=== PATIENT | female | born 1940 | race Caucasian/White ===

== ENCOUNTER 2020-06-16 14:21 | Outpatient (REF) | payer MEDICARE, OTHER, SELFPAY ==
--- NOTE | 2020-06-16 14:37 | XR_ITS ---
EXAMINATION: RIGHT HAND AND WRIST X-RAY CLINICAL INFORMATION: Pain COMPARISON: None TECHNIQUE: 3 views of the right hand and wrist. FINDINGS: The bones are osteopenic. No fracture or dislocation is seen. There is severe arthritis at the IP joints with joint space narrowing and osteophyte formation and periarticular soft tissue swelling. There are periarticular soft tissue calcifications adjacent to the DIP joint of the third finger. There is severe arthritis at the first LONG TERM trapezoid trapezium scaphoid joints with joint space narrowing and osteophyte formation. There is degenerative soft tissue calcification in the triangular fibrocartilage complex region. There is soft tissue swelling over the dorsal wrist. There is slight dorsal angulation of the distal ulnar and distal radial shaft. IMPRESSION: Severe arthritis. Osteopenia.
== END 2020-06-16 14:22 | disposition home or self-care (01) ==
LOC: HO.XRAY 14:21
PROVIDERS: PCP Internal Medicine; Visit Provider Internal Medicine
DX: M25.539 Pain in unspecified wrist (principal)
CPT/HCPCS: 73110; 73130

== ENCOUNTER → 2020-06-27 13:37 | Outpatient (BNVA) | payer MEDICARE, SELFPAY | PROVIDERS: PCP Internal Medicine; Referring Provider Internal Medicine; Visit Provider Internal Medicine | DX: I48.20 Chronic atrial fibrillation, unspecified (principal); Z51.81 Encounter for therapeutic drug level monitoring; Z79.01 Long term (current) use of anticoagulants | CPT/HCPCS: 85610 ==

== ENCOUNTER 2020-07-15 14:24 | Outpatient (REF) | payer MEDICARE, OTHER, SELFPAY ==
[2020-07-15 15:13] LABS: MANUAL DIFF FLAG NO
[2020-07-15 15:19] LABS: Basophils Percent Auto 0.5 % (0-2); Eosinophils Absolute Auto 0.2 X10*3/uL (0.0-0.4); Eosinophils Percent Auto 2.2 % (0-4); Hematocrit 41.7 % (37-47); Hemoglobin 13.1 g/dl (12.0-16.0); Imm Gran Abs Auto 0.03 X10*3/uL (0.00-0.03); Imm Gran Pct Auto 0.4 % (0.0-0.4); Lymphocytes Absolute Auto 1.7 X10*3/uL (1.2-4.9); Lymphocytes Percent Auto 22.4 % (20-40); Mean Corpuscular HGB Conc 31.4 g/dl (31.0-35.0); Mean Corpuscular Hemoglobin 28.1 pg (27.0-33.0); Mean Corpuscular Volume 89.5 fL (80-98); Mean Platelet Volume 9.6 fL (9.4-12.3); Monocytes Absolute Auto 0.8 X10*3/uL (0.1-1.2); Monocytes Percent Auto 11.1 % (2-11); Neutrophils Absolute Auto 4.8 X10*3/uL (2.0-8.3); Neutrophils Percent Auto 63.4 % (45-73); Platelet Count 289 X10*3/uL (160-400); Red Blood Count 4.66 X10*6/uL (4.20-5.50); White Blood Count 7.6 X10*3/uL (4.8-10.8)
[2020-07-15 15:47] LABS: B Type Natriuretic Peptide 295 pg/mL (<100)
[2020-07-15 15:50] LABS: Alanine Aminotransferase 24 U/L (0-31); Albumin Level 4.1 g/dL (3.5-5.0); Alkaline Phosphatase 132 U/L (39-117); Anion Gap 14 (12-20); Aspartate Amino Transferase 21 U/L (5-31); Bilirubin Total 0.4 mg/dL (0.0-1.0); Blood Urea Nitrogen 11 mg/dL (9-16); Calcium 8.8 mg/dL (8.4-10.2); Carbon Dioxide 26 mmol/L (22-29); Chloride 104 mmol/L (96-108); Estimated Glomerular Filt Rate > 60; Glucose Random 80 mg/dL (60-115); Potassium 4.4 mmol/l (3.3-5.1); Sodium 140 mmol/L (135-145); Total Protein 6.5 g/dL (6.5-8.0)
== END 2020-07-15 14:25 | disposition home or self-care (01) ==
LOC: HO.LAB 14:24
PROVIDERS: PCP Internal Medicine; Visit Provider Internal Medicine
DX: E66.9 Obesity, unspecified (principal); I11.0 Hypertensive heart disease with heart failure; I50.9 Heart failure, unspecified; G47.33 Obstructive sleep apnea (adult) (pediatric); K21.9 Gastro-esophageal reflux disease without esophagitis; E11.649 Type 2 diabetes mellitus with hypoglycemia without coma; I48.91 Unspecified atrial fibrillation; E78.00 Pure hypercholesterolemia, unspecified; J44.9 Chronic obstructive pulmonary disease, unspecified
CPT/HCPCS: 36415; 80053; 83880; 85025

== ENCOUNTER 2020-07-26 13:04 | Outpatient (REF) | payer MEDICARE, OTHER, SELFPAY ==
[2020-07-26 13:55] LABS: Prothrombin Time 64.4 SEC (10.8-13.0)
[2020-07-26 14:00] LABS: INTERNATIONAL NORM RATIO 5.3 (0.9-1.1)
== END 2020-07-26 13:05 | disposition home or self-care (01) ==
LOC: HO.LAB 13:04
PROVIDERS: PCP Internal Medicine; Referring Provider Internal Medicine; Visit Provider Internal Medicine
DX: Z79.01 Long term (current) use of anticoagulants (principal)
CPT/HCPCS: 36415; 85610; 99212

== ENCOUNTER → 2020-07-29 14:22 | Outpatient (BNVA) | payer MEDICARE, OTHER, SELFPAY | PROVIDERS: PCP Internal Medicine; Visit Provider Internal Medicine | DX: I48.20 Chronic atrial fibrillation, unspecified (principal); Z51.81 Encounter for therapeutic drug level monitoring; Z79.01 Long term (current) use of anticoagulants | CPT/HCPCS: 85610; 99211 ==

== ENCOUNTER 2020-08-09 13:18 | Outpatient (REF) | payer MEDICARE, OTHER, SELFPAY ==
[2020-08-09 14:27] LABS: Prothrombin Time 65.2 SEC (10.8-13.0)
[2020-08-09 14:29] LABS: INTERNATIONAL NORM RATIO 5.4 (0.9-1.1)
== END 2020-08-09 13:19 | disposition home or self-care (01) ==
LOC: HO.LAB 13:18
PROVIDERS: PCP Internal Medicine; Visit Provider Internal Medicine
DX: Z79.01 Long term (current) use of anticoagulants (principal)
CPT/HCPCS: 36415; 85610

== ENCOUNTER 2020-08-11 09:38 | Outpatient (REF) | payer MEDICARE, OTHER, SELFPAY ==
--- NOTE | 2020-08-11 09:41 | EMG_ITS ---
Bilateral median and ulnar motor and sensory studies were performed. Bilateral radial sensory studies were performed and paraspinal muscles were tested with a needle. IMPRESSION: 1. Severe right and [id number] left median neuropathy across carpal tunnel. 2. Underlying chronic axonal sensory motor peripheral neuropathy. MD MAGGI Sotomayor/NAVEEN / [id number]
== END 2020-08-11 09:39 | disposition home or self-care (01) ==
LOC: HO.NEURO 09:38
PROVIDERS: PCP Internal Medicine; Visit Provider Internal Medicine
DX: R20.0 Anesthesia of skin (principal)
CPT/HCPCS: 95860; 95886; 95911

== ENCOUNTER → 2020-08-16 13:27 | Outpatient (BNVA) | payer MEDICARE, OTHER, SELFPAY | PROVIDERS: PCP Internal Medicine; Visit Provider Internal Medicine | DX: I48.20 Chronic atrial fibrillation, unspecified (principal); Z51.81 Encounter for therapeutic drug level monitoring; Z79.01 Long term (current) use of anticoagulants | CPT/HCPCS: 85610; 99211 ==

== ENCOUNTER → 2020-08-24 13:31 | Outpatient (BNVA) | payer MEDICARE, OTHER, SELFPAY | PROVIDERS: PCP Internal Medicine; Visit Provider Internal Medicine | DX: I48.20 Chronic atrial fibrillation, unspecified (principal); Z51.81 Encounter for therapeutic drug level monitoring; Z79.01 Long term (current) use of anticoagulants | CPT/HCPCS: 85610; 99211 ==

== ENCOUNTER → 2020-09-05 14:05 | Outpatient (BNVA) | payer MEDICARE, OTHER, SELFPAY | PROVIDERS: PCP Internal Medicine; Visit Provider Internal Medicine | DX: I48.20 Chronic atrial fibrillation, unspecified (principal); Z51.81 Encounter for therapeutic drug level monitoring; Z79.01 Long term (current) use of anticoagulants | CPT/HCPCS: 85610; 99211 ==

== ENCOUNTER → 2020-09-12 13:12 | Outpatient (BNVA) | payer MEDICARE, OTHER, SELFPAY | PROVIDERS: PCP Internal Medicine; Visit Provider Internal Medicine | DX: I48.20 Chronic atrial fibrillation, unspecified (principal); Z51.81 Encounter for therapeutic drug level monitoring; Z79.01 Long term (current) use of anticoagulants | CPT/HCPCS: 85610; 99211 ==

== ENCOUNTER → 2020-09-23 13:06 | Outpatient (BNVA) | payer MEDICARE, OTHER, SELFPAY | PROVIDERS: PCP Internal Medicine; Visit Provider Internal Medicine | DX: I48.20 Chronic atrial fibrillation, unspecified (principal); Z51.81 Encounter for therapeutic drug level monitoring; Z79.01 Long term (current) use of anticoagulants | CPT/HCPCS: 85610; 99211 ==

== ENCOUNTER → 2020-09-29 13:33 | Outpatient (BNVA) | payer MEDICARE, OTHER, SELFPAY | PROVIDERS: PCP Internal Medicine; Visit Provider Internal Medicine Cardiovascular Disease | DX: I48.0 Paroxysmal atrial fibrillation (principal); I50.22 Chronic systolic (congestive) heart failure; I10 Essential (primary) hypertension | CPT/HCPCS: 93005; 99212 ==

== ENCOUNTER → 2020-10-04 13:42 | Outpatient (BNVA) | payer MEDICARE, OTHER, SELFPAY | PROVIDERS: Visit Provider Orthopaedic Surgery | DX: G56.02 Carpal tunnel syndrome, left upper limb (principal); G56.01 Carpal tunnel syndrome, right upper limb | CPT/HCPCS: 85610; 99202; 99211 ==

== ENCOUNTER → 2020-10-13 13:27 | Outpatient (BNVA) | payer MEDICARE, OTHER, SELFPAY | PROVIDERS: Visit Provider Internal Medicine | DX: I48.20 Chronic atrial fibrillation, unspecified (principal); Z51.81 Encounter for therapeutic drug level monitoring; Z79.01 Long term (current) use of anticoagulants | CPT/HCPCS: 85610; 99211 ==

== ENCOUNTER → 2020-10-27 13:28 | Outpatient (BNVA) | payer MEDICARE, OTHER, SELFPAY | PROVIDERS: PCP Internal Medicine; Visit Provider Internal Medicine | DX: I48.20 Chronic atrial fibrillation, unspecified (principal); Z51.81 Encounter for therapeutic drug level monitoring; Z79.01 Long term (current) use of anticoagulants | CPT/HCPCS: 85610; 99211 ==

== ENCOUNTER → 2020-11-10 13:15 | Outpatient (BNVA) | payer MEDICARE, OTHER, SELFPAY | PROVIDERS: PCP Internal Medicine; Visit Provider Internal Medicine | DX: I48.20 Chronic atrial fibrillation, unspecified (principal); Z51.81 Encounter for therapeutic drug level monitoring; Z79.01 Long term (current) use of anticoagulants | CPT/HCPCS: 85610; 99211 ==

== ENCOUNTER → 2020-11-24 13:29 | Outpatient (BNVA) | payer MEDICARE, OTHER, SELFPAY | PROVIDERS: PCP Internal Medicine; Visit Provider Internal Medicine | DX: I48.20 Chronic atrial fibrillation, unspecified (principal); Z51.81 Encounter for therapeutic drug level monitoring; Z79.01 Long term (current) use of anticoagulants | CPT/HCPCS: 85610; 99211 ==

== ENCOUNTER → 2020-12-08 13:34 | Outpatient (BNVA) | payer MEDICARE, OTHER, SELFPAY | PROVIDERS: PCP Internal Medicine; Visit Provider Internal Medicine | DX: I48.20 Chronic atrial fibrillation, unspecified (principal); Z79.01 Long term (current) use of anticoagulants; Z51.81 Encounter for therapeutic drug level monitoring | CPT/HCPCS: 85610; 99211 ==

== ENCOUNTER → 2020-12-16 13:35 | Outpatient (BNVA) | payer MEDICARE, OTHER, SELFPAY | PROVIDERS: PCP Internal Medicine; Visit Provider Internal Medicine | DX: I48.20 Chronic atrial fibrillation, unspecified (principal); Z79.01 Long term (current) use of anticoagulants; Z51.81 Encounter for therapeutic drug level monitoring | CPT/HCPCS: 85610; 99211 ==

== ENCOUNTER → 2020-12-30 13:07 | Outpatient (BNVA) | payer MEDICARE, OTHER, SELFPAY | PROVIDERS: PCP Internal Medicine; Visit Provider Internal Medicine | DX: I48.20 Chronic atrial fibrillation, unspecified (principal); Z79.01 Long term (current) use of anticoagulants; Z51.81 Encounter for therapeutic drug level monitoring | CPT/HCPCS: 85610; 99211 ==

== ENCOUNTER → 2021-01-13 13:23 | Outpatient (BNVA) | payer MEDICARE, OTHER, SELFPAY | PROVIDERS: PCP Internal Medicine; Visit Provider Internal Medicine | DX: I48.20 Chronic atrial fibrillation, unspecified (principal); Z79.01 Long term (current) use of anticoagulants; Z51.81 Encounter for therapeutic drug level monitoring | CPT/HCPCS: 85610; 99211 ==

== ENCOUNTER 2021-01-23 11:51 | Outpatient (REF) | payer MEDICARE, OTHER, SELFPAY ==
--- NOTE | ~2021-01-23 | MM_ITS ---
EXAMINATION: MM SCREENING DIGITAL BREAST TOMOSYNTHESIS, BILATERAL CLINICAL INFORMATION: Screening. Asymptomatic. Right lumpectomy for breast cancer, 2011. Due for yearly exam. COMPARISON: Mammography: 05/12/2019, 05/08/2018, 11/04/2017, 05/01/2017 TECHNIQUE: Digital breast tomosynthesis is performed in both the craniocaudal and mediolateral oblique views along with computer-aided detection (CAD). Synthesized 2D images are generated from the tomosynthesis. FINDINGS: There are scattered areas of fibroglandular density (ACR BI-RADS breast composition Category b). Right breast has stable post therapy changes with mild reduced breast size and scarring and surgical clips. Neither breast shows significant mass or architectural abnormality or developing density. There are bilateral vascular calcifications. Lobulated dermal lesion again noted lower left breast. No significant changes from prior studies. MM/MM tomosynthesis screening BI IMPRESSION: No mammographic evidence of malignancy. ASSESSMENT: BI-RADS 2: Benign RECOMMENDATION: Routine annual mammography screening. This patient's information was entered into a reminder system with a target due date for their next mammogram.
== END 2021-01-23 11:52 | disposition home or self-care (01) ==
LOC: HO.MAMMO 11:51
PROVIDERS: PCP Internal Medicine; Visit Provider Internal Medicine
DX: Z12.31 Encounter for screening mammogram for malignant neoplasm of breast (principal)
CPT/HCPCS: 77063; 77067

== ENCOUNTER → 2021-01-27 13:08 | Outpatient (BNVA) | payer MEDICARE, OTHER, SELFPAY | PROVIDERS: PCP Internal Medicine; Visit Provider Internal Medicine | DX: I48.20 Chronic atrial fibrillation, unspecified (principal); Z51.81 Encounter for therapeutic drug level monitoring; Z79.01 Long term (current) use of anticoagulants | CPT/HCPCS: 85610; 99211 ==

== ENCOUNTER 2021-02-01 13:31 | Outpatient (REF) | payer MEDICARE, OTHER, SELFPAY ==
--- NOTE | ~2021-02-01 | MM_ITS ---
EXAMINATION: BONE DENSITOMETRY CLINICAL INDICATION: Other specified disorders of bone density and structure. COMPARISON: Previous BD dated 07/16/2017 and baseline BD dated 07/23/2008. TECHNIQUE: Using a [employer] DXA System (software version: 13.1) manufactured by [employer], dual-energy x-ray absorptiometry was performed of the lumbar spine and left hip. The images are of good technical quality. Summary results are attached. FINDINGS: AP SPINE L2-L3 (excluding L1 and L4): The data of L1-L4 has been changed to exclude the L1 and L4 vertebral bodies, because degenerative changes at these levels may cause overestimation of lumbar spine density. There is also levocurvature lumbar spine which may cause overestimation of the lumbar bone mineral density. Current: BMD 0.828 g/cm2, Z-score -2.4, T-score -3.1, osteoporosis, 15.3% decrease from previous, 25.1% decrease from baseline (<5% change is not significant). Prior: BMD 0.977 g/cm2. Baseline: BMD 1.105 g/cm2. LEFT FEMUR, NECK: Current: BMD 0.905 g/cm2, Z-score 0.4, T-score -1.0, normal. Prior: BMD 0.913 g/cm2. Baseline: BMD 1.052 g/cm2. LEFT FEMUR, TOTAL: Current: BMD 0.734 g/cm2, Z-score -1.1, T-score -2.2, osteopenia, 9.5% decrease from previous, 23.6% decrease from baseline (<5% change is not significant). Prior: BMD 0.811 g/cm2. Baseline: BMD 0.961 g/cm2. IDENTIFIED RISK FACTORS: Recurrent falls, height loss, history of fracture (adult). Early menopause, secondary osteoporosis, anticonvulsants, hysterectomy. HISTORY OF FRACTURE: Femur/hip. MEDICATIONS: Multivitamin. MM/XR DEXA axial skeleton IMPRESSION: 1. DIAGNOSIS: Osteoporosis based on the lowest T-score value of -3.1 in the lumbar spine applying World Health Organization criteria. 2. 10-YEAR FRACTURE RISK PREDICTION, FRAX: Major osteoporotic fracture (clinical spine, forearm, hip or shoulder) 14.4%. Hip fracture 2.1%. 3. Treatment Recommendations: NOF guidelines recommend consideration for treatment in postmenopausal women and men age 50 and older presenting with the following: -A hip or vertebral (clinical or morphometric) fracture. -T-score less than or equal to -2.5 at the femoral neck or spine after appropriate evaluation to exclude secondary causes. -Low bone mass at the hip or spine and a 10-year fracture probability by FRAX of greater than or equal to 3% for hip fracture or greater than or equal to 20% for major osteoporotic fracture based on the [place] adapted WHO algorithm. 4. Other Recommendations: All treatment decisions require clinical judgment and consideration of individual patient factors, including patient preferences, comorbidities, previous drug use, risk factors not captured in the FRAX model (e.g. frailty, falls, vitamin D deficiency, increased bone turnover, interval significant decline in bone density) and possible under or overestimation of fracture risk by FRAX. Additional medical evaluation for secondary cause of low bone mineral density may be appropriate. FUTURE SCAN RECOMMENDATION: People with diagnosed cases of osteoporosis or at high risk for fracture should have regular bone mineral density tests. For patients eligible for Medicare, routine testing is allowed once every 2 years. The testing frequency can be increased to one year for patients who have rapidly progressing disease, those who are receiving or discontinuing medical therapy to restore bone mass, or have additional risk factors.
== END 2021-02-01 13:32 | disposition home or self-care (01) ==
LOC: HO.MAMMO 13:31
PROVIDERS: Visit Provider Internal Medicine
DX: Z13.820 Encounter for screening for osteoporosis (principal); M85.89 Other specified disorders of bone density and structure, multiple sites; M81.0 Age-related osteoporosis without current pathological fracture; Z79.899 Other long term (current) drug therapy; Z87.81 Personal history of (healed) traumatic fracture
CPT/HCPCS: 77080

== ENCOUNTER 2021-02-17 13:21 | Outpatient (REF) | payer MEDICARE, OTHER, SELFPAY ==
[2021-02-17 16:18] LABS: MANUAL DIFF FLAG NO
[2021-02-17 16:37] LABS: Basophils Percent Auto 0.6 % (0-2); Eosinophils Absolute Auto 0.2 X10*3/uL (0.0-0.4); Eosinophils Percent Auto 3.1 % (0-4); Hematocrit 41.3 % (37-47); Hemoglobin 12.6 g/dl (12.0-16.0); Imm Gran Abs Auto 0.01 X10*3/uL (0.00-0.03); Imm Gran Pct Auto 0.1 % (0.0-0.4); Lymphocytes Absolute Auto 1.3 X10*3/uL (1.2-4.9); Lymphocytes Percent Auto 17.5 % (20-40); Mean Corpuscular HGB Conc 30.5 g/dl (31.0-35.0); Mean Corpuscular Volume 88.4 fL (80-98); Mean Platelet Volume 9.6 fL (9.4-12.3); Monocytes Absolute Auto 0.8 X10*3/uL (0.1-1.2); Monocytes Percent Auto 11.7 % (2-11); Neutrophils Absolute Auto 4.8 X10*3/uL (2.0-8.3); Platelet Count 283 X10*3/uL (160-400); Red Blood Count 4.67 X10*6/uL (4.20-5.50); Red Cell Distribution Width 16.7 % (11.0-16.0); White Blood Count 7.2 X10*3/uL (4.8-10.8)
[2021-02-17 16:38] LABS: Estimated Average Glucose 134 mg/dL; Hemoglobin A1c % 6.3 %
[2021-02-17 17:06] LABS: Alanine Aminotransferase 12 U/L (0-31); Albumin Level 3.9 g/dL (3.5-5.0); Alkaline Phosphatase 139 U/L (39-117); Anion Gap 12 (12-20); Aspartate Amino Transferase 13 U/L (5-31); Bilirubin Total 0.5 mg/dL (0.0-1.0); Blood Urea Nitrogen 13 mg/dL (9-16); Carbon Dioxide 32 mmol/L (22-29); Chloride 102 mmol/L (96-108); Cholesterol 138 mg/dL; Estimated Glomerular Filt Rate > 60; Glucose Random 100 mg/dL (60-115); HDL Cholesterol 47 mg/dL; LDL Cholesterol Calculated 77 mg/dl; Potassium 4.7 mmol/L (3.3-5.1); Sodium 141 mmol/L (135-145); Total Protein 6.2 g/dL (6.5-8.0); Triglycerides 72 mg/dL
[2021-02-17 17:11] LABS: B Type Natriuretic Peptide 292 pg/mL (<100)
[2021-02-17 17:31] LABS: Thyroid Stimulating Hormone 0.94 uIU/mL (0.32-4.0); Vitamin D 25-OH Total 31.6 ng/mL (>30)
[2021-02-17 17:40] LABS: Vitamin B12 594 pg/mL (200-900)
[2021-02-17 18:19] LABS: Creatinine Urine 76.23 mg/dL; Microalbum/Creatinine Ratio Ur 22.3 ug/mg cr
== END 2021-02-17 13:22 | disposition home or self-care (01) ==
LOC: HO.LAB 13:21
PROVIDERS: Absent Provider Internal Medicine; PCP Internal Medicine; Visit Provider Internal Medicine
DX: I48.0 Paroxysmal atrial fibrillation (principal); I11.0 Hypertensive heart disease with heart failure; I50.22 Chronic systolic (congestive) heart failure; E78.00 Pure hypercholesterolemia, unspecified; E11.65 Type 2 diabetes mellitus with hyperglycemia; Z51.81 Encounter for therapeutic drug level monitoring; Z79.01 Long term (current) use of anticoagulants
CPT/HCPCS: 36415; 80053; 80061; 82043; 82306; 82607; 82746; 83036; 83880; 84439; 84443; 85025; 85610; 99211

== ENCOUNTER → 2021-02-20 14:29 | Outpatient (BNVA) | payer MEDICARE, OTHER, SELFPAY | PROVIDERS: PCP Internal Medicine; Referring Provider Internal Medicine; Visit Provider Internal Medicine Cardiovascular Disease | DX: Z01.810 Encounter for preprocedural cardiovascular examination (principal); I50.22 Chronic systolic (congestive) heart failure; I48.0 Paroxysmal atrial fibrillation | CPT/HCPCS: 93005; 99212 ==

== ENCOUNTER → 2021-03-03 13:01 | Outpatient (BNVA) | payer MEDICARE, OTHER, SELFPAY | PROVIDERS: PCP Internal Medicine; Visit Provider Internal Medicine | DX: I48.20 Chronic atrial fibrillation, unspecified (principal); Z51.81 Encounter for therapeutic drug level monitoring; Z79.01 Long term (current) use of anticoagulants | CPT/HCPCS: 85610; 99211 ==

== ENCOUNTER → 2021-03-06 08:48 | Outpatient (BNVA) | payer MEDICARE, OTHER, SELFPAY | PROVIDERS: PCP Internal Medicine; Visit Provider Internal Medicine ==

== ENCOUNTER → 2021-03-14 11:50 | Outpatient (BNVA) | payer MEDICARE, OTHER, SELFPAY | PROVIDERS: PCP Internal Medicine; Visit Provider Internal Medicine | DX: I48.20 Chronic atrial fibrillation, unspecified (principal); Z51.81 Encounter for therapeutic drug level monitoring; Z79.01 Long term (current) use of anticoagulants | CPT/HCPCS: Q3014 ==

== ENCOUNTER → 2021-03-20 09:19 | Outpatient (BNVA) | payer MEDICARE, OTHER, SELFPAY | PROVIDERS: PCP Internal Medicine; Visit Provider Internal Medicine ==

== ENCOUNTER → 2021-03-27 11:26 | Outpatient (BNVA) | payer MEDICARE, OTHER, SELFPAY | PROVIDERS: PCP Internal Medicine; Visit Provider Internal Medicine | DX: I48.20 Chronic atrial fibrillation, unspecified (principal); Z51.81 Encounter for therapeutic drug level monitoring; Z79.01 Long term (current) use of anticoagulants | CPT/HCPCS: 99211 ==

== ENCOUNTER → 2021-04-10 13:27 | Outpatient (BNVA) | payer MEDICARE, OTHER, SELFPAY | PROVIDERS: PCP Internal Medicine; Visit Provider Internal Medicine | DX: I48.20 Chronic atrial fibrillation, unspecified (principal); Z51.81 Encounter for therapeutic drug level monitoring; Z79.01 Long term (current) use of anticoagulants | CPT/HCPCS: 85610; 99211 ==

== ENCOUNTER → 2021-05-26 14:53 | Outpatient (BNVA) | payer MEDICARE, OTHER, SELFPAY | PROVIDERS: PCP Internal Medicine; Visit Provider Internal Medicine | DX: I48.20 Chronic atrial fibrillation, unspecified (principal) | CPT/HCPCS: Q3014 ==

== ENCOUNTER → 2021-06-02 16:33 | Outpatient (BNVA) | payer MEDICARE, OTHER, SELFPAY | PROVIDERS: PCP Internal Medicine; Visit Provider Internal Medicine ==

== ENCOUNTER → 2021-06-09 15:14 | Outpatient (BNVA) | payer MEDICARE, OTHER, SELFPAY | PROVIDERS: PCP Internal Medicine; Visit Provider Internal Medicine ==

== ENCOUNTER → 2021-06-16 11:54 | Outpatient (BNVA) | payer MEDICARE, OTHER, SELFPAY | PROVIDERS: PCP Internal Medicine; Visit Provider Internal Medicine | DX: I48.20 Chronic atrial fibrillation, unspecified (principal) | CPT/HCPCS: Q3014 ==

== ENCOUNTER → 2021-06-23 16:02 | Outpatient (BNVA) | payer MEDICARE, OTHER, SELFPAY | PROVIDERS: PCP Internal Medicine; Visit Provider Internal Medicine ==

== ENCOUNTER → 2021-06-28 13:31 | Outpatient (BNVA) | payer MEDICARE, OTHER, SELFPAY | PROVIDERS: PCP Internal Medicine; Visit Provider Internal Medicine | DX: I48.20 Chronic atrial fibrillation, unspecified (principal); Z51.81 Encounter for therapeutic drug level monitoring; Z79.01 Long term (current) use of anticoagulants | CPT/HCPCS: 85610; 99211 ==

== ENCOUNTER → 2021-07-05 13:59 | Outpatient (BNVA) | payer MEDICARE, OTHER, SELFPAY | PROVIDERS: PCP Internal Medicine; Visit Provider Internal Medicine | DX: I48.20 Chronic atrial fibrillation, unspecified (principal); Z51.81 Encounter for therapeutic drug level monitoring; Z79.01 Long term (current) use of anticoagulants | CPT/HCPCS: 85610; 99211 ==

== ENCOUNTER → 2021-07-13 11:44 | Outpatient (BNVA) | payer MEDICARE, OTHER, SELFPAY | PROVIDERS: PCP Internal Medicine; Visit Provider Internal Medicine | DX: I48.20 Chronic atrial fibrillation, unspecified (principal); Z51.81 Encounter for therapeutic drug level monitoring; Z79.01 Long term (current) use of anticoagulants | CPT/HCPCS: 85610; 99211 ==

== ENCOUNTER → 2021-07-20 11:02 | Outpatient (BNVA) | payer MEDICARE, OTHER, SELFPAY | PROVIDERS: PCP Internal Medicine; Visit Provider Internal Medicine | DX: I48.20 Chronic atrial fibrillation, unspecified (principal); Z79.01 Long term (current) use of anticoagulants; Z51.81 Encounter for therapeutic drug level monitoring | CPT/HCPCS: 85610; 99211 ==

== ENCOUNTER 2021-08-31 16:49 | Outpatient (REF) | payer MEDICARE, OTHER, SELFPAY ==
[2021-08-31 17:48] LABS: INTERNATIONAL NORM RATIO 4.7 (0.9-1.1)
== END 2021-08-31 16:50 | disposition home or self-care (01) ==
LOC: HO.LAB 16:49
PROVIDERS: PCP Internal Medicine; Visit Provider Nurse Practitioner Family
DX: I48.91 Unspecified atrial fibrillation (principal)
CPT/HCPCS: 36415; 85610

== ENCOUNTER → 2021-09-04 11:13 | Outpatient (BNVA) | payer MEDICARE, OTHER, SELFPAY | PROVIDERS: PCP Internal Medicine; Visit Provider Internal Medicine | DX: I48.20 Chronic atrial fibrillation, unspecified (principal); Z51.81 Encounter for therapeutic drug level monitoring; Z79.01 Long term (current) use of anticoagulants | CPT/HCPCS: 85610; 99211 ==

== ENCOUNTER 2021-09-14 11:05 | Outpatient (REF) | payer MEDICARE, OTHER, SELFPAY ==
[2021-09-14 15:15] LABS: Anion Gap 12 (12-20); Blood Urea Nitrogen 17 mg/dL (9-16); Calcium 9.7 mg/dL (8.4-10.2); Carbon Dioxide 31 mmol/L (22-29); Chloride 102 mmol/L (96-108); Estimated Glomerular Filt Rate > 60; Glucose Random 79 mg/dL (60-115); Potassium 4.4 mmol/L (3.3-5.1); Sodium 141 mmol/L (135-145)
[2021-09-14 15:51] LABS: Digoxin 0.3 ng/mL (0.8-2.0)
== END 2021-09-14 11:06 | disposition home or self-care (01) ==
LOC: HO.LAB 11:05
PROVIDERS: Absent Provider Internal Medicine Cardiovascular Disease; PCP Internal Medicine; Visit Provider Internal Medicine
DX: I48.20 Chronic atrial fibrillation, unspecified (principal); Z51.81 Encounter for therapeutic drug level monitoring; Z79.01 Long term (current) use of anticoagulants; I50.22 Chronic systolic (congestive) heart failure; Z95.0 Presence of cardiac pacemaker; Z79.899 Other long term (current) drug therapy
CPT/HCPCS: 36415; 80048; 80162; 85610; 99211; 99212

== ENCOUNTER → 2021-10-05 11:42 | Outpatient (BNVA) | payer MEDICARE, OTHER, SELFPAY | PROVIDERS: PCP Internal Medicine; Visit Provider Internal Medicine | DX: I48.20 Chronic atrial fibrillation, unspecified (principal); Z51.81 Encounter for therapeutic drug level monitoring; Z79.01 Long term (current) use of anticoagulants | CPT/HCPCS: 85610 ==

== ENCOUNTER → 2021-10-26 13:08 | Outpatient (BNVA) | payer MEDICARE, OTHER, SELFPAY | PROVIDERS: PCP Internal Medicine; Visit Provider Internal Medicine | DX: I48.20 Chronic atrial fibrillation, unspecified (principal); Z51.81 Encounter for therapeutic drug level monitoring; Z79.01 Long term (current) use of anticoagulants | CPT/HCPCS: 85610; 99211 ==

== ENCOUNTER → 2021-11-28 13:41 | Outpatient (BNVA) | payer MEDICARE, OTHER, SELFPAY | PROVIDERS: PCP Internal Medicine; Visit Provider Internal Medicine | DX: I48.20 Chronic atrial fibrillation, unspecified (principal); Z51.81 Encounter for therapeutic drug level monitoring; Z79.01 Long term (current) use of anticoagulants | CPT/HCPCS: 85610; 99211 ==

== ENCOUNTER 2021-12-26 13:00 | Outpatient (REF) | payer MEDICARE, OTHER, SELFPAY ==
[2021-12-26 13:40] LABS: MANUAL DIFF FLAG NO
[2021-12-26 14:00] LABS: Basophils Percent Auto 0.6 % (0-2); Eosinophils Absolute Auto 0.1 X10*3/uL (0.0-0.4); Eosinophils Percent Auto 2.2 % (0-4); Hematocrit 37.2 % (37.0-47.0); Hemoglobin 10.3 g/dl (12.0-16.0); Imm Gran Abs Auto 0.03 X10*3/uL (0.00-0.03); Imm Gran Pct Auto 0.5 % (0.0-0.4); Lymphocytes Absolute Auto 0.8 X10*3/uL (1.2-4.9); Lymphocytes Percent Auto 12.7 % (20-40); Mean Corpuscular HGB Conc 27.7 g/dl (31.0-35.0); Mean Corpuscular Hemoglobin 21.9 pg (27.0-33.0); Mean Platelet Volume 8.8 fL (9.4-12.3); Monocytes Absolute Auto 0.8 X10*3/uL (0.1-1.2); Monocytes Percent Auto 12.5 % (2-11); Neutrophils Absolute Auto 4.6 x10*3/uL (2.0-8.3); Neutrophils Percent Auto 71.5 % (45-73); Platelet Count 303 X10*3/uL (160-400); Red Blood Count 4.71 X10*6/uL (4.20-5.50); Red Cell Distribution Width 20.8 % (11.0-16.0); White Blood Count 6.5 X10*3/uL (4.8-10.8)
[2021-12-26 14:22] LABS: B Type Natriuretic Peptide 622 pg/mL (<100)
[2021-12-26 14:32] LABS: Alanine Aminotransferase 13 U/L (0-31); Albumin Level 3.6 g/dL (3.5-5.0); Alkaline Phosphatase 97 U/L (39-117); Anion Gap 10 (12-20); Aspartate Amino Transferase 16 U/L (5-31); Bilirubin Total 0.5 mg/dL (0.0-1.0); Blood Urea Nitrogen 14 mg/dL (9-16); Calcium 9.2 mg/dL (8.4-10.2); Carbon Dioxide 33 mmol/L (22-29); Chloride 101 mmol/L (96-108); Cholesterol 114 mg/dL; Estimated Glomerular Filt Rate > 60; Glucose Random 110 mg/dL (60-115); HDL Cholesterol 42 mg/dL; LDL Cholesterol Calculated 65 mg/dl; Potassium 4.9 mmol/L (3.3-5.1); Sodium 139 mmol/L (135-145); Triglycerides 39 mg/dL
[2021-12-26 14:37] LABS: Free T4 (Free Thyroxine) 0.81 ng/dL (0.71-1.85); Thyroid Stimulating Hormone 0.96 uIU/mL (0.32-4.0); Vitamin D 25-OH Total 34.3 ng/mL (>30)
[2021-12-26 14:46] LABS: Creatinine Urine 80.29 mg/dL
[2021-12-26 14:49] LABS: Creatinine Urine 81.33 mg/dL; Microalbum/Creatinine Ratio Ur 119.2 ug/mg cr
[2021-12-26 14:52] LABS: Folate 18.6 ng/mL (> or = 4.0); Vitamin B12 527 pg/mL (200-900)
== END 2021-12-26 13:01 | disposition home or self-care (01) ==
LOC: HO.LAB 13:00
PROVIDERS: PCP Internal Medicine; Visit Provider Internal Medicine
DX: I48.20 Chronic atrial fibrillation, unspecified (principal); E11.65 Type 2 diabetes mellitus with hyperglycemia; E78.00 Pure hypercholesterolemia, unspecified; Z51.81 Encounter for therapeutic drug level monitoring; Z79.01 Long term (current) use of anticoagulants
CPT/HCPCS: 36415; 80053; 80061; 82043; 82306; 82607; 82746; 83880; 84439; 84443; 85025; 85610; 99211

== ENCOUNTER → 2022-01-23 13:06 | Outpatient (BNVA) | payer MEDICARE, OTHER, SELFPAY | PROVIDERS: PCP Internal Medicine; Visit Provider Internal Medicine | DX: I48.20 Chronic atrial fibrillation, unspecified (principal); Z79.01 Long term (current) use of anticoagulants; Z51.81 Encounter for therapeutic drug level monitoring | CPT/HCPCS: 85610; 99211 ==

== ENCOUNTER 2022-02-01 14:24 | Outpatient (REF) | payer MEDICARE, OTHER, SELFPAY ==
--- NOTE | ~2022-02-01 | MM_ITS ---
EXAMINATION: MM SCREENING DIGITAL BREAST TOMOSYNTHESIS, BILATERAL CLINICAL INFORMATION: Screening. Asymptomatic. Status post right breast lumpectomy. COMPARISON: Mammography: January 23, 2021 and studies dating back to April 20, 2013 TECHNIQUE: Digital breast tomosynthesis is performed in both the craniocaudal and mediolateral oblique views along with computer-aided detection (CAD). Synthesized 2D images are generated from the tomosynthesis. FINDINGS: There are scattered areas of fibroglandular density (ACR BI-RADS breast composition Category b). There is a stable parenchymal pattern to both breasts. Postsurgical change is noted within the right breast from previous lumpectomy. No new abnormal dominant mass or suspicious grouping of microcalcifications identified. MM/MM tomosynthesis screening BI IMPRESSION: There are no significant changes from prior study. ASSESSMENT: BI-RADS 2: Benign RECOMMENDATION: Routine annual mammography screening. This patient's information was entered into a reminder system with a target due date for their next mammogram.
== END 2022-02-01 14:25 | disposition home or self-care (01) ==
LOC: HO.MAMMO 14:24
PROVIDERS: PCP Internal Medicine; Visit Provider Internal Medicine
DX: Z12.31 Encounter for screening mammogram for malignant neoplasm of breast (principal)
CPT/HCPCS: 77063; 77067

== ENCOUNTER → 2022-02-26 15:58 | Outpatient (BNVA) | payer MEDICARE, OTHER, SELFPAY | PROVIDERS: PCP Internal Medicine; Visit Provider Internal Medicine | DX: I48.20 Chronic atrial fibrillation, unspecified (principal); Z79.01 Long term (current) use of anticoagulants; Z51.81 Encounter for therapeutic drug level monitoring | CPT/HCPCS: Q3014 ==

== ENCOUNTER → 2022-03-06 14:44 | Outpatient (BNVA) | payer MEDICARE, OTHER, SELFPAY | PROVIDERS: PCP Internal Medicine; Visit Provider Internal Medicine | DX: I48.20 Chronic atrial fibrillation, unspecified (principal); Z79.01 Long term (current) use of anticoagulants; Z51.81 Encounter for therapeutic drug level monitoring | CPT/HCPCS: Q3014 ==

== ENCOUNTER → 2022-03-13 13:41 | Outpatient (BNVA) | payer MEDICARE, OTHER, SELFPAY | PROVIDERS: PCP Internal Medicine; Visit Provider Internal Medicine | DX: I48.0 Paroxysmal atrial fibrillation (principal); I48.20 Chronic atrial fibrillation, unspecified; I50.22 Chronic systolic (congestive) heart failure; Z51.81 Encounter for therapeutic drug level monitoring; Z79.01 Long term (current) use of anticoagulants; Z79.899 Other long term (current) drug therapy; Z99.81 Dependence on supplemental oxygen; Z45.018 Encounter for adjustment and management of other part of cardiac pacemaker | CPT/HCPCS: 85610; 93005; 99211; 99212 ==

== ENCOUNTER → 2022-03-20 13:14 | Outpatient (BNVA) | payer MEDICARE, OTHER, SELFPAY | PROVIDERS: PCP Internal Medicine; Visit Provider Internal Medicine | DX: I48.20 Chronic atrial fibrillation, unspecified (principal); Z51.81 Encounter for therapeutic drug level monitoring; Z79.01 Long term (current) use of anticoagulants | CPT/HCPCS: 85610; 99211 ==

== ENCOUNTER 2022-03-22 15:58 | Outpatient (REF) | payer MEDICARE, OTHER, SELFPAY ==
[2022-03-22 16:33] LABS: INTERNATIONAL NORM RATIO 2.2 (0.9-1.1); Prothrombin Time 25.9 SEC (10.0-13.1)
== END 2022-03-22 15:59 | disposition home or self-care (01) ==
LOC: HO.LAB 15:58
PROVIDERS: PCP Internal Medicine; Visit Provider Internal Medicine
DX: I48.0 Paroxysmal atrial fibrillation (principal); I50.22 Chronic systolic (congestive) heart failure; D64.9 Anemia, unspecified
CPT/HCPCS: 36415; 85610

== ENCOUNTER → 2022-04-03 13:07 | Outpatient (BNVA) | payer MEDICARE, OTHER, SELFPAY | PROVIDERS: PCP Internal Medicine; Visit Provider Internal Medicine | DX: I48.20 Chronic atrial fibrillation, unspecified (principal); Z79.01 Long term (current) use of anticoagulants; Z51.81 Encounter for therapeutic drug level monitoring | CPT/HCPCS: 85610; 99211 ==

== ENCOUNTER → 2022-04-20 13:32 | Outpatient (BNVA) | payer MEDICARE, OTHER, SELFPAY | PROVIDERS: PCP Internal Medicine; Visit Provider Internal Medicine | DX: I48.20 Chronic atrial fibrillation, unspecified (principal); Z79.01 Long term (current) use of anticoagulants; Z51.81 Encounter for therapeutic drug level monitoring | CPT/HCPCS: 85610; 99211 ==

== ENCOUNTER → 2022-05-04 13:34 | Outpatient (BNVA) | payer MEDICARE, OTHER, SELFPAY | PROVIDERS: PCP Internal Medicine; Visit Provider Internal Medicine | DX: I48.20 Chronic atrial fibrillation, unspecified (principal); Z79.01 Long term (current) use of anticoagulants; Z51.81 Encounter for therapeutic drug level monitoring | CPT/HCPCS: 85610; 99211 ==

== ENCOUNTER → 2022-05-18 13:18 | Outpatient (BNVA) | payer MEDICARE, OTHER, SELFPAY | PROVIDERS: PCP Internal Medicine; Visit Provider Internal Medicine | DX: I48.20 Chronic atrial fibrillation, unspecified (principal); Z79.01 Long term (current) use of anticoagulants; Z51.81 Encounter for therapeutic drug level monitoring | CPT/HCPCS: 85610; 99211 ==

== ENCOUNTER → 2022-06-01 13:25 | Outpatient (BNVA) | payer MEDICARE, OTHER, SELFPAY | PROVIDERS: PCP Internal Medicine; Visit Provider Internal Medicine | DX: I48.20 Chronic atrial fibrillation, unspecified (principal); Z79.01 Long term (current) use of anticoagulants; Z51.81 Encounter for therapeutic drug level monitoring | CPT/HCPCS: 85610; 99211 ==

== ENCOUNTER → 2022-06-15 14:11 | Outpatient (BNVA) | payer MEDICARE, OTHER, SELFPAY | PROVIDERS: PCP Internal Medicine; Visit Provider Internal Medicine | DX: I48.20 Chronic atrial fibrillation, unspecified (principal); Z79.01 Long term (current) use of anticoagulants; Z51.81 Encounter for therapeutic drug level monitoring | CPT/HCPCS: 85610; 99211 ==

== ENCOUNTER → 2022-06-29 13:39 | Outpatient (BNVA) | payer MEDICARE, OTHER, SELFPAY | PROVIDERS: PCP Internal Medicine; Visit Provider Internal Medicine | DX: I48.20 Chronic atrial fibrillation, unspecified (principal); Z79.01 Long term (current) use of anticoagulants; Z51.81 Encounter for therapeutic drug level monitoring | CPT/HCPCS: 85610; 99211 ==

== ENCOUNTER → 2022-07-12 14:23 | Outpatient (BNVA) | payer MEDICARE, OTHER, SELFPAY | PROVIDERS: PCP Internal Medicine; Visit Provider Internal Medicine | DX: I48.20 Chronic atrial fibrillation, unspecified (principal); Z79.01 Long term (current) use of anticoagulants; Z51.81 Encounter for therapeutic drug level monitoring | CPT/HCPCS: 85610; 99211 ==

== ENCOUNTER → 2022-07-31 13:13 | Outpatient (BNVA) | payer MEDICARE, OTHER, SELFPAY | PROVIDERS: PCP Internal Medicine; Visit Provider Internal Medicine | DX: I48.20 Chronic atrial fibrillation, unspecified (principal); Z79.01 Long term (current) use of anticoagulants; Z51.81 Encounter for therapeutic drug level monitoring | CPT/HCPCS: 85610; 99211 ==

== ENCOUNTER → 2022-08-22 13:27 | Outpatient (BNVA) | payer MEDICARE, OTHER, SELFPAY | PROVIDERS: PCP Internal Medicine; Visit Provider Internal Medicine | DX: I48.20 Chronic atrial fibrillation, unspecified (principal); Z79.01 Long term (current) use of anticoagulants; Z51.81 Encounter for therapeutic drug level monitoring | CPT/HCPCS: 85610; 99211 ==

== ENCOUNTER → 2022-08-27 14:13 | Outpatient (BNVA) | payer MEDICARE, OTHER, SELFPAY | PROVIDERS: PCP Internal Medicine; Visit Provider Internal Medicine | DX: I48.20 Chronic atrial fibrillation, unspecified (principal); Z79.01 Long term (current) use of anticoagulants; Z51.81 Encounter for therapeutic drug level monitoring | CPT/HCPCS: 85610; 99211 ==

== ENCOUNTER → 2022-08-31 11:13 | Outpatient (BNVA) | payer MEDICARE, OTHER, SELFPAY | PROVIDERS: PCP Internal Medicine; Visit Provider Internal Medicine | DX: I48.20 Chronic atrial fibrillation, unspecified (principal); Z79.01 Long term (current) use of anticoagulants; Z51.81 Encounter for therapeutic drug level monitoring | CPT/HCPCS: 85610; 99211 ==

== ENCOUNTER → 2022-09-04 13:09 | Outpatient (BNVA) | payer MEDICARE, OTHER, SELFPAY | PROVIDERS: PCP Internal Medicine; Visit Provider Internal Medicine | DX: I48.20 Chronic atrial fibrillation, unspecified (principal); Z51.81 Encounter for therapeutic drug level monitoring; Z79.01 Long term (current) use of anticoagulants | CPT/HCPCS: 85610; 99211 ==

== ENCOUNTER → 2022-09-11 14:31 | Outpatient (BNVA) | payer MEDICARE, OTHER, SELFPAY | PROVIDERS: PCP Internal Medicine; Visit Provider Internal Medicine | DX: I48.20 Chronic atrial fibrillation, unspecified (principal); Z79.01 Long term (current) use of anticoagulants; Z51.81 Encounter for therapeutic drug level monitoring | CPT/HCPCS: 85610; 99211 ==

== ENCOUNTER 2022-09-18 13:07 | Outpatient (REF) | payer MEDICARE, OTHER, SELFPAY ==
[2022-09-18 14:13] LABS: MANUAL DIFF FLAG NO
[2022-09-18 15:13] LABS: Basophils Absolute Auto 0.1 X10*3/uL (0.0-0.2); Basophils Percent Auto 0.7 % (0-2); Eosinophils Absolute Auto 0.2 X10*3/uL (0.0-0.4); Eosinophils Percent Auto 2.8 % (0-4); Hematocrit 43.9 % (37.0-47.0); Hemoglobin 13.9 g/dl (12.0-16.0); Imm Gran Abs Auto 0.04 X10*3/uL (0.00-0.03); Imm Gran Pct Auto 0.5 % (0.0-0.4); Lymphocytes Absolute Auto 1.5 X10*3/uL (1.2-4.9); Lymphocytes Percent Auto 20.4 % (20-40); Mean Corpuscular HGB Conc 31.7 g/dl (31.0-35.0); Mean Corpuscular Hemoglobin 29.4 pg (27.0-33.0); Mean Corpuscular Volume 92.8 fL (80.0-98.0); Mean Platelet Volume 10.1 fL (9.4-12.3); Monocytes Absolute Auto 0.7 X10*3/uL (0.1-1.2); Monocytes Percent Auto 9.1 % (2-11); Neutrophils Percent Auto 66.5 % (45-73); Platelet Count 298 X10*3/uL (160-400); Red Blood Count 4.73 X10*6/uL (4.20-5.50); Red Cell Distribution Width 15.9 % (11.0-16.0); Retic HGB Equivalent 32.8 pg (30.0-35.0); Reticulocyte Percent 1.3 % (0.5-1.8); Reticulocytes Absolute 0.063 X10*6/uL (0.026-0.095); White Blood Count 7.5 X10*3/uL (4.8-10.8)
[2022-09-18 15:44] LABS: B Type Natriuretic Peptide 169 pg/mL (<100)
[2022-09-18 16:07] LABS: B Type Natriuretic Peptide 174 pg/mL (<100)
[2022-09-18 16:20] LABS: Digoxin 0.6 ng/mL (0.8-2.0)
[2022-09-18 16:29] LABS: Alanine Aminotransferase 18 U/L (0-31); Alkaline Phosphatase 119 U/L (39-117); Anion Gap 12 (12-20); Aspartate Amino Transferase 19 U/L (5-31); Bilirubin Total 0.6 mg/dL (0.0-1.0); Blood Urea Nitrogen 18 mg/dL (9-16); Calcium 9.7 mg/dL (8.4-10.2); Carbon Dioxide 33 mmol/L (22-29); Chloride 100 mmol/L (96-108); Estimated Glomerular Filt Rate 60; Glucose Random 96 mg/dL (60-115); Iron 75 mcg/dL (30-160); Magnesium 2.1 mg/dL (1.6-2.6); Percent Iron Saturation 23 % (15-50); Phosphorus 4.4 mg/dL (2.7-4.5); Potassium 4.9 mmol/L (3.3-5.1); Sodium 140 mmol/L (135-145); Total Iron Binding Capacity 324 mcg/dL (228-428); Total Protein 6.6 g/dL (6.5-8.0); Unsaturated Iron Binding 249 ug/dL
[2022-09-18 16:46] LABS: Ferritin 56 ng/mL (10-250); Free T4 (Free Thyroxine) 0.97 ng/dL (0.71-1.85); Thyroid Stimulating Hormone 2.21 uIU/mL (0.32-4.0)
[2022-09-18 17:01] LABS: Folate 15.7 ng/mL (> or = 4.0); Vitamin B12 754 pg/mL (200-900)
== END 2022-09-18 13:08 | disposition home or self-care (01) ==
LOC: HO.LAB 13:07
PROVIDERS: PCP Internal Medicine; Referring Provider Internal Medicine; Visit Provider Internal Medicine Cardiovascular Disease
DX: I48.20 Chronic atrial fibrillation, unspecified (principal); I50.22 Chronic systolic (congestive) heart failure; D64.9 Anemia, unspecified; Z95.0 Presence of cardiac pacemaker; Z79.899 Other long term (current) drug therapy
CPT/HCPCS: 36415; 80053; 80162; 82607; 82728; 82746; 83540; 83735; 83880; 84100; 84439; 84443; 85025; 85045; 99212

== ENCOUNTER → 2022-09-27 11:26 | Outpatient (BNVA) | payer MEDICARE, OTHER, SELFPAY | PROVIDERS: PCP Internal Medicine; Visit Provider Internal Medicine | DX: I48.20 Chronic atrial fibrillation, unspecified (principal); Z79.01 Long term (current) use of anticoagulants; Z51.81 Encounter for therapeutic drug level monitoring | CPT/HCPCS: 85610; 99211 ==

== ENCOUNTER → 2022-10-24 13:01 | Outpatient (BNVA) | payer MEDICARE, OTHER, SELFPAY | PROVIDERS: PCP Internal Medicine; Visit Provider Internal Medicine | DX: I48.20 Chronic atrial fibrillation, unspecified (principal); Z51.81 Encounter for therapeutic drug level monitoring; Z79.01 Long term (current) use of anticoagulants | CPT/HCPCS: 85610; 99211 ==

== ENCOUNTER → 2022-11-21 13:03 | Outpatient (BNVA) | payer MEDICARE, OTHER, SELFPAY | PROVIDERS: PCP Internal Medicine; Visit Provider Internal Medicine | DX: I48.20 Chronic atrial fibrillation, unspecified (principal); Z79.01 Long term (current) use of anticoagulants; Z51.81 Encounter for therapeutic drug level monitoring | CPT/HCPCS: 85610; 99211 ==

== ENCOUNTER → 2022-12-19 12:55 | Outpatient (BNVA) | payer MEDICARE, OTHER, SELFPAY | PROVIDERS: PCP Internal Medicine; Visit Provider Internal Medicine | DX: I48.20 Chronic atrial fibrillation, unspecified (principal); Z51.81 Encounter for therapeutic drug level monitoring; Z79.01 Long term (current) use of anticoagulants | CPT/HCPCS: 85610; 99211 ==

== ENCOUNTER 2023-01-02 13:02 | Outpatient (REF) | payer MEDICARE, OTHER, SELFPAY ==
--- NOTE | ~2023-01-02 | XR_ITS ---
EXAMINATION: XR SHOULDER, LEFT CLINICAL INFORMATION: Effusion COMPARISON: None available. TECHNIQUE: AP external rotation, Grashey, scapular Y, and axillary views of the left shoulder. FINDINGS: There is loss of glenohumeral joint space with mild cephalic subluxation of humeral head in relation to glenoid. The AC joint is normal. There is moderate hypertrophic changes of the left AC joint. No acute fracture, dislocation, lytic or sclerotic process seen. There is moderate lateral humeral soft tissue thickening. XR/XR shoulder LT min 2V IMPRESSION: 1. Advanced degenerative changes of the glenohumeral joint with cephalic migration of humeral head likely chronic rotator cuff tear. 2. Moderate lateral humeral soft tissue swelling. RECOMMENDATION: Recommend MRI left shoulder for correlation if clinically indicated.
[2023-01-02 13:57] LABS: MANUAL DIFF FLAG NO
[2023-01-02 14:27] LABS: Basophils Absolute Auto 0.1 X10*3/uL (0.0-0.2); Basophils Percent Auto 0.7 % (0-2); Eosinophils Absolute Auto 0.2 X10*3/uL (0.0-0.4); Eosinophils Percent Auto 3.1 % (0-4); Hematocrit 44.2 % (37.0-47.0); Imm Gran Abs Auto 0.02 X10*3/uL (0.00-0.03); Imm Gran Pct Auto 0.3 % (0.0-0.4); Lymphocytes Absolute Auto 1.5 X10*3/uL (1.2-4.9); Lymphocytes Percent Auto 22.4 % (20-40); Mean Corpuscular HGB Conc 31.7 g/dl (31.0-35.0); Mean Corpuscular Hemoglobin 28.9 pg (27.0-33.0); Mean Corpuscular Volume 91.1 fL (80.0-98.0); Mean Platelet Volume 9.6 fL (9.4-12.3); Monocytes Absolute Auto 0.7 X10*3/uL (0.1-1.2); Monocytes Percent Auto 10.1 % (2-11); Neutrophils Absolute Auto 4.3 x10*3/uL (2.0-8.3); Neutrophils Percent Auto 63.4 % (45-73); Platelet Count 256 X10*3/uL (160-400); Red Blood Count 4.85 X10*6/uL (4.20-5.50); Red Cell Distribution Width 15.4 % (11.0-16.0); White Blood Count 6.8 X10*3/uL (4.8-10.8)
[2023-01-02 14:48] LABS: Creatinine Urine 152.17 mg/dL; Microalbum/Creatinine Ratio Ur 37.4 ug/mg cr
[2023-01-02 14:54] LABS: B Type Natriuretic Peptide 145 pg/mL (<100)
[2023-01-02 14:58] LABS: Alanine Aminotransferase 15 U/L (0-31); Albumin Level 4.2 g/dL (3.5-5.0); Alkaline Phosphatase 112 U/L (39-117); Anion Gap 14 (12-20); Aspartate Amino Transferase 17 U/L (5-31); Blood Urea Nitrogen 12 mg/dL (9-16); Calcium 9.7 mg/dL (8.4-10.2); Carbon Dioxide 30 mmol/L (22-29); Chloride 103 mmol/L (96-108); Cholesterol 158 mg/dL; Estimated Glomerular Filt Rate > 60; Glucose Random 94 mg/dL (60-115); HDL Cholesterol 48 mg/dL; LDL Cholesterol Calculated 98 mg/dl; Potassium 4.7 mmol/L (3.3-5.1); Sodium 142 mmol/L (135-145); Total Protein 6.6 g/dL (6.5-8.0); Triglycerides 61 mg/dL
[2023-01-02 15:27] LABS: Thyroid Stimulating Hormone 1.83 uIU/mL (0.32-4.0); Vitamin B12 851 pg/mL (200-900)
== END 2023-01-02 13:03 | disposition home or self-care (01) ==
LOC: HO.LAB 13:02
PROVIDERS: PCP Internal Medicine; Visit Provider Internal Medicine
DX: E11.65 Type 2 diabetes mellitus with hyperglycemia (principal); E78.00 Pure hypercholesterolemia, unspecified; M25.412 Effusion, left shoulder; I50.22 Chronic systolic (congestive) heart failure; M81.0 Age-related osteoporosis without current pathological fracture; S22.009A Unspecified fracture of unspecified thoracic vertebra, initial encounter for closed fracture; S92.919A Unspecified fracture of unspecified toe(s), initial encounter for closed fracture; X58.XXXA Exposure to other specified factors, initial encounter; Y93.9 Activity, unspecified; Y92.9 Unspecified place or not applicable; Y99.9 Unspecified external cause status
CPT/HCPCS: 36415; 73030; 80053; 80061; 82043; 82306; 82607; 82746; 83880; 84439; 84443; 85025; 85610; 99211

== ENCOUNTER → 2023-01-02 13:05 | Outpatient (BNVA) | payer MEDICARE, OTHER, SELFPAY | PROVIDERS: PCP Internal Medicine; Visit Provider Internal Medicine ==

== ENCOUNTER → 2023-01-16 13:41 | Outpatient (BNVA) | payer MEDICARE, OTHER, SELFPAY | PROVIDERS: PCP Internal Medicine; Visit Provider Internal Medicine | DX: I48.20 Chronic atrial fibrillation, unspecified (principal); Z79.01 Long term (current) use of anticoagulants; Z51.81 Encounter for therapeutic drug level monitoring | CPT/HCPCS: 85610; 99211 ==

== ENCOUNTER → 2023-01-30 13:04 | Outpatient (BNVA) | payer MEDICARE, OTHER, SELFPAY | PROVIDERS: PCP Internal Medicine; Visit Provider Internal Medicine | DX: I48.20 Chronic atrial fibrillation, unspecified (principal); Z79.01 Long term (current) use of anticoagulants; Z51.81 Encounter for therapeutic drug level monitoring | CPT/HCPCS: 85610; 99211 ==

== ENCOUNTER 2023-02-13 13:15 | Outpatient (REF) | payer MEDICARE, OTHER, SELFPAY ==
--- NOTE | ~2023-02-13 | MM_ITS ---
EXAMINATION: MM SCREENING DIGITAL BREAST TOMOSYNTHESIS, BILATERAL CLINICAL INFORMATION: Screening. Asymptomatic. Right DCIS status post lumpectomy 2011. COMPARISON: Mammography: 02/01/2022, 01/23/2021, 05/12/2019 TECHNIQUE: Digital breast tomosynthesis is performed in both the craniocaudal and mediolateral oblique views along with computer-aided detection (CAD). Synthesized 2D images are generated from the tomosynthesis. FINDINGS: There are scattered areas of fibroglandular density (ACR BI-RADS breast composition Category b). There are post therapy changes on the right with mild reduced breast size, minor scarring, and surgical clips in biopsy clip marker. Neither breast shows interval mass or architectural abnormality or developing density. There are dermal lesions overlying mid 6:30 left breast. Scattered bilateral vascular and some round and ductal secretory calcifications are present. There are no significant masses, abnormal calcifications, or other abnormalities. The axilla are unremarkable. MM/MM tomosynthesis screening BI IMPRESSION: No mammographic evidence of malignancy. ASSESSMENT: BI-RADS 2: Benign RECOMMENDATION: -Routine annual mammography screening. -Post therapy changes right breast. This patient's information was entered into a reminder system with a target due date for their next mammogram.
== END 2023-02-13 13:16 | disposition home or self-care (01) ==
LOC: HO.MAMMO 13:15
PROVIDERS: PCP Internal Medicine; Visit Provider Internal Medicine
DX: Z12.31 Encounter for screening mammogram for malignant neoplasm of breast (principal); I48.20 Chronic atrial fibrillation, unspecified; Z51.81 Encounter for therapeutic drug level monitoring; Z79.01 Long term (current) use of anticoagulants
CPT/HCPCS: 77063; 77067; 85610; 99211

== ENCOUNTER → 2023-03-19 14:00 | Outpatient (BNVA) | payer MEDICARE, OTHER, SELFPAY | PROVIDERS: PCP Internal Medicine; Visit Provider Internal Medicine ==

== ENCOUNTER → 2023-03-22 12:24 | Outpatient (BNVA) | payer MEDICARE, OTHER, SELFPAY | PROVIDERS: PCP Internal Medicine; Visit Provider Internal Medicine ==

== ENCOUNTER → 2023-03-25 09:52 | Outpatient (BNVA) | payer MEDICARE, OTHER, SELFPAY | PROVIDERS: PCP Internal Medicine; Visit Provider Internal Medicine ==

== ENCOUNTER → 2023-03-29 14:04 | Outpatient (BNVA) | payer MEDICARE, OTHER, SELFPAY | PROVIDERS: PCP Internal Medicine; Visit Provider Internal Medicine ==

== ENCOUNTER 2023-04-03 14:29 | Outpatient (AMB) | payer MEDICARE, OTHER, SELFPAY ==
--- NOTE | 2023-04-03 14:36 | A.OFFPC_ITS ---
Vital Signs 04/03/23 14:43 Height 5 ft 4 in Weight 96.162 kg BMI 36.4 BP 130/78 Blood Pressure Location Rt brachial Position Sitting Pulse 85 Pulse Source Pulse Oximeter Pulse Oximetry (%) 93 Intake Visit Reasons: s/p [facility] discharge Intake Note: [facility] [employer] Supervisor Required: No Accompanied by: Self / Same As Patient Allergies aspirin [Aspirin] Allergy (Severe, Verified 04/03/23 14:42) BLEED acetaminophen [From Vicodin] Allergy (Intermediate, Verified 04/03/23 14:42) Agitated hydrocodone [From Vicodin] Allergy (Intermediate, Verified 04/03/23 14:42) Agitated lisinopril [Lisinopril] Allergy (Mild, Verified 04/03/23 14:42) COUGH adhesive [ADHESIVE] Allergy (Unknown, Verified 04/03/23 14:42) RED,ITCHY fluticasone [Advair Diskus] Allergy (Unknown, Verified 04/03/23 14:42) UNKNOWN NSAIDS (Non-Steroidal Anti-Inflamma [NSAIDS (NON-STEROIDAL ANTI-INFLAMMA] Allergy (Unknown, Verified 04/03/23 14:42) HX BLEED , GI salmeterol [Advair Diskus] Allergy (Unknown, Verified 04/03/23 14:42) Unknown diphenhydramine [From Benadryl] Adverse Reaction (Mild, Verified 04/03/23 14:42) AGITATION ibuprofen [From Motrin] Adverse Reaction (Mild, Verified 04/03/23 14:42) RINGINGIN EAR zolpidem [From Ambien] Adverse Reaction (Mild, Verified 04/03/23 14:42) AGITATION Tobacco use date assessed: 10/04/22 Fall risk assessment: No Falls in past year Last assessed Fall Risk: 04/03/23 Dental Screening Dental Screen Date: 04/03/23 Did you have a dental visit in the last 12 months?: No Did you have a dental problem in the last 6 months where you did not have access to dental care?: No Was dental information given to patient?: Yes HPI HPI Comments History of Present Illness Details Female with history of COPD, GERD, type 2 diabetes, hypertension, paroxysmal atrial fibrillation anticoagulated with Coumadin presents to the office for hospital discharge follow-up. She was admitted to [facility] from 03/11-03/16 for management of UTI with sepsis and pansensitive E coli bacteremia. Patient had presented to the ED with tachycardia, leukocytosis, fever are with positive urinalysis. She was empirically treated with IV ceftriaxone and transition to oral Keflex upon urine culture final report showing E coli which was pansensitive. On arrival, she was found to be in AFib with RVR with supratherapeutic INR at 9.6 given oral vitamin K for reversal. She was continued on home doses of digoxin, diltiazem, metoprolol. Blood cultures did grow pansensitive E coli, urinary source. She was discharged home on oral Keflex for an additional 10 days of treatment to complete total of 14 days. Today she is reporting she is feeling much better. She reports her appetite is improved. She denies any fevers, chills, dysuria, hematuria, increased urinary frequency, urgency, nausea, vomiting, abdominal pain, or flank pain. 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 She is also reporting an intentional tremor of the right hand. She is right- hand dominant and is unsure if this also happens with the left hand. She states she notices this when holding a pen or when eating with utensil. She denies any abnormal gait, pill rolling, resting tremor, speech impairment. No known history of Parkinson's disease. [facility] Medical History Atrial fibrillation Bilateral carpal tunnel syndrome Congestive heart failure COPD (chronic obstructive pulmonary disease) Foramen ovale Fracture of lateral epicondyle of left humerus GERD (gastroesophageal reflux disease) History of breast cancer Hypercholesterolemia Hypertension Obesity (BMI 30-39.9) Obstructive sleep apnea Osteoarthritis Pacemaker Tubular adenoma of colon Type 2 diabetes mellitus with hyperglycemia Surgical History History of abdominal hysterectomy History of bilateral knee replacement History of cardiac cath History of tonsillectomy S/P repair of paraesophageal hernia Status post lumbar spine surgery for decompression of spinal cord Family History Father CVD (cardiovascular disease) CAD (coronary artery disease) Hypertension Mother CVD (cardiovascular disease) Hypertension CAD (coronary artery disease) Spinal stenosis Sister CAD (coronary artery disease) Afib Social History Household Members: Family Housing: Apartment Alcohol intake: never Patient Tobacco Use Status: Never used Tobacco e-Cigarette/Vaping Use: Never Used Second Hand Smoke Exposure: Yes service: No Current occupational status: retired Current occupation: right handed Cognitive needs: No Hearing needs: No Vision needs: Yes Questionnaire Thrive Questionnaire Date Thrive assessed: 02/01/22 YVON-7 AMB Questionnaire YVON-7 Date YVON - 7 assessed: 10/04/22 Source: Developed by Drs. Jorje Correia, Jeana Gaxiola, Pawel High and colleagues, with an educational katie from [employer]. Review of Systems Const All systems reviewed & are unremarkable except as noted in HPI and below Physical exam (Primary Care) Vital Signs: Last Vital Signs Pulse 85 04/03/23 14:43 BP 130/78 04/03/23 14:43 Pulse Ox 93 04/03/23 14:43 BMI result Body Mass Index 36.4 Tobacco/Smoking Status: Tobacco use Status Tobacco use date assessed 10/04/22 04/03/23 14:37 Patient Tobacco Use Status Never used Tobacco 04/03/23 14:37 e-Cigarette/Vaping Use Never Used 04/03/23 14:37 Thrive Assessment: Date of Thrive Assessment Date Thrive assessed 02/01/22 04/03/23 14:37 Const Other: Constitutional - Awake and Alert, No apparent distress Eyes - PERRLA, EOMI Cardiovascular - S1S2, RRR, No edema Respiratory - Normal lung expansion, Normal respiratory effort, No respiratory distress, CTA bilaterally Extremities - no calf tenderness bilaterally, no swelling Skin - Warm/Dry Neurological - Alert & oriented x3, no resting or intentional tremor observed, no pill rolling, speech normal, no shuffling gait Psychological - Appropriate affect Results Reviewed Results Reviewed: CBC, BMP, UA/UC, blood cultures, EKG Assessment and Plan Assessment & Plan (1) UTI (urinary tract infection): Code(s): N39.0 - Urinary tract infection, site not specified Plan: UTI with sepsis with urine culture positive for pansensitive ecoli. Treated effectively with cefriaxone and transitioned to keflex to complete 14 day course of antibiotic. Symptoms resolved. Sepsis and leukocytosis resolved. (2) E coli bacteremia: Code(s): R78.81 - Bacteremia; B96.20 - Unspecified Escherichia coli [E. coli] as the cause of diseases classified elsewhere Plan: Resolved. Completed 14 day course IV ceftriaxone/p.o. Keflex to treat pansensitive E coli bacteremia with urinary source. (3) Sepsis: Code(s): A41.9 - Sepsis, unspecified organism Plan: as above (4) Intention tremor: Code(s): G25.2 - Other specified forms of tremor Plan: Pt reported intentional tremor. 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 No other parkinsonian features. Will refer to neurology for further evaluation and management. Orders: Referrals Neurology Referral G25.2 - Other specified forms of tremor Coding Level of Care Code Est Pt Level 5 (49320) Diagnoses UTI (urinary tract infection) N39.0 E coli bacteremia R78.81; B96.20 Sepsis A41.9 Intention tremor G25.2 Time Spent (min) 45 Comment reviewed results, H&P, DS. Time also spent interviewing pt and documenting
[2023-04-03 14:43] VITALS: BP 130/78; PULSE 85; O2SAT 93; BMI 36.4
== END 2023-04-03 15:22 | disposition home or self-care (01) ==
PROVIDERS: PCP Internal Medicine; Visit Provider Physician Assistant
DX: N39.0 Urinary tract infection, site not specified (principal); B96.20 Unspecified Escherichia coli [E. coli] as the cause of diseases classified elsewhere; A41.9 Sepsis, unspecified organism; G25.2 Other specified forms of tremor
CPT/HCPCS: 99215

== ENCOUNTER → 2023-04-05 13:57 | Outpatient (BNVA) | payer MEDICARE, OTHER, SELFPAY | PROVIDERS: PCP Internal Medicine; Visit Provider Internal Medicine ==

== ENCOUNTER 2023-04-09 14:09 | Outpatient (AMB) | payer MEDICARE, OTHER, SELFPAY ==
[2023-04-09 14:12] VITALS: BP 136/70; PULSE 82; O2SAT 91; BMI 35.9
--- NOTE | 2023-04-09 14:12 | A.OFFPC_ITS ---
Vital Signs 04/09/23 14:12 Height 5 ft 4 in Weight 209 lb BMI 35.9 BP 136/70 Blood Pressure Location Lt brachial Position Sitting Pulse 82 Pulse Source Pulse Oximeter Pulse Oximetry (%) 91 L Oxygen Delivery Method Room Air Intake Visit Reasons: DM Allergies aspirin [Aspirin] Allergy (Severe, Verified 04/09/23 14:13) BLEED acetaminophen [From Vicodin] Allergy (Intermediate, Verified 04/09/23 14:13) Agitated hydrocodone [From Vicodin] Allergy (Intermediate, Verified 04/09/23 14:13) Agitated lisinopril [Lisinopril] Allergy (Mild, Verified 04/09/23 14:13) COUGH adhesive [ADHESIVE] Allergy (Unknown, Verified 04/09/23 14:13) RED,ITCHY fluticasone [Advair Diskus] Allergy (Unknown, Verified 04/09/23 14:13) UNKNOWN NSAIDS (Non-Steroidal Anti-Inflamma [NSAIDS (NON-STEROIDAL ANTI-INFLAMMA] Allergy (Unknown, Verified 04/09/23 14:13) HX BLEED , GI salmeterol [Advair Diskus] Allergy (Unknown, Verified 04/09/23 14:13) Unknown diphenhydramine [From Benadryl] Adverse Reaction (Mild, Verified 04/09/23 14:13) AGITATION ibuprofen [From Motrin] Adverse Reaction (Mild, Verified 04/09/23 14:13) RINGINGIN EAR zolpidem [From Ambien] Adverse Reaction (Mild, Verified 04/09/23 14:13) AGITATION Tobacco use date assessed: 10/04/22 Fall risk assessment: No Falls in past year Last assessed Fall Risk: 04/09/23 Dental Screening Dental Screen Date: 04/09/23 Did you have a dental visit in the last 12 months?: No Did you have a dental problem in the last 6 months where you did not have access to dental care?: No Was dental information given to patient?: No HPI DM HPI Details 82-year-old obese female with controlled diabetes mellitus hypertension hypercholesterolemia COPD congestive heart failure GERD atrial fibrillation depression history of T12 compression fracture coming in for follow-up last seen in December 2022 blood work was requested patient is up-to-date with mammogram and colonoscopy admitted 03/11/2023 for UTI with sepsis. She was admitted found to be in atrial fibrillation with rapid ventricular rate with supratherapeutic INR at 9.6 [facility] Medical History Atrial fibrillation Bilateral carpal tunnel syndrome Congestive heart failure COPD (chronic obstructive pulmonary disease) Foramen ovale Fracture of lateral epicondyle of left humerus GERD (gastroesophageal reflux disease) History of breast cancer Hypercholesterolemia Hypertension Obesity (BMI 30-39.9) Obstructive sleep apnea Osteoarthritis Pacemaker Tubular adenoma of colon Type 2 diabetes mellitus with hyperglycemia Surgical History History of abdominal hysterectomy History of bilateral knee replacement History of cardiac cath History of tonsillectomy S/P repair of paraesophageal hernia Status post lumbar spine surgery for decompression of spinal cord Family History (Updated 04/09/23 @ 14:13 by Yulissa Rosa [employer]) Father CVD (cardiovascular disease) CAD (coronary artery disease) Hypertension Mother CVD (cardiovascular disease) Hypertension CAD (coronary artery disease) Spinal stenosis Sister CAD (coronary artery disease) Afib Social History Household Members: Family Housing: Apartment Alcohol intake: never Patient Tobacco Use Status: Never used Tobacco e-Cigarette/Vaping Use: Never Used Second Hand Smoke Exposure: Yes service: No Current occupational status: retired Current occupation: right handed Cognitive needs: No Hearing needs: No Vision needs: Yes Questionnaire PHQ-9 Over the last 2 weeks, how often have you been bothered by any of the following problems? 1. Little interest or pleasure in doing things: more than half the days 2. Feeling down, depressed, or hopeless: more than half the days 3. Trouble falling or staying asleep, or sleeping too much: more than half the days 4. Feeling tired or having little energy: more than half the days 5. Poor appetite or overeating: nearly every day 6. Feeling bad about yourself - or that you are a failure or have let yourself or your family down: not at all 7. Trouble concentrating on things, such as reading the newspaper or watching television: several days 8. Moving or speaking so slowly that other people could have noticed. Or the opposite - being so fidgety or restless that you have been moving around a lot more than usual: several days 9. Thoughts that you would be better off or of hurting yourself in some way: not at all Total score: 13 Depression Screening Interpretation: Positive Source: Developed by Drs. Jorje Correia, Jeana Gaxiola, Pawel High and colleagues, with an educational katie from [employer]. Thrive Questionnaire Date Thrive assessed: 04/09/23 I am a: Patient What is your living situation today?: I have a steady place to live Within the past 12 months, did the food you bought not last and you didn't have the money to get more?: Never true Within the past 12 months, did you worry whether your food would run out before you got money to buy more?: Never true Do you have trouble paying for medicines?: No Do you have trouble getting transportation to medical appointments?: No Do you have trouble paying your heating and electricity bill?: No Do you have trouble taking care of your child, family member or friend?: No Do you have trouble with day-to-day activities such as bathing, preparing meals, shopping, managing finances, etc.?: No Are you currently unemployed and looking for a job?: No Are you interested in more education?: No Currently or been in a relationship where the following occur: no concerns reported AUDIT C Alcohol Use Questionnaire (AUDIT-C) 1. How often do you have a drink containing alcohol?: Never 2. How many drinks containing alcohol do you have on a typical day when you are drinking?: 1 or 2 3. How often do you have six or more drinks on one occasion?: Never Total Score: 0 YVON-7 AMB Questionnaire YVON-7 Date YVON - 7 assessed: 10/04/22 Source: Developed by Drs. Jorje Correia, Jeana Gaxiola, Pawel High and colleagues, with an educational katie from [employer]. Physical exam (Primary Care) Vital Signs: Last Vital Signs Pulse 82 04/09/23 14:12 BP 136/70 04/09/23 14:12 Pulse Ox 91 L 04/09/23 14:12 Oxygen Delivery Method Room Air 04/09/23 14:12 BMI result Body Mass Index 35.9 Tobacco/Smoking Status: Tobacco use Status Tobacco use date assessed 10/04/22 04/09/23 14:14 Patient Tobacco Use Status Never used Tobacco 04/09/23 14:14 e-Cigarette/Vaping Use Never Used 04/09/23 14:14 PHQ-9: PHQ-9 Score PHQ-9: Total score 13 04/09/23 14:30 Depression Screening Interpretation: Positive Thrive Assessment: Date of Thrive Assessment Date Thrive assessed 04/09/23 04/09/23 14:14 Currently or been in a relationship where the following occur: no concerns reported Const General: alert; No acute distress Eyes Conjunctivae: conjunctivae normal Resp Auscultation: clear to auscultation bilaterally Cardio Rate: regular rate Rhythm: regular rhythm GI Inspection: Yes normal to inspection Results AMB Hemoglobin A1c AMB Hemoglobin A1c 5.7 % Last Edit by Yulissa Rosa CMA on 04/09/23 14 :30 Results Reviewed Results Reviewed: Laboratory Last Values Hgb A1c (Clinic) 5.7 % (4.0-6.0) 04/09/23 14:14 Assessment and Plan Assessment & Plan (1) Type 2 diabetes mellitus with hyperglycemia: Comment: Chelle Code(s): E11.65 - Type 2 diabetes mellitus with hyperglycemia Qualifiers: Diabetes mellitus retail wireless sales representative insulin use: without retail wireless sales representative use Qualified Code(s): E11.65 - Type 2 diabetes mellitus with hyperglycemia Plan: Decrease the amount of carbohydrate intake, pasta, bread, rice and potatoes are all sugar and that is aside from all the sweet stuff, remember that fruits are good but they are Sweet also. Hemoglobin A1c goal of less than 7.0 patient is taking metformin 500 mg once a day (2) Atrial fibrillation: Comment: March 2019 echo normal LV, biatrial enlargement, mild MR severe TR, nuclear stress distal lateral and inferolateral ischemia 74% 04/2018, EF 60-65% dilatation ascending aorta to 4.4 cm with biatrial enlargement, moderate pulmonary hypertension April 2020 Code(s): I48.91 - Unspecified atrial fibrillation Qualifiers: Atrial fibrillation type: paroxysmal Qualified Code(s): I48.0 - Paroxysmal atrial fibrillation Plan: Continue with anticoagulation with Coumadin (3) Hypertension: Code(s): I10 - Essential (primary) hypertension Qualifiers: Hypertension type: essential hypertension Qualified Code(s): I10 - Essential (primary) hypertension Plan: Continue with blood pressure medication. Decrease salt intake and exercise cont inue with metoprolol 100 mg once a day (4) Hypercholesterolemia: Comment: blood work done 10/2019 Code(s): E78.00 - Pure hypercholesterolemia, unspecified Plan: Avoid fried foods, chicken skin, eggs, butter margarine, pastries and meat. Be it pork or beef they have a lot of cholesterol patient is on atorvastatin 20 mg once a day LDL goal of less than 100 (5) COPD (chronic obstructive pulmonary disease): Comment: Dr. Garber [facility] pulmonary [phone] Code(s): J44.9 - Chronic obstructive pulmonary disease, unspecified Qualifiers: COPD type: emphysema Emphysema type: unspecified Qualified Code(s): J43.9 - Emphysema, unspecified Plan: Continue with inhalers and controller (6) Obesity (BMI 30-39.9): Code(s): E66.9 - Obesity, unspecified Plan: Diet and exercise (7) Congestive heart failure: Code(s): I50.9 - Heart failure, unspecified Qualifiers: Heart failure type: systolic Heart failure chronicity: chronic Qualified Code(s): I50.22 - Chronic systolic (congestive) heart failure Plan: Weigh daily continue with diuretics (8) Ascending aorta dilatation: Comment: 04/2020, April 2021 4.4 cm Code(s): I77.810 - Thoracic aortic ectasia Plan: Reminded about workup for the ascending aorta (9) T12 compression fracture: Comment: April 2021 Code(s): S22.080A - Wedge compression fracture of T11-T12 vertebra, initial encounter for closed fracture Plan: Narcotic pain meds: Is being prescribed with the understanding that these medications are potentially addictive and should be used only when absolutely necessary and must always be secured. Any remaining pills should be safely disposed off appropriately. Patient is advised that narcotics can impaired judgment and one should not drive or operate heavy machinery while taking these medications. Never share these medications with anybody and do not leave them unattended. They will not be replaced under any circumstances. Orders: Orders AMB Hemoglobin A1c Today Z13.9 - Encounter for screening, unspecified Medications: Refilled oxycodone-acetaminophen 5-325 mg 1 tab PO Q8H PRN 84 tabs 0RF pain M19.90 - Unspecified osteoarthritis, unspecified site Coding Level of Care Code Est Pt Level 4 (37795) Diagnoses Type 2 diabetes mellitus with hyperglycemia E11.65 Diabetes mellitus long-term insulin use: without retail wireless sales representative use Atrial fibrillation I48.0 Atrial fibrillation type: paroxysmal Hypertension I10 Hypertension type: essential hypertension Hypercholesterolemia E78.00 COPD (chronic obstructive pulmonary disease) J43.9 COPD type: emphysema Emphysema type: unspecified Obesity (BMI 30-39.9) E66.9 Congestive heart failure I50.22 Heart failure type: systolic Heart failure chronicity: chronic Ascending aorta dilatation I77.810 T12 compression fracture S22.080A
== END 2023-04-09 15:07 | disposition home or self-care (01) ==
PROVIDERS: PCP Internal Medicine; Visit Provider Internal Medicine
DX: E11.65 Type 2 diabetes mellitus with hyperglycemia (principal); I48.0 Paroxysmal atrial fibrillation; I10 Essential (primary) hypertension; E78.00 Pure hypercholesterolemia, unspecified; J43.9 Emphysema, unspecified; E66.9 Obesity, unspecified; I50.22 Chronic systolic (congestive) heart failure; I77.810 Thoracic aortic ectasia; S22.080A Wedge compression fracture of T11-T12 vertebra, initial encounter for closed fracture; Z13.9 Encounter for screening, unspecified
CPT/HCPCS: 83036; 99214

== ENCOUNTER → 2023-04-12 13:55 | Outpatient (BNVA) | payer MEDICARE, OTHER, SELFPAY | PROVIDERS: PCP Internal Medicine; Visit Provider Internal Medicine ==

== ENCOUNTER → 2023-04-19 12:03 | Outpatient (BNVA) | payer MEDICARE, OTHER, SELFPAY | PROVIDERS: PCP Internal Medicine; Visit Provider Internal Medicine ==

== ENCOUNTER → 2023-04-26 14:22 | Outpatient (BNVA) | payer MEDICARE, OTHER, SELFPAY | PROVIDERS: PCP Internal Medicine; Visit Provider Internal Medicine ==

== ENCOUNTER → 2023-05-10 11:08 | Outpatient (BNVA) | payer MEDICARE, OTHER, SELFPAY | PROVIDERS: PCP Internal Medicine; Visit Provider Internal Medicine ==

== ENCOUNTER 2023-05-24 13:02 | Outpatient (AMB) | payer MEDICARE, OTHER, SELFPAY ==
[2023-05-24 13:15] LABS: Prothrombin Time Whole Bld POC 39.3 sec (11.1-13.5); ~PT, ~INR - Anti Coag Clinic 3.3 (0.9-1.1)
--- NOTE | 2023-05-24 13:18 | MHC.OFFVISCO ---
Intake Intake Visit Reasons: Anticoagulation Allergies aspirin [Aspirin] Allergy (Severe, Verified 05/24/23 13:09) BLEED acetaminophen [From Vicodin] Allergy (Intermediate, Verified 05/24/23 13:09) Agitated hydrocodone [From Vicodin] Allergy (Intermediate, Verified 05/24/23 13:09) Agitated lisinopril [Lisinopril] Allergy (Mild, Verified 05/24/23 13:09) COUGH adhesive [ADHESIVE] Allergy (Unknown, Verified 05/24/23 13:09) RED,ITCHY fluticasone [Advair Diskus] Allergy (Unknown, Verified 05/24/23 13:09) UNKNOWN NSAIDS (Non-Steroidal Anti-Inflamma [NSAIDS (NON-STEROIDAL ANTI-INFLAMMA] Allergy (Unknown, Verified 05/24/23 13:09) HX BLEED , GI salmeterol [Advair Diskus] Allergy (Unknown, Verified 05/24/23 13:09) Unknown diphenhydramine [From Benadryl] Adverse Reaction (Mild, Verified 05/24/23 13:09) AGITATION ibuprofen [From Motrin] Adverse Reaction (Mild, Verified 05/24/23 13:09) RINGINGIN EAR zolpidem [From Ambien] Adverse Reaction (Mild, Verified 05/24/23 13:09) AGITATION Medication List - Last Reconciled 05/24/23 by Claudine Echavarria RN albuterol sulfate 90 mcg/actuation (Ventolin HFA) 2 puffs inhalation Q6H PRN ascorbate calcium (vitamin C) 500 mg PO DAILY atorvastatin 20 mg PO BEDTIME 90 days blood sugar diagnostic (FreeStyle Lite Strips) Check blood sugars once a day daily; 90 days digoxin 125 mcg PO DAILY 90 days diltiazem HCl ER 240 mg PO DAILY ferrous sulfate 325 mg PO DAILY fluticasone propion-salmeterol 250-50 mcg/dose (Wixela Inhub) 1 inh inhalation BID furosemide (Lasix) increase to 60 mg in am and 40 mg in afternoon orally 2 times a day; gabapentin 400 mg PO BID 90 days lancets As directed lidocaine 5% 1 patch topical DAILY metformin 500 mg PO DAILY metoprolol succinate ER 100 mg (2 x 50 mg) PO DAILY 90 days multivitamin 1 tab PO DAILY omeprazole 20 mg PO DAILY 90 days oxycodone-acetaminophen 5-325 mg 1 tab PO Q8H PRN potassium chloride ER 20 mEq PO DAILY 30 days ropinirole 0.25 mg PO BID 90 days ropinirole 2 mg PO BEDTIME 90 days umeclidinium 62.5 mcg/actuation (Incruse Ellipta) 1 inh inhalation BEDTIME warfarin (Jantoven) 4 mg See Protocol PO DAILY 90 days Nursing Note INR 3.3??out of therapeutic range Medications and supplements reviewed Patient status: WALKING BETTER WITH WALKER AND SINCE HAVING VNA AND PT Medications or supplements: NO CHANGES Diet: GOOD , MAY HAVE LESS GREENS, MORE TOMATOES Denies any signs and symptoms of bleeding or clotting or unusual bruising Bleeding, bruising, clotting discussed Nutritional guidance given: EAT GREENS TODAY AND WEEKLY GREENS, COOKED GREENS LOWER MORE Dose: KEEP SAME DOSE 6MG X 1 DAY/ 4MG X 6 DAYS F/U INR Date : 2 WEEKS?? Patient verbalizing understanding of instructions given. Anti-Coag Initial Assessment Social Hx Patient Tobacco Use Status: Never used Tobacco alcohol intake: never Coding Level of Care Code Est Patient Level 1 Diagnoses Current use of anticoagulant therapy Z79.01 Assessment & Plan Assessment & Plan (1) Current use of anticoagulant therapy: Code(s): Z79.01 - [facility]FP (current) use of anticoagulants Category: Medical
== END 2023-05-24 13:23 | disposition home or self-care (01) ==
LOC: HO.ACS 13:02
PROVIDERS: PCP Internal Medicine; Visit Provider Internal Medicine
DX: Z79.01 Long term (current) use of anticoagulants (principal)

== ENCOUNTER → 2023-05-24 13:02 | Outpatient (BNVA) | payer MEDICARE, OTHER, SELFPAY | PROVIDERS: PCP Internal Medicine; Visit Provider Internal Medicine | DX: I48.20 Chronic atrial fibrillation, unspecified (principal); Z79.01 Long term (current) use of anticoagulants; Z51.81 Encounter for therapeutic drug level monitoring | CPT/HCPCS: 85610; 99211 ==

== ENCOUNTER 2023-06-07 13:07 | Outpatient (AMB) | payer MEDICARE, OTHER, SELFPAY ==
[2023-06-07 13:17] LABS: Prothrombin Time Whole Bld POC 26.9 sec (11.1-13.5); ~PT, ~INR - Anti Coag Clinic 2.2 (0.9-1.1)
--- NOTE | 2023-06-07 13:20 | MHC.OFFVISCO ---
Intake Intake Visit Reasons: Anticoagulation Allergies aspirin [Aspirin] Allergy (Severe, Verified 06/07/23 13:11) BLEED acetaminophen [From Vicodin] Allergy (Intermediate, Verified 06/07/23 13:11) Agitated hydrocodone [From Vicodin] Allergy (Intermediate, Verified 06/07/23 13:11) Agitated lisinopril [Lisinopril] Allergy (Mild, Verified 06/07/23 13:11) COUGH adhesive [ADHESIVE] Allergy (Unknown, Verified 06/07/23 13:11) RED,ITCHY fluticasone [Advair Diskus] Allergy (Unknown, Verified 06/07/23 13:11) UNKNOWN NSAIDS (Non-Steroidal Anti-Inflamma [NSAIDS (NON-STEROIDAL ANTI-INFLAMMA] Allergy (Unknown, Verified 06/07/23 13:11) HX BLEED , GI salmeterol [Advair Diskus] Allergy (Unknown, Verified 06/07/23 13:11) Unknown diphenhydramine [From Benadryl] Adverse Reaction (Mild, Verified 06/07/23 13:11) AGITATION ibuprofen [From Motrin] Adverse Reaction (Mild, Verified 06/07/23 13:11) RINGINGIN EAR zolpidem [From Ambien] Adverse Reaction (Mild, Verified 06/07/23 13:11) AGITATION Medication List - Last Reconciled 06/07/23 by Jessica Rollins RN albuterol sulfate 90 mcg/actuation (Ventolin HFA) 2 puffs inhalation Q6H PRN ascorbate calcium (vitamin C) 500 mg PO DAILY atorvastatin 20 mg PO BEDTIME 90 days blood sugar diagnostic (FreeStyle Lite Strips) Check blood sugars once a day daily; 90 days digoxin 125 mcg PO DAILY 90 days diltiazem HCl ER 240 mg PO DAILY ferrous sulfate 325 mg PO DAILY fluticasone propion-salmeterol 250-50 mcg/dose (Wixela Inhub) 1 inh inhalation BID furosemide (Lasix) increase to 60 mg in am and 40 mg in afternoon orally 2 times a day; gabapentin 400 mg PO BID 90 days lancets As directed lidocaine 5% 1 patch topical DAILY metformin 500 mg PO DAILY metoprolol succinate ER 100 mg (2 x 50 mg) PO DAILY 90 days multivitamin 1 tab PO DAILY omeprazole 20 mg PO DAILY 90 days oxycodone-acetaminophen 5-325 mg 1 tab PO Q8H PRN potassium chloride ER 20 mEq PO DAILY 30 days ropinirole 0.25 mg PO BID 90 days ropinirole 2 mg PO BEDTIME 90 days umeclidinium 62.5 mcg/actuation (Incruse Ellipta) 1 inh inhalation BEDTIME warfarin (Jantoven) 4 mg See Protocol PO DAILY 90 days Nursing Note Amb to ACS using walker, feeling well Medications and supplements reviewed No changes in health, diet, medications, or supplements Denies any unusual signs and symptoms of bruising, bleeding Denies any new Chest pain, SOB, or clotting INR: 2.2 in therapeutic range Nutritional guidance given: balance greens and reds in diet, be consistent Dose: continue usual dosing; 6mg x 1 day and 4mg x 6 days F/U INR: 3 weeks Patient verbalizes understanding of instructions given with accurate read back/ teach back of dosing Anti-Coag Initial Assessment Social Hx Patient Tobacco Use Status: Never used Tobacco alcohol intake: never Coding Level of Care Code Est Patient Level 1 Diagnoses Current use of anticoagulant therapy Z79.01 Time Spent (min) 15 Assessment & Plan Assessment & Plan (1) Current use of anticoagulant therapy: Code(s): Z79.01 - intermediate card tender (current) use of anticoagulants Category: Medical
== END 2023-06-07 13:24 | disposition home or self-care (01) ==
LOC: HO.ACS 13:07
PROVIDERS: PCP Internal Medicine; Visit Provider Internal Medicine
DX: Z79.01 Long term (current) use of anticoagulants (principal)

== ENCOUNTER → 2023-06-07 13:07 | Outpatient (BNVA) | payer MEDICARE, OTHER, SELFPAY | PROVIDERS: PCP Internal Medicine; Visit Provider Internal Medicine | DX: I48.20 Chronic atrial fibrillation, unspecified (principal); Z79.01 Long term (current) use of anticoagulants; Z51.81 Encounter for therapeutic drug level monitoring | CPT/HCPCS: 85610; 99211 ==

== ENCOUNTER → 2023-07-10 11:58 | Outpatient (BNVA) | payer MEDICARE, OTHER, SELFPAY | PROVIDERS: PCP Internal Medicine; Visit Provider Internal Medicine | DX: Z79.01 Long term (current) use of anticoagulants (principal) ==

== ENCOUNTER → 2023-07-15 12:16 | Outpatient (BNVA) | payer MEDICARE, OTHER, SELFPAY | PROVIDERS: PCP Internal Medicine; Visit Provider Internal Medicine ==

== ENCOUNTER → 2023-07-17 14:19 | Outpatient (BNVA) | payer MEDICARE, OTHER, SELFPAY | PROVIDERS: PCP Internal Medicine; Visit Provider Internal Medicine ==

== ENCOUNTER → 2023-07-19 15:22 | Outpatient (BNVA) | payer MEDICARE, OTHER, SELFPAY | PROVIDERS: PCP Internal Medicine; Visit Provider Internal Medicine ==

== ENCOUNTER → 2023-07-22 11:49 | Outpatient (BNVA) | payer MEDICARE, OTHER, SELFPAY | PROVIDERS: PCP Internal Medicine; Visit Provider Internal Medicine ==

== ENCOUNTER 2023-07-26 14:36 | Outpatient (AMB) | payer MEDICARE, OTHER, SELFPAY ==
[2023-07-26 14:38] VITALS: BP 108/66; PULSE 76; O2SAT 96; BMI 33.4
--- NOTE | 2023-07-26 14:38 | A.OFFPC_ITS ---
Vital Signs 07/26/23 14:38 Height 5 ft 4 in Weight 194 lb 14.218 oz BMI 33.4 BP 108/66 Blood Pressure Location Lt brachial Position Sitting Pulse 76 Pulse Source Pulse Oximeter Pulse Oximetry (%) 96 Oxygen Delivery Method Room Air Intake Visit Reasons: discharge follow up [facility] 06/23-07/09 [employer] Required: No Allergies aspirin [Aspirin] Allergy (Severe, Verified 07/26/23 14:53) BLEED acetaminophen [From Vicodin] Allergy (Intermediate, Verified 07/26/23 14:53) Agitated hydrocodone [From Vicodin] Allergy (Intermediate, Verified 07/26/23 14:53) Agitated lisinopril [Lisinopril] Allergy (Mild, Verified 07/26/23 14:53) COUGH adhesive [ADHESIVE] Allergy (Unknown, Verified 07/26/23 14:53) RED,ITCHY fluticasone [Advair Diskus] Allergy (Unknown, Verified 07/26/23 14:53) UNKNOWN NSAIDS (Non-Steroidal Anti-Inflamma [NSAIDS (NON-STEROIDAL ANTI-INFLAMMA] Allergy (Unknown, Verified 07/26/23 14:53) HX BLEED , GI salmeterol [Advair Diskus] Allergy (Unknown, Verified 07/26/23 14:53) Unknown diphenhydramine [From Benadryl] Adverse Reaction (Mild, Verified 07/26/23 14:53) AGITATION ibuprofen [From Motrin] Adverse Reaction (Mild, Verified 07/26/23 14:53) RINGINGIN EAR zolpidem [From Ambien] Adverse Reaction (Mild, Verified 07/26/23 14:53) AGITATION Medication List - Last Reconciled 07/26/23 by DAJA Herrmann albuterol sulfate 90 mcg/actuation (Ventolin HFA) 2 puffs inhalation Q6H PRN ascorbate calcium (vitamin C) 500 mg PO DAILY atorvastatin 20 mg PO BEDTIME 90 days blood sugar diagnostic (FreeStyle Lite Strips) Check blood sugars once a day daily; 90 days digoxin 125 mcg PO DAILY 90 days diltiazem HCl ER 240 mg PO DAILY ferrous sulfate 325 mg PO DAILY fluticasone propion-salmeterol 250-50 mcg/dose (Wixela Inhub) 1 inh inhalation BID gabapentin 400 mg PO BID 90 days lancets As directed lidocaine 5% 1 patch topical DAILY loperamide (Imodium A-D) 2 mg PO Q6H PRN metformin 500 mg PO DAILY metoprolol succinate ER 100 mg (2 x 50 mg) PO DAILY 90 days multivitamin 1 tab PO DAILY omeprazole 20 mg PO DAILY 90 days oxycodone-acetaminophen 5-325 mg 1 tab PO Q8H PRN ropinirole 2 mg PO BEDTIME 90 days ropinirole 0.25 mg PO BID 90 days umeclidinium 62.5 mcg/actuation (Incruse Ellipta) 1 inh inhalation BEDTIME warfarin (Jantoven) 4 mg See Protocol PO DAILY 90 days Tobacco use date assessed: 07/26/23 Fall risk assessment: No Falls in past year Last assessed Fall Risk: 07/26/23 Dental Screening Dental Screen Date: 07/26/23 Did you have a dental visit in the last 12 months?: Yes Did you have a dental problem in the last 6 months where you did not have access to dental care?: No Was dental information given to patient?: Patient has dentist HPI discharge follow up [facility] 06/23-07/09 HPI Details Patient is an 82-year-old female who presents today to follow-up after [facility] stay 06/23/2023 - 07/09/2023. Patient of Dr. Amaya. No discharge summary from rehab available, this was requested prior to visit, patient was able to bring her medication list from a rehab. Prior to this patient was at [facility] due to supratherapeutic INR and rectal bleed and she was transferred to [facility] in [place], no discharge summary. Patient reports that last time she took Coumadin 4 mg 07/09/2023. Patient denies any rectal bleeding or abdominal pain since being discharged from the hospital. She reports intermittent nausea sensation. Reports last bowel movement yesterday which was small, afterwards with very mild diarrhea, no blood in stool. No bowel movement today. No fever or chills. According to chart and patient reports that she went to [place] [facility] 07/22/2023 due to diarrhea, abdominal pain, nausea, vomiting. According to ED notes this has been going on since discharge on 06/26. 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 EKG was with AFib frequent ventricular paced complexes and PVCs or aberrantly conducted complexes rate in the 80s, right bundle-branch block, no STEMI. CT scan was without acute findings. Blood work fairly unremarkable. Patient felt improvement after fluid bolus and PPI. Could be that her diarrhea is from lack of any solid p.o. intake she states she has only had a few bites of solid foot a few times a day. Patient was encouraged to increase this as well as fiber intake follow-up with PCP and GI provider. Patient is here for a GI referral. Her INR was 2.1 07/22/2023-reports INRs are checked by visiting nurse and she is followed by Coumadin clinic here in [place]. Patient reports last time she took Coumadin 4 mg 07/09/2023. Denies any blood in stool or any other bleeding. Next INR will be checked on Saturday07/29/2023 by [facility]. [facility] Medical History Pacemaker Bilateral carpal tunnel syndrome Osteoarthritis Fracture of lateral epicondyle of left humerus Foramen ovale Tubular adenoma of colon History of breast cancer GERD (gastroesophageal reflux disease) Obstructive sleep apnea Congestive heart failure Obesity (BMI 30-39.9) COPD (chronic obstructive pulmonary disease) Hypercholesterolemia Hypertension Atrial fibrillation Type 2 diabetes mellitus with hyperglycemia Surgical History Status post lumbar spine surgery for decompression of spinal cord S/P repair of paraesophageal hernia History of tonsillectomy History of abdominal hysterectomy History of cardiac cath History of bilateral knee replacement Family History Father CVD (cardiovascular disease) CAD (coronary artery disease) Hypertension Mother CVD (cardiovascular disease) Hypertension CAD (coronary artery disease) Spinal stenosis Sister CAD (coronary artery disease) Afib Social History Household Members: Family Housing: Apartment Alcohol intake: never Patient Tobacco Use Status: Never used Tobacco e-Cigarette/Vaping Use: Never Used Second Hand Smoke Exposure: Yes service: No Current occupational status: retired Current occupation: right handed Cognitive needs: No Hearing needs: No Vision needs: Yes Questionnaire Thrive Questionnaire Date Thrive assessed: 08/01/23 AUDIT C Alcohol Use Questionnaire (AUDIT-C) 1. How often do you have a drink containing alcohol?: Never 2. How many drinks containing alcohol do you have on a typical day when you are drinking?: 1 or 2 3. How often do you have six or more drinks on one occasion?: Never Total Score: 0 Score Reviewed/Action Taken: No YVON-7 AMB Questionnaire YVON-7 Date YVON - 7 assessed: 10/04/22 Source: Developed by Drs. Jorje Correia, Jeana Gaxiola, Pawel High and colleagues, with an educational katie from [employer]. Review of Systems Const Denies body aches, Denies chills, Denies fever(s) and Denies headache(s) ENT Denies dizziness, Denies otalgia, Denies headache(s), Denies nasal discharge, Denies sinus pain and Denies sore throat Card Denies chest pain, Denies edema, Denies lightheadedness and Denies dyspnea Resp Denies cough, Denies dyspnea and Denies wheezing GI Denies abdominal pain, Denies hematochezia, Denies constipation, Denies diarrhea, Reports nausea (Intermittent mild) and Denies vomiting Denies dysuria Musc Denies myalgias Skin/Breast Denies rash Neuro Denies dizziness and Denies headache(s) Aller/Immun Denies wheezing Physical exam (Primary Care) Vital Signs: Last Vital Signs Pulse 76 07/26/23 14:38 BP 108/66 07/26/23 14:38 Pulse Ox 96 07/26/23 14:38 Oxygen Delivery Method Room Air 07/26/23 14:38 BMI result Body Mass Index 33.4 Tobacco/Smoking Status: Tobacco use Status Tobacco use date assessed 07/26/23 07/26/23 14:48 Patient Tobacco Use Status Never used Tobacco 07/26/23 14:48 e-Cigarette/Vaping Use Never Used 07/26/23 14:48 Thrive Assessment: Date of Thrive Assessment Date Thrive assessed 04/09/23 07/26/23 14:48 Const General: cooperative and no acute distress Orientation/consciousness: patient oriented x3 HENMT Head: Yes normocephalic and Yes atraumatic Throat: Yes posterior oropharynx normal Eyes General: appearance normal, both eyes and all related structures Neck Neck: Yes normal visual inspection and Yes full ROM Resp Effort & Inspection: normal respiratory effort and able to speak in complete sentences Auscultation: clear to auscultation bilaterally, no crackles, no rales, no rhonchi and no wheezes Cardio Rate: regular rate Rhythm: abnormal rhythm irregularly irregular Heart sounds: S1 normal heart sound present and S2 normal heart sound present GI Palpation (GI): Soft to palpation and no hepatosplenomegaly Auscultation: normal bowel sounds Skin General skin exam: no rashes or lesions noted Neuro General: patient oriented x3 Gait exam (Neuro): Normal gait present Extrem Other: Trace edema to bilateral lower extremity General: Yes full ROM Assessment and Plan Assessment & Plan (1) Nausea: Code(s): R11.0 - Nausea Plan: Patient reports this is improving GI referral for an evaluation and treatment per hospital recommendation See HPI for details (2) Diarrhea: Code(s): R19.7 - Diarrhea, unspecified Plan: Same as above Denies bowel movement today (3) Atrial fibrillation: Comment: March 2019 echo normal LV, biatrial enlargement, mild MR severe TR, nuclear stress distal lateral and inferolateral ischemia 74% 04/2018, EF 60-65% 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 Gale Goal INR between 2 and 3 Signs and symptoms reviewed when to notify provider or go to the emergency department (4) Hospital discharge follow-up: Code(s): Z09 - Encounter for follow-up examination after completed treatment for co nditions other than malignant neoplasm Plan Follow-up with PCP in 2 months or sooner as needed Patient agreed with the plan Orders: Orders Prothrombin Time INR Today I48.91 - Unspecified atrial fibrillation Basic Metabolic Panel Today I48.91 - Unspecified atrial fibrillation Complete Blood Count no Diff Today I48.91 - Unspecified atrial fibrillation Referrals Gastroenterology Referral R11.0 - Nausea Coding Level of Care Code Est Pt Level 3 (67020) Diagnoses Nausea R11.0 Diarrhea R19.7 Paroxysmal atrial fibrillation I48.0 Atrial fibrillation type: paroxysmal Hospital discharge follow-up Z09
== END 2023-07-26 15:42 | disposition home or self-care (01) ==
PROVIDERS: PCP Internal Medicine; Visit Provider Nurse Practitioner Family
DX: R11.0 Nausea (principal); R19.7 Diarrhea, unspecified; I48.0 Paroxysmal atrial fibrillation; Z09 Encounter for follow-up examination after completed treatment for conditions other than malignant neoplasm
CPT/HCPCS: 99213

== ENCOUNTER 2023-07-26 16:01 | Outpatient (REF) | payer MEDICARE, OTHER, SELFPAY ==
[2023-07-26 16:34] LABS: Hematocrit 41.3 % (37.0-47.0); Hemoglobin 12.9 g/dl (12.0-16.0); Mean Corpuscular HGB Conc 31.2 g/dl (31.0-35.0); Mean Corpuscular Hemoglobin 28.5 pg (27.0-33.0); Mean Corpuscular Volume 91.4 fL (80.0-98.0); Mean Platelet Volume 9.2 fL (9.4-12.3); Platelet Count 272 X10*3/uL (160-400); Red Blood Count 4.52 X10*6/uL (4.20-5.50); Red Cell Distribution Width 15.4 % (11.0-16.0); White Blood Count 8.6 X10*3/uL (4.8-10.8)
[2023-07-26 16:45] LABS: INTERNATIONAL NORM RATIO 2.7 (0.9-1.1); Prothrombin Time 33.4 SEC (11.1-13.3)
[2023-07-26 16:53] LABS: Anion Gap 13 (12-20); Blood Urea Nitrogen 20 mg/dL (9-16); Calcium 9.1 mg/dL (8.4-10.2); Carbon Dioxide 26 mmol/L (22-29); Chloride 103 mmol/L (96-108); Estimated Glomerular Filt Rate 59; Glucose Random 87 mg/dL (60-115); Potassium 4.2 mmol/L (3.3-5.1); Sodium 138 mmol/L (135-145)
== END 2023-07-26 16:02 | disposition home or self-care (01) ==
LOC: HO.LAB 16:01
PROVIDERS: PCP Internal Medicine; Visit Provider Nurse Practitioner Family
DX: I48.91 Unspecified atrial fibrillation (principal)
CPT/HCPCS: 36415; 80048; 85027; 85610

== ENCOUNTER → 2023-07-29 16:49 | Outpatient (BNVA) | payer MEDICARE, OTHER, SELFPAY | PROVIDERS: PCP Internal Medicine; Visit Provider Internal Medicine ==

== ENCOUNTER → 2023-07-31 13:04 | Outpatient (BNVA) | payer MEDICARE, OTHER, SELFPAY | PROVIDERS: PCP Internal Medicine; Visit Provider Internal Medicine ==

== ENCOUNTER → 2023-08-05 15:35 | Outpatient (BNVA) | payer MEDICARE, OTHER, SELFPAY | PROVIDERS: PCP Internal Medicine; Visit Provider Internal Medicine ==

== ENCOUNTER 2023-08-09 13:35 | Outpatient (AMB) | payer MEDICARE, OTHER, SELFPAY ==
--- NOTE | 2023-08-09 14:48 | MHC.OFFVISCO ---
Intake Intake Visit Reasons: Anticoagulation Allergies aspirin [Aspirin] Allergy (Severe, Verified 08/09/23 14:42) BLEED acetaminophen [From Vicodin] Allergy (Intermediate, Verified 08/09/23 14:42) Agitated hydrocodone [From Vicodin] Allergy (Intermediate, Verified 08/09/23 14:42) Agitated lisinopril [Lisinopril] Allergy (Mild, Verified 08/09/23 14:42) COUGH adhesive [ADHESIVE] Allergy (Unknown, Verified 08/09/23 14:42) RED,ITCHY fluticasone [Advair Diskus] Allergy (Unknown, Verified 08/09/23 14:42) UNKNOWN NSAIDS (Non-Steroidal Anti-Inflamma [NSAIDS (NON-STEROIDAL ANTI-INFLAMMA] Allergy (Unknown, Verified 08/09/23 14:42) HX BLEED , GI salmeterol [Advair Diskus] Allergy (Unknown, Verified 08/09/23 14:42) Unknown diphenhydramine [From Benadryl] Adverse Reaction (Mild, Verified 08/09/23 14:42) AGITATION ibuprofen [From Motrin] Adverse Reaction (Mild, Verified 08/09/23 14:42) RINGINGIN EAR zolpidem [From Ambien] Adverse Reaction (Mild, Verified 08/09/23 14:42) AGITATION Medication List - Last Reconciled 08/09/23 by Amelia Garcia RN albuterol sulfate 90 mcg/actuation (Ventolin HFA) 2 puffs inhalation Q6H PRN ascorbate calcium (vitamin C) 500 mg PO DAILY atorvastatin 20 mg PO BEDTIME 90 days blood sugar diagnostic (FreeStyle Lite Strips) Check blood sugars once a day daily; 90 days digoxin 125 mcg PO DAILY 90 days diltiazem HCl ER 240 mg PO DAILY famotidine 20 mg PO DAILY ferrous sulfate 325 mg PO DAILY fluticasone propion-salmeterol 250-50 mcg/dose (Wixela Inhub) 1 inh inhalation BID [id number] 100-62.5-25 mcg (Trelegy Ellipta) 1 ea inhalation DAILY furosemide (Lasix) 20 mg PO DAILY gabapentin 400 mg PO BID 90 days lancets As directed lidocaine 5% 1 patch topical DAILY loperamide (Imodium A-D) 2 mg PO Q6H PRN metformin 500 mg PO DAILY metoprolol succinate ER 100 mg (2 x 50 mg) PO DAILY 90 days multivitamin 1 tab PO DAILY oxycodone-acetaminophen 5-325 mg 1 tab PO Q8H PRN pantoprazole 40 mg PO DAILY potassium chloride ER 20 mEq PO DAILY ropinirole 2 mg PO BEDTIME 90 days ropinirole 0.25 mg PO BID 90 days warfarin (Jantoven) 4 mg See Protocol PO DAILY 90 days Nursing Note PER NAYA([facility]) INR TODAY IS 1.7 LAST DOSE TODAY ( 2MG) THEN HOLD WARFARIN FOR WATCHMAN PROCEDURE ON 08/14/23. TO REFER TO BRAKE LINING CURER POST PROCEDURE FOR FURTHER DIRECTION GOING FORWARD. Anti-Coag Initial Assessment Social Hx Patient Tobacco Use Status: Never used Tobacco alcohol intake: never Coding Level of Care Code Est Patient Level 1 Diagnoses Current use of anticoagulant therapy Z79.01 Results AMB INR Fingerstick AMB INR Fingerstick 1.7 Last Edit by Amelia Garcia RN on 08/09/23 14:44 Assessment & Plan Assessment & Plan (1) Current use of anticoagulant therapy: Code(s): Z79.01 - corporate ethics officer (current) use of anticoagulants Category: Medical
== END 2023-08-09 14:51 | disposition home or self-care (01) ==
LOC: HO.ACS 13:35
PROVIDERS: PCP Internal Medicine; Visit Provider Internal Medicine
DX: Z79.01 Long term (current) use of anticoagulants (principal)

== ENCOUNTER → 2023-08-09 13:35 | Outpatient (BNVA) | payer MEDICARE, OTHER, SELFPAY | PROVIDERS: PCP Internal Medicine; Visit Provider Internal Medicine | DX: I48.20 Chronic atrial fibrillation, unspecified (principal); Z79.01 Long term (current) use of anticoagulants; Z51.81 Encounter for therapeutic drug level monitoring | CPT/HCPCS: 99211 ==

== ENCOUNTER → 2023-10-21 09:05 | Outpatient (BNV) | payer MEDICARE, OTHER, SELFPAY | PROVIDERS: PCP Internal Medicine; Visit Provider Internal Medicine | DX: E11.65 Type 2 diabetes mellitus with hyperglycemia (principal) | CPT/HCPCS: 83036 ==

== ENCOUNTER 2023-12-16 11:45 | Outpatient (AMB) | payer MEDICARE, OTHER, SELFPAY ==
--- NOTE | 2023-12-16 11:51 | MHC.PC.OV ---
Vital Signs 12/16/23 11:53 Height 5 ft 4 in Weight 208 lb BMI 35.7 BP 130/82 Blood Pressure Location Lt brachial Position Sitting Pulse 79 Pulse Source Pulse Oximeter Pulse Oximetry (%) 89 L Oxygen Delivery Method Room Air Intake Visit Reasons: 3M Follow Up Allergies aspirin [Aspirin] Allergy (Severe, Verified 12/16/23 11:54) BLEED acetaminophen [From Vicodin] Allergy (Intermediate, Verified 12/16/23 11:54) Agitated hydrocodone [From Vicodin] Allergy (Intermediate, Verified 12/16/23 11:54) Agitated lisinopril [Lisinopril] Allergy (Mild, Verified 12/16/23 11:54) COUGH adhesive [ADHESIVE] Allergy (Unknown, Verified 12/16/23 11:54) RED,ITCHY fluticasone [Advair Diskus] Allergy (Unknown, Verified 12/16/23 11:54) UNKNOWN NSAIDS (Non-Steroidal Anti-Inflamma [NSAIDS (NON-STEROIDAL ANTI-INFLAMMA] Allergy (Unknown, Verified 12/16/23 11:54) HX BLEED , GI salmeterol [Advair Diskus] Allergy (Unknown, Verified 12/16/23 11:54) Unknown diphenhydramine [From Benadryl] Adverse Reaction (Mild, Verified 12/16/23 11:54) AGITATION ibuprofen [From Motrin] Adverse Reaction (Mild, Verified 12/16/23 11:54) RINGINGIN EAR zolpidem [From Ambien] Adverse Reaction (Mild, Verified 12/16/23 11:54) AGITATION Tobacco use date assessed: 12/16/23 Fall risk assessment: No Falls in past year Last assessed Fall Risk: 12/16/23 Dental Screening Dental Screen Date: 12/16/23 Did you have a dental visit in the last 12 months?: No Did you have a dental problem in the last 6 months where you did not have access to dental care?: No Was dental information given to patient?: No HPI 3M Follow Up HPI Details 83-year-old obese female with diabetes mellitus atrial fibrillation hypertension hypercholesterolemia COPD history of T12 compression fracture on narcotic pain medication coming in for follow-up. Last seen in April 2023. 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 question of pancreatic mass but no evidence of cancer biopsy done EKG AFib [facility] Medical History Pacemaker Bilateral carpal tunnel syndrome Osteoarthritis Fracture of lateral epicondyle of left humerus Foramen ovale Tubular adenoma of colon History of breast cancer GERD (gastroesophageal reflux disease) Obstructive sleep apnea Congestive heart failure Obesity (BMI 30-39.9) COPD (chronic obstructive pulmonary disease) Hypercholesterolemia Hypertension Atrial fibrillation Type 2 diabetes mellitus with hyperglycemia Surgical History Status post lumbar spine surgery for decompression of spinal cord S/P repair of paraesophageal hernia History of tonsillectomy History of abdominal hysterectomy History of cardiac cath History of bilateral knee replacement Family History Father CVD (cardiovascular disease) CAD (coronary artery disease) Hypertension Mother CVD (cardiovascular disease) Hypertension CAD (coronary artery disease) Spinal stenosis Sister CAD (coronary artery disease) Afib Social History Household Members: Family Housing: Apartment Alcohol intake: never Patient Tobacco Use Status: Never used Tobacco e-Cigarette/Vaping Use: Never Used Second Hand Smoke Exposure: Yes service: No Current occupational status: retired Current occupation: right handed Cognitive needs: No Hearing needs: No Vision needs: Yes Questionnaire PHQ-9 Over the last 2 weeks, how often have you been bothered by any of the following problems? 1. Little interest or pleasure in doing things: more than half the days 2. Feeling down, depressed, or hopeless: more than half the days 3. Trouble falling or staying asleep, or sleeping too much: more than half the days 4. Feeling tired or having little energy: more than half the days 5. Poor appetite or overeating: nearly every day 6. Feeling bad about yourself - or that you are a failure or have let yourself or your family down: not at all 7. Trouble concentrating on things, such as reading the newspaper or watching television: several days 8. Moving or speaking so slowly that other people could have noticed. Or the opposite - being so fidgety or restless that you have been moving around a lot more than usual: several days 9. Thoughts that you would be better off or of hurting yourself in some way: not at all Total score: 13 Depression Screening Interpretation: Positive Depression Screening Done: Yes Source: Developed by Drs. Jorje Correia, Jeana Gaxiola, Pawel High and colleagues, with an educational katie from [employer]. Thrive Questionnaire Date Thrive assessed: 12/16/23 I am a: Patient What is your living situation today?: I have a steady place to live Within the past 12 months, did the food you bought not last and you didn't have the money to get more?: Never true Within the past 12 months, did you worry whether your food would run out before you got money to buy more?: Never true Do you have trouble paying for medicines?: No Do you have trouble getting transportation to medical appointments?: No Do you have trouble paying your heating and electricity bill?: No Do you have trouble taking care of your child, family member or friend?: No Do you have trouble with day-to-day activities such as bathing, preparing meals, shopping, managing finances, etc.?: No Are you currently unemployed and looking for a job?: No Are you interested in more education?: No Currently or been in a relationship where the following occur: no concerns reported THRIVE Score: 0 AUDIT C Alcohol Use Questionnaire (AUDIT-C) 1. How often do you have a drink containing alcohol?: Never 2. How many drinks containing alcohol do you have on a typical day when you are drinking?: 1 or 2 3. How often do you have six or more drinks on one occasion?: Never Total Score: 0 Score Reviewed/Action Taken: No YVON-7 AMB Questionnaire YVON-7 Date YVON - 7 assessed: 12/16/23 Feeling nervous, anxious, or on edge: 0 = Not at all Not being able to stop or control worryin = Not at all Worrying too much about different things: 0 = Not at all Trouble relaxin = Not at all Being so restless that it is hard to sit still: 0 = Not at all Becoming easily annoyed or irritable: 0 = Not at all Feeling afraid as if something awful might happen: 0 = Not at all Total YVON-7 score (0-4 normal; 5-9 mild; 10-14 moderate; 15-21 severe): 0 Source: Developed by Drs. Jorje Correia, Jeana Gaxiola, Pawel High and colleagues, with an educational katie from [employer]. Physical exam (Primary Care) Vital Signs: Last Vital Signs Pulse 79 12/16/23 11:53 BP 130/82 12/16/23 11:53 Pulse Ox 89 L 12/16/23 11:53 Oxygen Delivery Method Room Air 12/16/23 11:53 BMI result Body Mass Index 35.7 Tobacco/Smoking Status: Tobacco use Status Tobacco use date assessed 12/16/23 12/16/23 12:04 Patient Tobacco Use Status Never used Tobacco 12/16/23 12:04 e-Cigarette/Vaping Use Never Used 12/16/23 12:04 PHQ-9: PHQ-9 Score PHQ-9: Total score 13 12/16/23 12:15 Depression Screening Interpretation: Positive Thrive Assessment: Date of Thrive Assessment Date Thrive assessed 12/16/23 12/16/23 12:04 Currently or been in a relationship where the following occur: no concerns reported Const General: alert; No acute distress Eyes Conjunctivae: conjunctivae normal Resp Auscultation: clear to auscultation bilaterally Cardio Rate: regular rate Rhythm: regular rhythm GI Inspection: Yes normal to inspection Extrem Other: +2 swelling bilateral lower extremity with eversion of the foot on walking General: Yes edema Assessment and Plan Assessment & Plan (1) Type 2 diabetes mellitus with hyperglycemia: Comment: Chelle Code(s): E11.65 - Type 2 diabetes mellitus with hyperglycemia Qualifiers: Diabetes mellitus snf insulin use: without termite control representative use Qualified Code(s): E11.65 - Type 2 diabetes mellitus with hyperglycemia Plan: Decrease the amount of carbohydrate intake, pasta, bread, rice and potatoes are all sugar and that is aside from all the sweet stuff, remember that fruits are good but they are Sweet also. Hemoglobin A1c goal is less than 7.0 presently on metformin 500 mg once a day (2) Atrial fibrillation: Comment: March 2019 echo normal LV, biatrial enlargement, mild MR severe TR, nuclear stress distal lateral and inferolateral ischemia 74% 04/2018, EF 60-65% dilatation ascending aorta to 4.4 cm with biatrial enlargement, moderate pulmonary hypertension April 2020 Watchmans device 08/2023 Code(s): I48.91 - Unspecified atrial fibrillation Qualifiers: Atrial fibrillation type: paroxysmal Qualified Code(s): I48.0 - Paroxysmal atrial fibrillation Plan: watchmans device placed 08/2023 on diltiazem 240 mg once a day (3) Hypertension: Code(s): I10 - Essential (primary) hypertension Qualifiers: Hypertension type: essential hypertension Qualified Code(s): I10 - Essential (primary) hypertension Plan: Continue with blood pressure medication. Decrease salt intake and exercise on diltiazem metoprolol is 100 mg once a day (4) Hypercholesterolemia: Comment: blood work done 10/2019 Code(s): E78.00 - Pure hypercholesterolemia, unspecified Plan: Avoid fried foods, chicken skin, eggs, butter margarine, pastries and meat. Be it pork or beef they have a lot of cholesterol LDL goal of less than 100 and triglyceride of less than 150 on atorvastatin 20 mg once a day patient will need blood work (5) COPD (chronic obstructive pulmonary disease): Comment: Dr. Garber [facility] pulmonary [phone] Code(s): J44.9 - Chronic obstructive pulmonary disease, unspecified Qualifiers: COPD type: emphysema Emphysema type: unspecified Qualified Code(s): J43.9 - Emphysema, unspecified Plan: Continue with inhaler has the (6) Obesity (BMI 30-39.9): Code(s): E66.9 - Obesity, unspecified Plan: Patient needs to lose the weight (7) Ascending aorta dilatation: Comment: April 2021 4.4 cm Code(s): I77.810 - Thoracic aortic ectasia Plan: Advised patient to follow this up. (8) T12 compression fracture: Comment: April 2021 Code(s): S22.080A - Wedge compression fracture of T11-T12 vertebra, initial encounter for closed fracture Plan: Narcotic pain meds: Is being prescribed with the understanding that these medications are potentially addictive and should be used only when absolutely necessary and must always be secured. Any remaining pills should be safely disposed off appropriately. Patient is advised that narcotics can impaired judgment and one should not drive or operate heavy machinery while taking these medications. Never share these medications with anybody and do not leave them unattended. They will not be replaced under any circumstances. Asking about help at home (9) Presence of Watchman left atrial appendage closure device: Comment: 08/2023 Code(s): Z95.818 - Presence of other cardiac implants and grafts (10) Foot deformity, acquired: Code(s): M21.969 - Unspecified acquired deformity of unspecified lower leg Orders: Orders Comprehensive Met. Panel Today E11.65 - Type 2 diabetes mellitus with hyperglycemia Free T4 (Free Thyroxine) Today E11.65 - Type 2 diabetes mellitus with hyperglycemia Thyroid Stimulating Hormone Today E11.65 - Type 2 diabetes mellitus with hyperglycemia Lipid Panel Today E11.65 - Type 2 diabetes mellitus with hyperglycemia, E78.00 - Pure hypercholesterolemia, unspecified Hemoglobin A1c Today E11.65 - Type 2 diabetes mellitus with hyperglycemia Microalbumin, Random (w Creat) Today E11.65 - Type 2 diabetes mellitus with hyperglycemia Magnesium Today Z95.818 - Presence of other cardiac implants and grafts XR foot LT 2V Today M21.969 - Unspecified acquired deformity of unspecified lower leg XR ankle LT 2V Today M21.969 - Unspecified acquired deformity of unspecified lower leg XR ankle LT min 3V Today M21.969 - Unspecified acquired deformity of unspecified lower leg Complete Blood Count Auto Diff Today E11.65 - Type 2 diabetes mellitus with hyperglycemia Vitamin B12 and Folate Today E11.65 - Type 2 diabetes mellitus with hyperglycemia Vitamin D 25-OH Total Today E11.65 - Type 2 diabetes mellitus with hyperglycemia Creatinine Urine Today E11.65 - Type 2 diabetes mellitus with hyperglycemia Digoxin Today Z95.818 - Presence of other cardiac implants and grafts XR foot RT 2V Today M21.969 - Unspecified acquired deformity of unspecified lower leg Medications: New metformin 500 mg PO DAILY 90 tabs 1RF E11.65 - Type 2 diabetes mellitus with hyperglycemia Refilled oxycodone-acetaminophen 5-325 mg 1 tab PO Q8H PRN 84 tabs 0RF pain M19.90 - Unspecified osteoarthritis, unspecified site pantoprazole 40 mg PO DAILY 90 tabs 0RF Z95.818 - Presence of other cardiac implants and grafts atorvastatin 20 mg PO BEDTIME 90 days 90 tabs 3RF Z95.818 - Presence of other cardiac implants and grafts Discontinued warfarin (Septoven) Discontinued Reason: Doctor's Order 4 mg See Protocol PO DAILY 90 days 180 tabs 3RF Coding Level of Care Code Est Pt Level 4 (20744) Diagnoses Type 2 diabetes mellitus with hyperglycemia, without long-term current use of insulin E11.65 Diabetes mellitus snf insulin use: without termite control representative use Paroxysmal atrial fibrillation I48.0 Atrial fibrillation type: paroxysmal Essential hypertension I10 Hypertension type: essential hypertension Hypercholesterolemia E78.00 Pulmonary emphysema, unspecified emphysema type J43.9 COPD type: emphysema Emphysema type: unspecified Obesity (BMI 30-39.9) E66.9 Ascending aorta dilatation I77.810 T12 compression fracture S22.080A Presence of Watchman left atrial appendage closure device Z95.818 Foot deformity, acquired M21.969
[2023-12-16 11:53] VITALS: BP 130/82; PULSE 79; O2SAT 89; BMI 35.7
== END 2023-12-16 12:45 | disposition home or self-care (01) ==
LOC: HO.HMGH 11:45
PROVIDERS: PCP Internal Medicine; Visit Provider Internal Medicine
DX: E11.65 Type 2 diabetes mellitus with hyperglycemia (principal); I48.0 Paroxysmal atrial fibrillation; J43.9 Emphysema, unspecified; I77.810 Thoracic aortic ectasia; S22.080A Wedge compression fracture of T11-T12 vertebra, initial encounter for closed fracture; I10 Essential (primary) hypertension; E78.00 Pure hypercholesterolemia, unspecified; E66.9 Obesity, unspecified; Z95.818 Presence of other cardiac implants and grafts; M21.961 Unspecified acquired deformity of right lower leg
CPT/HCPCS: 83036; 99214

== ENCOUNTER 2024-01-21 15:41 | Outpatient (AMB) | payer MEDICARE, OTHER, SELFPAY ==
[2024-01-21 15:43] VITALS: BP 130/72; PULSE 85; O2SAT 91; BMI 34.7
--- NOTE | 2024-01-21 15:43 | MHC.PC.OV ---
Vital Signs 01/21/24 15:43 Height 5 ft 4 in Weight 202 lb 6.15 oz BMI 34.7 BP 130/72 Blood Pressure Location Lt brachial Position Sitting Pulse 85 Pulse Source Pulse Oximeter Pulse Oximetry (%) 91 L Oxygen Delivery Method Room Air Intake Visit Reasons: afib Molder Required: No Allergies aspirin [Aspirin] Allergy (Severe, Verified 01/21/24 15:44) BLEED acetaminophen [From Vicodin] Allergy (Intermediate, Verified 01/21/24 15:44) Agitated hydrocodone [From Vicodin] Allergy (Intermediate, Verified 01/21/24 15:44) Agitated lisinopril [Lisinopril] Allergy (Mild, Verified 01/21/24 15:44) COUGH adhesive [ADHESIVE] Allergy (Unknown, Verified 01/21/24 15:44) RED,ITCHY fluticasone [Advair Diskus] Allergy (Unknown, Verified 01/21/24 15:44) UNKNOWN NSAIDS (Non-Steroidal Anti-Inflamma [NSAIDS (NON-STEROIDAL ANTI-INFLAMMA] Allergy (Unknown, Verified 01/21/24 15:44) HX BLEED , GI salmeterol [Advair Diskus] Allergy (Unknown, Verified 01/21/24 15:44) Unknown diphenhydramine [From Benadryl] Adverse Reaction (Mild, Verified 01/21/24 15:44) AGITATION ibuprofen [From Motrin] Adverse Reaction (Mild, Verified 01/21/24 15:44) RINGINGIN EAR zolpidem [From Ambien] Adverse Reaction (Mild, Verified 01/21/24 15:44) AGITATION Tobacco use date assessed: 01/21/24 Fall risk assessment: No Falls in past year Last assessed Fall Risk: 01/21/24 Dental Screening Dental Screen Date: 12/16/23 HPI afib HPI Details 83-year-old obese female with controlled diabetes mellitus atrial fibrillation hypertension hypercholesterolemia COPD and history of T12 compression fracture on narcotic pain medication. Patient does have a watchman's device. Blood work was requested. Wing visit yesterday-, [facility] checking yesterday have [facility] ER visit was given diltiazem eventually getting better. also for barium swallow- will ff up with results [facility] Medical History Pacemaker Bilateral carpal tunnel syndrome Osteoarthritis Fracture of lateral epicondyle of left humerus Foramen ovale Tubular adenoma of colon History of breast cancer GERD (gastroesophageal reflux disease) Obstructive sleep apnea Congestive heart failure Obesity (BMI 30-39.9) COPD (chronic obstructive pulmonary disease) Hypercholesterolemia Hypertension Atrial fibrillation Type 2 diabetes mellitus with hyperglycemia Surgical History Status post lumbar spine surgery for decompression of spinal cord S/P repair of paraesophageal hernia History of tonsillectomy History of abdominal hysterectomy History of cardiac cath History of bilateral knee replacement Family History Father CVD (cardiovascular disease) CAD (coronary artery disease) Hypertension Mother CVD (cardiovascular disease) Hypertension CAD (coronary artery disease) Spinal stenosis Sister CAD (coronary artery disease) Afib Social History Household Members: Family Housing: Apartment Alcohol intake: never Patient Tobacco Use Status: Never used Tobacco e-Cigarette/Vaping Use: Never Used Second Hand Smoke Exposure: Yes service: No Current occupational status: retired Current occupation: right handed Cognitive needs: No Hearing needs: No Vision needs: Yes Questionnaire Thrive Questionnaire Date Thrive assessed: 12/16/23 I am a: Patient What is your living situation today?: I have a steady place to live Within the past 12 months, did the food you bought not last and you didn't have the money to get more?: Never true Within the past 12 months, did you worry whether your food would run out before you got money to buy more?: Never true Do you have trouble paying for medicines?: No Do you have trouble getting transportation to medical appointments?: No Do you have trouble paying your heating and electricity bill?: No Do you have trouble taking care of your child, family member or friend?: No Do you have trouble with day-to-day activities such as bathing, preparing meals, shopping, managing finances, etc.?: No Are you currently unemployed and looking for a job?: No Are you interested in more education?: No Currently or been in a relationship where the following occur: no concerns reported THRIVE Score: 0 AUDIT C Alcohol Use Questionnaire (AUDIT-C) 1. How often do you have a drink containing alcohol?: Never 2. How many drinks containing alcohol do you have on a typical day when you are drinking?: 1 or 2 3. How often do you have six or more drinks on one occasion?: Never Total Score: 0 Score Reviewed/Action Taken: No YVON-7 AMB Questionnaire YVON-7 Date YVON - 7 assessed: 12/16/23 Source: Developed by Drs. Jorje Correia, Jeana Gaxiola, Pawel High and colleagues, with an educational katie from [employer]. Physical exam (Primary Care) Vital Signs: Last Vital Signs Pulse 85 01/21/24 15:43 BP 130/72 01/21/24 15:43 Pulse Ox 91 L 01/21/24 15:43 Oxygen Delivery Method Room Air 01/21/24 15:43 BMI result Body Mass Index 34.7 Tobacco/Smoking Status: Tobacco use Status Tobacco use date assessed 01/21/24 01/21/24 15:45 Patient Tobacco Use Status Never used Tobacco 01/21/24 15:45 e-Cigarette/Vaping Use Never Used 01/21/24 15:45 Thrive Assessment: Date of Thrive Assessment Date Thrive assessed 12/16/23 01/21/24 15:45 Currently or been in a relationship where the following occur: no concerns reported Const General: alert; No acute distress Eyes Conjunctivae: conjunctivae normal Resp Auscultation: clear to auscultation bilaterally Cardio Rate: regular rate Rhythm: regular rhythm GI Inspection: Yes normal to inspection Extrem General: Yes normal to inspection and No edema Results AMB Hemoglobin A1c AMB Hemoglobin A1c 6.2 % Last Edit by CORY Frankel on 01/21/24 15:56 Results Reviewed Results Reviewed: Laboratory Last Values Hgb A1c (Clinic) 6.2 % (4.0-6.0) H 01/21/24 15:43 Assessment and Plan Assessment & Plan (1) Type 2 diabetes mellitus with hyperglycemia: Comment: Chelle Code(s): E11.65 - Type 2 diabetes mellitus with hyperglycemia Qualifiers: Diabetes mellitus group home insulin use: without group home use Qualified Code(s): E11.65 - Type 2 diabetes mellitus with hyperglycemia Plan: Decrease the amount of carbohydrate intake, pasta, bread, rice and potatoes are all sugar and that is aside from all the sweet stuff, remember that fruits are good but they are Sweet also. Hemoglobin A1c goal of less than 7.0 patient on metformin 500 mg once a day (2) Atrial fibrillation: Comment: March 2019 echo normal LV, biatrial enlargement, mild MR severe TR, nuclear stress distal lateral and inferolateral ischemia 74% 04/2018, EF 60-65% dilatation ascending aorta to 4.4 cm with biatrial enlargement, moderate pulmonary hypertension April 2020 Watchmans device 08/2023 Code(s): I48.91 - Unspecified atrial fibrillation Qualifiers: Atrial fibrillation type: paroxysmal Qualified Code(s): I48.0 - Paroxysmal atrial fibrillation Plan: Patient has the watchman's device now.ER visit with [facility]. was given diltiazem IV discharge (3) Presence of Watchman left atrial appendage closure device: Comment: 08/2023 Code(s): Z95.818 - Presence of other cardiac implants and grafts Plan: Continue to follow up with Cardiology (4) T12 compression fracture: Comment: April 2021 Code(s): S22.080A - Wedge compression fracture of T11-T12 vertebra, initial encounter for closed fracture Plan: Narcotic pain meds: Is being prescribed with the understanding that these medications are potentially addictive and should be used only when absolutely necessary and must always be secured. Any remaining pills should be safely disposed off appropriately. Patient is advised that narcotics can impaired judgment and one should not drive or operate heavy machinery while taking these medications. Never share these medications with anybody and do not leave them unattended. They will not be replaced under any circumstances. Patient is reminded about blood work (5) Foot deformity, acquired: Code(s): M21.969 - Unspecified acquired deformity of unspecified lower leg Plan: podiatry referral Orders: Orders AMB Hemoglobin A1c Today E11.65 - Type 2 diabetes mellitus with hyperglycemia Referrals Cardiology Referral I48.0 - Paroxysmal atrial fibrillation Podiatry Referral E11.65 - Type 2 diabetes mellitus with hyperglycemia Medications: Changed From diltiazem HCl ER 240 mg PO DAILY 90 caps 3RF To diltiazem HCl ER 300 mg PO DAILY 30 caps 2RF Coding Level of Care Code Est Pt Level 4 (16611) Diagnoses Type 2 diabetes mellitus with hyperglycemia, without long-term current use of insulin E11.65 Diabetes mellitus dedicated intermodal truck driver insulin use: without dedicated intermodal truck driver use Paroxysmal atrial fibrillation I48.0 Atrial fibrillation type: paroxysmal Presence of Watchman left atrial appendage closure device Z95.818 T12 compression fracture S22.080A Foot deformity, acquired M21.969
== END 2024-01-21 16:27 | disposition home or self-care (01) ==
PROVIDERS: PCP Internal Medicine; Visit Provider Internal Medicine
DX: E11.65 Type 2 diabetes mellitus with hyperglycemia (principal); I48.0 Paroxysmal atrial fibrillation; S22.080A Wedge compression fracture of T11-T12 vertebra, initial encounter for closed fracture; Z95.818 Presence of other cardiac implants and grafts; M21.969 Unspecified acquired deformity of unspecified lower leg
CPT/HCPCS: 83036; 99214

== ENCOUNTER 2024-03-10 16:49 | Outpatient (AMB) | payer MEDICARE, OTHER, SELFPAY ==
--- NOTE | 2024-03-10 16:49 | A.OFFPC_ITS ---
Intake Visit Reasons: Positive Covid Test Allergies aspirin [Aspirin] Allergy (Severe, Verified 03/10/24 16:50) BLEED acetaminophen [From Vicodin] Allergy (Intermediate, Verified 03/10/24 16:50) Agitated hydrocodone [From Vicodin] Allergy (Intermediate, Verified 03/10/24 16:50) Agitated lisinopril [Lisinopril] Allergy (Mild, Verified 03/10/24 16:50) COUGH adhesive [ADHESIVE] Allergy (Unknown, Verified 03/10/24 16:50) RED,ITCHY fluticasone [Advair Diskus] Allergy (Unknown, Verified 03/10/24 16:50) UNKNOWN NSAIDS (Non-Steroidal Anti-Inflamma [NSAIDS (NON-STEROIDAL ANTI-INFLAMMA] Allergy (Unknown, Verified 03/10/24 16:50) HX BLEED , GI salmeterol [Advair Diskus] Allergy (Unknown, Verified 03/10/24 16:50) Unknown diphenhydramine [From Benadryl] Adverse Reaction (Mild, Verified 03/10/24 16:50) AGITATION ibuprofen [From Motrin] Adverse Reaction (Mild, Verified 03/10/24 16:50) RINGINGIN EAR zolpidem [From Ambien] Adverse Reaction (Mild, Verified 03/10/24 16:50) AGITATION Tobacco use date assessed: 01/21/24 Fall risk assessment: No Falls in past year Last assessed Fall Risk: 03/10/24 Dental Screening Dental Screen Date: 12/16/23 HPI Positive Covid Test HPI Details 83-year-old obese female with multiple m edical problems of diabetes mellitus atrial fibrillation hypertension hypercholesterolemia COPD congestive heart failure obstructive sleep apnea GERD calling in for an acute problem. Patient tested positive for COVID-19. fell back watt 3 days ago, EMT came and checked. deny bruises. deny passing out. [facility] Medical History Pacemaker Bilateral carpal tunnel syndrome Osteoarthritis Fracture of lateral epicondyle of left humerus Foramen ovale Tubular adenoma of colon History of breast cancer GERD (gastroesophageal reflux disease) Obstructive sleep apnea Congestive heart failure Obesity (BMI 30-39.9) COPD (chronic obstructive pulmonary disease) Hypercholesterolemia Hypertension Atrial fibrillation Type 2 diabetes mellitus with hyperglycemia Surgical History Status post lumbar spine surgery for decompression of spinal cord S/P repair of paraesophageal hernia History of tonsillectomy History of abdominal hysterectomy History of cardiac cath History of bilateral knee replacement Family History Father CVD (cardiovascular disease) CAD (coronary artery disease) Hypertension Mother CVD (cardiovascular disease) Hypertension CAD (coronary artery disease) Spinal stenosis Sister CAD (coronary artery disease) Afib Social History Household Members: Family Housing: Apartment Alcohol intake: never Patient Tobacco Use Status: Never used Tobacco e-Cigarette/Vaping Use: Never Used Second Hand Smoke Exposure: Yes service: No Current occupational status: retired Current occupation: right handed Cognitive needs: No Hearing needs: No Vision needs: Yes Questionnaire PHQ-9 Over the last 2 weeks, how often have you been bothered by any of the following problems? 1. Little interest or pleasure in doing things: more than half the days 2. Feeling down, depressed, or hopeless: more than half the days 3. Trouble falling or staying asleep, or sleeping too much: more than half the days 4. Feeling tired or having little energy: more than half the days 5. Poor appetite or overeating: nearly every day 6. Feeling bad about yourself - or that you are a failure or have let yourself or your family down: not at all 7. Trouble concentrating on things, such as reading the newspaper or watching television: several days 8. Moving or speaking so slowly that other people could have noticed. Or the opposite - being so fidgety or restless that you have been moving around a lot more than usual: several days 9. Thoughts that you would be better off or of hurting yourself in some way: not at all Total score: 13 Depression Screening Interpretation: Positive Depression Screening Done: Yes Source: Developed by Drs. Jorje Correia, Jeana Gaxiola, Pawel High and colleagues, with an educational katie from [employer] Thrive Questionnaire Date Thrive assessed: 12/16/23 AUDIT C Alcohol Use Questionnaire (AUDIT-C) 1. How often do you have a drink containing alcohol?: Never 2. How many drinks containing alcohol do you have on a typical day when you are drinking?: 1 or 2 3. How often do you have six or more drinks on one occasion?: Never Total Score: 0 Score Reviewed/Action Taken: No YVON-7 AMB Questionnaire YVON-7 Date YVON - 7 assessed: 12/16/23 Source: Developed by Drs. Jorje Correia, Jeana Gaxiola, Pawel High and colleagues, with an educational katie from [employer] Physical exam (Primary Care) Tobacco/Smoking Status: Tobacco use Status Tobacco use date assessed 01/21/24 03/10/24 16:50 Patient Tobacco Use Status Never used Tobacco 03/10/24 16:50 e-Cigarette/Vaping Use Never Used 03/10/24 16:50 PHQ-9: PHQ-9 Score PHQ-9: Total score 13 03/10/24 16:50 Depression Screening Interpretation: Positive Thrive Assessment: Date of Thrive Assessment Date Thrive assessed 12/16/23 03/10/24 16:50 Telehealth Telehealth Location of provider rendering services: practice address Location of patient: address on file Patient Identification confirmed using: Name, : Yes Telehealth method: voice only Patient verbally consented to treatment: Yes Patient verbally consented to billing insurance company: Yes Minutes spent on Phone/Video with Pt.: 15 Assessment and Plan Assessment & Plan (1) COVID-19 virus infection: Comment: 03/09/2024 Code(s): U07.1 - COVID-19 Plan: Antiviral prescription sent in. Hold the atorvastatin, oxycodone and Wixela. For the sore throat can take Cepacol lozenges, discussed about Delsym to help with dry cough so she can rest and advised to increase oral fluids. Patient also can take Tylenol for chills and fever. (2) Fall: Code(s): W19.XXXA - Unspecified fall, initial encounter Plan: deny any injury and just calling to inform Medications: New nirmatrelvir-ritonavir 150-100 mg (Paxlovid) PO PER PKG DIR nirmatrelvit 150 mg with Ritonavir 100 mg BID 5 days 20 tabs 0RF U07.1 - COVID-19 Coding Level of Care Code Tele Est Pt Level 3 (71570) Diagnoses COVID-19 virus infection U07.1 Fall W19.XXXA
== END 2024-03-10 18:01 | disposition home or self-care (01) ==
LOC: HO.HMGH 16:49
PROVIDERS: PCP Internal Medicine; Visit Provider Internal Medicine
DX: U07.1 COVID-19 (principal); W19.XXXA Unspecified fall, initial encounter
CPT/HCPCS: 99442

== ENCOUNTER 2024-06-25 13:06 | Outpatient (AMB) | payer MEDICARE, OTHER, SELFPAY ==
--- NOTE | 2024-06-25 13:10 | A.OFFPC_ITS ---
Vital Signs 06/25/24 13:11 Height 5 ft 4 in Weight 186 lb 1.122 oz BMI 31.9 BP 102/70 Blood Pressure Location Rt brachial Position Sitting Pulse 100 Pulse Source Pulse Oximeter Pulse Oximetry (%) 96 Oxygen Delivery Method Nasal Cannula Oxygen Flow Rate 2 Intake Visit Reasons: [facility] 06/22 Blood clot lung, L Ankle injury Intake Note: Patient is here for hospital discharge follow up. Patient was discharged from [facility] on 06/22/24 Allergies aspirin [Aspirin] Allergy (Severe, Verified 06/25/24 13:14) BLEED acetaminophen [From Vicodin] Allergy (Intermediate, Verified 06/25/24 13:14) Agitated hydrocodone [From Vicodin] Allergy (Intermediate, Verified 06/25/24 13:14) Agitated lisinopril [Lisinopril] Allergy (Mild, Verified 06/25/24 13:14) COUGH adhesive [ADHESIVE] Allergy (Unknown, Verified 06/25/24 13:14) RED,ITCHY fluticasone [Advair Diskus] Allergy (Unknown, Verified 06/25/24 13:14) UNKNOWN NSAIDS (Non-Steroidal Anti-Inflamma [NSAIDS (NON-STEROIDAL ANTI-INFLAMMA] Allergy (Unknown, Verified 06/25/24 13:14) HX BLEED , GI salmeterol [Advair Diskus] Allergy (Unknown, Verified 06/25/24 13:14) Unknown diphenhydramine [From Benadryl] Adverse Reaction (Mild, Verified 06/25/24 13:14) AGITATION ibuprofen [From Motrin] Adverse Reaction (Mild, Verified 06/25/24 13:14) RINGINGIN EAR zolpidem [From Ambien] Adverse Reaction (Mild, Verified 06/25/24 13:14) AGITATION Medication List - Last Reconciled 06/25/24 by Alanis Juarez PA-C albuterol sulfate 90 mcg/actuation (Ventolin HFA) 2 puffs inhalation Q6H PRN ammonium lactate 5% (Lac-Hydrin Five) 1 appl topical BID ascorbate calcium (vitamin C) 500 mg PO DAILY atorvastatin 20 mg PO BEDTIME 90 days blood sugar diagnostic (FreeStyle Lite Strips) Check blood sugars once a day daily; 90 days digoxin 125 mcg PO DAILY 90 days diltiazem HCl ER 300 mg PO DAILY famotidine 20 mg PO DAILY ferrous sulfate 325 mg PO DAILY fluticasone propion-salmeterol 250-50 mcg/dose (Wixela Inhub) 1 inh inhalation BID chsuvraabxf-xfixucign-ynhbnvsc 100-62.5-25 mcg (Trelegy Ellipta) 1 ea inhalation DAILY furosemide (Lasix) 20 mg PO DAILY gabapentin 400 mg PO BID 90 days lancets As directed lidocaine 5% 1 patch topical DAILY loperamide (Imodium A-D) 2 mg PO Q6H PRN metformin 500 mg PO DAILY metoprolol succinate ER 100 mg (2 x 50 mg) PO DAILY 90 days multivitamin 1 tab PO DAILY nirmatrelvir-ritonavir 150-100 mg (Paxlovid) PO PER PKG DIR nirmatrelvit 150 mg with Ritonavir 100 mg BID 5 days oxycodone-acetaminophen 5-325 mg 1 tab PO Q8H PRN pantoprazole 40 mg PO DAILY potassium chloride ER 20 mEq PO DAILY ropinirole 0.25 mg PO BID 90 days ropinirole 2 mg PO BEDTIME 90 days Tobacco use date assessed: 01/21/24 Dental Screening Dental Screen Date: 12/16/23 HPI HDF [facility] 06/22 Blood clot lung, L Ankle injury HPI Details 83-year-old female with past medical his tory of diabetes mellitus, atrial fibrillation, hypertension, hypercholesterolemia, COPD, congestive heart failure, obstructive sleep apnea, GERD pulmonary embolism on anticoagulation coming in for hospital discharge follow up. In review of the notes, patient presented to [facility] 06/06/2024 from [facility] long term facility for altered mental status found to have acute respiratory acidosis. Patient was given 1 time dose of Lasix and continued on supplemental oxygen weaning her down to her usual dose. Advised to use CPAP therapy nightly and discharged back to long term facility 06/07/2024. Patient returned back to [facility] June 2024 for for possible seizures and altered mental status and treated for urinary tract infection. Prior to the above admissions patient was found to have pulmonary embolism and restarted on apixaban 5 mg b.i.d.. Patient states she had a cast on her foot at [facility] and was sent to [facility] for rehab. She was seen in the hospital at that time by [facility] but has not been back to them. She has not been using her CPAP machine because technical errors and has reached out to the reliable respiratory team to have the machine fixed. She continues to have pain on the lateral aspect of the heel however pain has greatly improved. She has an appointment next week with Podiatry. She denies any urinary symptoms at this time and has no other acute concerns. [facility] Medical History Pacemaker Bilateral carpal tunnel syndrome Osteoarthritis Fracture of lateral epicondyle of left humerus Foramen ovale Tubular adenoma of colon History of breast cancer GERD (gastroesophageal reflux disease) Obstructive sleep apnea Congestive heart failure Obesity (BMI 30-39.9) COPD (chronic obstructive pulmonary disease) Hypercholesterolemia Hypertension Atrial fibrillation Type 2 diabetes mellitus with hyperglycemia Surgical History Status post lumbar spine surgery for decompression of spinal cord S/P repair of paraesophageal hernia History of tonsillectomy History of abdominal hysterectomy History of cardiac cath History of bilateral knee replacement Family History Father CVD (cardiovascular disease) CAD (coronary artery disease) Hypertension Mother CVD (cardiovascular disease) Hypertension CAD (coronary artery disease) Spinal stenosis Sister CAD (coronary artery disease) Afib Social History Household Members: Family Housing: Apartment Alcohol intake: never Patient Tobacco Use Status: Never used Tobacco e-Cigarette/Vaping Use: Never Used Second Hand Smoke Exposure: Yes service: No Current occupational status: retired Current occupation: right handed Cognitive needs: No Hearing needs: No Vision needs: Yes Questionnaire Thrive Questionnaire Date Thrive assessed: 12/16/23 YVON-7 AMB Questionnaire YVON-7 Date YVON - 7 assessed: 12/16/23 Source: Developed by Drs. Jorje Correia, Jeana Gaxiola, Pawel High and colleagues, with an educational katie from [employer]. Review of Systems Const Denies body aches and Denies fever(s) Eyes Reports no additional complaints ENT Reports no additional complaints Card Denies chest pain, Denies edema, Reports leg edema, Denies lightheadedness and Reports dyspnea (chronic on supplemental 02) Resp Denies cough, Reports dyspnea (chronic on supplemental 02) and Denies wheezing GI Denies abdominal pain, Denies constipation, Denies diarrhea, Denies nausea and Denies vomiting Reports no additional complaints Musc Details: Left foot pain Reports abnormal gait Neuro Reports abnormal gait Aller/Immun Denies wheezing Physical exam (Primary Care) Vital Signs: Last Vital Signs Pulse 100 06/25/24 13:11 BP 102/70 06/25/24 13:11 Pulse Ox 96 06/25/24 13:11 Oxygen Delivery Method Nasal Cannula 06/25/24 13:11 Oxygen Flow Rate 2 06/25/24 13:11 BMI result Body Mass Index 31.9 Tobacco/Smoking Status: Tobacco use Status Tobacco use date assessed 01/21/24 06/25/24 13:11 Patient Tobacco Use Status Never used Tobacco 06/25/24 13:11 e-Cigarette/Vaping Use Never Used 06/25/24 13:11 Thrive Assessment: Date of Thrive Assessment Date Thrive assessed 12/16/23 06/25/24 13:11 Const General: cooperative, healthy appearing, comfortable and no acute distress Orientation/consciousness: patient oriented x3 HENMT Head: Yes normocephalic Ears: hearing grossly normal bilaterally General nose exam: Normal external nose present Eyes General: appearance normal, both eyes and all related structures Conjunctivae: conjunctivae normal Neck Neck: Yes full ROM and Yes no lymphadenopathy Resp Effort & Inspection: normal respiratory effort Auscultation: clear to auscultation bilaterally, no crackles, no rales, no rhonchi and no wheezes Cardio Rate: regular rate Rhythm: regular rhythm Skin General skin exam: no rashes or lesions noted Neuro General: patient oriented x3 Gait exam (Neuro): Normal gait present Extrem General: Yes normal to inspection, Yes full ROM and No edema Psych Affect: normal affect Attitude: cooperative Insight: Good insight present (Psych) Judgement: Good judgement present (Psych) Results AMB Hemoglobin A1c AMB Hemoglobin A1c 6.1 % Last Edit by CORY Frankel on 06/25/24 13:32 Results Reviewed Results Reviewed: Laboratory Last Values Hgb A1c (Clinic) 6.1 % (4.0-6.0) H 06/25/24 12:56 Coding Level of Care Code Est Pt Level 4 (96254) Diagnoses Calcaneal fracture S92.009A Current use of anticoagulant therapy Z79.01 Gastroesophageal reflux disease without esophagitis K21.9 Esophagitis presence: without esophagitis Obstructive sleep apnea G47.33 Chronic systolic congestive heart failure I50.22 Heart failure chronicity: chronic Heart failure type: systolic Obesity (BMI 30-39.9) E66.9 Pulmonary emphysema, unspecified emphysema type J43.9 COPD type: emphysema Emphysema type: unspecified Hypercholesterolemia E78.00 Essential hypertension I10 Hypertension type: essential hypertension Paroxysmal atrial fibrillation I48.0 Atrial fibrillation type: paroxysmal Type 2 diabetes mellitus with hyperglycemia, without long-term current use of insulin E11.65 Diabetes mellitus alf insulin use: without alf use Assessment & Plan Assessment & Plan (1) Calcaneal fracture: Code(s): S92.009A - Unspecified fracture of unspecified calcaneus, initial encounter for closed fracture Category: Medical Plan: Advised patient to follow up with [facility] where she is established with. She is also scheduled to see Podiatry tomorrow. (2) Current use of anticoagulant therapy: Code(s): Z79.01 - longterm (current) use of anticoagulants Category: Medical Plan: Patient was recently started on anticoagulation after pulmonary embolism advised to follow up with Cardiology. (3) GERD (gastroesophageal reflux disease): Code(s): K21.9 - Gastro-esophageal reflux disease without esophagitis Category: Medical Qualifiers: Esophagitis presence: without esophagitis Qualified Code(s): K21.9 - Gastro-esophageal reflux disease without esophagitis Plan: Avoid trigger foods such as citrus, tomato products, soda, caffeine, spicy foods and other foods that may be irritating to your stomach. Avoid laying flat 3-4 hours after eating and elevate the head of the bed 30 degrees to prevent acid from moving into the esophagus. Continue on present medication. (4) Obstructive sleep apnea: Comment: cannot tolerate CPAP 12/2020 Code(s): G47.33 - Obstructive sleep apnea (adult) (pediatric) Category: Medical Plan: Recommend positional therapy and use of CPAP at night. Pre hospital recommendation she should be using CPAP nightly due to chronic hypercapnia. Patient's CPAP machine was not working and she has a assistance representative from [facility] coming out this week to adjust the settings. Discussed the importance of using this therapy at night. (5) Congestive heart failure: Code(s): I50.9 - Heart failure, unspecified Category: Medical Qualifiers: Heart failure chronicity: chronic Heart failure type: systolic Qualified Code(s): I50.22 - Chronic systolic (congestive) heart failure Plan: Recommend good control of high blood pressure, diabetes, cholesterol advised to use CPAP at night. Advised taking daily weights and limiting fluid intake. (6) Obesity (BMI 30-39.9): Code(s): E66.9 - Obesity, unspecified Category: Medical Plan: Healthy diet and regular exercise is encouraged. (7) COPD (chronic obstructive pulmonary disease): Comment: Dr. Garber [facility] pulmonary [phone] Code(s): J44.9 - Chronic obstructive pulmonary disease, unspecified Category: Medical Qualifiers: COPD type: emphysema Emphysema type: unspecified Qualified Code(s): J43.9 - Emphysema, unspecified Plan: Continue on present medication regimen and continue with supplemental oxygen. Follow up with pulmonology. (8) Hypercholesterolemia: Comment: blood work done 10/2019 Code(s): E78.00 - Pure hypercholesterolemia, unspecified Category: Medical Plan: Avoid foods that are high in cholesterol such as red meat, fried foods, eggs and baked goods. Triglyceride goal of less than 150 and LDL goal of less than 70. (9) Hypertension: Code(s): I10 - Essential (primary) hypertension Category: Medical Qualifiers: Hypertension type: essential hypertension Qualified Code(s): I10 - Essential (primary) hypertension Plan: Continue on current blood pressure medication. Avoid salt intake and encourage healthy diet and regular exercise. 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 (11) Type 2 diabetes mellitus with hyperglycemia: Comment: [place] Code(s): E11.65 - Type 2 diabetes mellitus with hyperglycemia Category: Medical Qualifiers: Diabetes mellitus terminal operations manager insulin use: without terminal operations manager use Qualified Code(s): E11.65 - Type 2 diabetes mellitus with hyperglycemia Plan: Decrease the amount of carbohydrates such as pasta, bread, rice, and potatoes and limit the amount of sweets. Although fruits are generally healthy they should be eaten in moderation as they are still high in sugar. Hemoglobin A1c goal of less than 7%. Plan This note was constructed using voice recognition software. While every effort has been made to ensure accuracy and purchasing associate, still areas may have been included sometimes these areas may affect the content or meeting of the given symptoms. Total time spent caring for the patient today was 30 minutes. This includes time spent before the visit reviewing the chart, time spent during the visit, and time spent after the visit and documentation. Orders: Orders AMB Hemoglobin A1c 06/25/24 E11.65 - Type 2 diabetes mellitus with hyperglycemia Medications: New apixaban 5 mg PO BID 60 tabs 3RF
[2024-06-25 13:11] VITALS: BP 102/70; PULSE 100; O2SAT 96; BMI 31.9
== END 2024-06-25 13:58 | disposition home or self-care (01) ==
PROVIDERS: PCP Internal Medicine
DX: I50.22 Chronic systolic (congestive) heart failure (principal); J43.9 Emphysema, unspecified; I48.0 Paroxysmal atrial fibrillation; E11.65 Type 2 diabetes mellitus with hyperglycemia; S92.009A Unspecified fracture of unspecified calcaneus, initial encounter for closed fracture; Z79.01 Long term (current) use of anticoagulants; K21.9 Gastro-esophageal reflux disease without esophagitis; G47.33 Obstructive sleep apnea (adult) (pediatric); E66.9 Obesity, unspecified; E78.00 Pure hypercholesterolemia, unspecified; I10 Essential (primary) hypertension

== ENCOUNTER → 2024-06-25 13:06 | Outpatient (BNVA) | payer MEDICARE, OTHER, SELFPAY | PROVIDERS: PCP Internal Medicine | DX: E11.65 Type 2 diabetes mellitus with hyperglycemia (principal); I26.99 Other pulmonary embolism without acute cor pulmonale; S92.009D Unspecified fracture of unspecified calcaneus, subsequent encounter for fracture with routine healing; X58.XXXD Exposure to other specified factors, subsequent encounter; K21.9 Gastro-esophageal reflux disease without esophagitis; G47.33 Obstructive sleep apnea (adult) (pediatric); I11.0 Hypertensive heart disease with heart failure; I50.22 Chronic systolic (congestive) heart failure; E66.9 Obesity, unspecified; J43.9 Emphysema, unspecified; E78.00 Pure hypercholesterolemia, unspecified; I48.0 Paroxysmal atrial fibrillation; Z79.01 Long term (current) use of anticoagulants | CPT/HCPCS: 83036; 99212 ==

== ENCOUNTER 2024-07-13 09:49 | Outpatient (AMB) | payer MEDICARE, OTHER, SELFPAY ==
--- NOTE | 2024-07-13 09:49 | A.OFFPC_ITS ---
Intake Visit Reasons: f/u Allergies aspirin [Aspirin] Allergy (Severe, Verified 06/25/24 13:14) BLEED acetaminophen [From Vicodin] Allergy (Intermediate, Verified 06/25/24 13:14) Agitated hydrocodone [From Vicodin] Allergy (Intermediate, Verified 06/25/24 13:14) Agitated lisinopril [Lisinopril] Allergy (Mild, Verified 06/25/24 13:14) COUGH adhesive [ADHESIVE] Allergy (Unknown, Verified 06/25/24 13:14) RED,ITCHY fluticasone [Advair Diskus] Allergy (Unknown, Verified 06/25/24 13:14) UNKNOWN NSAIDS (Non-Steroidal Anti-Inflamma [NSAIDS (NON-STEROIDAL ANTI-INFLAMMA] Allergy (Unknown, Verified 06/25/24 13:14) HX BLEED , GI salmeterol [Advair Diskus] Allergy (Unknown, Verified 06/25/24 13:14) Unknown diphenhydramine [From Benadryl] Adverse Reaction (Mild, Verified 06/25/24 13:14) AGITATION ibuprofen [From Motrin] Adverse Reaction (Mild, Verified 06/25/24 13:14) RINGINGIN EAR zolpidem [From Ambien] Adverse Reaction (Mild, Verified 06/25/24 13:14) AGITATION Medication List - Last Reconciled 07/13/24 by Alanis Juarez PA-C albuterol sulfate 90 mcg/actuation (Ventolin HFA) 2 puffs inhalation Q6H PRN ammonium lactate 5% (Lac-Hydrin Five) 1 appl topical BID apixaban 5 mg PO BID ascorbate calcium (vitamin C) 500 mg PO DAILY atorvastatin 20 mg PO BEDTIME 90 days blood sugar diagnostic (FreeStyle Lite Strips) Check blood sugars once a day daily; 90 days digoxin 125 mcg PO DAILY 90 days diltiazem HCl ER 300 mg PO DAILY famotidine 20 mg PO DAILY ferrous sulfate 325 mg PO DAILY fluticasone propion-salmeterol 250-50 mcg/dose (Wixela Inhub) 1 inh inhalation BID mpcjfkqdcfy-nybjpurmc-rqazgaip 100-62.5-25 mcg (Trelegy Ellipta) 1 ea inhalation DAILY furosemide (Lasix) 20 mg PO DAILY gabapentin 400 mg PO BID 90 days lancets As directed lidocaine 5% 1 patch topical DAILY loperamide (Imodium A-D) 2 mg PO Q6H PRN metformin 500 mg PO DAILY metoprolol succinate ER 100 mg (2 x 50 mg) PO DAILY 90 days multivitamin 1 tab PO DAILY nirmatrelvir-ritonavir 150-100 mg (Paxlovid) PO PER PKG DIR nirmatrelvit 150 mg with Ritonavir 100 mg BID 5 days oxycodone-acetaminophen 5-325 mg 1 tab PO Q8H PRN pantoprazole 40 mg PO DAILY potassium chloride ER 20 mEq PO DAILY ropinirole 0.25 mg PO BID 90 days ropinirole 2 mg PO BEDTIME 90 days Tobacco use date assessed: 01/21/24 Fall risk assessment: No Falls in past year Last assessed Fall Risk: 07/13/24 Dental Screening Dental Screen Date: 12/16/23 HPI f/u HPI Details 83-year-old female with past medical his tory of diabetes mellitus, atrial fibrillation, hypertension, hypercholesterolemia, COPD, congestive heart failure, obstructive sleep apnea, GERD pulmonary embolism on anticoagulation last seen 06/2024 presenting via telehealth for follow up. Patient has left calcaneal fracture and advised at last visit to follow up with [facility]. Patient states she has not yet seen orthopedics or reached out to the office for follow up. She has been full weight bearing on the left foot without pain. She does have a history of foot deformity and requesting new custom insoles. She has not been using her CPAP nightly due to feeling lazy and has had the settings updated by [facility]. She continues to use supplemental oxygen and has limited movement due to foot deformity, dyspnea with exertion and obesity. [facility] Medical History Pacemaker Bilateral carpal tunnel syndrome Osteoarthritis Fracture of lateral epicondyle of left humerus Foramen ovale Tubular adenoma of colon History of breast cancer GERD (gastroesophageal reflux disease) Obstructive sleep apnea Congestive heart failure Obesity (BMI 30-39.9) COPD (chronic obstructive pulmonary disease) Hypercholesterolemia Hypertension Atrial fibrillation Type 2 diabetes mellitus with hyperglycemia Surgical History Status post lumbar spine surgery for decompression of spinal cord S/P repair of paraesophageal hernia History of tonsillectomy History of abdominal hysterectomy History of cardiac cath History of bilateral knee replacement Family History Father CVD (cardiovascular disease) CAD (coronary artery disease) Hypertension Mother CVD (cardiovascular disease) Hypertension CAD (coronary artery disease) Spinal stenosis Sister CAD (coronary artery disease) Afib Social History Household Members: Family Housing: Apartment Alcohol intake: never Patient Tobacco Use Status: Never used Tobacco e-Cigarette/Vaping Use: Never Used Second Hand Smoke Exposure: Yes service: No Current occupational status: retired Current occupation: right handed Cognitive needs: No Hearing needs: No Vision needs: Yes Questionnaire Thrive Questionnaire Date Thrive assessed: 12/16/23 AUDIT C Alcohol Use Questionnaire (AUDIT-C) 1. How often do you have a drink containing alcohol?: Never 2. How many drinks containing alcohol do you have on a typical day when you are drinking?: 1 or 2 3. How often do you have six or more drinks on one occasion?: Never Total Score: 0 Score Reviewed/Action Taken: No YVON-7 AMB Questionnaire YVON-7 Date YVON - 7 assessed: 12/16/23 Source: Developed by Drs. Jorje Correia, Jeana Gaxiola, Pawel High and colleagues, with an educational katie from [employer]. Review of Systems Const Denies body aches, Denies chills and Denies fever(s) Eyes Reports no additional complaints ENT Reports no additional complaints Card Denies chest pain, Denies syncope, Denies lightheadedness, Denies dyspnea and Reports dyspnea on exertion Resp Details: Still requiring supplemental oxygen Denies dyspnea and Reports dyspnea on exertion GI Reports no additional complaints Reports no additional complaints Musc Details: Has been weight-bearing on left heel Skin/Breast Reports system reviewed and no additional complaints, except as documented Neuro Denies syncope Physical exam (Primary Care) Tobacco/Smoking Status: Tobacco use Status Tobacco use date assessed 01/21/24 07/13/24 09:51 Patient Tobacco Use Status Never used Tobacco 07/13/24 09:51 e-Cigarette/Vaping Use Never Used 07/13/24 09:51 Thrive Assessment: Date of Thrive Assessment Date Thrive assessed 12/16/23 07/13/24 09:51 Const Other: Unable to perform physical exam due to telehealth visit Telehealth Telehealth Telehealth Platform: Telephone Location of provider rendering services: practice address Location of patient: address on file Patient Identification confirmed using: Name, : Yes Telehealth method: voice only Patient verbally consented to treatment: Yes Patient verbally consented to billing insurance company: Yes Patient informed of any privacy concerns related to visit: Yes Coding Level of Care Code Tele Est Pt Level 3 (28129) Diagnoses Calcaneal fracture S92.009A Foot deformity, acquired M21.969 Presence of Watchman left atrial appendage closure device Z95.818 Gastroesophageal reflux disease without esophagitis K21.9 Esophagitis presence: without esophagitis Obstructive sleep apnea G47.33 Hypercholesterolemia E78.00 Essential hypertension I10 Hypertension type: essential hypertension Paroxysmal atrial fibrillation I48.0 Atrial fibrillation type: paroxysmal Type 2 diabetes mellitus with hyperglycemia, without long-term current use of insulin E11.65 Diabetes mellitus chcf insulin use: without chcf use Assessment & Plan Assessment & Plan (1) Calcaneal fracture: Code(s): S92.009A - Unspecified fracture of unspecified calcaneus, initial encounter for closed fracture Category: Medical Plan: Patient has not yet seen orthopedics. On discharge paperwork advised to follow up with [facility] preferring a [facility] provider. Referral placed for [facility]. Patient states she was advised not to drive due to calcaneal fracture. Advised if patient is weight-bearing and denies any pain and is able to safely step on the gas and the break she can resume driving. However did advise she should undergo formal orthopedics evaluation prior to driving. (2) Foot deformity, acquired: Code(s): M21.969 - Unspecified acquired deformity of unspecified lower leg Category: Medical Plan: Advised to follow up with Podiatry. Requesting custom insoles and advised patient to reach out to the office with where she would like the prescription sent. (3) Presence of Watchman left atrial appendage closure device: Comment: 08/2023 Code(s): Z95.818 - Presence of other cardiac implants and grafts Category: Medical Plan: Advised to follow up with Cardiology at earliest appointment. (4) GERD (gastroesophageal reflux disease): Code(s): K21.9 - Gastro-esophageal reflux disease without esophagitis Category: Medical Qualifiers: Esophagitis presence: without esophagitis Qualified Code(s): K21.9 - Gastro-esophageal reflux disease without esophagitis Plan: Avoid trigger foods such as citrus, tomato products, soda, caffeine, spicy foods and other foods that may be irritating to your stomach. Avoid laying flat 3-4 hours after eating and elevate the head of the bed 30 degrees to prevent acid from moving into the esophagus. (5) Obstructive sleep apnea: Comment: cannot tolerate CPAP 12/2020 Code(s): G47.33 - Obstructive sleep apnea (adult) (pediatric) Category: Medical Plan: Patient was advised strongly by Cardiology upon discharge to use CPAP nightly due to presence of acid-base disorder requiring hospitalization which was thought to be exacerbated by overnight hypercapnia. Patient had [facility] got to the house to adjust her CPAP settings. She denies using the CPAP nightly due to laziness and strongly advised to begin using CPAP nightly. (6) Hypercholesterolemia: Comment: blood work done 10/2019 Code(s): E78.00 - Pure hypercholesterolemia, unspecified Category: Medical Plan: Avoid foods that are high in cholesterol such as red meat, fried foods, eggs and baked goods. Triglyceride goal of less than 150 and LDL goal of less than 100. Reminded about blood work (7) Hypertension: Code(s): I10 - Essential (primary) hypertension Category: Medical Qualifiers: Hypertension type: essential hypertension Qualified Code(s): I10 - Essential (primary) hypertension Plan: Continue on current blood pressure medication. Avoid salt intake and encourage healthy diet and regular exercise. 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 (9) Type 2 diabetes mellitus with hyperglycemia: Comment: [place] Code(s): E11.65 - Type 2 diabetes mellitus with hyperglycemia Category: Medical Qualifiers: Diabetes mellitus ocean transportation intermediary insulin use: without ocean transportation intermediary use Qualified Code(s): E11.65 - Type 2 diabetes mellitus with hyperglycemia Plan: Decrease the amount of carbohydrates such as pasta, bread, rice, and potatoes and limit the amount of sweets. Although fruits are generally healthy they should be eaten in moderation as they are still high in sugar. Hemoglobin A1c goal of less than 7%. A1c 6.1% at last exam discussed dietary and lifestyle changes Plan This note was constructed using voice recognition software. While every effort has been made to ensure accuracy and revenue collector, still areas may have been included sometimes these areas may affect the content or meeting of the given symptoms. Total time spent caring for the patient today was 20 minutes. This includes time spent before the visit reviewing the chart, time spent during the visit, and time spent after the visit and documentation. Orders: Orders 2 Comprehensive Met. Panel Today E11.65 - Type 2 diabetes mellitus with hyperglycemia Creatinine Urine Today E11.65 - Type 2 diabetes mellitus with hyperglycemia Complete Blood Count Auto Diff Today E11.65 - Type 2 diabetes mellitus with hyperglycemia Vitamin B12 and Folate Today E11.65 - Type 2 diabetes mellitus with hyperglycemia Vitamin D 25-OH Total Today E11.65 - Type 2 diabetes mellitus with hyperglycemia Lipid Panel Today E11.65 - Type 2 diabetes mellitus with hyperglycemia, E78.00 - Pure hypercholesterolemia, unspecified Free T4 (Free Thyroxine) Today E11.65 - Type 2 diabetes mellitus with hypergl ycemia Magnesium Today Z95.818 - Presence of other cardiac implants and grafts Thyroid Stimulating Hormone Today E11.65 - Type 2 diabetes mellitus with hyperglycemia Referrals Orthopedics Referral S92.009A - Unspecified fracture of unspecified calcaneus, initial encounter for closed fracture Medications: Refilled ropinirole administer 1-3 hours before bedtime 0.25 mg PO BID 90 days 180 tabs 1RF ropinirole 2 mg PO BEDTIME 90 days 90 tabs 2RF
== END 2024-07-13 10:21 | disposition home or self-care (01) ==
LOC: HO.HMCH 09:49
PROVIDERS: PCP Internal Medicine
DX: S92.009A Unspecified fracture of unspecified calcaneus, initial encounter for closed fracture (principal); I48.0 Paroxysmal atrial fibrillation; E11.65 Type 2 diabetes mellitus with hyperglycemia; M21.969 Unspecified acquired deformity of unspecified lower leg; Z95.818 Presence of other cardiac implants and grafts; K21.9 Gastro-esophageal reflux disease without esophagitis; G47.33 Obstructive sleep apnea (adult) (pediatric); E78.00 Pure hypercholesterolemia, unspecified; I10 Essential (primary) hypertension

== ENCOUNTER → 2024-07-13 09:49 | Outpatient (BNVA) | payer MEDICARE, OTHER, SELFPAY | PROVIDERS: PCP Internal Medicine ==

== ENCOUNTER 2024-07-20 08:23 | Outpatient (REF) | payer MEDICARE, OTHER, SELFPAY | END 2024-07-20 08:24 | disposition home or self-care (01) | LOC: HO.HOSX 08:23 | PROVIDERS: Visit Provider Physician Assistant | DX: M19.072 Primary osteoarthritis, left ankle and foot (principal) | CPT/HCPCS: 73650; 99202 ==

== ENCOUNTER 2024-07-20 14:23 | Outpatient (AMB) | payer MEDICARE, OTHER, SELFPAY ==
--- NOTE | 2024-07-20 14:43 | MHC.OFFVIS ---
Vital Signs 07/20/24 15:42 Height 5 ft 4 in Weight 186 lb BMI 31.9 Intake Visit Reasons: FC- closed, left heel FC-one week follow up Intake Note: Natalie is a 83 year old female who presents to the office today with her son for an evaluation of left calcaneus fx, DOI 04/26/2024. Patient reports that she twisted her ankle and was seen [facility] and was transferred to [place]. Currently she denies any foot or ankle pain. She uses compression socks. Hx of RLS. Allergies aspirin [Aspirin] Allergy (Severe, Verified 07/20/24 15:42) BLEED acetaminophen [From Vicodin] Allergy (Intermediate, Verified 07/20/24 15:42) Agitated hydrocodone [From Vicodin] Allergy (Intermediate, Verified 07/20/24 15:42) Agitated lisinopril [Lisinopril] Allergy (Mild, Verified 07/20/24 15:42) COUGH adhesive [ADHESIVE] Allergy (Unknown, Verified 07/20/24 15:42) RED,ITCHY fluticasone [Advair Diskus] Allergy (Unknown, Verified 07/20/24 15:42) UNKNOWN NSAIDS (Non-Steroidal Anti-Inflamma [NSAIDS (NON-STEROIDAL ANTI-INFLAMMA] Allergy (Unknown, Verified 07/20/24 15:42) HX BLEED , GI salmeterol [Advair Diskus] Allergy (Unknown, Verified 07/20/24 15:42) Unknown diphenhydramine [From Benadryl] Adverse Reaction (Mild, Verified 07/20/24 15:42) AGITATION ibuprofen [From Motrin] Adverse Reaction (Mild, Verified 07/20/24 15:42) RINGINGIN EAR zolpidem [From Ambien] Adverse Reaction (Mild, Verified 07/20/24 15:42) AGITATION Medication List - Last Reconciled 07/23/24 by Sidney Hawley PA-C albuterol sulfate 90 mcg/actuation (Ventolin HFA) 2 puffs inhalation Q6H PRN ammonium lactate 5% (Lac-Hydrin Five) 1 appl topical BID apixaban 5 mg PO BID ascorbate calcium (vitamin C) 500 mg PO DAILY atorvastatin 20 mg PO BEDTIME 90 days blood sugar diagnostic (FreeStyle Lite Strips) Check blood sugars once a day daily; 90 days digoxin 125 mcg PO DAILY 90 days diltiazem HCl ER 300 mg PO DAILY famotidine 20 mg PO DAILY ferrous sulfate 325 mg PO DAILY fdkmqrcdtgh-rhtolnebm-mpohjxou 100-62.5-25 mcg (Trelegy Ellipta) 1 ea inhalation DAILY furosemide (Lasix) 20 mg PO DAILY gabapentin 400 mg PO BID 90 days lancets As directed lidocaine 5% 1 patch topical DAILY loperamide (Imodium A-D) 2 mg PO Q6H PRN metformin 500 mg PO DAILY metoprolol succinate ER 100 mg (2 x 50 mg) PO DAILY 90 days multivitamin 1 tab PO DAILY [orthotics orthotic bilat feet ] pantoprazole 40 mg PO DAILY potassium chloride ER 20 mEq PO DAILY ropinirole 0.25 mg PO BID 90 days ropinirole 2 mg PO BEDTIME 90 days HPI HPI FC- closed, left heel FC-one week follow up: Details: 83-year-old female who presents to the office today for an evaluation of left heel injury after twisting her ankle during breakfast, 04/26/24. She currently states she has no pain in her heel. She uses compression socks for her foot. She has a history of RLS. [facility] Medical History Pacemaker Bilateral carpal tunnel syndrome Osteoarthritis Fracture of lateral epicondyle of left humerus Foramen ovale Tubular adenoma of colon History of breast cancer GERD (gastroesophageal reflux disease) Obstructive sleep apnea Congestive heart failure Obesity (BMI 30-39.9) COPD (chronic obstructive pulmonary disease) Hypercholesterolemia Hypertension Atrial fibrillation Type 2 diabetes mellitus with hyperglycemia Surgical History Status post lumbar spine surgery for decompression of spinal cord S/P repair of paraesophageal hernia History of tonsillectomy History of abdominal hysterectomy History of cardiac cath History of bilateral knee replacement Family History Father CVD (cardiovascular disease) CAD (coronary artery disease) Hypertension Mother CVD (cardiovascular disease) Hypertension CAD (coronary artery disease) Spinal stenosis Sister CAD (coronary artery disease) Afib Social History Household Members: Family Housing: Apartment Alcohol intake: never Patient Tobacco Use Status: Never used Tobacco e-Cigarette/Vaping Use: Never Used Second Hand Smoke Exposure: Yes service: No Current occupational status: retired Current occupation: right handed Cognitive needs: No Hearing needs: No Vision needs: Yes Review of Systems Const All systems reviewed & are unremarkable except as noted in HPI and below Physical Exam Vital Signs: BMI result Body Mass Index 31.9 Const General: cooperative, healthy appearing, comfortable, no acute distress, well developed and alert Orientation/consciousness: patient oriented x3 HEENT Head: Yes normal to inspection, Yes normocephalic and Yes atraumatic Eyes General: appearance normal, both eyes and all related structures Resp Effort & Inspection: normal respiratory effort and able to speak in complete sentences Cardio Rate: regular rate Peripheral pulses: Peripheral pulses 2+ throughout GI Palpation (GI): Soft to palpation Skin Lesions: no lesions Rashes: no rashes Neuro General: patient oriented x3 Extrem Other: Bilateral feet: Show evidence of collapse with pes planus. No tenderness along the calcaneus Results Reviewed Results Reviewed: Xrays were obtained in the office today and personally reviewed by me of the left ankle show severe oa with collape, no obvious fracture through the calcaneus Assessment & Plan Assessment & Plan (1) Osteoarthritis of left ankle: Code(s): M19.072 - Primary osteoarthritis, left ankle and foot Category: Medical Plan Patient presented today for an order for new orthotics. She was given this today and will obtain an orthotic for pes planus. If symptoms persist or worsens, patient will contact the office, otherwise follow-up as needed. Orders: Orders XR calcaneus LT min 2V 07/20/24 S92.002A - Unspecified fracture of left calcaneus, initial encounter for closed fracture Medications: New [orthotics] orthotic bilat feet 1 ea 0RF pes planus M21.41 - Flat foot [pes planus] (acquired), right foot, M21.42 - Flat foot [pes planus] (acquired), left foot Patient Instructions: Scribed for Sidney Hawley PA-C, by Derek Obrien medical records secretary, on 07/20/2024 at 2:15 PM EST.? I, Sidney Hawley PA-C, have personally reviewed and agree with the information entered by the scribe. Coding Level of Care Code New Pt Level 3 (31567) Complex EM visit Add On G2211 Diagnoses Osteoarthritis of left ankle M19.072
[2024-07-20 15:42] VITALS: BMI 31.9
== END 2024-07-20 15:17 | disposition home or self-care (01) ==
PROVIDERS: PCP Internal Medicine; Visit Provider Physician Assistant
DX: M19.072 Primary osteoarthritis, left ankle and foot (principal)
CPT/HCPCS: 99203; G2211

== ENCOUNTER 2024-07-21 10:08 | Outpatient (AMB) | payer MEDICARE, OTHER, SELFPAY ==
[2024-07-21 10:11] VITALS: BP 120/70; PULSE 76; BMI 33.4
--- NOTE | 2024-07-21 10:11 | A.OFFVIS_ITS ---
Vital Signs 07/21/24 10:11 Height 5 ft 4 in Weight 194 lb 14.218 oz BMI 33.4 BP 120/70 Blood Pressure Location Lt brachial Position Sitting Pulse 76 Pulse Source Monitor Intake Visit Reasons: overdue follow-[place] [facility] [place] 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 Accompanied by: Son Allergies aspirin [Aspirin] Allergy (Severe, Verified 07/20/24 15:42) BLEED acetaminophen [From Vicodin] Allergy (Intermediate, Verified 07/20/24 15:42) Agitated hydrocodone [From Vicodin] Allergy (Intermediate, Verified 07/20/24 15:42) Agitated lisinopril [Lisinopril] Allergy (Mild, Verified 07/20/24 15:42) COUGH adhesive [ADHESIVE] Allergy (Unknown, Verified 07/20/24 15:42) RED,ITCHY fluticasone [Advair Diskus] Allergy (Unknown, Verified 07/20/24 15:42) UNKNOWN NSAIDS (Non-Steroidal Anti-Inflamma [NSAIDS (NON-STEROIDAL ANTI-INFLAMMA] Allergy (Unknown, Verified 07/20/24 15:42) HX BLEED , GI salmeterol [Advair Diskus] Allergy (Unknown, Verified 07/20/24 15:42) Unknown diphenhydramine [From Benadryl] Adverse Reaction (Mild, Verified 07/20/24 15:42) AGITATION ibuprofen [From Motrin] Adverse Reaction (Mild, Verified 07/20/24 15:42) RINGINGIN EAR zolpidem [From Ambien] Adverse Reaction (Mild, Verified 07/20/24 15:42) AGITATION Medication List - Last Reconciled 07/21/24 by Rajan Gale MD albuterol sulfate 90 mcg/actuation (Ventolin HFA) 2 puffs inhalation Q6H PRN ammonium lactate 5% (Lac-Hydrin Five) 1 appl topical BID apixaban 5 mg PO BID ascorbate calcium (vitamin C) 500 mg PO DAILY atorvastatin 20 mg PO BEDTIME 90 days blood sugar diagnostic (FreeStyle Lite Strips) Check blood sugars once a day daily; 90 days digoxin 125 mcg PO DAILY 90 days diltiazem HCl ER 300 mg PO DAILY famotidine 20 mg PO DAILY ferrous sulfate 325 mg PO DAILY pbijrqoexqb-twmtxlzmd-ieahsyxn 100-62.5-25 mcg (Trelegy Ellipta) 1 ea inhalation DAILY furosemide (Lasix) 20 mg PO DAILY gabapentin 400 mg PO BID 90 days lancets As directed lidocaine 5% 1 patch topical DAILY loperamide (Imodium A-D) 2 mg PO Q6H PRN metformin 500 mg PO DAILY metoprolol succinate ER 100 mg (2 x 50 mg) PO DAILY 90 days multivitamin 1 tab PO DAILY [orthotics orthotic bilat feet ] pantoprazole 40 mg PO DAILY potassium chloride ER 20 mEq PO DAILY ropinirole 0.25 mg PO BID 90 days ropinirole 2 mg PO BEDTIME 90 days HPI Comments Details: Natalie comes for follow-up after a very long time. She has had multiple hospitalizations, last hospitalization in [facility]. She was admitted with hypercarbic respiratory failure, related to not using her CPAP therapy. She continues not to be able to use CPAP therapy. She now uses oxygen regularly. Has limitations to activity level. She also was diagnose with pulmonary embolism and was started on Eliquis therapy. She uses all her medications. Denies any palpitations. No clear orthopnea, PND, leg edema. Taking all her medications regularly. Currently on low-dose Lasix therapy. Denies any worsening leg edema. No lightheadedness, syncope. No chest pain. Comes for pacemaker evaluation. [facility]LY [facility] Medical History Pacemaker Bilateral carpal tunnel syndrome Osteoarthritis Fracture of lateral epicondyle of left humerus Foramen ovale Tubular adenoma of colon History of breast cancer GERD (gastroesophageal reflux disease) Obstructive sleep apnea Congestive heart failure Obesity (BMI 30-39.9) COPD (chronic obstructive pulmonary disease) Hypercholesterolemia Hypertension Atrial fibrillation Type 2 diabetes mellitus with hyperglycemia Surgical History Status post lumbar spine surgery for decompression of spinal cord S/P repair of paraesophageal hernia History of tonsillectomy History of abdominal hysterectomy History of cardiac cath History of bilateral knee replacement Family History Father CVD (cardiovascular disease) CAD (coronary artery disease) Hypertension Mother CVD (cardiovascular disease) Hypertension CAD (coronary artery disease) Spinal stenosis Sister CAD (coronary artery disease) Afib Social History Household Members: Family Housing: Apartment Alcohol intake: never Patient Tobacco Use Status: Never used Tobacco e-Cigarette/Vaping Use: Never Used Second Hand Smoke Exposure: Yes service: No Current occupational status: retired Current occupation: right handed Cognitive needs: No Hearing needs: No Vision needs: Yes Review of Systems Const Denies chills, Denies fatigue, Denies fever(s), Denies frequent falls, Denies weakness, Denies weight gain and Denies weight loss ENT Denies dizziness Card Denies chest pain, Denies leg edema, Denies lightheadedness, Denies pa lpitations, Denies dyspnea and Denies dyspnea on exertion Resp Denies cough, Denies dyspnea and Denies dyspnea on exertion GI Denies hematochezia Musc Denies abnormal gait, Denies muscle weakness, Denies numbness, Denies radiating pain into limb and Denies tingling Neuro Denies abnormal gait, Denies dizziness, Denies frequent falls, Denies numbness, Denies tingling and Denies weakness Endo Denies fatigue and Denies palpitations Physical Exam Vital Signs: Last Vital Signs Pulse 76 07/21/24 10:11 BP 120/70 07/21/24 10:11 BMI result Body Mass Index 33.4 Const General: cooperative, comfortable, no acute distress, alert, awake and tired appearing Nutritional Appearance: obese Orientation/consciousness: patient oriented x3 Limitations: ambulation with walker Neck Neck: Yes trachea midline, Yes supple and Yes no JVD Resp Auscultation: crackles (coarse) on the right at the base and diminished lung sounds Cardio Jugular venous distension: no JVD Rhythm: abnormal rhythm irregularly irregular Heart sounds: S1 normal heart sound present, S2 normal heart sound present, no click, no gallops, no murmurs and no rubs GI Auscultation: normal bowel sounds Skin General skin exam: no rashes or lesions noted and ecchymosis Neuro General: patient oriented x3 and no focal motor deficits Extrem General: Yes no clubbing, cyanosis or edema Office Procedures Cardiac Device Check Cardiac Device Check Details: Leadless Medtronic pacemaker in place with excellent battery life. Ventricular sensing is excellent. Lead impedances excellent. Pacing thresholds excellent. Ventricular pacing about 50% of the time 48439-LH Cardiac Device Check, leadless/single lead pacemaker Procedure code (CPT) selection complete EKG Details: EKG shows atrial fibrillation intermittent ventricular pacing with incomplete right bundle-branch block 95228-[id number], Complete Assessment & Plan Assessment & Plan (1) Congestive heart failure: Code(s): I50.9 - Heart failure, unspecified Category: Medical Qualifiers: Heart failure type: systolic Heart failure chronicity: chronic Qualified Code(s): I50.22 - Chronic systolic (congestive) heart failure Plan: Heart failure with preserved ejection fraction clinically euvolemic and well compensated. However her biggest risk currently said her to lifestyle and chronic respiratory failure that will probably increase her risk for reho spitalization which could cause then cardiac decompensation. Continue daily weight monitoring and avoidance of salt loading. Advised to continue CPAP therapy although she is not tolerating well. Also importance of oxygen therapy was discussed. Overall prognosis remains limited. 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 Continue current rate control approach with metoprolol therapy, digoxin and diltiazem.. Currently on full oral anticoagulation Eliquis. Quarterly renal function test in digoxin assay should be performed. Continue supportive care. Will follow up in the clinic in 1 year's time, sooner p.r.n.. Thank you for allowing me to partake in his care Coding Level of Care Code Est Pt Level 4 (24930) Complex EM visit Add On G2211 Diagnoses Chronic systolic congestive heart failure I50.22 Heart failure type: systolic Heart failure chronicity: chronic Paroxysmal atrial fibrillation I48.0 Atrial fibrillation type: paroxysmal CPT Codes Cardiac Device Check - Cardiac Device 1: [id number] Cardiac Device Check, leadless/single lead pacemaker ([id number]) EKG - CPT: 10015-Oozsyxwfjzbnhnssy, Complete ([id number])
== END 2024-07-21 10:47 | disposition home or self-care (01) ==
PROVIDERS: PCP Internal Medicine; Visit Provider Internal Medicine Cardiovascular Disease
DX: I50.22 Chronic systolic (congestive) heart failure (principal); I48.0 Paroxysmal atrial fibrillation
CPT/HCPCS: 93010; 93279; 99214; G2211

== ENCOUNTER 2024-07-21 10:08 | Outpatient (REF) | payer MEDICARE, OTHER, SELFPAY ==
[2024-07-21 11:33] LABS: MANUAL DIFF FLAG NO
[2024-07-21 11:53] LABS: Basophils Absolute Auto 0.1 X10*3/uL (0.0-0.2); Basophils Percent Auto 0.6 % (0-2); Eosinophils Absolute Auto 0.2 X10*3/uL (0.0-0.4); Eosinophils Percent Auto 2.5 % (0-4); Hematocrit 37.2 % (37.0-47.0); Hemoglobin 11.5 g/dl (12.0-16.0); Imm Gran Abs Auto 0.03 X10*3/uL (0.00-0.03); Imm Gran Pct Auto 0.4 % (0.0-0.4); Lymphocytes Absolute Auto 0.9 X10*3/uL (1.2-4.9); Lymphocytes Percent Auto 11.8 % (20-40); Mean Corpuscular HGB Conc 30.9 g/dl (31.0-35.0); Mean Corpuscular Hemoglobin 28.5 pg (27.0-33.0); Mean Corpuscular Volume 92.3 fL (80.0-98.0); Mean Platelet Volume 9.2 fL (9.4-12.3); Monocytes Absolute Auto 0.8 X10*3/uL (0.1-1.2); Monocytes Percent Auto 9.5 % (2-11); Neutrophils Percent Auto 75.2 % (45-73); Platelet Count 292 X10*3/uL (160-400); Red Blood Count 4.03 X10*6/uL (4.20-5.50); Red Cell Distribution Width 15.1 % (11.0-16.0)
[2024-07-21 12:35] LABS: Alanine Aminotransferase 9 U/L (0-31); Albumin Level 3.9 g/dL (3.5-5.0); Alkaline Phosphatase 117 U/L (39-117); Anion Gap 12 (12-20); Aspartate Amino Transferase 16 U/L (5-31); Bilirubin Total 0.5 mg/dL (0.0-1.0); Blood Urea Nitrogen 14 mg/dL (9-16); Carbon Dioxide 32 mmol/L (22-29); Chloride 101 mmol/L (96-108); Cholesterol 142 mg/dL (<200); Estimated Glomerular Filt Rate > 60; Glucose Random 95 mg/dL (60-115); HDL Cholesterol 44 mg/dL (>40); LDL Cholesterol Calculated 85 mg/dL (<100); Magnesium 2.1 mg/dL (1.6-2.6); Potassium 4.2 mmol/L (3.3-5.1); Sodium 141 mmol/L (135-145); Total Protein 6.8 g/dL (6.5-8.0); Triglycerides 66 mg/dL (<150)
[2024-07-21 12:45] LABS: Free T4 (Free Thyroxine) 0.95 ng/dL (0.71-1.85); Thyroid Stimulating Hormone 1.41 uIU/mL (0.32-4.0); Vitamin D 25-OH Total 25.7 ng/mL (>30)
[2024-07-21 12:56] LABS: Folate 8.9 ng/mL (> or = 4.0); Vitamin B12 403 pg/mL (200-900)
== END 2024-07-21 10:09 | disposition home or self-care (01) ==
LOC: HO.LAB 10:08
PROVIDERS: PCP Internal Medicine; Visit Provider Internal Medicine Cardiovascular Disease
DX: I50.22 Chronic systolic (congestive) heart failure (principal); Z95.818 Presence of other cardiac implants and grafts; E78.00 Pure hypercholesterolemia, unspecified; E11.65 Type 2 diabetes mellitus with hyperglycemia; I48.0 Paroxysmal atrial fibrillation
CPT/HCPCS: 36415; 80053; 80061; 82306; 82607; 82746; 83735; 84439; 84443; 85025; 93005; 99212

== ENCOUNTER 2024-07-27 11:25 | Outpatient (AMB) | payer MEDICARE, OTHER, SELFPAY ==
[2024-07-27 11:30] VITALS: BP 130/74; PULSE 87; O2SAT 90; BMI 34.2
--- NOTE | 2024-07-27 11:30 | MHC.PC.OV ---
Vital Signs 07/27/24 11:30 Height 5 ft 4 in Weight 199 lb 1.239 oz BMI 34.2 BP 130/74 Blood Pressure Location Lt brachial Position Sitting Pulse 87 Pulse Source Pulse Oximeter Pulse Oximetry (%) 90 L Oxygen Delivery Method Nasal Cannula Oxygen Flow Rate 2 Intake Visit Reasons: f/u HDF Allergies aspirin [Aspirin] Allergy (Severe, Verified 07/27/24 11:30) BLEED acetaminophen [From Vicodin] Allergy (Intermediate, Verified 07/27/24 11:30) Agitated hydrocodone [From Vicodin] Allergy (Intermediate, Verified 07/27/24 11:30) Agitated lisinopril [Lisinopril] Allergy (Mild, Verified 07/27/24 11:30) COUGH adhesive [ADHESIVE] Allergy (Unknown, Verified 07/27/24 11:30) RED,ITCHY fluticasone [Advair Diskus] Allergy (Unknown, Verified 07/27/24 11:30) UNKNOWN NSAIDS (Non-Steroidal Anti-Inflamma [NSAIDS (NON-STEROIDAL ANTI-INFLAMMA] Allergy (Unknown, Verified 07/27/24 11:30) HX BLEED , GI salmeterol [Advair Diskus] Allergy (Unknown, Verified 07/27/24 11:30) Unknown diphenhydramine [From Benadryl] Adverse Reaction (Mild, Verified 07/27/24 11:30) AGITATION ibuprofen [From Motrin] Adverse Reaction (Mild, Verified 07/27/24 11:30) RINGINGIN EAR zolpidem [From Ambien] Adverse Reaction (Mild, Verified 07/27/24 11:30) AGITATION Medication List - Last Reconciled 07/27/24 by Alanis Juarez PA-C albuterol sulfate 90 mcg/actuation (Ventolin HFA) 2 puffs inhalation Q6H PRN ammonium lactate 5% (Lac-Hydrin Five) 1 appl topical BID apixaban 5 mg PO BID ascorbate calcium (vitamin C) 500 mg PO DAILY atorvastatin 20 mg PO BEDTIME 90 days blood sugar diagnostic (FreeStyle Lite Strips) Check blood sugars once a day daily; 90 days digoxin 125 mcg PO DAILY 90 days diltiazem HCl ER 300 mg PO DAILY famotidine 20 mg PO DAILY ferrous sulfate 325 mg PO DAILY fcwkjfuqlgu-cpgugfqel-igmojbos 100-62.5-25 mcg (Trelegy Ellipta) 1 ea inhalation DAILY furosemide (Lasix) 20 mg PO DAILY gabapentin 400 mg PO BID 90 days lancets As directed lidocaine 5% 1 patch topical DAILY loperamide (Imodium A-D) 2 mg PO Q6H PRN metformin 500 mg PO DAILY metoprolol succinate ER 100 mg (2 x 50 mg) PO DAILY 90 days multivitamin 1 tab PO DAILY [orthotics orthotic bilat feet ] pantoprazole 40 mg PO DAILY potassium chloride ER 20 mEq PO DAILY ropinirole 0.25 mg PO BID 90 days ropinirole 2 mg PO BEDTIME 90 days Tobacco use date assessed: 01/21/24 Fall risk assessment: No Falls in past year Last assessed Fall Risk: 07/27/24 Dental Screening Dental Screen Date: 12/16/23 HPI f/u HDF HPI Details 83-year-old female with past medical history of diabetes mellitus, atrial fibrillation, hypertension, hypercholesterolemia, COPD, congestive heart failure, obstructive sleep apnea, GERD, pulmonary embolism on anticoagulation last seen 07/13/2024 coming in for hospital discharge follow up. In review of the notes, patient was [place] [facility] [place] 07/21/2024 advised daily weight monitoring and oxygen therapy and follow up in 1 year. Seen by orthopedic surgeons 07/23/2024 and given prescription for new orthotics and follow up as needed. Patient states she has been having loose stools for about a week. The stools have been softer than usual but not completely liquid, accompanied by mucus and occasional gas. The patient has attempted to manage symptoms with Imodium, taken twice, with minimal effect. There is no blood present in the stools or associated abdominal pain. She is concerned about possible UTI. Additionally, the patient manages sleep apnea with a CPAP machine but reports difficulties in using it consistently due to issues with mask fit and physical discomfort. The patient also experiences foot discomfort and misalignment, currently using a slipper for relief until new orthotic insoles are prescribed. She also mentioned she has not taken her Lasix today and tends to skip it on days when she knows she will be out of the house. [facility] Medical History Pacemaker Bilateral carpal tunnel syndrome Osteoarthritis Fracture of lateral epicondyle of left humerus Foramen ovale Tubular adenoma of colon History of breast cancer GERD (gastroesophageal reflux disease) Obstructive sleep apnea Congestive heart failure Obesity (BMI 30-39.9) COPD (chronic obstructive pulmonary disease) Hypercholesterolemia Hypertension Atrial fibrillation Type 2 diabetes mellitus with hyperglycemia Surgical History Status post lumbar spine surgery for decompression of spinal cord S/P repair of paraesophageal hernia History of tonsillectomy History of abdominal hysterectomy History of cardiac cath History of bilateral knee replacement Family History Father CVD (cardiovascular disease) CAD (coronary artery disease) Hypertension Mother CVD (cardiovascular disease) Hypertension CAD (coronary artery disease) Spinal stenosis Sister CAD (coronary artery disease) Afib Social History Household Members: Family Housing: Apartment Alcohol intake: never Patient Tobacco Use Status: Never used Tobacco e-Cigarette/Vaping Use: Never Used Second Hand Smoke Exposure: Yes service: No Current occupational status: retired Current occupation: right handed Cognitive needs: No Hearing needs: No Vision needs: Yes Questionnaire Thrive Questionnaire Date Thrive assessed: 12/16/23 AUDIT C Alcohol Use Questionnaire (AUDIT-C) 1. How often do you have a drink containing alcohol?: Never 2. How many drinks containing alcohol do you have on a typical day when you are drinking?: 1 or 2 3. How often do you have six or more drinks on one occasion?: Never Total Score: 0 Score Reviewed/Action Taken: No YVON-7 AMB Questionnaire YVON-7 Date YVON - 7 assessed: 12/16/23 Source: Developed by Drs. Jorje Correia, Jeana Gaxiola, Pawel High and colleagues, with an educational katie from [employer] how to [place]. Review of Systems Const Denies body aches, Denies chills, Denies fever(s) and Denies poor appetite Eyes Reports no additional complaints Card Denies chest pain, Denies syncope, Denies edema, Denies irregular heart rhythm, Denies lightheadedness, Reports dyspnea and Reports dyspnea on exertion Resp Denies cough, Reports dyspnea and Reports dyspnea on exertion GI Details: Loose stool Denies abdominal pain, Denies constipation, Denies diarrhea, Denies nausea and Denies vomiting Reports no additional complaints Musc Reports no additional complaints and Denies abnormal gait Skin/Breast Reports system reviewed and no additional complaints, except as documented Neuro Denies abnormal gait and Denies syncope Psych Reports no additional complaints Physical exam (Primary Care) Vital Signs: Last Vital Signs Pulse 87 07/27/24 11:30 BP 130/74 07/27/24 11:30 Pulse Ox 90 L 07/27/24 11:30 Oxygen Delivery Method Nasal Cannula 07/27/24 11:30 Oxygen Flow Rate 2 07/27/24 11:30 BMI result Body Mass Index 34.2 Tobacco/Smoking Status: Tobacco use Status Tobacco use date assessed 01/21/24 07/27/24 11:31 Patient Tobacco Use Status Never used Tobacco 07/27/24 11:31 e-Cigarette/Vaping Use Never Used 07/27/24 11:31 Thrive Assessment: Date of Thrive Assessment Date Thrive assessed 12/16/23 07/27/24 11:31 Const General: cooperative, healthy appearing, comfortable and no acute distress Orientation/consciousness: patient oriented x3 HENMT Head: Yes normocephalic Ears: hearing grossly normal bilaterally General nose exam: Normal external nose present Eyes General: appearance normal, both eyes and all related structures Conjunctivae: conjunctivae normal Neck Neck: Yes full ROM and Yes no lymphadenopathy Resp Effort & Inspection: normal respiratory effort Auscultation: clear to auscultation bilaterally, crackles bilateral throughout, no rales, no rhonchi and no wheezes Cardio Rate: regular rate Rhythm: regular rhythm Skin General skin exam: no rashes or lesions noted Neuro General: patient oriented x3 Gait exam (Neuro): Normal gait present Extrem General: Yes normal to inspection, Yes full ROM and No edema Psych Affect: normal affect Attitude: cooperative Insight: Good insight present (Psych) Judgement: Good judgement present (Psych) Results AMB Urinalysis, Automated UA Leukoctes 0 Artemio/uL Last Edit by CORY Frankel on 07/27/24 12:51 UA Nitrite Negative Last Edit by CORY Frankel on 07/27/24 12:51 UA Urobilinogen 0.2 mg/dL Last Edit by CORY Frankel on 07/27/24 12:51 UA Protein 15 mg/dL Last Edit by CORY Frankel on 07/27/24 12:51 UA pH 5.5 Last Edit by CORY Frankel on 07/27/24 12:51 UA Blood 0 Ulises/uL Last Edit by CORY Frankel on 07/27/24 12:51 UA Specific [place] 1.025 Last Edit by CORY Frankel on 07/27/24 12:51 UA Ketone Negative Last Edit by CORY Frankel on 07/27/24 12:51 UA Bilirubin 0 mg/dL Last Edit by Dorene Parnell CORY on 07/27/24 12:51 UA Glucose 0 mg/dL Last Edit by CORY Frankel on 07/27/24 12:51 Coding Level of Care Code Est Pt Level 3 (56475) Diagnoses Calcaneal fracture S92.009A Foot deformity, acquired M21.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 Gastroesophageal reflux disease without esophagitis K21.9 Esophagitis presence: without esophagitis Obstructive sleep apnea G47.33 Chronic systolic congestive heart failure I50.22 Heart failure type: systolic Heart failure chronicity: chronic Pulmonary emphysema, unspecified emphysema type J43.9 COPD type: emphysema Emphysema type: unspecified Hypercholesterolemia E78.00 Essential hypertension I10 Hypertension type: essential hypertension Paroxysmal atrial fibrillation I48.0 Atrial fibrillation type: paroxysmal Type 2 diabetes mellitus with hyperglycemia, without long-term current use of insulin E11.65 Diabetes mellitus microsoft net developer insulin use: without skilled nursing use Loose stools R19.5 Assessment & Plan Assessment & Plan (1) Calcaneal fracture: Code(s): S92.009A - Unspecified fracture of unspecified calcaneus, initial encounter for closed fracture Category: Medical Plan: Recently seen by Orthopedics and advised to follow up p.r.n.. (2) Foot deformity, acquired: Code(s): M21.969 - Unspecified acquired deformity of unspecified lower leg Category: Medical Plan: Plan to have custom orthotics completed by clinic in [place] (3) GERD (gastroesophageal reflux disease): Code(s): K21.9 - Gastro-esophageal reflux disease without esophagitis Category: Medical Qualifiers: Esophagitis presence: without esophagitis Qualified Code(s): K21.9 - Gastro-esophageal reflux disease without esophagitis Plan: Avoid trigger foods such as citrus, tomato products, soda, caffeine, spicy foods and other foods that may be irritating to your stomach. Avoid laying flat 3-4 hours after eating and elevate the head of the bed 30 degrees to prevent acid from moving into the esophagus. (4) Obstructive sleep apnea: Comment: cannot tolerate CPAP 12/2020 Code(s): G47.33 - Obstructive sleep apnea (adult) (pediatric) Category: Medical Plan: Patient states she does struggle using the CPAP at night however during her last hospitalization she was strongly encouraged to use his CPAP due to acid changes as a result of hypoxemia. Strongly advised to use CPAP at night. (5) Congestive heart failure: Code(s): I50.9 - Heart failure, unspecified Category: Medical Qualifiers: Heart failure type: systolic Heart failure chronicity: chronic Qualified Code(s): I50.22 - Chronic systolic (congestive) heart failure Plan: Recently seen by Cardiology stable on current medication regimen advised to continue with daily weights and follow up in a year. (6) COPD (chronic obstructive pulmonary disease): Comment: Dr. Garber [facility] pulmonary [phone] Code(s): J44.9 - Chronic obstructive pulmonary disease, unspecified Category: Medical Qualifiers: COPD type: emphysema Emphysema type: unspecified Qualified Code(s): J43.9 - Emphysema, unspecified Plan: Continues to be dependent on oxygen for daily use. Continue on current medication regimen. (7) Hypercholesterolemia: Comment: blood work done 10/2019 Code(s): E78.00 - Pure hypercholesterolemia, unspecified Category: Medical Plan: Avoid foods that are high in cholesterol such as red meat, fried foods, eggs and baked goods. Triglyceride goal of less than 150 and LDL goal of less than 100. (8) Hypertension: Code(s): I10 - Essential (primary) hypertension Category: Medical Qualifiers: Hypertension type: essential hypertension Qualified Code(s): I10 - Essential (primary) hypertension Plan: Continue on current blood pressure medication. Avoid salt intake and encourage healthy diet and regular exercise. (9) Atrial fibrillation: Comment: March 2019 echo normal LV, biatrial enlargement, mild MR severe TR, nuclear stress distal lateral and inferolateral ischemia 74% 04/2018, EF 60-65% dilatation ascending aorta to 4.4 cm with biatrial enlargement, moderate pulmonary hypertension April 2020 Watchmans device 08/2023 Code(s): I48.91 - Unspecified atrial fibrillation Category: Medical Qualifiers: Atrial fibrillation type: paroxysmal Qualified Code(s): I48.0 - Paroxysmal atrial fibrillation Plan: Recently seen by Cardiology stable on current medication regimen and anticoagulation. Continue to monitor symptoms and follow up with Cardiology in year. (10) Type 2 diabetes mellitus with hyperglycemia: Comment: [place] Code(s): E11.65 - Type 2 diabetes mellitus with hyperglycemia Category: Medical Qualifiers: Diabetes mellitus microsoft net developer insulin use: without skilled nursing use Qualified Code(s): E11.65 - Type 2 diabetes mellitus with hyperglycemia Plan: Decrease the amount of carbohydrates such as pasta, bread, rice, and potatoes and limit the amount of sweets. Although fruits are generally healthy they should be eaten in moderation as they are still high in sugar. Hemoglobin A1c goal of less than 7%. (11) Loose stools: Code(s): R19.5 - Other fecal abnormalities Category: Medical Plan: Advised to use fedf-lcs-flulchx fiber supplementation to bulk the stools. Reviewed red flag symptoms of loose stools/diarrhea and when to present for re-evaluation. PAtient understands and will follow up as needed. If loose stools do not improve will refer to GI. UA negative for infection Plan This note was constructed using voice recognition software. While every effort has been made to ensure accuracy and office machine repair shop supervisor, still areas may have been included sometimes these areas may affect the content or meeting of the given symptoms. Total time spent caring for the patient today was 30 minutes. This includes time spent before the visit reviewing the chart, time spent during the visit, and time spent after the visit and documentation. Patient was informed and verbally consented to the use of an ambient scribe for clinic note documentation during this visit. Orders: Orders AMB Urinalysis Automated Today Z13.9 - Encounter for screening, unspecified
== END 2024-07-27 12:39 | disposition home or self-care (01) ==
PROVIDERS: PCP Internal Medicine
DX: J43.9 Emphysema, unspecified (principal); I50.22 Chronic systolic (congestive) heart failure; I48.0 Paroxysmal atrial fibrillation; E11.65 Type 2 diabetes mellitus with hyperglycemia; R19.5 Other fecal abnormalities; S92.009A Unspecified fracture of unspecified calcaneus, initial encounter for closed fracture; M21.969 Unspecified acquired deformity of unspecified lower leg; K21.9 Gastro-esophageal reflux disease without esophagitis; G47.33 Obstructive sleep apnea (adult) (pediatric); E78.00 Pure hypercholesterolemia, unspecified; I10 Essential (primary) hypertension

== ENCOUNTER → 2024-07-27 11:25 | Outpatient (BNVA) | payer MEDICARE, OTHER, SELFPAY | PROVIDERS: PCP Internal Medicine | DX: E11.65 Type 2 diabetes mellitus with hyperglycemia (principal); R19.5 Other fecal abnormalities; I48.0 Paroxysmal atrial fibrillation; E78.00 Pure hypercholesterolemia, unspecified; J43.9 Emphysema, unspecified; I11.0 Hypertensive heart disease with heart failure; I50.22 Chronic systolic (congestive) heart failure; G47.33 Obstructive sleep apnea (adult) (pediatric); K21.9 Gastro-esophageal reflux disease without esophagitis; M21.969 Unspecified acquired deformity of unspecified lower leg; S92.009D Unspecified fracture of unspecified calcaneus, subsequent encounter for fracture with routine healing | CPT/HCPCS: 81003; 99212 ==

== ENCOUNTER 2024-08-18 13:28 | Outpatient (AMB) | payer MEDICARE, OTHER, SELFPAY ==
--- NOTE | 2024-08-18 13:29 | A.OFFPC_ITS ---
Intake Visit Reasons: [place] 07/31 Intake Note: Patient is here for hospital discharge follow up. Patient was discharged from [facility] on 07/31/24. Truck Hopper Required: No Emergency Department Coordinator: Not Required per policy Accompanied by: Self / Same As Patient Allergies aspirin [Aspirin] Allergy (Severe, Verified 08/18/24 13:30) BLEED acetaminophen [From Vicodin] Allergy (Intermediate, Verified 08/18/24 13:30) Agitated hydrocodone [From Vicodin] Allergy (Intermediate, Verified 08/18/24 13:30) Agitated lisinopril [Lisinopril] Allergy (Mild, Verified 08/18/24 13:30) COUGH adhesive [ADHESIVE] Allergy (Unknown, Verified 08/18/24 13:30) RED,ITCHY fluticasone [Advair Diskus] Allergy (Unknown, Verified 08/18/24 13:30) UNKNOWN NSAIDS (Non-Steroidal Anti-Inflamma [NSAIDS (NON-STEROIDAL ANTI-INFLAMMA] Allergy (Unknown, Verified 08/18/24 13:30) HX BLEED , GI salmeterol [Advair Diskus] Allergy (Unknown, Verified 08/18/24 13:30) Unknown diphenhydramine [From Benadryl] Adverse Reaction (Mild, Verified 08/18/24 13:30) AGITATION ibuprofen [From Motrin] Adverse Reaction (Mild, Verified 08/18/24 13:30) RINGINGIN EAR zolpidem [From Ambien] Adverse Reaction (Mild, Verified 08/18/24 13:30) AGITATION Medication List - Last Reconciled 08/18/24 by Alanis Juarez PA-C albuterol sulfate 90 mcg/actuation (Ventolin HFA) 2 puffs inhalation Q6H PRN ammonium lactate 5% (Lac-Hydrin Five) 1 appl topical BID apixaban 5 mg PO BID ascorbate calcium (vitamin C) 500 mg PO DAILY atorvastatin 20 mg PO BEDTIME 90 days blood sugar diagnostic (FreeStyle Lite Strips) Check blood sugars once a day daily; 90 days digoxin 125 mcg PO DAILY 90 days diltiazem HCl ER 300 mg PO DAILY famotidine 20 mg PO DAILY ferrous sulfate 325 mg PO DAILY rrxkugzvvyt-jmdkbnigx-oyqdjwux 100-62.5-25 mcg (Trelegy Ellipta) 1 ea inhalation DAILY furosemide (Lasix) 20 mg PO DAILY gabapentin 400 mg PO BID 90 days lancets As directed lidocaine 5% 1 patch topical DAILY loperamide (Imodium A-D) 2 mg PO Q6H PRN metformin 500 mg PO DAILY metoprolol succinate ER 100 mg (2 x 50 mg) PO DAILY 90 days multivitamin 1 tab PO DAILY [orthotics orthotic bilat feet ] pantoprazole 40 mg PO DAILY potassium chloride ER 20 mEq PO DAILY ropinirole 0.25 mg PO BID 90 days ropinirole 2 mg PO BEDTIME 90 days Tobacco use date assessed: 08/18/24 Fall risk assessment: No Falls in past year Last assessed Fall Risk: 08/18/24 Dental Screening Dental Screen Date: 12/16/23 [facility] 07/31 [facility] Details 83-year-old female with past medical his tory of diabetes mellitus, atrial fibrillation, hypertension, hypercholesterolemia, COPD, congestive heart failure, obstructive sleep apnea, GERD, pulmonary embolism on anticoagulation last seen 07/27/2024 coming in for hospital discharge follow up. Patient tells us today she was seen at [facility] after having copious amounts of watery diarrhea was found to have C diff diarrhea and began treatment while in the hospital and was discharged home on oral vancomycin. She has finished the vancomycin and denies any abdominal pain, diarrhea, fevers or any other symptoms. Her stools are mostly formed with occasional loose stools but denies any diarrhea or blood in the stool. She also mentions in the last several weeks she has begun having right knee pain and does have a history total knee replacement. She also mentions bilateral shoulder pain right greater than left that has been improving. Knee pain has also been improving. [facility] Medical History Pacemaker Bilateral carpal tunnel syndrome Osteoarthritis Fracture of lateral epicondyle of left humerus Foramen ovale Tubular adenoma of colon History of breast cancer GERD (gastroesophageal reflux disease) Obstructive sleep apnea Congestive heart failure Obesity (BMI 30-39.9) COPD (chronic obstructive pulmonary disease) Hypercholesterolemia Hypertension Atrial fibrillation Type 2 diabetes mellitus with hyperglycemia Surgical History Status post lumbar spine surgery for decompression of spinal cord S/P repair of paraesophageal hernia History of tonsillectomy History of abdominal hysterectomy History of cardiac cath History of bilateral knee replacement Family History Father CVD (cardiovascular disease) CAD (coronary artery disease) Hypertension Mother CVD (cardiovascular disease) Hypertension CAD (coronary artery disease) Spinal stenosis Sister CAD (coronary artery disease) Afib Social History Household Members: Family Housing: Apartment Alcohol intake: never Patient Tobacco Use Status: Never used Tobacco e-Cigarette/Vaping Use: Never Used Second Hand Smoke Exposure: Yes service: No Current occupational status: retired Current occupation: right handed Cognitive needs: No Hearing needs: No Vision needs: Yes Questionnaire Thrive Questionnaire Date Thrive assessed: 12/16/23 YVON-7 AMB Questionnaire YVON-7 Date YVON - 7 assessed: 12/16/23 Source: Developed by Drs. Jorje Correia, Jeana Gaxiola, Pawel High and colleagues, with an educational katie from [employer]. Review of Systems Const Denies body aches, Denies chills, Denies fever(s), Denies headache(s) and Denies poor appetite Eyes Reports no additional complaints ENT Denies dizziness and Denies headache(s) Card Denies chest pain, Denies syncope, Denies edema, Denies irregular heart rhythm, Denies lightheadedness, Reports dyspnea and Reports dyspnea on exertion Resp Denies cough, Reports dyspnea and Reports dyspnea on exertion GI Denies abdominal pain, Denies melena, Denies bloating, Denies hematochezia, Denies constipation, Denies diarrhea, Reports loose stools (Occasionally), Denies nausea and Denies vomiting Reports no additional complaints Musc Details: Bilateral shoulder pain, right knee pain Denies abnormal gait Skin/Breast Reports system reviewed and no additional complaints, except as documented Neuro Denies abnormal gait, Denies dizziness, Denies syncope and Denies headache(s) Psych Reports no additional complaints Physical exam (Primary Care) Vital Signs: Physical exam not performed today due to nature of telehealth visit Tobacco/Smoking Status: Tobacco use Status Tobacco use date assessed 01/21/24 07/27/24 11:31 Patient Tobacco Use Status Never used Tobacco 07/27/24 11:31 e-Cigarette/Vaping Use Never Used 07/27/24 11:31 Thrive Assessment: Date of Thrive Assessment Date Thrive assessed 12/16/23 07/27/24 11:31 Telehealth Telehealth Telehealth Platform: Telephone Location of provider rendering services: practice address Location of patient: address on file Patient Identification confirmed using: Name, : Yes Telehealth method: voice only Patient verbally consented to treatment: Yes Patient verbally consented to billing insurance company: Yes Patient informed of any privacy concerns related to visit: Yes Coding Level of Care Code Tele Est Pt Level 4 (31956) Diagnoses Loose stools R19.5 Essential hypertension I10 Hypertension type: essential hypertension Type 2 diabetes mellitus with hyperglycemia, without long-term current use of insulin E11.65 Diabetes mellitus adjunct faculty for medical terminology insulin use: without adjunct faculty for medical terminology use Obesity (BMI 30-39.9) E66.9 Obstructive sleep apnea G47.33 Bilateral shoulder pain M25.511; M25.512 Right knee pain M25.561 Osteoarthritis of left ankle M19.072 Assessment & Plan Assessment & Plan (1) Loose stools: Code(s): R19.5 - Other fecal abnormalities Category: Medical Plan: Patient was found to have C diff diarrhea which has resolved with oral vancomycin. She has had solid and loose stools without any blood in the stool and no watery diarrhea. Advised patient to continue to monitor her symptoms and if she becomes febrile or develops any of the symptoms above to reach out to the office or go to the ER for re-evaluation. (2) Hypertension: Code(s): I10 - Essential (primary) hypertension Category: Medical Qualifiers: Hypertension type: essential hypertension Qualified Code(s): I10 - Essential (primary) hypertension Plan: Continue on current blood pressure medication. Avoid salt intake and encourage healthy diet and regular exercise. (3) Type 2 diabetes mellitus with hyperglycemia: Comment: [place] Code(s): E11.65 - Type 2 diabetes mellitus with hyperglycemia Category: Medical Qualifiers: Diabetes mellitus adjunct faculty for medical terminology insulin use: without mcfp use Qualified Code(s): E11.65 - Type 2 diabetes mellitus with hyperglycemia Plan: Decrease the amount of carbohydrates such as pasta, bread, rice, and potatoes and limit the amount of sweets. Although fruits are generally healthy they should be eaten in moderation as they are still high in sugar. Hemoglobin A1c goal of less than 7%. Last A1c 6.1%. (4) Obesity (BMI 30-39.9): Code(s): E66.9 - Obesity, unspecified Category: Medical Plan: Healthy diet and regular exercise is encouraged. (5) Obstructive sleep apnea: Comment: cannot tolerate CPAP 12/2020 Code(s): G47.33 - Obstructive sleep apnea (adult) (pediatric) Category: Medical Plan: Discussed the importance of wearing a CPAP patient states she is still not wearing her CPAP due to discomfort with the mask. Discussed ways to adjust the mask for comfort and patient agrees to try using CPAP. (6) Bilateral shoulder pain: Code(s): M25.511 - Pain in right shoulder; M25.512 - Pain in left shoulder Category: Medical Plan: Patient complaining of bilateral shoulder pain right greater than left has been improving over the last several days with ice and Tylenol. Continue with conservative measures and please reach out to the office if pain worsens. (7) Right knee pain: Code(s): M25.561 - Pain in right knee Category: Medical Plan: Patient complaining of right knee pain over the last several weeks does have history of knee replacement. Reviewed red flag symptoms of knee pain including redness, warmth and swelling which patient does not report today. Discussed criteria for re-evaluation. Patient understands and agrees to go to the ER if she develops any of the symptoms. (8) Osteoarthritis of left ankle: Code(s): M19.072 - Primary osteoarthritis, left ankle and foot Category: Medical Plan: Patient being fit for custom orthotics at this time. Plan This note was constructed using voice recognition software. While every effort has been made to ensure accuracy and diesel powerplant supervisor, still areas may have been included sometimes these areas may affect the content or meeting of the given symptoms. Total time spent caring for the patient today was 30 minutes. This includes time spent before the visit reviewing the chart, time spent during the visit, and time spent after the visit and documentation.
--- OUTSIDE RECORDS SUMMARY | 2024-08-19 21:40 | XMS_ITS | Clinical Summary ---
Author Organization Unknown Care Team Providers Care Human Development Professor Name Role Phone KHOI PEREZ, PORTER Unavailable Unavailable PARDEEP PT, KERRI Unavailable Unavailable GUILHERME RN, MARTHA Unavailable Unavailable Payers Payer Name Policy Type Policy Number Effective Date Expira tion Date [place]ICARE - [place] - [facility] [id number] Problems Condition Name Condition Details Condition Category Status Onset Date Resolution Date Last Treatment Date Treating Clinician Comments ENTEROCOLITI S D/T CLOSTRIDIUM DIFFICILE, NOT SPCF RECUR Active 09-09 00:00: 00 CHRONIC ATRIAL FIBRILLATION , UNSPECIFIED Active 09-09 00:00: 00 HYPERTENSIVE HEART DISEASE WITH HEART FAILURE Active 09-09 00:00: 00 CHRONIC DIASTOLIC (CONGESTIVE) HEART FAILURE Active 09-09 00:00: 00 TYPE 2 DIABETES MELLITUS WITH HYPERGLYCEMI A Active 2023-09 00:00: 00 SEPSIS, UNSPECIFIED ORGANISM Active 2023-09 00:00: 00 TYPE 2 DIABETES MELLITUS WITH DIABETIC POLYNEUROPAT HY Active 09-09 00:00: 00 OTHER PULMONARY EMBOLISM WITHOUT ACUTE COR PULMONALE Active 09-09 00:00: 00 CHRONIC RESPIRATORY FAILURE WITH HYPERCAPNIA Active 09-09 00:00: 00 CHRONIC RESPIRATORY FAILURE WITH HYPOXIA Active 09-09 00:00: 00 OTHER SPECIFIED CHRONIC OBSTRUCTIVE PULMONARY DISEASE Active 09-09 00:00: 00 PURE HYPERCHOLEST EROLEMIA, UNSPECIFIED Active 09-09 00:00: 00 LYMPHEDEMA, NOT ELSEWHERE CLASSIFIED Active 09-09 00:00: 00 OBSTRUCTIVE SLEEP APNEA (ADULT) (PEDIATRIC) Active 09-09 00:00: 00 RESTLESS LEGS SYNDROME Active 09-09 00:00: 00 GASTRO-ESOPH AGEAL REFLUX DISEASE WITHOUT ESOPHAGITIS Active 2023-09 00:00: 00 UNSPECIFIED OSTEOARTHRIT IS, UNSPECIFIED SITE Active 2023-09 00:00: 00 UNSP FRACTURE OF UNSP CALCANEUS, SUBS FOR FX W ROUTN HEAL Active 2023-09 00:00: 00 UNSPECIFIED ACQUIRED DEFORMITY OF UNSPECIFIED LOWER LEG Active 2023-09 00:00: 00 MORBID (SEVERE) OBESITY DUE TO EXCESS CALORIES Active 09-09 00:00: 00 BODY MASS INDEX [BMI] 33.0-33.9, ADULT Active 09-09 00:00: 00 Problems related to health literacy Active 09-09 00:00: 00 PRESENCE OF ARTIFICIAL KNEE JOINT, BILATERAL Active 09-09 00:00: 00 PRESENCE OF CARDIAC PACEMAKER Active 09-09 00:00: 00 PERSONAL HISTORY OF MALIGNANT NEOPLASM OF BREAST Active 09-09 00:00: 00 PRESENCE OF OTHER CARDIAC IMPLANTS AND GRAFTS Active 2023-09 00:00: 00 ACQUIRED ABSENCE OF BOTH CERVIX AND UTERUS Active 09-09 00:00: 00 DEPENDENCE ON SUPPLEMENTAL OXYGEN Active 09-09 00:00: 00 LONG-TERM (CURRENT) USE OF ANTICOAGULAN TS Active 09-09 00:00: 00 LONG-TERM (CURRENT) USE OF ORAL HYPOGLYCEMIC DRUGS Active 09-09 00:00: 00 Allergies, Adverse Reactions, Alerts Allergy Name Allergy Type Status Severity Reaction(s) Onset Date Inactive Date Treating Clinician Comments IBUPROFEN Propensity to adverse reactions Active 2023-09 17:17: 25 LISINOPRIL Propensity to adverse reactions Active 2023-09 17:17: 31 ADHESIVE Propensity to adverse reactions Active 2023-09 17:17: 45 ZOLPIDEM Propensity to adverse reactions Active 2023-09 17:17: 51 Medications Ordered Medication Name Filled Medication Name Start Date Stop Date Current Medication? Ordering Clinician Indication Dosage Frequency Signature (SIG) Comments Components digoxin 125 mcg (0.125 mg) tablet 03-07 00:00: 00 04-09 23:59 :00 No [id number] 1 tablet DAILY 1 tablet DAILY (route: oral) Med Classific ation: Cardiovas cular Therapy Agents fluticasone 250 mcg-salmete rol 50 mcg/dose blistr powdr for inhalation 03-07 00:00: 00 07-10 23:59 :00 No [id number] 1 inhalat ion DAILY 1 inhalation DAILY (route: inhalation ) Med Classific ation: Respirato ry Therapy Agents Incruse Ellipta 62.5 mcg/actuati on powder for inhalation 03-07 00:00: 00 07-10 23:59 :00 No [id number] 1 inhalat ion DAILY 1 inhalation DAILY (route: inhalation ) Med Classific ation: Respirato ry Therapy Agents omeprazole 20 mg capsule,del ayed release 03-02 00:00: 00 07-10 23:59 :00 No [id number] Per instruc tions EVERY DAY FOR 90 DAYS Per instructio ns EVERY DAY FOR 90 DAYS (route: oral) Med Classific ation: Gastroint estinal Therapy Agents Tiadylt ER 240 mg capsule,ext ended release 03-02 00:00: 00 01-28 23:59 :00 No [id number] Per instruc tions EVERY DAY Per instructio ns EVERY DAY (route: oral) Med Classific ation: Cardiovas cular Therapy Agents atorvastati n 20 mg tablet 03-19 00:00: 00 04-09 23:59 :00 No [id number] 1 tablet BEDTIME 1 tablet BEDTIME (route: oral) Med Classific ation: Cardiovas cular Therapy Agents furosemide 40 mg tablet 03-19 00:00: 00 07-10 23:59 :00 No [id number] 1 tablet 2 TIMES DAILY 1 tablet 2 TIMES DAILY (route: oral) Med Classific ation: Cardiovas cular Therapy Agents gabapentin 300 mg capsule 03-19 00:00: 00 07-10 23:59 :00 No [id number] 1 capsule 2 TIMES DAILY 1 capsule 2 TIMES DAILY (route: oral) Med Classific ation: Central Nervous System Agents metformin 500 mg tablet 03-19 00:00: 00 04-09 23:59 :00 No [id number] 1 tablet DAILY 1 tablet DAILY (route: oral) Med Classific ation: Endocrine metoprolol succinate ER 100 mg tablet,exte nded release 24 hr 03-19 00:00: 00 04-09 23:59 :00 No [id number] 1 tablet DAILY 1 tablet DAILY (route: oral) Med Classific ation: Cardiovas cular Therapy Agents Percocet 5 mg-325 mg tablet 03-19 00:00: 00 04-09 23:59 :00 No [id number] 1 tablet NEEDED 1 tablet NEEDED (route: oral) Med Classific ation: Analgesic , Anti-infl ammatory or Antipyret ic ropinirole 0.25 mg tablet 03-19 00:00: 00 04-09 23:59 :00 No [id number] Per instruc tions DIRECTED Per instructio ns DIRECTED (route: oral) Med Classific ation: Central Nervous System Agents warfarin 2 mg tablet 03-19 00:00: 00 03-22 23:59 :00 No [id number] 4 mg DAILY 4 mg DAILY (route: oral) Med Classific ation: Hematolog ical Agents warfarin 4 mg tablet 03-25 00:00: 00 03-29 23:59 :00 No [id number] Per instruc tions DAILY Per instructio ns DAILY (route: oral) Med Classific ation: Hematolog ical Agents warfarin 4 mg tablet 03-22 00:00: 00 03-25 23:59 :00 No [id number] Per instruc tions DAILY Per instructio ns DAILY (route: oral) Med Classific ation: Hematolog ical Agents warfarin 4 mg tablet 03-29 00:00: 00 04-05 23:59 :00 No [id number] Per instruc tions DAILY Per instructio ns DAILY (route: oral) Med Classific ation: Hematolog ical Agents warfarin 2 mg tablet 04-05 00:00: 00 04-12 23:59 :00 No [id number] Per instruc tions DAILY Per instructio ns DAILY (route: oral) Med Classific ation: Hematolog ical Agents warfarin 4 mg tablet 04-12 00:00: 00 04-19 23:59 :00 No [id number] Per instruc tions DAILY Per instructio ns DAILY (route: oral) Med Classific ation: Hematolog ical Agents warfarin 4 mg tablet 04-19 00:00: 00 05-03 23:59 :00 No [id number] Per instruc tions EVERY PM Per instructio ns EVERY PM (route: oral) Med Classific ation: Hematolog ical Agents warfarin 4 mg tablet 04-26 00:00: 00 05-10 23:59 :00 No [id number] Per instruc tions DAILY Per instructio ns DAILY (route: oral) Med Classific ation: Hematolog ical Agents ferrous sulfate 325 mg (65 mg iron) tablet 2022-09 00:00: 00 04-09 23:59 :00 No [id number] 1 tablet DAILY 1 tablet DAILY (route: oral) Med Classific ation: Electroly te Balance-N utritiona l Products gabapentin 400 mg capsule 2022-09 00:00: 00 04-09 23:59 :00 No [id number] 1 capsule 2 TIMES DAILY 1 capsule 2 TIMES DAILY (route: oral) Med Classific ation: Central Nervous System Agents lidocaine 5 % topical patch 2022-09 00:00: 00 04-09 23:59 :00 No [id number] 1 adhesiv e patch, medicat ed DAILY 1 adhesive patch, medicated DAILY (route: topical) Med Classific ation: Dermatolo gical loperamide 2 mg tablet 2022-09 00:00: 00 04-09 23:59 :00 No [id number] 1 tablet EVERY 6 HOURS 1 tablet EVERY 6 HOURS (route: oral) Med Classific ation: Gastroint estinal Therapy Agents pantoprazol e 40 mg tablet,yang yed release 2022-09 00:00: 00 04-09 23:59 :00 No [id number] 1 tablet DAILY 1 tablet DAILY (route: oral) Med Classific ation: Gastroint estinal Therapy Agents ProAir RespiClick 90 mcg/actuati on breath activated 2022-09 00:00: 00 04-09 23:59 :00 No [id number] 2 puff EVERY 4 HOURS 2 puff EVERY 4 HOURS (route: inhalation ) Med Classific ation: Respirato ry Therapy Agents Trelegy Ellipta 100 mcg-62.5 mcg-25 mcg powder for inhalation 2022-09 00:00: 00 04-09 23:59 :00 No [id number] 1 inhalat ion DAILY 1 inhalation DAILY (route: inhalation ) Med Classific ation: Respirato ry Therapy Agents Vitamin C 500 mg tablet 2022-09 00:00: 00 04-09 23:59 :00 No [id number] 1 tablet DAILY 1 tablet DAILY (route: oral) Med Classific ation: Electroly te Balance-N utritiona l Products warfarin 2 mg tablet 2022-09 00:00: 00 07-15 23:59 :00 No [id number] Per instruc tions EVERY PM Per instructio ns EVERY PM (route: oral) Med Classific ation: Hematolog ical Agents O2 - OXYGEN 2022-09 00:00: 00 04-09 23:59 :00 No [id number] 2 Liter O2 - CONTINUOUS 2 Liter O2 - CONTINUOUS (route: Oxygen) Alternate Route: O2 - NASAL CANNULA. Med Classific ation: Medical Oxygen warfarin 2 mg tablet 2022-09 00:00: 00 07-31 23:59 :00 No [id number] Per instruc tions DAILY Per instructio ns DAILY (route: oral) Med Classific ation: Hematolog ical Agents warfarin 2 mg tablet 2022-09 00:00: 00 08-05 23:59 :00 No [id number] Per instruc tions DIRECTED Per instructio ns DIRECTED (route: oral) Med Classific ation: Hematolog ical Agents warfarin 2 mg tablet 2022-09 00:00: 00 08-08 23:59 :00 No [id number] Per instruc tions EVERY PM Per instructio ns EVERY PM (route: oral) Med Classific ation: Hematolog ical Agents Lasix 20 mg tablet 2022-09 00:00: 00 04-09 23:59 :00 No [id number] 1 tablet DAILY 1 tablet DAILY (route: oral) Med Classific ation: Cardiovas cular Therapy Agents potassium chloride ER 20 mEq tablet,exte nded release 2022-09 00:00: 00 04-09 23:59 :00 No [id number] 1 tablet DAILY 1 tablet DAILY (route: oral) Med Classific ation: Electroly te Balance-N utritiona l Products warfarin 2 mg tablet 2022-09 00:00: 00 08-09 23:59 :00 No [id number] 2 mg EVERY PM 2 mg EVERY PM (route: oral) Med Classific ation: Hematolog ical Agents aspirin 81 mg tablet,yang yed release 2022-09 00:00: 00 04-09 23:59 :00 No [id number] 1 tablet DAILY 1 tablet DAILY (route: oral) Med Classific ation: Hematolog ical Agents clopidogrel 75 mg tablet 2022-09 00:00: 00 12-24 23:59 :00 No [id number] 1 tablet DAILY 1 tablet DAILY (route: oral) Med Classific ation: Hematolog ical Agents famotidine 20 mg tablet 2022-09 00:00: 00 04-09 23:59 :00 No [id number] 1 tablet BEDTIME 1 tablet BEDTIME (route: oral) Med Classific ation: Gastroint estinal Therapy Agents omeprazole 20 mg capsule,del ayed release 2022-09 00:00: 00 08-23 23:59 :00 No [id number] 1 capsule DAILY 1 capsule DAILY (route: oral) Med Classific ation: Gastroint estinal Therapy Agents Lac-Hydrin Five 5 % lotion 12-24 00:00: 00 04-09 23:59 :00 No [id number] Per instruc tions 2 TIMES DAILY Per instructio ns 2 TIMES DAILY (route: topical) Med Classific ation: Dermatolo gical Tiadylt ER 300 mg capsule,ext ended release 01-28 00:00: 00 04-09 23:59 :00 No [id number] 1 capsule DAILY 1 capsule DAILY (route: oral) Med Classific ation: Cardiovas cular Therapy Agents ascorbic acid (vitamin C) 500 mg tablet 2023-09 00:00: 00 Yes [id number] 1 tablet DAILY 1 tablet DAILY (route: oral) Med Classific ation: Electroly te Balance-N utritiona l Products atorvastati n 20 mg tablet 2023-09 00:00: 00 Yes [id number] 1 tablet DAILY 1 tablet DAILY (route: oral) Med Classific ation: Cardiovas cular Therapy Agents digoxin 125 mcg (0.125 mg) tablet 2023-09 00:00: 00 Yes [id number] 1 tablet DAILY 1 tablet DAILY (route: oral) Med Classific ation: Cardiovas cular Therapy Agents diltiazem 120 mg tablet 2023-09 00:00: 00 07-07 23:59 :00 No [id number] 1 tablet DAILY 1 tablet DAILY (route: oral) Med Classific ation: Cardiovas cular Therapy Agents Eliquis 5 mg tablet 2023-09 00:00: 00 Yes [id number] 1 tablet 2 TIMES DAILY 1 tablet 2 TIMES DAILY (route: oral) Med Classific ation: Hematolog ical Agents famotidine 10 mg tablet 2023-09 00:00: 00 Yes [id number] 1 tablet DAILY 1 tablet DAILY (route: oral) Med Classific ation: Gastroint estinal Therapy Agents ferrous sulfate 325 mg (65 mg iron) tablet 2023-09 00:00: 00 Yes [id number] 1 tablet DAILY 1 tablet DAILY (route: oral) Med Classific ation: Electroly te Balance-N utritiona l Products furosemide 20 mg tablet 2023-09 00:00: 00 Yes [id number] 1 tablet DAILY 1 tablet DAILY (route: oral) Med Classific ation: Cardiovas cular Therapy Agents gabapentin 400 mg capsule 2023-09 00:00: 00 Yes [id number] 1 capsule 2 TIMES DAILY 1 capsule 2 TIMES DAILY (route: oral) Med Classific ation: Central Nervous System Agents loperamide 2 mg tablet 2023-09 00:00: 00 Yes [id number] 1 tablet EVERY 4 HOURS 1 tablet EVERY 4 HOURS (route: oral) Med Classific ation: Gastroint estinal Therapy Agents metformin 500 mg tablet 2023-09 00:00: 00 Yes [id number] 1 tablet DAILY 1 tablet DAILY (route: oral) Med Classific ation: Endocrine metoprolol succinate ER 50 mg tablet,exte nded release 24 hr 2023-09 00:00: 00 07-07 23:59 :00 No [id number] 1 tablet DAILY 1 tablet DAILY (route: oral) Med Classific ation: Cardiovas cular Therapy Agents O2 - OXYGEN 2023-09 00:00: 00 Yes [id number] 2 Liter O2 - CONTINUOUS 2 Liter O2 - CONTINUOUS (route: Oxygen) Alternate Route: O2 - NASAL CANNULA. Med Classific ation: Medical Oxygen potassium chloride ER 20 mEq tablet,exte nded release 2023-09 00:00: 00 Yes [id number] 1 tablet DAILY 1 tablet DAILY (route: oral) Med Classific ation: Electroly te Balance-N utritiona l Products Protonix 40 mg tablet,yang yed release 2023-09 00:00: 00 Yes [id number] 1 tablet DAILY 1 tablet DAILY (route: oral) Med Classific ation: Gastroint estinal Therapy Agents ropinirole 2 mg tablet 2023-09 00:00: 00 Yes [id number] 1 tablet BEDTIME 1 tablet BEDTIME (route: oral) Med Classific ation: Central Nervous System Agents Ventolin HFA 90 mcg/actuati on aerosol inhaler 2023-09 00:00: 00 Yes [id number] 2 puff EVERY 6 HOURS 2 puff EVERY 6 HOURS (route: inhalation ) Med Classific ation: Respirato ry Therapy Agents diltiazem ER 300 mg capsule,24 hr,extended release 2023-09 00:00: 00 Yes [id number] 1 capsule DAILY 1 capsule DAILY (route: oral) Med Classific ation: Cardiovas cular Therapy Agents metoprolol succinate ER 50 mg tablet,exte nded release 24 hr 2023-09 00:00: 00 Yes [id number] 100 mg DAILY 100 mg DAILY (route: oral) Med Classific ation: Cardiovas cular Therapy Agents Vancocin 250 mg capsule 2023-09 00:00: 00 08-11 23:59 :00 No [id number] 1 capsule EVERY 6 HOURS 1 capsule EVERY 6 HOURS (route: oral) Med Classific ation: Anti-Infe ctive Agents Vital Signs Vital Name Observation Time Observation Value Commen ts Temperature 2024-08-13 15:59:00.000 97.2 [degF] Temperature 2024-08-12 12:00:00.000 97.6 [degF] Temperature 2024-08-04 17:24:00.000 97.4 [degF] Temperature 2024-07-27 10:05:00.000 97.4 [degF] Temperature 2024-07-22 14:01:00.000 98.4 [degF] Temperature 2024-07-20 15:42:00.000 97.1 [degF] Temperature 2024-07-15 14:27:00.000 97.4 [degF] Temperature 2024-07-14 11:45:00.000 97.2 [degF] Temperature 2024-07-08 13:06:00.000 97.2 [degF] Temperature 2024-07-05 17:20:00.000 97.4 [degF] BMI (%) 2024-08-04 17:24:00.000 33 kg/m2 BMI (%) 2024-07-05 17:20:00.000 32 kg/m2 Height 2024-08-04 17:24:00.000 63 [in_us] Height 2024-07-05 17:20:00.000 63 [in_us] Pulse 2024-08-13 15:59:00.000 78 /min Pulse 2024-08-12 12:00:00.000 74 /min Pulse 2024-08-04 17:24:00.000 64 /min Pulse 2024-07-27 10:05:00.000 68 /min Pulse 2024-07-22 14:01:00.000 94 /min Pulse 2024-07-20 15:42:00.000 68 /min Pulse 2024-07-15 14:27:00.000 86 /min Pulse 2024-07-14 11:45:00.000 70 /min Pulse 2024-07-08 13:06:00.000 70 /min Pulse 2024-07-05 17:20:00.000 58 /min O2 Saturation (%) 2024-08-13 15:59:00.000 97 % O2 Saturation (%) 2024-08-04 17:24:00.000 94 % O2 Saturation (%) 2024-07-22 14:03:00.000 96 % O2 Saturation (%) 2024-07-15 14:35:00.000 94 % O2 Saturation (%) 2024-07-05 17:20:00.000 99 % Respirations 2024-08-13 15:59:00.000 16 /min Respirations 2024-08-12 12:00:00.000 19 /min Respirations 2024-08-04 17:24:00.000 18 /min Respirations 2024-07-27 10:05:00.000 18 /min Respirations 2024-07-22 14:01:00.000 18 /min Respirations 2024-07-20 15:42:00.000 19 /min Respirations 2024-07-15 14:27:00.000 16 /min Respirations 2024-07-14 11:45:00.000 18 /min Respirations 2024-07-08 13:06:00.000 19 /min Respirations 2024-07-05 17:20:00.000 18 /min Weight (lbs) 2024-08-13 15:59:00.000 188 [lb_av] Weight (lbs) 2024-08-04 17:24:00.000 188 [lb_av] Weight (lbs) 2024-07-05 17:20:00.000 185 [lb_av] Systolic Blood Pressure 2024-08-13 15:59:00.000 102 mm [Hg] Systolic Blood Pressure 2024-08-12 12:00:00.000 122 mm [Hg] Systolic Blood Pressure 2024-08-04 17:24:00.000 122 mm [Hg] Systolic Blood Pressure 2024-07-27 10:05:00.000 124 mm [Hg] Systolic Blood Pressure 2024-07-22 14:01:00.000 108 mm [Hg] Systolic Blood Pressure 2024-07-20 15:42:00.000 124 mm [Hg] Systolic Blood Pressure 2024-07-15 14:27:00.000 124 mm [Hg] Systolic Blood Pressure 2024-07-14 11:45:00.000 122 mm [Hg] Systolic Blood Pressure 2024-07-08 13:06:00.000 124 mm [Hg] Systolic Blood Pressure 2024-07-05 17:20:00.000 122 mm [Hg] Diastolic Blood Pressure 2024-08-13 15:59:00.000 60 mm [Hg] Diastolic Blood Pressure 2024-08-12 12:00:00.000 78 mm [Hg] Diastolic Blood Pressure 2024-08-04 17:24:00.000 68 mm [Hg] Diastolic Blood Pressure 2024-07-27 10:05:00.000 80 mm [Hg] Diastolic Blood Pressure 2024-07-22 14:01:00.000 72 mm [Hg] Diastolic Blood Pressure 2024-07-20 15:42:00.000 76 mm [Hg] Diastolic Blood Pressure 2024-07-15 14:27:00.000 68 mm [Hg] Diastolic Blood Pressure 2024-07-14 11:45:00.000 76 mm [Hg] Diastolic Blood Pressure 2024-07-08 13:06:00.000 78 mm [Hg] Diastolic Blood Pressure 2024-07-05 17:20:00.000 78 mm [Hg] Plan of Treatment Planned Activity Planned Date Details Comments Future Scheduled Test SKILLED NU RSE TO EVALUATE PATIENT, IDENTIFY PRIMARY AND CO-MORBID CONDITIONS CODED PER CODING GUIDELINES, AND DEVELOP PATIENT SPECIFIC PLAN OF CARE THAT INCLUDES PATIENT GOAL FOR HOME HEALTH. [code = SKILLED NURSE TO EVALUATE PATIENT, IDENTIFY PRIMARY AND CO-MORBID CONDITIONS CODED PER CODING GUIDELINES, AND DEVELOP PATIENT SPECIFIC PLAN OF CARE THAT INCLUDES PATIENT GOAL FOR HOME HEALTH.] Future Scheduled Test SKILLED NU RSE TO PROVIDE TEACHING/REINFORCEMENT RELATED TO URINARY INCONTINENCE. [code = SKILLED NURSE TO PROVIDE TEACHING/REINFORCEMENT RELATED TO URINARY INCONTINENCE.] Future Scheduled Test SKILLED NU RSE TO REVIEW PATIENT MEDICATIONS. INSTRUCT PATIENT/CAREGIVER ON MONITORING OF EFFECTIVENESS, ADVERSE DRUG REACTIONS, SIDE EFFECTS OF ALL MEDICATIONS (PRESCRIPTION/-OTC), AND HOW AND WHEN TO REPORT PROBLEMS. [code = SKILLED NURSE TO REVIEW PATIENT MEDICATIONS. INSTRUCT PATIENT/CAREGIVER ON MONITORING OF EFFECTIVENESS, ADVERSE DRUG REACTIONS, SIDE EFFECTS OF ALL MEDICATIONS (PRESCRIPTION/-OTC), AND HOW AND WHEN TO REPORT PROBLEMS. ] Future Scheduled Test OXYGEN VIA NASAL CANNULA @ 2 LITERS CONTINUOUS. SKILLED NURSE FOR O/A AND SKILLED TEACHING OF SAFE OXYGEN USE IN THE HOME. [code = OXYGEN VIA NASAL CANNULA @ 2 LITERS CONTINUOUS. SKILLED NURSE FOR O/A AND SKILLED TEACHING OF SAFE OXYGEN USE IN THE HOME.] Future Scheduled Test SKILLED NU RSE MAY COLLECT URINE SAMPLE FOR URINE REAGENT STRIP TESTING AND/OR URINALYSIS WITH CS 1-3 PRN IF INDICATED FOR SIGNS AND SYMPTOMS OF UTI. IF REAGENT STRIP TEST IS POSITIVE FOR UTI, SKILLED NURSE TO TAKE URINE SAMPLE TO LAB FOR URINE CS AND REPORT RESULTS TO PHYSICIAN. [code = SKILLED NURSE MAY COLLECT URINE SAMPLE FOR URINE REAGENT STRIP TESTING AND/OR URINALYSIS WITH CS 1-3 PRN IF INDICATED FOR SIGNS AND SYMPTOMS OF UTI. IF REAGENT STRIP TEST IS POSITIVE FOR UTI, SKILLED NURSE TO TAKE URINE SAMPLE TO LAB FOR URINE CS AND REPORT RESULTS TO PHYSICIAN.] Future Scheduled Test SKILLED NU RSE FOR O/A, TEACHING RELATED TO HX GI BLEED FOR EARLY IDENTIFICATION OF EXACERBATION OF DISEASE PROCESS. [code = SKILLED NURSE FOR O/A, TEACHING RELATED TO HX GI BLEED FOR EARLY IDENTIFICATION OF EXACERBATION OF DISEASE PROCESS.] Future Scheduled Test SKILLED NU RSE FOR O/A, TEACHING AND MANAGEMENT OF UTI FOR EARLY IDENTIFICATION OF EXACERBATION OF DISEASE PROCESS [code = SKILLED NURSE FOR O/A, TEACHING AND MANAGEMENT OF UTI FOR EARLY IDENTIFICATION OF EXACERBATION OF DISEASE PROCESS] Future Scheduled Test SKILLED NU RSE FOR O/A OF RESPIRATORY SYSTEM TO IDENTIFY CHANGES ASSOCIATED WITH EXACERBATION AND TO PROVIDE SKILLED TEACHING ON MANAGEMENT OF RAFAL DISEASE PROCESS. [code = SKILLED NURSE FOR O/A OF RESPIRATORY SYSTEM TO IDENTIFY CHANGES ASSOCIATED WITH EXACERBATION AND TO PROVIDE SKILLED TEACHING ON MANAGEMENT OF RAFAL DISEASE PROCESS.] Future Scheduled Test SKILLED NU RSE TO PERFORM AND RECORD BLOOD SUGAR READING EACH VISIT , AND PRN FOR SIGNS AND SYMPTOMS OF HYPO/HYPERGLYCEMIA. [code = SKILLED NURSE TO PERFORM AND RECORD BLOOD SUGAR READING EACH VISIT , AND PRN FOR SIGNS AND SYMPTOMS OF HYPO/HYPERGLYCEMIA.] Future Scheduled Test SKILLED NU RSE FOR O/A AND SKILLED TEACHING IN MANAGEMENT OF LYMPHEDEMA, PE CIRCULATORY/VASCULAR DISEASE. [code = SKILLED NURSE FOR O/A AND SKILLED TEACHING IN MANAGEMENT OF LYMPHEDEMA, PE CIRCULATORY/VASCULAR DISEASE.] Future Scheduled Test PHYSICAL T HERAPIST TO EVALUATE PATIENT FOR GAIT [code = PHYSICAL THERAPIST TO EVALUATE PATIENT FOR GAIT] Future Scheduled Test SKILLED NU RSE TO INSTRUCT PATIENT/CAREGIVER ON SIGNS AND SYMPTOMS, RISK FACTORS, COMPLICATIONS, AND MANAGEMENT OF ATRIAL FIBRILLATION. [code = SKILLED NURSE TO INSTRUCT PATIENT/CAREGIVER ON SIGNS AND SYMPTOMS, RISK FACTORS, COMPLICATIONS, AND MANAGEMENT OF ATRIAL FIBRILLATION.] Future Scheduled Test SKILLED NU RSE TO PROVIDE TEACHING ON SIGNS AND SYMPTOMS AND MANAGEMENT OF HYPERTENSION. [code = SKILLED NURSE TO PROVIDE TEACHING ON SIGNS AND SYMPTOMS AND MANAGEMENT OF HYPERTENSION.] Future Scheduled Test SKILLED NU RSE FOR O/A AND SKILLED TEACHING RELATED TO ALTERED SKIN INTEGRITY BLE [code = SKILLED NURSE FOR O/A AND SKILLED TEACHING RELATED TO ALTERED SKIN INTEGRITY BLE] Future Scheduled Test SKILLED NU RSE TO INSTRUCT PATIENT/CAREGIVER ON COPD TO INCLUDE TEACHING AND SELF-MANAGEMENT RELATED TO COPD DISEASE PROCESS, SIGNS AND SYMPTOMS, AND COMPLICATIONS. [code = SKILLED NURSE TO INSTRUCT PATIENT/CAREGIVER ON COPD TO INCLUDE TEACHING AND SELF-MANAGEMENT RELATED TO COPD DISEASE PROCESS, SIGNS AND SYMPTOMS, AND COMPLICATIONS.] Future Scheduled Test SKILLED NU RSE FOR O/A, TEACHING AND SELF-MANAGEMENT RELATED TO HEART FAILURE. INSTRUCT PATIENT/CAREGIVER ON SIGNS AND SYMPTOMS OF EXACERBATION TO REPORT AND IMPORTANCE OF OBTAINING AND RECORDING DAILY WEIGHT AND/OR MEASUREMENTS. SN OR TRAINED PATIENT/CAREGIVER TO OBTAIN WEIGHT DAILY AND WEIGHT GAIN OF 2 LBS OVERNIGHT OR 5 LBS IN 1 WEEK TO BE REPORTED TO PHYSICIAN/PROVIDER. IF UNABLE TO WEIGH PATIENT, SN OR TRAINED PATIENT/CAREGIVER TO OBTAIN MEASUREMENT OF CALF IN CM DAILY AND REPORT AN INCREASE OF 1 CM TO PHYSICIAN/PROVIDER. [code = SKILLED NURSE FOR O/A, TEACHING AND SELF-MANAGEMENT RELATED TO HEART FAILURE. INSTRUCT PATIENT/CAREGIVER ON SIGNS AND SYMPTOMS OF EXACERBATION TO REPORT AND IMPORTANCE OF OBTAINING AND RECORDING DAILY WEIGHT AND/OR MEASUREMENTS. SN OR TRAINED PATIENT/CAREGIVER TO OBTAIN WEIGHT DAILY AND WEIGHT GAIN OF 2 LBS OVERNIGHT OR 5 LBS IN 1 WEEK TO BE REPORTED TO PHYSICIAN/PROVIDER. IF UNABLE TO WEIGH PATIENT, SN OR TRAINED PATIENT/CAREGIVER TO OBTAIN MEASUREMENT OF CALF IN CM DAILY AND REPORT AN INCREASE OF 1 CM TO PHYSICIAN/PROVIDER.] Future Scheduled Test SKILLED NU RSE FOR O/A AND TEACHING OF DIABETIC MANAGEMENT INCLUDING BLOOD SUGAR MONITORING/USE OF GLUCOMETER, DIABETIC DIET, LOWER EXTREMITY SKIN INSPECTION, PROPER SKIN/FOOT CARE, AND SIGNS AND SYMPTOMS HYPO/HYPERGLYCEMIA TO REPORT. [code = SKILLED NURSE FOR O/A AND TEACHING OF DIABETIC MANAGEMENT INCLUDING BLOOD SUGAR MONITORING/USE OF GLUCOMETER, DIABETIC DIET, LOWER EXTREMITY SKIN INSPECTION, PROPER SKIN/FOOT CARE, AND SIGNS AND SYMPTOMS HYPO/HYPERGLYCEMIA TO REPORT.] Future Scheduled Test SKILLED NU RSE FOR O/A AND SKILLED TEACHING RELATED TO SIGNS AND SYMPTOMS AND MANAGEMENT OF UNSTEADY GAIT, LYMPHEDEMA [code = SKILLED NURSE FOR O/A AND SKILLED TEACHING RELATED TO SIGNS AND SYMPTOMS AND MANAGEMENT OF UNSTEADY GAIT, LYMPHEDEMA] Future Scheduled Test VIRTUAL SIT FREQUENCY: 3-4 PRN VIRTUAL VISITS FOR HIGH RISK ASSESSMENTS AND/OR CHANGE IN STATUS MAY BE PERFORMED UTILIZING TELECOMMUNICATIONS SYSTEM TO OPTIMIZE SKILLED SERVICES FURNISHED ON THE PLAN OF CARE. SKILLED NURSE TO ESTABLISH SUPPORT MEASURES TO MINIMIZE RISK OF REHOSPITALIZATION, AND INSTRUCT PATIENT/CAREGIVER ON METHODS TO REDUCE AVOIDABLE HOSPITALIZATION. [code = VIRTUAL VISIT FREQUENCY: 3-4 PRN VIRTUAL VISITS FOR HIGH RISK ASSESSMENTS AND/OR CHANGE IN STATUS MAY BE PERFORMED UTILIZING TELECOMMUNICATIONS SYSTEM TO OPTIMIZE SKILLED SERVICES FURNISHED ON THE PLAN OF CARE. SKILLED NURSE TO ESTABLISH SUPPORT MEASURES TO MINIMIZE RISK OF REHOSPITALIZATION, AND INSTRUCT PATIENT/CAREGIVER ON METHODS TO REDUCE AVOIDABLE HOSPITALIZATION.] Future Scheduled Test PATIENT ALARCON S A RISK OF HOSPITALIZATION AND ED USE. SKILLED NURSE TO ESTABLISH SUPPORT MEASURES TO MINIMIZE RISK OF HOSPITALIZATION AND ED USE, AND INSTRUCT PATIENT/CAREGIVER ON METHODS TO REDUCE AVOIDABLE HOSPITALIZATION AND ED USE. [code = PATIENT HAS A RISK OF HOSPITALIZATION AND ED USE. SKILLED NURSE TO ESTABLISH SUPPORT MEASURES TO MINIMIZE RISK OF HOSPITALIZATION AND ED USE, AND INSTRUCT PATIENT/CAREGIVER ON METHODS TO REDUCE AVOIDABLE HOSPITALIZATION AND ED USE.] Future Scheduled Test SKILLED NU RSE TO PROVIDE INSTRUCTION TO PATIENT/CAREGIVER RELATED TO DISCHARGE PLANNING. [code = SKILLED NURSE TO PROVIDE INSTRUCTION TO PATIENT/CAREGIVER RELATED TO DISCHARGE PLANNING.] Future Scheduled Test SKILLED NU RSE TO PERFORM HOME SAFETY AND FALL ASSESSMENT AND PROVIDE INSTRUCTION TO IMPLEMENT HOME SAFETY AND FALL PREVENTION STRATEGIES. [code = SKILLED NURSE TO PERFORM HOME SAFETY AND FALL ASSESSMENT AND PROVIDE INSTRUCTION TO IMPLEMENT HOME SAFETY AND FALL PREVENTION STRATEGIES.] Future Scheduled Test SKILLED NU RSE FOR OBSERVATION AND ASSESSMENT OF PATIENTS PAIN LEVEL AND EFFECTIVENESS OF PAIN MANAGEMENT REGIMEN. SKILLED NURSE TO INSTRUCT PATIENT/CAREGIVER REGARDING PHARMACOLOGIC AND NON-PHARMACOLOGIC PAIN CONTROL MEASURES. SKILLED NURSE TO REPORT TO PHYSICIAN IF PAIN IS UNCONTROLLED WITH CURRENT PAIN MANAGEMENT REGIMEN. [code = SKILLED NURSE FOR OBSERVATION AND ASSESSMENT OF PATIENTS PAIN LEVEL AND EFFECTIVENESS OF PAIN MANAGEMENT REGIMEN. SKILLED NURSE TO INSTRUCT PATIENT/CAREGIVER REGARDING PHARMACOLOGIC AND NON-PHARMACOLOGIC PAIN CONTROL MEASURES. SKILLED NURSE TO REPORT TO PHYSICIAN IF PAIN IS UNCONTROLLED WITH CURRENT PAIN MANAGEMENT REGIMEN.] Future Scheduled Test SKILLED NU RSE TO ASSESS PATIENT'S SKIN INTEGRITY AND INSTRUCT PATIENT/CAREGIVER ON MEASURES TO PREVENT PRESSURE ULCERS. [code = SKILLED NURSE TO ASSESS PATIENT'S SKIN INTEGRITY AND INSTRUCT PATIENT/CAREGIVER ON MEASURES TO PREVENT PRESSURE ULCERS.] Future Scheduled Test SKILLED NU RSE TO INSTRUCT PATIENT/CAREGIVER ON S/S OF NEUROPATHY AND METHODS TO MANAGE. [code = SKILLED NURSE TO INSTRUCT PATIENT/CAREGIVER ON S/S OF NEUROPATHY AND METHODS TO MANAGE.] Goal 2024-08-13 Patient Goal - NO FALLS Goal 2024-08-04 Patient Goal - NO FALLS Goal Provider Goal - A PLAN OF CARE WILL BE ESTABLISHED THAT MEETS PATIENT'S DETENTION NEEDS AND INCLUDES PATIENT GOAL FOR HOME HEALTH. Goal Provider Goal - PATIENT / CAREGIVER WILL VERBALIZE UNDERSTANDING OF EFFECTS OF URINARY INCONTINENCE BY THE END OF THE CERTIFICATION PERIOD. Goal Provider Goal - PATIENT/CAREGIVER WILL VERBALIZE UNDERSTANDING OF EDUCATION PROVIDED ON MEDICATIONS BY THE END OF THE CERTIFICATION PERIOD. Goal Provider Goal - PATIENT/CAREGIVER WILL VERBALIZE/DEMONSTRATE UNDERSTANDING OF SAFE OXYGEN USE IN THE HOME THROUGHOUT THE EPISODE. Goal Provider Goal - URINE SPECIMEN WILL BE OBTAINED PRN FOR SIGNS AND SYMPTOMS OF UTI AND RESULTS WILL BE REPORTED TO PHYSICIAN THROUGHOUT THE CERTIFICATION PERIOD. Goal Provider Goal - EXACERBATIONS OF GASTROINTESTINAL DISEASE WILL BE PROMPTLY IDENTIFIED AND INTERVENTIONS IMPLEMENTED TO MINIMIZE RISKS TO PATIENT BY END OF EPISODE. Goal Provider Goal - PATIENT/CAREGIVER WILL VERBALIZE UNDERSTANDING OF GENITOURINARY DISEASE PROCESS, AND EXACERBATIONS OF GENITOURINARY DISEASE WILL BE PROMPTLY IDENTIFIED FOR EARLY INTERVENTION THROUGHOUT THE CERTIFICATION PERIOD. Goal Provider Goal - PATIENT/CAREGIVER WILL VERBALIZE/DEMONSTRATE MANAGEMENT OF RESPIRATORY DISEASE PROCESS. CHANGES IN RESPIRATORY STATUS WILL BE IDENTIFIED AND REPORTED TO PHYSICIAN FOR PROMPT INTERVENTION THROUGHOUT THE CERTIFICATION PERIOD. Goal Provider Goal - BLOOD SUGAR READING WILL BE OBTAINED ORDERED THROUGHOUT CERTIFICATION PERIOD. Goal Provider Goal - PATIENT/CAREGIVER WILL VERBALIZE/DEMONSTRATE THE ABILITY TO MANAGE CIRCULATORY DISEASE PROCESS AND EXACERBATIONS WILL BE IDENTIFIED FOR EARLY INTERVENTION THROUGHOUT THE CERTIFICATION PERIOD. Goal Provider Goal - A PHYSICAL THERAPY EVALUATION TO BE COMPLETED WITH RECOMMENDATIONS AND/OR WRITTEN PLAN OF TREATMENT ESTABLISHED FOR PHYSICIANS SIGNATURE. Goal Provider Goal - PATIENT/CAREGIVER WILL VERBALIZE UNDERSTANDING OF SIGNS AND SYMPTOMS, COMPLICATIONS, AND MANAGEMENT OF ATRIAL FIBRILLATION THROUGHOUT THE CERTIFICATION PERIOD. Goal Provider Goal - PATIENT/CAREGIVER WILL VERBALIZE SIGNS AND SYMPTOMS OF HYPERTENSION AND WILL BE ABLE TO DEMONSTRATE ABILITY TO MANAGE EXACERBATION BY END OF THE EPISODE. Goal Provider Goal - PATIENT/CAREGIVER WILL VERBALIZE/DEMONSTRATE UNDERSTANDING OF TEACHING RELATED TO ALTERED SKIN INTEGRITY BY END OF CERTIFICATION PERIOD. Goal Provider Goal - PATIENT/CAREGIVER WILL VERBALIZE/DEMONSTRATE KNOWLEDGE AND MANAGEMENT OF COPD BY END OF EPISODE. Goal Provider Goal - PATIENT/CAREGIVER WILL VERBALIZE/DEMONSTRATE KNOWLEDGE AND MANAGEMENT OF HEART FAILURE DISEASE PROCESS BY END OF EPISODE. Goal Provider Goal - PATIENT/CAREGIVER WILL VERBALIZE/DEMONSTRATE KNOWLEDGE OF DIABETIC MANAGEMENT. CHANGES IN DIABETIC STATUS WILL BE IDENTIFIED AND REPORTED TO PHYSICIAN FOR PROMPT INTERVENTION THROUGHOUT THE CERTIFICATION PERIOD. Goal Provider Goal - PATIENT/CAREGIVER WILL VERBALIZE UNDERSTANDING OF MUSCULOSKELETAL DISEASE INCLUDING SIGNS AND SYMPTOMS, MANAGEMENT, AND PRESCRIBED TREATMENT REGIMEN BY END OF EPISODE. Goal Provider Goal - PATIENT/CAREGIVER WILL UTILIZE VIRTUAL VISITS TO ACHIEVE GOALS OUTLINED ON THE PLAN OF CARE. PATIENT WILL HAVE SUPPORT MEASURES ESTABLISHED TO PREVENT HOSPITALIZATION AND PATIENT/CAREGIVER WILL VERBALIZE/DEMONSTRATE METHODS TO REDUCE AVOIDABLE HOSPITALIZATION THROUGHOUT THE CERTIFICATION PERIOD. Goal Provider Goal - PATIENT WILL HAVE SUPPORT MEASURES ESTABLISHED TO PREVENT HOSPITALIZATION AND ED USE AND PATIENT/CAREGIVER WILL VERBALIZE/DEMONSTRATE METHODS TO REDUCE AVOIDABLE HOSPITALIZATION AND ED USE BY END OF EPISODE. Goal Provider Goal - PATIENT/CAREGIVER WILL VERBALIZE UNDERSTANDING OF DISCHARGE PLANNING INSTRUCTIONS BY DATE OF DISCHARGE. Goal Provider Goal - PATIENT/CAREGIVER WILL VERBALIZE/DEMONSTRATE EFFECTIVE HOME SAFETY AND FALL PREVENTION STRATEGIES THROUGHOUT CERTIFICATION PERIOD. Goal Provider Goal - PATIENT/CAREGIVER WILL DEMONSTRATE UNDERSTANDING OF PHARMACOLOGIC AND NONPHARMACOLOGIC PAIN CONTROL MEASURES AND PATIENT WILL HAVE IMPROVEMENT IN PAIN INTERFERING WITH ACTIVITY EVIDENCED BY PAIN CONTROLLED AT LEVEL OF 7 OR LESS BY END OF CERTIFICATION PERIOD. Goal Provider Goal - PATIENT/CAREGIVER WILL VERBALIZE UNDERSTANDING OF PRESSURE ULCER PREVENTION BY END OF THE EPISODE. Goal Provider Goal - PATIENT/CAREGIVER WILL VERBALIZE S/S OF NEUROPATHY AND METHODS TO MANAGE BY END OF CERTIFICATION PERIOD. Reason for Visit MINIMUM ASSIST WITH TRANSFER/AMBULATION/ADLS Encounters Start Date/Time End Date/Time Encounter Type Admission Type Attending [facility] Care Department Encounter ID Discharge Date Discharge Status Discharge Condition Discharge Reason Percent Goals Met 2024-07-05 00:00:00 2024-08-13 00:00:00 Outpatient MARTHA HERRERA [facility] [id number] 2024-08-13 00:00:00 DISCHARGE TO HOME OR SELF CARE MINIMUM ASSIST WITH TRANSFER/A MBULATION/ ADLS F2F NOT OBTAINED ( ONLY) 77.19
== END 2024-08-18 14:18 | disposition home or self-care (01) ==
LOC: HO.HMCH 13:28
PROVIDERS: PCP Internal Medicine
DX: R19.5 Other fecal abnormalities (principal); I10 Essential (primary) hypertension; E11.65 Type 2 diabetes mellitus with hyperglycemia; E66.9 Obesity, unspecified; G47.33 Obstructive sleep apnea (adult) (pediatric); M25.511 Pain in right shoulder; M25.512 Pain in left shoulder; M25.561 Pain in right knee; M19.072 Primary osteoarthritis, left ankle and foot

== ENCOUNTER → 2024-08-18 13:28 | Outpatient (BNVA) | payer MEDICARE, OTHER, SELFPAY | PROVIDERS: PCP Internal Medicine ==

== ENCOUNTER 2024-09-16 13:17 | Outpatient (AMB) | payer MEDICARE, OTHER, SELFPAY ==
--- OUTSIDE RECORDS SUMMARY | 2024-09-16 13:19 | XMS_ITS | Clinical Summary ---
Author Organization Unknown Care Team Providers Care Pharmacy Benefit Manager Name Role Phone KHOI PEREZ, PORTER Unavailable Unavailable PARDEEP PT, KERRI Unavailable Unavailable GUILHERME RN, MARTHA Unavailable Unavailable Payers Payer Name Policy Type Policy Number Effective Date Expira tion Date MEDICARE - [place] - [facility] [id number] Problems Condition Name Condition Details Condition Category [...] ON SUPPLEMENTAL OXYGEN Active 09-09 00:00: 00 PENITENTIARY (CURRENT) USE OF ANTICOAGULAN TS Active 09-09 00:00: 00 PENITENTIARY (CURRENT) USE OF ORAL HYPOGLYCEMIC DRUGS Active [...] 03-07 00:00: 00 04-09 23:59 :00 No [id number] 1 tablet DAILY 1 tablet DAILY (route: oral) Med Classific ation: Cardiovas cular Therapy Agents fluticasone 250 mcg-salmete rol 50 mcg/dose blistr powdr for inhalation 03-07 00:00: 00 07-10 23:59 :00 No [id number] 1 inhalat ion DAILY 1 inhalation DAILY (route: inhalation ) Med Classific ation: Respirato ry Therapy Agents Incruse Ellipta 62.5 mcg/actuati on powder for inhalation 03-07 00:00: 00 07-10 23:59 :00 No [id number] 1 inhalat ion DAILY 1 inhalation DAILY (route: inhalation ) Med Classific ation: Respirato ry Therapy Agents omeprazole 20 mg capsule,del ayed release 03-02 00:00: 00 07-10 23:59 :00 No [id number] Per instruc tions EVERY DAY FOR 90 DAYS Per instructio ns EVERY DAY FOR 90 DAYS (route: oral) Med Classific ation: Gastroint estinal Therapy Agents Tiadylt ER 240 mg capsule,ext ended release 03-02 00:00: 00 01-28 23:59 :00 No [id number] Per instruc tions EVERY DAY Per instructio ns EVERY DAY (route: oral) Med Classific ation: Cardiovas cular Therapy Agents atorvastati n 20 mg tablet 03-19 00:00: 00 04-09 23:59 :00 No [id number] 1 tablet BEDTIME 1 tablet BEDTIME (route: oral) Med Classific ation: Cardiovas cular Therapy Agents furosemide 40 mg tablet 03-19 00:00: 00 07-10 23:59 :00 No [id number] 1 tablet 2 TIMES DAILY 1 tablet 2 TIMES DAILY (route: oral) Med Classific ation: Cardiovas cular Therapy Agents gabapentin 300 mg capsule 03-19 00:00: 00 07-10 23:59 :00 No [id number] 1 capsule 2 TIMES DAILY 1 capsule 2 TIMES DAILY (route: oral) Med Classific ation: Central Nervous System Agents metformin 500 mg tablet 03-19 00:00: 00 04-09 23:59 :00 No [id number] 1 tablet DAILY 1 tablet DAILY (route: oral) Med Classific ation: Endocrine metoprolol succinate ER 100 mg tablet,exte nded release 24 hr 03-19 00:00: 00 04-09 23:59 :00 No [id number] 1 tablet DAILY 1 tablet DAILY (route: oral) Med Classific ation: Cardiovas cular Therapy Agents Percocet 5 mg-325 mg tablet 03-19 00:00: 00 04-09 23:59 :00 No [id number] 1 tablet NEEDED 1 tablet NEEDED (route: oral) Med Classific ation: Analgesic , Anti-infl ammatory or Antipyret ic ropinirole 0.25 mg tablet 03-19 00:00: 00 04-09 23:59 :00 No [id number] Per instruc tions DIRECTED Per instructio ns DIRECTED (route: oral) Med Classific ation: Central Nervous System Agents warfarin 2 mg tablet 03-19 00:00: 00 03-22 23:59 :00 No [id number] 4 mg DAILY 4 mg DAILY (route: oral) Med Classific ation: Hematolog ical Agents warfarin 4 mg tablet 03-25 00:00: 00 03-29 23:59 :00 No [id number] Per instruc tions DAILY Per instructio ns DAILY (route: oral) Med Classific ation: Hematolog ical Agents warfarin 4 mg tablet 03-22 00:00: 00 03-25 23:59 :00 No [id number] Per instruc tions DAILY Per instructio ns DAILY (route: oral) Med Classific ation: Hematolog ical Agents warfarin 4 mg tablet 03-29 00:00: 00 04-05 23:59 :00 No [id number] Per instruc tions DAILY Per instructio ns DAILY (route: oral) Med Classific ation: Hematolog ical Agents warfarin 2 mg tablet 04-05 00:00: 00 04-12 23:59 :00 No [id number] Per instruc tions DAILY Per instructio ns DAILY (route: oral) Med Classific ation: Hematolog ical Agents warfarin 4 mg tablet 04-12 00:00: 00 04-19 23:59 :00 No [id number] Per instruc tions DAILY Per instructio ns DAILY (route: oral) Med Classific ation: Hematolog ical Agents warfarin 4 mg tablet 04-19 00:00: 00 05-03 23:59 :00 No [id number] Per instruc tions EVERY PM Per instructio ns EVERY PM (route: oral) Med Classific ation: Hematolog ical Agents warfarin 4 mg tablet 04-26 00:00: 00 05-10 23:59 :00 No [id number] Per instruc tions DAILY Per instructio ns DAILY (route: oral) Med Classific ation: Hematolog ical Agents ferrous sulfate 325 mg (65 mg iron) tablet 2022-09 00:00: 00 04-09 23:59 :00 No [id number] 1 tablet DAILY 1 tablet DAILY (route: oral) Med Classific ation: Electroly te Balance-N utritiona l Products gabapentin 400 mg capsule 2022-09 00:00: 00 04-09 23:59 :00 No [id number] 1 capsule 2 TIMES DAILY 1 capsule 2 TIMES DAILY (route: oral) Med Classific ation: Central Nervous System Agents lidocaine 5 % topical patch 2022-09 00:00: 00 04-09 23:59 :00 No [id number] 1 adhesiv e patch, medicat ed DAILY 1 adhesive patch, medicated DAILY (route: topical) Med Classific ation: Dermatolo gical loperamide 2 mg tablet 2022-09 00:00: 00 04-09 23:59 :00 No [id number] 1 tablet EVERY 6 HOURS 1 tablet EVERY 6 HOURS (route: oral) Med Classific ation: Gastroint estinal Therapy Agents pantoprazol e 40 mg tablet,yang yed release 2022-09 00:00: 00 04-09 23:59 :00 No [id number] 1 tablet DAILY 1 tablet DAILY (route: oral) Med Classific ation: Gastroint estinal Therapy Agents ProAir RespiClick 90 mcg/actuati on breath activated 2022-09 00:00: 00 04-09 23:59 :00 No [id number] 2 puff EVERY 4 HOURS 2 puff EVERY 4 HOURS (route: inhalation ) Med Classific ation: Respirato ry Therapy Agents Trelegy Ellipta 100 mcg-62.5 mcg-25 mcg powder for inhalation 2022-09 00:00: 00 04-09 23:59 :00 No [id number] 1 inhalat ion DAILY 1 inhalation DAILY (route: inhalation ) Med Classific ation: Respirato ry Therapy Agents Vitamin C 500 mg tablet 2022-09 00:00: 00 04-09 23:59 :00 No [id number] 1 tablet DAILY 1 tablet DAILY (route: oral) Med Classific ation: Electroly te Balance-N utritiona l Products warfarin 2 mg tablet 2022-09 00:00: 00 07-15 23:59 :00 No [id number] Per instruc tions EVERY PM Per instructio ns EVERY PM (route: oral) Med Classific ation: Hematolog ical Agents O2 - OXYGEN 2022-09 00:00: 00 04-09 23:59 :00 No [id number] 2 Liter O2 - CONTINUOUS 2 Liter O2 - CONTINUOUS (route: Oxygen) Alternate Route: O2 - NASAL CANNULA. Med Classific ation: Medical Oxygen warfarin 2 mg tablet 2022-09 00:00: 00 07-31 23:59 :00 No [id number] Per instruc tions DAILY Per instructio ns DAILY (route: oral) Med Classific ation: Hematolog ical Agents warfarin 2 mg tablet 2022-09 00:00: 00 08-05 23:59 :00 No [id number] Per instruc tions DIRECTED Per instructio ns DIRECTED (route: oral) Med Classific ation: Hematolog ical Agents warfarin 2 mg tablet 2022-09 00:00: 00 08-08 23:59 :00 No [id number] Per instruc tions EVERY PM Per instructio ns EVERY PM (route: oral) Med Classific ation: Hematolog ical Agents Lasix 20 mg tablet 2022-09 00:00: 00 04-09 23:59 :00 No [id number] 1 tablet DAILY 1 tablet DAILY (route: oral) Med Classific ation: Cardiovas cular Therapy Agents potassium chloride ER 20 mEq tablet,exte nded release 2022-09 00:00: 00 04-09 23:59 :00 No [id number] 1 tablet DAILY 1 tablet DAILY (route: oral) Med Classific ation: Electroly te Balance-N utritiona l Products warfarin 2 mg tablet 2022-09 00:00: 00 08-09 23:59 :00 No [id number] 2 mg EVERY PM 2 mg EVERY PM (route: oral) Med Classific ation: Hematolog ical Agents aspirin 81 mg tablet,yang yed release 2022-09 00:00: 00 04-09 23:59 :00 No [id number] 1 tablet DAILY 1 tablet DAILY (route: oral) Med Classific ation: Hematolog ical Agents clopidogrel 75 mg tablet 2022-09 00:00: 00 12-24 23:59 :00 No [id number] 1 tablet DAILY 1 tablet DAILY (route: oral) Med Classific ation: Hematolog ical Agents famotidine 20 mg tablet 2022-09 00:00: 00 04-09 23:59 :00 No [id number] 1 tablet BEDTIME 1 tablet BEDTIME (route: oral) Med Classific ation: Gastroint estinal Therapy Agents omeprazole 20 mg capsule,del ayed release 2022-09 00:00: 00 08-23 23:59 :00 No [id number] 1 capsule DAILY 1 capsule DAILY (route: oral) Med Classific ation: Gastroint estinal Therapy Agents Lac-Hydrin Five 5 % lotion 12-24 00:00: 00 04-09 23:59 :00 No [id number] Per instruc tions 2 TIMES DAILY Per instructio ns 2 TIMES DAILY (route: topical) Med Classific ation: Dermatolo gical Tiadylt ER 300 mg capsule,ext ended release 01-28 00:00: 00 04-09 23:59 :00 No [id number] 1 capsule DAILY 1 capsule DAILY (route: oral) Med Classific ation: Cardiovas cular Therapy Agents ascorbic acid (vitamin C) 500 mg tablet 2023-09 00:00: 00 Yes [id number] 1 tablet DAILY 1 tablet DAILY (route: oral) Med Classific ation: Electroly te Balance-N utritiona l Products atorvastati n 20 mg tablet 2023-09 00:00: 00 Yes [id number] 1 tablet DAILY 1 tablet DAILY (route: oral) Med Classific ation: Cardiovas cular Therapy Agents digoxin 125 mcg (0.125 mg) tablet 2023-09 00:00: 00 Yes [id number] 1 tablet DAILY 1 tablet DAILY (route: oral) Med Classific ation: Cardiovas cular Therapy Agents diltiazem 120 mg tablet 2023-09 00:00: 00 07-07 23:59 :00 No [id number] 1 tablet DAILY 1 tablet DAILY (route: oral) Med Classific ation: Cardiovas cular Therapy Agents Eliquis 5 mg tablet 2023-09 00:00: 00 Yes [id number] 1 tablet 2 TIMES DAILY 1 tablet 2 TIMES DAILY (route: oral) Med Classific ation: Hematolog ical Agents famotidine 10 mg tablet 2023-09 00:00: 00 Yes [id number] 1 tablet DAILY 1 tablet DAILY (route: oral) Med Classific ation: Gastroint estinal Therapy Agents ferrous sulfate 325 mg (65 mg iron) tablet 2023-09 00:00: 00 Yes [id number] 1 tablet DAILY 1 tablet DAILY (route: oral) Med Classific ation: Electroly te Balance-N utritiona l Products furosemide 20 mg tablet 2023-09 00:00: 00 Yes [id number] 1 tablet DAILY 1 tablet DAILY (route: oral) Med Classific ation: Cardiovas cular Therapy Agents gabapentin 400 mg capsule 2023-09 00:00: 00 Yes [id number] 1 capsule 2 TIMES DAILY 1 capsule 2 TIMES DAILY (route: oral) Med Classific ation: Central Nervous System Agents loperamide 2 mg tablet 2023-09 00:00: 00 Yes [id number] 1 tablet EVERY 4 HOURS 1 tablet EVERY 4 HOURS (route: oral) Med Classific ation: Gastroint estinal Therapy Agents metformin 500 mg tablet 2023-09 00:00: 00 Yes [id number] 1 tablet DAILY 1 tablet DAILY (route: oral) Med Classific ation: Endocrine metoprolol succinate ER 50 mg tablet,exte nded release 24 hr 2023-09 00:00: 00 07-07 23:59 :00 No [id number] 1 tablet DAILY 1 tablet DAILY (route: oral) Med Classific ation: Cardiovas cular Therapy Agents O2 - OXYGEN 2023-09 00:00: 00 Yes [id number] 2 Liter O2 - CONTINUOUS 2 Liter O2 - CONTINUOUS (route: Oxygen) Alternate Route: O2 - NASAL CANNULA. Med Classific ation: Medical Oxygen potassium chloride ER 20 mEq tablet,exte nded release 2023-09 00:00: 00 Yes [id number] 1 tablet DAILY 1 tablet DAILY (route: oral) Med Classific ation: Electroly te Balance-N utritiona l Products Protonix 40 mg tablet,yang yed release 2023-09 00:00: 00 Yes [id number] 1 tablet DAILY 1 tablet DAILY (route: oral) Med Classific ation: Gastroint estinal Therapy Agents ropinirole 2 mg tablet 2023-09 00:00: 00 Yes [id number] 1 tablet BEDTIME 1 tablet BEDTIME (route: oral) Med Classific ation: Central Nervous System Agents Ventolin HFA 90 mcg/actuati on aerosol inhaler 2023-09 00:00: 00 Yes [id number] 2 puff EVERY 6 HOURS 2 puff EVERY 6 HOURS (route: inhalation ) Med Classific ation: Respirato ry Therapy Agents diltiazem ER 300 mg capsule,24 hr,extended release 2023-09 00:00: 00 Yes [id number] 1 capsule DAILY 1 capsule DAILY (route: oral) Med Classific ation: Cardiovas cular Therapy Agents metoprolol succinate ER 50 mg tablet,exte nded release 24 hr 2023-09 00:00: 00 Yes [id number] 100 mg DAILY 100 mg DAILY (route: oral) Med Classific ation: Cardiovas cular Therapy Agents Vancocin 250 mg capsule 2023-09 00:00: 00 08-11 23:59 :00 No [id number] 1 capsule EVERY 6 HOURS 1 capsule [...] CARE WILL BE ESTABLISHED THAT MEETS PATIENT'S NURSING HOME NEEDS AND INCLUDES PATIENT GOAL FOR HOME [...] End Date/Time Encounter Type Admission Type Attending [facility] Care Department Encounter ID Discharge Date Discharge Status Discharge Condition Discharge Reason Percent Goals Met 2024-07-05 00:00:00 2024-08-13 00:00:00 Outpatient MARTHA HERRERA [facility] [id number] 2024-08-13 00:00:00 DISCHARGE TO HOME OR SELF CARE MINIMUM ASSIST WITH TRANSFER/A MBULATION/ ADLS F2F NOT OBTAINED ( ONLY) 77.19
--- OUTSIDE RECORDS SUMMARY | 2024-09-16 13:19 | XMS_ITS | Clinical Summary ---
Author Organization Unknown Care Team Providers Care [employer] Name Role Phone KHOI PEREZ, PORTER Unavailable Unavailable PARDEEP PT, KERRI Unavailable Unavailable GUILHERME RN, MARTHA Unavailable Unavailable Payers Payer Name Policy Type Policy Number Effective Date Expira tion Date [place] - [place] [facility] [id number] Problems Condition Name Condition Details Condition Category [...] ON SUPPLEMENTAL OXYGEN Active 09-09 00:00: 00 SKILLED NURSING (CURRENT) USE OF ANTICOAGULAN TS Active 09-09 00:00: 00 SKILLED NURSING (CURRENT) USE OF ORAL HYPOGLYCEMIC DRUGS Active [...] 03-07 00:00: 00 04-09 23:59 :00 No [id number] 1 tablet DAILY 1 tablet DAILY (route: oral) Med Classific ation: Cardiovas cular Therapy Agents fluticasone 250 mcg-salmete rol 50 mcg/dose blistr powdr for inhalation 03-07 00:00: 00 07-10 23:59 :00 No [id number] 1 inhalat ion DAILY 1 inhalation DAILY (route: inhalation ) Med Classific ation: Respirato ry Therapy Agents Incruse Ellipta 62.5 mcg/actuati on powder for inhalation 03-07 00:00: 00 07-10 23:59 :00 No [id number] 1 inhalat ion DAILY 1 inhalation DAILY (route: inhalation ) Med Classific ation: Respirato ry Therapy Agents omeprazole 20 mg capsule,del ayed release 03-02 00:00: 00 07-10 23:59 :00 No [id number] Per instruc tions EVERY DAY FOR 90 DAYS Per instructio ns EVERY DAY FOR 90 DAYS (route: oral) Med Classific ation: Gastroint estinal Therapy Agents Tiadylt ER 240 mg capsule,ext ended release 03-02 00:00: 00 01-28 23:59 :00 No [id number] Per instruc tions EVERY DAY Per instructio ns EVERY DAY (route: oral) Med Classific ation: Cardiovas cular Therapy Agents atorvastati n 20 mg tablet 03-19 00:00: 00 04-09 23:59 :00 No [id number] 1 tablet BEDTIME 1 tablet BEDTIME (route: oral) Med Classific ation: Cardiovas cular Therapy Agents furosemide 40 mg tablet 03-19 00:00: 00 07-10 23:59 :00 No [id number] 1 tablet 2 TIMES DAILY 1 tablet 2 TIMES DAILY (route: oral) Med Classific ation: Cardiovas cular Therapy Agents gabapentin 300 mg capsule 03-19 00:00: 00 07-10 23:59 :00 No [id number] 1 capsule 2 TIMES DAILY 1 capsule 2 TIMES DAILY (route: oral) Med Classific ation: Central Nervous System Agents metformin 500 mg tablet 03-19 00:00: 00 04-09 23:59 :00 No [id number] 1 tablet DAILY 1 tablet DAILY (route: oral) Med Classific ation: Endocrine metoprolol succinate ER 100 mg tablet,exte nded release 24 hr 03-19 00:00: 00 04-09 23:59 :00 No [id number] 1 tablet DAILY 1 tablet DAILY (route: oral) Med Classific ation: Cardiovas cular Therapy Agents Percocet 5 mg-325 mg tablet 03-19 00:00: 00 04-09 23:59 :00 No [id number] 1 tablet NEEDED 1 tablet NEEDED (route: oral) Med Classific ation: Analgesic , Anti-infl ammatory or Antipyret ic ropinirole 0.25 mg tablet 03-19 00:00: 00 04-09 23:59 :00 No [id number] Per instruc tions DIRECTED Per instructio ns DIRECTED (route: oral) Med Classific ation: Central Nervous System Agents warfarin 2 mg tablet 03-19 00:00: 00 03-22 23:59 :00 No [id number] 4 mg DAILY 4 mg DAILY (route: oral) Med Classific ation: Hematolog ical Agents warfarin 4 mg tablet 03-25 00:00: 00 03-29 23:59 :00 No [id number] Per instruc tions DAILY Per instructio ns DAILY (route: oral) Med Classific ation: Hematolog ical Agents warfarin 4 mg tablet 03-22 00:00: 00 03-25 23:59 :00 No [id number] Per instruc tions DAILY Per instructio ns DAILY (route: oral) Med Classific ation: Hematolog ical Agents warfarin 4 mg tablet 03-29 00:00: 00 04-05 23:59 :00 No [id number] Per instruc tions DAILY Per instructio ns DAILY (route: oral) Med Classific ation: Hematolog ical Agents warfarin 2 mg tablet 04-05 00:00: 00 04-12 23:59 :00 No [id number] Per instruc tions DAILY Per instructio ns DAILY (route: oral) Med Classific ation: Hematolog ical Agents warfarin 4 mg tablet 04-12 00:00: 00 04-19 23:59 :00 No [id number] Per instruc tions DAILY Per instructio ns DAILY (route: oral) Med Classific ation: Hematolog ical Agents warfarin 4 mg tablet 04-19 00:00: 00 05-03 23:59 :00 No [id number] Per instruc tions EVERY PM Per instructio ns EVERY PM (route: oral) Med Classific ation: Hematolog ical Agents warfarin 4 mg tablet 04-26 00:00: 00 05-10 23:59 :00 No [id number] Per instruc tions DAILY Per instructio ns DAILY (route: oral) Med Classific ation: Hematolog ical Agents ferrous sulfate 325 mg (65 mg iron) tablet 2022-09 00:00: 00 04-09 23:59 :00 No [id number] 1 tablet DAILY 1 tablet DAILY (route: oral) Med Classific ation: Electroly te Balance-N utritiona l Products gabapentin 400 mg capsule 2022-09 00:00: 00 04-09 23:59 :00 No [id number] 1 capsule 2 TIMES DAILY 1 capsule 2 TIMES DAILY (route: oral) Med Classific ation: Central Nervous System Agents lidocaine 5 % topical patch 2022-09 00:00: 00 04-09 23:59 :00 No [id number] 1 adhesiv e patch, medicat ed DAILY 1 adhesive patch, medicated DAILY (route: topical) Med Classific ation: Dermatolo gical loperamide 2 mg tablet 2022-09 00:00: 00 04-09 23:59 :00 No [id number] 1 tablet EVERY 6 HOURS 1 tablet EVERY 6 HOURS (route: oral) Med Classific ation: Gastroint estinal Therapy Agents pantoprazol e 40 mg tablet,yang yed release 2022-09 00:00: 00 04-09 23:59 :00 No [id number] 1 tablet DAILY 1 tablet DAILY (route: oral) Med Classific ation: Gastroint estinal Therapy Agents ProAir RespiClick 90 mcg/actuati on breath activated 2022-09 00:00: 00 04-09 23:59 :00 No [id number] 2 puff EVERY 4 HOURS 2 puff EVERY 4 HOURS (route: inhalation ) Med Classific ation: Respirato ry Therapy Agents Trelegy Ellipta 100 mcg-62.5 mcg-25 mcg powder for inhalation 2022-09 00:00: 00 04-09 23:59 :00 No [id number] 1 inhalat ion DAILY 1 inhalation DAILY (route: inhalation ) Med Classific ation: Respirato ry Therapy Agents Vitamin C 500 mg tablet 2022-09 00:00: 00 04-09 23:59 :00 No [id number] 1 tablet DAILY 1 tablet DAILY (route: oral) Med Classific ation: Electroly te Balance-N utritiona l Products warfarin 2 mg tablet 2022-09 00:00: 00 07-15 23:59 :00 No [id number] Per instruc tions EVERY PM Per instructio ns EVERY PM (route: oral) Med Classific ation: Hematolog ical Agents O2 - OXYGEN 2022-09 00:00: 00 04-09 23:59 :00 No [id number] 2 Liter O2 - CONTINUOUS 2 Liter O2 - CONTINUOUS (route: Oxygen) Alternate Route: O2 - NASAL CANNULA. Med Classific ation: Medical Oxygen warfarin 2 mg tablet 2022-09 00:00: 00 07-31 23:59 :00 No [id number] Per instruc tions DAILY Per instructio ns DAILY (route: oral) Med Classific ation: Hematolog ical Agents warfarin 2 mg tablet 2022-09 00:00: 00 08-05 23:59 :00 No [id number] Per instruc tions DIRECTED Per instructio ns DIRECTED (route: oral) Med Classific ation: Hematolog ical Agents warfarin 2 mg tablet 2022-09 00:00: 00 08-08 23:59 :00 No [id number] Per instruc tions EVERY PM Per instructio ns EVERY PM (route: oral) Med Classific ation: Hematolog ical Agents Lasix 20 mg tablet 2022-09 00:00: 00 04-09 23:59 :00 No [id number] 1 tablet DAILY 1 tablet DAILY (route: oral) Med Classific ation: Cardiovas cular Therapy Agents potassium chloride ER 20 mEq tablet,exte nded release 2022-09 00:00: 00 04-09 23:59 :00 No [id number] 1 tablet DAILY 1 tablet DAILY (route: oral) Med Classific ation: Electroly te Balance-N utritiona l Products warfarin 2 mg tablet 2022-09 00:00: 00 08-09 23:59 :00 No [id number] 2 mg EVERY PM 2 mg EVERY PM (route: oral) Med Classific ation: Hematolog ical Agents aspirin 81 mg tablet,yang yed release 2022-09 00:00: 00 04-09 23:59 :00 No [id number] 1 tablet DAILY 1 tablet DAILY (route: oral) Med Classific ation: Hematolog ical Agents clopidogrel 75 mg tablet 2022-09 00:00: 00 12-24 23:59 :00 No [id number] 1 tablet DAILY 1 tablet DAILY (route: oral) Med Classific ation: Hematolog ical Agents famotidine 20 mg tablet 2022-09 00:00: 00 04-09 23:59 :00 No [id number] 1 tablet BEDTIME 1 tablet BEDTIME (route: oral) Med Classific ation: Gastroint estinal Therapy Agents omeprazole 20 mg capsule,del ayed release 2022-09 00:00: 00 08-23 23:59 :00 No [id number] 1 capsule DAILY 1 capsule DAILY (route: oral) Med Classific ation: Gastroint estinal Therapy Agents Lac-Hydrin Five 5 % lotion 12-24 00:00: 00 04-09 23:59 :00 No [id number] Per instruc tions 2 TIMES DAILY Per instructio ns 2 TIMES DAILY (route: topical) Med Classific ation: Dermatolo gical Tiadylt ER 300 mg capsule,ext ended release 01-28 00:00: 00 04-09 23:59 :00 No [id number] 1 capsule DAILY 1 capsule DAILY (route: oral) Med Classific ation: Cardiovas cular Therapy Agents ascorbic acid (vitamin C) 500 mg tablet 2023-09 00:00: 00 Yes [id number] 1 tablet DAILY 1 tablet DAILY (route: oral) Med Classific ation: Electroly te Balance-N utritiona l Products atorvastati n 20 mg tablet 2023-09 00:00: 00 Yes [id number] 1 tablet DAILY 1 tablet DAILY (route: oral) Med Classific ation: Cardiovas cular Therapy Agents digoxin 125 mcg (0.125 mg) tablet 2023-09 00:00: 00 Yes [id number] 1 tablet DAILY 1 tablet DAILY (route: oral) Med Classific ation: Cardiovas cular Therapy Agents diltiazem 120 mg tablet 2023-09 00:00: 00 07-07 23:59 :00 No [id number] 1 tablet DAILY 1 tablet DAILY (route: oral) Med Classific ation: Cardiovas cular Therapy Agents Eliquis 5 mg tablet 2023-09 00:00: 00 Yes [id number] 1 tablet 2 TIMES DAILY 1 tablet 2 TIMES DAILY (route: oral) Med Classific ation: Hematolog ical Agents famotidine 10 mg tablet 2023-09 00:00: 00 Yes [id number] 1 tablet DAILY 1 tablet DAILY (route: oral) Med Classific ation: Gastroint estinal Therapy Agents ferrous sulfate 325 mg (65 mg iron) tablet 2023-09 00:00: 00 Yes [id number] 1 tablet DAILY 1 tablet DAILY (route: oral) Med Classific ation: Electroly te Balance-N utritiona l Products furosemide 20 mg tablet 2023-09 00:00: 00 Yes [id number] 1 tablet DAILY 1 tablet DAILY (route: oral) Med Classific ation: Cardiovas cular Therapy Agents gabapentin 400 mg capsule 2023-09 00:00: 00 Yes [id number] 1 capsule 2 TIMES DAILY 1 capsule 2 TIMES DAILY (route: oral) Med Classific ation: Central Nervous System Agents loperamide 2 mg tablet 2023-09 00:00: 00 Yes [id number] 1 tablet EVERY 4 HOURS 1 tablet EVERY 4 HOURS (route: oral) Med Classific ation: Gastroint estinal Therapy Agents metformin 500 mg tablet 2023-09 00:00: 00 Yes [id number] 1 tablet DAILY 1 tablet DAILY (route: oral) Med Classific ation: Endocrine metoprolol succinate ER 50 mg tablet,exte nded release 24 hr 2023-09 00:00: 00 07-07 23:59 :00 No [id number] 1 tablet DAILY 1 tablet DAILY (route: oral) Med Classific ation: Cardiovas cular Therapy Agents O2 - OXYGEN 2023-09 00:00: 00 Yes [id number] 2 Liter O2 - CONTINUOUS 2 Liter O2 - CONTINUOUS (route: Oxygen) Alternate Route: O2 - NASAL CANNULA. Med Classific ation: Medical Oxygen potassium chloride ER 20 mEq tablet,exte nded release 2023-09 00:00: 00 Yes [id number] 1 tablet DAILY 1 tablet DAILY (route: oral) Med Classific ation: Electroly te Balance-N utritiona l Products Protonix 40 mg tablet,yang yed release 2023-09 00:00: 00 Yes [id number] 1 tablet DAILY 1 tablet DAILY (route: oral) Med Classific ation: Gastroint estinal Therapy Agents ropinirole 2 mg tablet 2023-09 00:00: 00 Yes [id number] 1 tablet BEDTIME 1 tablet BEDTIME (route: oral) Med Classific ation: Central Nervous System Agents Ventolin HFA 90 mcg/actuati on aerosol inhaler 2023-09 00:00: 00 Yes [id number] 2 puff EVERY 6 HOURS 2 puff EVERY 6 HOURS (route: inhalation ) Med Classific ation: Respirato ry Therapy Agents diltiazem ER 300 mg capsule,24 hr,extended release 2023-09 00:00: 00 Yes [id number] 1 capsule DAILY 1 capsule DAILY (route: oral) Med Classific ation: Cardiovas cular Therapy Agents metoprolol succinate ER 50 mg tablet,exte nded release 24 hr 2023-09 00:00: 00 Yes [id number] 100 mg DAILY 100 mg DAILY (route: oral) Med Classific ation: Cardiovas cular Therapy Agents Vancocin 250 mg capsule 2023-09 00:00: 00 08-11 23:59 :00 No [id number] 1 capsule EVERY 6 HOURS 1 capsule [...] CARE WILL BE ESTABLISHED THAT MEETS PATIENT'S GROUP HOME NEEDS AND INCLUDES PATIENT GOAL FOR [...] End Date/Time Encounter Type Admission Type Attending [facility] Facility Care Department Encounter ID Discharge Date Discharge Status Discharge Condition Discharge Reason Percent Goals Met 2024-07-05 00:00:00 2024-08-13 00:00:00 Outpatient MARTHA HERRERA [facility] [id number] 2024-08-13 00:00:00 DISCHARGE TO HOME OR SELF CARE MINIMUM ASSIST WITH TRANSFER/A MBULATION/ ADLS F2F NOT OBTAINED ( ONLY) 77.19
--- NOTE | 2024-09-16 13:26 | A.OFFPC_ITS ---
Vital Signs 09/16/24 13:29 BMI Reason not done Patient refused/unable BP 118/78 Blood Pressure Location Rt brachial Position Sitting Pulse 76 Pulse Source Pulse Oximeter Pulse Oximetry (%) 94 Oxygen Delivery Method Nasal Cannula Intake Visit Reasons: 3M Follow Up Allergies aspirin [Aspirin] Allergy (Severe, Verified 09/16/24 13:27) BLEED acetaminophen [From Vicodin] Allergy (Intermediate, Verified 09/16/24 13:27) Agitated hydrocodone [From Vicodin] Allergy (Intermediate, Verified 09/16/24 13:27) Agitated lisinopril [Lisinopril] Allergy (Mild, Verified 09/16/24 13:27) COUGH adhesive [ADHESIVE] Allergy (Unknown, Verified 09/16/24 13:27) RED,ITCHY fluticasone [Advair Diskus] Allergy (Unknown, Verified 09/16/24 13:27) UNKNOWN NSAIDS (Non-Steroidal Anti-Inflamma [NSAIDS (NON-STEROIDAL ANTI-INFLAMMA] Allergy (Unknown, Verified 09/16/24 13:27) HX BLEED , GI salmeterol [Advair Diskus] Allergy (Unknown, Verified 09/16/24 13:27) Unknown diphenhydramine [From Benadryl] Adverse Reaction (Mild, Verified 09/16/24 13:27) AGITATION ibuprofen [From Motrin] Adverse Reaction (Mild, Verified 09/16/24 13:27) RINGINGIN EAR zolpidem [From Ambien] Adverse Reaction (Mild, Verified 09/16/24 13:27) AGITATION Tobacco use date assessed: 09/16/24 Fall risk assessment: 1 Fall in past year Last assessed Fall Risk: 09/16/24 Dental Screening Dental Screen Date: 09/16/24 Did you have a dental visit in the last 12 months?: Yes Did you have a dental problem in the last 6 months where you did not have access to dental care?: No Was dental information given to patient?: Patient has dentist HPI 3M Follow Up HPI Details The patient is an 83-year-old female presenting for management of current medications and discussions surrounding existing medical conditions. She reports a history of sleep apnea, which requires the use of CPAP therapy due to associated pulmonary hypertension secondary to Chronic Obstructive Pulmonary Disease (COPD). However, compliance with CPAP use remains a challenge. The patient was last instructed to routinely monitor her echocardiogram results due to bilateral atrial enlargement and to follow up with prescribed cardiac management in relation to her pacemaker, which was previously placed. She experiences chronic shoulder pain with advanced osteoarthritis verified by prior imaging, contributing to a limited range of motion in her arms. The patient reflects on a past pulmonary embolism occurrence in April, necessitating anticoagulation maintenance with Eliquis to manage her atrial fibrillation as well as her pulmonary embolism history. Recent discussions also emphasize her vitamin D deficiency and anemia, with detailed laboratory analysis revealing a hemoglobin A1c of 6.1 and intact kidney function. The discussion around pain management includes periodic prescriptions of oxycodone for severe pain episodes, most recently resulting in a prescription in May. The patient shares concerns regarding mobility, reflecting on limited activity levels potentially contributing to past blood clotting, emphasizing reduced activity during cooler months. Additionally, she confirms current vaccinations and aims to sustainably manage hypertension with existing prescriptions, alongside maintenance routines for general pulmonary and cardiac conditions. [facility] Medical History Pacemaker Bilateral carpal tunnel syndrome Osteoarthritis Fracture of lateral epicondyle of left humerus Foramen ovale Tubular adenoma of colon History of breast cancer GERD (gastroesophageal reflux disease) Obstructive sleep apnea Congestive heart failure Obesity (BMI 30-39.9) COPD (chronic obstructive pulmonary disease) Hypercholesterolemia Hypertension Atrial fibrillation Type 2 diabetes mellitus with hyperglycemia Surgical History Status post lumbar spine surgery for decompression of spinal cord S/P repair of paraesophageal hernia History of tonsillectomy History of abdominal hysterectomy History of cardiac cath History of bilateral knee replacement Family History Father CVD (cardiovascular disease) CAD (coronary artery disease) Hypertension Mother CVD (cardiovascular disease) Hypertension CAD (coronary artery disease) Spinal stenosis Sister CAD (coronary artery disease) Afib Social History Household Members: Family Housing: Apartment Alcohol intake: never Patient Tobacco Use Status: Never used Tobacco Tobacco use type: Cigarette e-Cigarette/Vaping Use: Never Used Second Hand Smoke Exposure: Yes service: No Current occupational status: retired Current occupation: right handed Cognitive needs: No Hearing needs: No Vision needs: Yes Questionnaire PHQ-9 Over the last 2 weeks, how often have you been bothered by any of the following problems? 1. Little interest or pleasure in doing things: more than half the days 2. Feeling down, depressed, or hopeless: more than half the days 3. Trouble falling or staying asleep, or sleeping too much: more than half the days 4. Feeling tired or having little energy: more than half the days 5. Poor appetite or overeating: nearly every day 6. Feeling bad about yourself - or that you are a failure or have let yourself or your family down: not at all 7. Trouble concentrating on things, such as reading the newspaper or watching television: several days 8. Moving or speaking so slowly that other people could have noticed. Or the opposite - being so fidgety or restless that you have been moving around a lot more than usual: several days 9. Thoughts that you would be better off or of hurting yourself in some way: not at all Total score: 13 Depression Screening Interpretation: Positive Depression Screening Done: Yes Source: Developed by Drs. Jorje Correia, Jeana Gaxiola, Pawel High and colleagues, with an educational katie from [employer]. Thrive Questionnaire Date Thrive assessed: 09/16/24 I am a: Patient What is your living situation today?: I have a steady place to live Within the past 12 months, did the food you bought not last and you didn't have the money to get more?: Never true Within the past 12 months, did you worry whether your food would run out before you got money to buy more?: Never true Do you have trouble paying for medicines?: No Do you have trouble getting transportation to medical appointments?: No Do you have trouble paying your heating and electricity bill?: No Do you have trouble taking care of your child, family member or friend?: No Do you have trouble with day-to-day activities such as bathing, preparing meals, shopping, managing finances, etc.?: No Are you currently unemployed and looking for a job?: No Are you interested in more education?: No Currently or been in a relationship where the following occur: No concerns reported THRIVE Score: 0 AUDIT C Alcohol Use Questionnaire (AUDIT-C) 1. How often do you have a drink containing alcohol?: Never 2. How many drinks containing alcohol do you have on a typical day when you are drinking?: 1 or 2 3. How often do you have six or more drinks on one occasion?: Never Total Score: 0 Score Reviewed/Action Taken: No YVON-7 AMB Questionnaire YVON-7 Date YVON - 7 assessed: 09/16/24 Feeling nervous, anxious, or on edge: 0 = Not at all Not being able to stop or control worryin = Not at all Worrying too much about different things: 0 = Not at all Trouble relaxin = Not at all Being so restless that it is hard to sit still: 0 = Not at all Becoming easily annoyed or irritable: 0 = Not at all Feeling afraid as if something awful might happen: 0 = Not at all Total YVON-7 score (0-4 normal; 5-9 mild; 10-14 moderate; 15-21 severe): 0 Source: Developed by Drs. Jorje Correia, Jeana Gaxiola, Pawel High and colleagues, with an educational katie from [employer]. Physical exam (Primary Care) Vital Signs: Last Vital Signs Pulse 76 09/16/24 13:29 BP 118/78 09/16/24 13:29 Pulse Ox 94 09/16/24 13:29 Oxygen Delivery Method Nasal Cannula 09/16/24 13:29 Tobacco/Smoking Status: Tobacco use Status Tobacco use date assessed 09/16/24 09/16/24 13:28 Patient Tobacco Use Status Never used Tobacco 09/16/24 13:28 Tobacco use type Cigarette 09/16/24 13:28 e-Cigarette/Vaping Use Never Used 09/16/24 13:28 PHQ-9: PHQ-9 Score PHQ-9: Total score 13 09/16/24 13:28 Depression Screening Interpretation: Positive Thrive Assessment: Date of Thrive Assessment Date Thrive assessed 09/16/24 09/16/24 13:28 Currently or been in a relationship where the following occur: No concerns reported Const General: alert; No acute distress Eyes Conjunctivae: conjunctivae normal Resp Auscultation: clear to auscultation bilaterally Cardio Rate: regular rate Rhythm: regular rhythm GI Inspection: Yes normal to inspection Extrem General: Yes normal to inspection and No edema Coding Level of Care Code Est Pt Level 4 (45025) Complex EM visit Add On G2211 Diagnoses Pulmonary emphysema, unspecified emphysema type J43.9 COPD type: emphysema Emphysema type: unspecified Paroxysmal atrial fibrillation I48.0 Atrial fibrillation type: paroxysmal Type 2 diabetes mellitus with hyperglycemia, without long-term current use of insulin E11.65 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 Garber [facility] pulmonary [phone] Code(s): J44.9 - Chronic obstructive pulmonary disease, unspecified Category: Medical Qualifiers: COPD type: emphysema Emphysema type: unspecified Qualified Code(s): J43.9 - Emphysema, unspecified (2) Atrial fibrillation: Comment: March 2019 echo normal LV, biatrial enlargement, mild MR severe TR, nuclear stress distal lateral and inferolateral ischemia 74% 04/2018, EF 60-65% dilatation ascending aorta to 4.4 cm with biatrial enlargement, moderate pulmonary hypertension April 2020 Watchmans device 08/2023 Code(s): I48.91 - Unspecified atrial fibrillation Category: Medical Qualifiers: Atrial fibrillation type: paroxysmal Qualified Code(s): I48.0 - Paroxysmal atrial fibrillation (3) Type 2 diabetes mellitus with hyperglycemia: Comment: [place] Code(s): E11.65 - Type 2 diabetes mellitus with hyperglycemia Category: Medical Qualifiers: 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 Decrease salt intake and exercise (5) Hypercholesterolemia: Comment: blood work done 10/2019 Code(s): E78.00 - Pure hypercholesterolemia, unspecified Category: Medical Plan: Avoid fried foods, chicken skin, eggs, butter margarine, pastries and meat. Be it pork or beef they have a lot of cholesterol on atorvastatin 20 mg once a day (6) Obesity (BMI 30-39.9): Code(s): E66.9 - Obesity, unspecified Category: Medical Plan: Diet and exercise (7) Congestive heart failure: Code(s): I50.9 - Heart failure, unspecified Category: Medical Qualifiers: Heart failure type: systolic Heart failure chronicity: chronic Qualified Code(s): I50.22 - Chronic systolic (congestive) heart failure Plan: Weigh daily continuing with furosemide and continue to monitor blood work (8) Obstructive sleep apnea: Comment: cannot tolerate CPAP 12/2020 Code(s): G47.33 - Obstructive sleep apnea (adult) (pediatric) Category: Medical Plan: Discussed importance of using the CPAP for sleep apnea treatment. (9) GERD (gastroesophageal reflux disease): Code(s): K21.9 - Gastro-esophageal reflux disease without esophagitis Category: Medical Qualifiers: Esophagitis presence: without esophagitis Qualified Code(s): K21.9 - Gastro-esophageal reflux disease without esophagitis Plan: Avoid the foods that causes that usually spicy foods, tomato products, juices, coffee, soda and foods that your sensitive to. After eating do not lie down, allow 3-4 hours before in lie down. And keep the head of bed above 30 degrees to avoid the acid from going up. (10) Ascending aorta dilatation: Comment: April 2021 4.4 cm Code(s): I77.810 - Thoracic aortic ectasia Category: Medical Plan: This is continued to be monitored with echocardiogram (11) T12 compression fracture: Comment: April 2021 Code(s): S22.080A - Wedge compression fracture of T11-T12 vertebra, initial encounter for closed fracture Category: Medical Plan: Narcotic pain meds: Is being prescribed with the understanding that these medications are potentially addictive and should be used only when absolutely necessary and must always be secured. Any remaining pills should be safely disposed off appropriately. Patient is advised that narcotics can impaired judgment and one should not drive or operate heavy machinery while taking these medications. Never share these medications with anybody and do not leave them unattended. They will not be replaced under any circumstances. (12) Pulmonary embolism: Comment: 04/2024 Code(s): I26.99 - Other pulmonary embolism without acute cor pulmonale Category: Medical Plan: Continue with present anticoagulation and referral to Hematology Oncology Plan - Reinforce the necessity of CPAP compliance for sleep apnea management to mitigate cardiac strain and pulmonary hypertension associated with bilateral atrial enlargement. - Continue Eliquis for anticoagulation therapy given the history of atrial fibrillation and pulmonary embolism with regular follow-ups with hematology. - Support pain management through specific doses of oxycodone for severe episodes, considering patient history and past efficacy. - Encourage increased physical activity within the home to reduce risk of further embolic events due to immobility while monitoring for symptoms of arthritis impact. - Evaluate the requirement for periodic updates on echocardiogram to monitor bilateral atrial enlargement and maintenance of pacemaker functions. - Continue management of vitamin D deficiency and anemia with supplements and monitored dietary intake based on prior laboratory findings. - Maintain current hypertension management with regular blood pressure assessments and adjustments to her therapeutic regimen as needed. - Ensure up-to-date vaccinations including RSV and COVID-19 prevention as per the ongoing season guidance and available pharmacy provisions. - Establish structured follow-up with the patient?s primary care and relevant specialists, ensuring cohesive coordination of her cardiovascular, pulmonary, and orthopedic care. Orders: Referrals Hematology & Oncology Referral I26.99 - Other pulmonary embolism without acute cor pulmonale Medications: Refilled oxycodone-acetaminophen 5-325 mg 1 tab PO Q8H PRN 84 tabs 0RF pain M19.90 - Unspecified osteoarthritis, unspecified site oxycodone-acetaminophen 5-325 mg 1 tab PO Q8H PRN 84 tabs 0RF pain M19.90 - Unspecified osteoarthritis, unspecified site
[2024-09-16 13:29] VITALS: BP 118/78; PULSE 76; O2SAT 94
== END 2024-09-16 14:14 | disposition home or self-care (01) ==
PROVIDERS: PCP Internal Medicine; Visit Provider Internal Medicine
DX: J43.9 Emphysema, unspecified (principal); I48.0 Paroxysmal atrial fibrillation; E11.65 Type 2 diabetes mellitus with hyperglycemia; I50.22 Chronic systolic (congestive) heart failure; I77.810 Thoracic aortic ectasia; S22.080A Wedge compression fracture of T11-T12 vertebra, initial encounter for closed fracture; I26.99 Other pulmonary embolism without acute cor pulmonale; I10 Essential (primary) hypertension; E78.00 Pure hypercholesterolemia, unspecified; E66.9 Obesity, unspecified; G47.33 Obstructive sleep apnea (adult) (pediatric); K21.9 Gastro-esophageal reflux disease without esophagitis

== ENCOUNTER → 2024-09-16 13:17 | Outpatient (BNVA) | payer MEDICARE, OTHER, SELFPAY | PROVIDERS: PCP Internal Medicine; Visit Provider Internal Medicine | DX: J43.9 Emphysema, unspecified (principal); I48.0 Paroxysmal atrial fibrillation; E11.65 Type 2 diabetes mellitus with hyperglycemia; E78.00 Pure hypercholesterolemia, unspecified; E66.9 Obesity, unspecified; G47.33 Obstructive sleep apnea (adult) (pediatric); I11.0 Hypertensive heart disease with heart failure; I50.22 Chronic systolic (congestive) heart failure; K21.9 Gastro-esophageal reflux disease without esophagitis; I77.810 Thoracic aortic ectasia; I26.99 Other pulmonary embolism without acute cor pulmonale; S22.080D Wedge compression fracture of T11-T12 vertebra, subsequent encounter for fracture with routine healing | CPT/HCPCS: 96127; 99212 ==

== ENCOUNTER 2024-09-18 13:08 | Outpatient (REF) | payer MEDICARE, OTHER, SELFPAY ==
--- OUTSIDE RECORDS SUMMARY | 2024-09-18 13:11 | XMS_ITS | Clinical Summary ---
Author Organization Unknown Care Team Providers Care Hurricane Tracker Name Role Phone KHOI PEREZ, PORTER Unavailable Unavailable PARDEEP PT, KERRI Unavailable Unavailable GUILHERME RN, MARTHA Unavailable Unavailable Payers Payer Name Policy Type Policy Number Effective Date Expira tion Date MEDICARE - [place] - [facility] [id number] Problems Condition Name Condition Details Condition Category [...] ON SUPPLEMENTAL OXYGEN Active 09-09 00:00: 00 SNF (CURRENT) USE OF ANTICOAGULAN TS Active 09-09 00:00: 00 SNF (CURRENT) USE OF ORAL HYPOGLYCEMIC DRUGS Active [...] 03-07 00:00: 00 04-09 23:59 :00 No [id number] 1 tablet DAILY 1 tablet DAILY (route: oral) Med Classific ation: Cardiovas cular Therapy Agents fluticasone 250 mcg-salmete rol 50 mcg/dose blistr powdr for inhalation 03-07 00:00: 00 07-10 23:59 :00 No [id number] 1 inhalat ion DAILY 1 inhalation DAILY (route: inhalation ) Med Classific ation: Respirato ry Therapy Agents Incruse Ellipta 62.5 mcg/actuati on powder for inhalation 03-07 00:00: 00 07-10 23:59 :00 No [id number] 1 inhalat ion DAILY 1 inhalation DAILY (route: inhalation ) Med Classific ation: Respirato ry Therapy Agents omeprazole 20 mg capsule,del ayed release 03-02 00:00: 00 07-10 23:59 :00 No [id number] Per instruc tions EVERY DAY FOR 90 DAYS Per instructio ns EVERY DAY FOR 90 DAYS (route: oral) Med Classific ation: Gastroint estinal Therapy Agents Tiadylt ER 240 mg capsule,ext ended release 03-02 00:00: 00 01-28 23:59 :00 No [id number] Per instruc tions EVERY DAY Per instructio ns EVERY DAY (route: oral) Med Classific ation: Cardiovas cular Therapy Agents atorvastati n 20 mg tablet 03-19 00:00: 00 04-09 23:59 :00 No [id number] 1 tablet BEDTIME 1 tablet BEDTIME (route: oral) Med Classific ation: Cardiovas cular Therapy Agents furosemide 40 mg tablet 03-19 00:00: 00 07-10 23:59 :00 No [id number] 1 tablet 2 TIMES DAILY 1 tablet 2 TIMES DAILY (route: oral) Med Classific ation: Cardiovas cular Therapy Agents gabapentin 300 mg capsule 03-19 00:00: 00 07-10 23:59 :00 No [id number] 1 capsule 2 TIMES DAILY 1 capsule 2 TIMES DAILY (route: oral) Med Classific ation: Central Nervous System Agents metformin 500 mg tablet 03-19 00:00: 00 04-09 23:59 :00 No [id number] 1 tablet DAILY 1 tablet DAILY (route: oral) Med Classific ation: Endocrine metoprolol succinate ER 100 mg tablet,exte nded release 24 hr 03-19 00:00: 00 04-09 23:59 :00 No [id number] 1 tablet DAILY 1 tablet DAILY (route: oral) Med Classific ation: Cardiovas cular Therapy Agents Percocet 5 mg-325 mg tablet 03-19 00:00: 00 04-09 23:59 :00 No [id number] 1 tablet NEEDED 1 tablet NEEDED (route: oral) Med Classific ation: Analgesic , Anti-infl ammatory or Antipyret ic ropinirole 0.25 mg tablet 03-19 00:00: 00 04-09 23:59 :00 No [id number] Per instruc tions DIRECTED Per instructio ns DIRECTED (route: oral) Med Classific ation: Central Nervous System Agents warfarin 2 mg tablet 03-19 00:00: 00 03-22 23:59 :00 No [id number] 4 mg DAILY 4 mg DAILY (route: oral) Med Classific ation: Hematolog ical Agents warfarin 4 mg tablet 03-25 00:00: 00 03-29 23:59 :00 No [id number] Per instruc tions DAILY Per instructio ns DAILY (route: oral) Med Classific ation: Hematolog ical Agents warfarin 4 mg tablet 03-22 00:00: 00 03-25 23:59 :00 No [id number] Per instruc tions DAILY Per instructio ns DAILY (route: oral) Med Classific ation: Hematolog ical Agents warfarin 4 mg tablet 03-29 00:00: 00 04-05 23:59 :00 No [id number] Per instruc tions DAILY Per instructio ns DAILY (route: oral) Med Classific ation: Hematolog ical Agents warfarin 2 mg tablet 04-05 00:00: 00 04-12 23:59 :00 No [id number] Per instruc tions DAILY Per instructio ns DAILY (route: oral) Med Classific ation: Hematolog ical Agents warfarin 4 mg tablet 04-12 00:00: 00 04-19 23:59 :00 No [id number] Per instruc tions DAILY Per instructio ns DAILY (route: oral) Med Classific ation: Hematolog ical Agents warfarin 4 mg tablet 04-19 00:00: 00 05-03 23:59 :00 No [id number] Per instruc tions EVERY PM Per instructio ns EVERY PM (route: oral) Med Classific ation: Hematolog ical Agents warfarin 4 mg tablet 04-26 00:00: 00 05-10 23:59 :00 No [id number] Per instruc tions DAILY Per instructio ns DAILY (route: oral) Med Classific ation: Hematolog ical Agents ferrous sulfate 325 mg (65 mg iron) tablet 2022-09 00:00: 00 04-09 23:59 :00 No [id number] 1 tablet DAILY 1 tablet DAILY (route: oral) Med Classific ation: Electroly te Balance-N utritiona l Products gabapentin 400 mg capsule 2022-09 00:00: 00 04-09 23:59 :00 No [id number] 1 capsule 2 TIMES DAILY 1 capsule 2 TIMES DAILY (route: oral) Med Classific ation: Central Nervous System Agents lidocaine 5 % topical patch 2022-09 00:00: 00 04-09 23:59 :00 No [id number] 1 adhesiv e patch, medicat ed DAILY 1 adhesive patch, medicated DAILY (route: topical) Med Classific ation: Dermatolo gical loperamide 2 mg tablet 2022-09 00:00: 00 04-09 23:59 :00 No [id number] 1 tablet EVERY 6 HOURS 1 tablet EVERY 6 HOURS (route: oral) Med Classific ation: Gastroint estinal Therapy Agents pantoprazol e 40 mg tablet,yang yed release 2022-09 00:00: 00 04-09 23:59 :00 No [id number] 1 tablet DAILY 1 tablet DAILY (route: oral) Med Classific ation: Gastroint estinal Therapy Agents ProAir RespiClick 90 mcg/actuati on breath activated 2022-09 00:00: 00 04-09 23:59 :00 No [id number] 2 puff EVERY 4 HOURS 2 puff EVERY 4 HOURS (route: inhalation ) Med Classific ation: Respirato ry Therapy Agents Trelegy Ellipta 100 mcg-62.5 mcg-25 mcg powder for inhalation 2022-09 00:00: 00 04-09 23:59 :00 No [id number] 1 inhalat ion DAILY 1 inhalation DAILY (route: inhalation ) Med Classific ation: Respirato ry Therapy Agents Vitamin C 500 mg tablet 2022-09 00:00: 00 04-09 23:59 :00 No [id number] 1 tablet DAILY 1 tablet DAILY (route: oral) Med Classific ation: Electroly te Balance-N utritiona l Products warfarin 2 mg tablet 2022-09 00:00: 00 07-15 23:59 :00 No [id number] Per instruc tions EVERY PM Per instructio ns EVERY PM (route: oral) Med Classific ation: Hematolog ical Agents O2 - OXYGEN 2022-09 00:00: 00 04-09 23:59 :00 No [id number] 2 Liter O2 - CONTINUOUS 2 Liter O2 - CONTINUOUS (route: Oxygen) Alternate Route: O2 - NASAL CANNULA. Med Classific ation: Medical Oxygen warfarin 2 mg tablet 2022-09 00:00: 00 07-31 23:59 :00 No [id number] Per instruc tions DAILY Per instructio ns DAILY (route: oral) Med Classific ation: Hematolog ical Agents warfarin 2 mg tablet 2022-09 00:00: 00 08-05 23:59 :00 No [id number] Per instruc tions DIRECTED Per instructio ns DIRECTED (route: oral) Med Classific ation: Hematolog ical Agents warfarin 2 mg tablet 2022-09 00:00: 00 08-08 23:59 :00 No [id number] Per instruc tions EVERY PM Per instructio ns EVERY PM (route: oral) Med Classific ation: Hematolog ical Agents Lasix 20 mg tablet 2022-09 00:00: 00 04-09 23:59 :00 No [id number] 1 tablet DAILY 1 tablet DAILY (route: oral) Med Classific ation: Cardiovas cular Therapy Agents potassium chloride ER 20 mEq tablet,exte nded release 2022-09 00:00: 00 04-09 23:59 :00 No [id number] 1 tablet DAILY 1 tablet DAILY (route: oral) Med Classific ation: Electroly te Balance-N utritiona l Products warfarin 2 mg tablet 2022-09 00:00: 00 08-09 23:59 :00 No [id number] 2 mg EVERY PM 2 mg EVERY PM (route: oral) Med Classific ation: Hematolog ical Agents aspirin 81 mg tablet,yang yed release 2022-09 00:00: 00 04-09 23:59 :00 No [id number] 1 tablet DAILY 1 tablet DAILY (route: oral) Med Classific ation: Hematolog ical Agents clopidogrel 75 mg tablet 2022-09 00:00: 00 12-24 23:59 :00 No [id number] 1 tablet DAILY 1 tablet DAILY (route: oral) Med Classific ation: Hematolog ical Agents famotidine 20 mg tablet 2022-09 00:00: 00 04-09 23:59 :00 No [id number] 1 tablet BEDTIME 1 tablet BEDTIME (route: oral) Med Classific ation: Gastroint estinal Therapy Agents omeprazole 20 mg capsule,del ayed release 2022-09 00:00: 00 08-23 23:59 :00 No [id number] 1 capsule DAILY 1 capsule DAILY (route: oral) Med Classific ation: Gastroint estinal Therapy Agents Lac-Hydrin Five 5 % lotion 12-24 00:00: 00 04-09 23:59 :00 No [id number] Per instruc tions 2 TIMES DAILY Per instructio ns 2 TIMES DAILY (route: topical) Med Classific ation: Dermatolo gical Tiadylt ER 300 mg capsule,ext ended release 01-28 00:00: 00 04-09 23:59 :00 No [id number] 1 capsule DAILY 1 capsule DAILY (route: oral) Med Classific ation: Cardiovas cular Therapy Agents ascorbic acid (vitamin C) 500 mg tablet 2023-09 00:00: 00 Yes [id number] 1 tablet DAILY 1 tablet DAILY (route: oral) Med Classific ation: Electroly te Balance-N utritiona l Products atorvastati n 20 mg tablet 2023-09 00:00: 00 Yes [id number] 1 tablet DAILY 1 tablet DAILY (route: oral) Med Classific ation: Cardiovas cular Therapy Agents digoxin 125 mcg (0.125 mg) tablet 2023-09 00:00: 00 Yes [id number] 1 tablet DAILY 1 tablet DAILY (route: oral) Med Classific ation: Cardiovas cular Therapy Agents diltiazem 120 mg tablet 2023-09 00:00: 00 07-07 23:59 :00 No [id number] 1 tablet DAILY 1 tablet DAILY (route: oral) Med Classific ation: Cardiovas cular Therapy Agents Eliquis 5 mg tablet 2023-09 00:00: 00 Yes [id number] 1 tablet 2 TIMES DAILY 1 tablet 2 TIMES DAILY (route: oral) Med Classific ation: Hematolog ical Agents famotidine 10 mg tablet 2023-09 00:00: 00 Yes [id number] 1 tablet DAILY 1 tablet DAILY (route: oral) Med Classific ation: Gastroint estinal Therapy Agents ferrous sulfate 325 mg (65 mg iron) tablet 2023-09 00:00: 00 Yes [id number] 1 tablet DAILY 1 tablet DAILY (route: oral) Med Classific ation: Electroly te Balance-N utritiona l Products furosemide 20 mg tablet 2023-09 00:00: 00 Yes [id number] 1 tablet DAILY 1 tablet DAILY (route: oral) Med Classific ation: Cardiovas cular Therapy Agents gabapentin 400 mg capsule 2023-09 00:00: 00 Yes [id number] 1 capsule 2 TIMES DAILY 1 capsule 2 TIMES DAILY (route: oral) Med Classific ation: Central Nervous System Agents loperamide 2 mg tablet 2023-09 00:00: 00 Yes [id number] 1 tablet EVERY 4 HOURS 1 tablet EVERY 4 HOURS (route: oral) Med Classific ation: Gastroint estinal Therapy Agents metformin 500 mg tablet 2023-09 00:00: 00 Yes [id number] 1 tablet DAILY 1 tablet DAILY (route: oral) Med Classific ation: Endocrine metoprolol succinate ER 50 mg tablet,exte nded release 24 hr 2023-09 00:00: 00 07-07 23:59 :00 No [id number] 1 tablet DAILY 1 tablet DAILY (route: oral) Med Classific ation: Cardiovas cular Therapy Agents O2 - OXYGEN 2023-09 00:00: 00 Yes [id number] 2 Liter O2 - CONTINUOUS 2 Liter O2 - CONTINUOUS (route: Oxygen) Alternate Route: O2 - NASAL CANNULA. Med Classific ation: Medical Oxygen potassium chloride ER 20 mEq tablet,exte nded release 2023-09 00:00: 00 Yes [id number] 1 tablet DAILY 1 tablet DAILY (route: oral) Med Classific ation: Electroly te Balance-N utritiona l Products Protonix 40 mg tablet,yang yed release 2023-09 00:00: 00 Yes [id number] 1 tablet DAILY 1 tablet DAILY (route: oral) Med Classific ation: Gastroint estinal Therapy Agents ropinirole 2 mg tablet 2023-09 00:00: 00 Yes [id number] 1 tablet BEDTIME 1 tablet BEDTIME (route: oral) Med Classific ation: Central Nervous System Agents Ventolin HFA 90 mcg/actuati on aerosol inhaler 2023-09 00:00: 00 Yes [id number] 2 puff EVERY 6 HOURS 2 puff EVERY 6 HOURS (route: inhalation ) Med Classific ation: Respirato ry Therapy Agents diltiazem ER 300 mg capsule,24 hr,extended release 2023-09 00:00: 00 Yes [id number] 1 capsule DAILY 1 capsule DAILY (route: oral) Med Classific ation: Cardiovas cular Therapy Agents metoprolol succinate ER 50 mg tablet,exte nded release 24 hr 2023-09 00:00: 00 Yes [id number] 100 mg DAILY 100 mg DAILY (route: oral) Med Classific ation: Cardiovas cular Therapy Agents Vancocin 250 mg capsule 2023-09 00:00: 00 08-11 23:59 :00 No [id number] 1 capsule EVERY 6 HOURS 1 capsule [...] CARE WILL BE ESTABLISHED THAT MEETS PATIENT'S SENIOR CARE NEEDS AND INCLUDES PATIENT GOAL FOR HOME [...] End Date/Time Encounter Type Admission Type Attending [facility] Facility Care Department Encounter ID Discharge Date Discharge Status Discharge Condition Discharge Reason Percent Goals Met 2024-07-05 00:00:00 2024-08-13 00:00:00 Outpatient MARTHA HERRERA [facility] [id number] 2024-08-13 00:00:00 DISCHARGE TO HOME OR SELF CARE MINIMUM ASSIST WITH TRANSFER/A MBULATION/ ADLS F2F NOT OBTAINED ( ONLY) 77.19
--- OUTSIDE RECORDS SUMMARY | 2024-09-18 13:11 | XMS_ITS | Clinical Summary ---
Author Organization Unknown Care Team Providers Care Maintenance Associate Name Role Phone KHOI PEREZ, PORTER Unavailable Unavailable PARDEEP PT, KERRI Unavailable Unavailable GUILHERME RN, MARTHA Unavailable Unavailable Payers Payer Name Policy Type Policy Number Effective Date Expira tion Date MEDICARE - NGS [place] - [facility] [id number] Problems Condition Name Condition Details Condition Category [...] ON SUPPLEMENTAL OXYGEN Active 09-09 00:00: 00 GROUP HOME (CURRENT) USE OF ANTICOAGULAN TS Active 09-09 00:00: 00 GROUP HOME (CURRENT) USE OF ORAL HYPOGLYCEMIC DRUGS Active [...] 03-07 00:00: 00 04-09 23:59 :00 No [id number] 1 tablet DAILY 1 tablet DAILY (route: oral) Med Classific ation: Cardiovas cular Therapy Agents fluticasone 250 mcg-salmete rol 50 mcg/dose blistr powdr for inhalation 03-07 00:00: 00 07-10 23:59 :00 No [id number] 1 inhalat ion DAILY 1 inhalation DAILY (route: inhalation ) Med Classific ation: Respirato ry Therapy Agents Incruse Ellipta 62.5 mcg/actuati on powder for inhalation 03-07 00:00: 00 07-10 23:59 :00 No [id number] 1 inhalat ion DAILY 1 inhalation DAILY (route: inhalation ) Med Classific ation: Respirato ry Therapy Agents omeprazole 20 mg capsule,del ayed release 03-02 00:00: 00 07-10 23:59 :00 No [id number] Per instruc tions EVERY DAY FOR 90 DAYS Per instructio ns EVERY DAY FOR 90 DAYS (route: oral) Med Classific ation: Gastroint estinal Therapy Agents Tiadylt ER 240 mg capsule,ext ended release 03-02 00:00: 00 01-28 23:59 :00 No [id number] Per instruc tions EVERY DAY Per instructio ns EVERY DAY (route: oral) Med Classific ation: Cardiovas cular Therapy Agents atorvastati n 20 mg tablet 03-19 00:00: 00 04-09 23:59 :00 No [id number] 1 tablet BEDTIME 1 tablet BEDTIME (route: oral) Med Classific ation: Cardiovas cular Therapy Agents furosemide 40 mg tablet 03-19 00:00: 00 07-10 23:59 :00 No [id number] 1 tablet 2 TIMES DAILY 1 tablet 2 TIMES DAILY (route: oral) Med Classific ation: Cardiovas cular Therapy Agents gabapentin 300 mg capsule 03-19 00:00: 00 07-10 23:59 :00 No [id number] 1 capsule 2 TIMES DAILY 1 capsule 2 TIMES DAILY (route: oral) Med Classific ation: Central Nervous System Agents metformin 500 mg tablet 03-19 00:00: 00 04-09 23:59 :00 No [id number] 1 tablet DAILY 1 tablet DAILY (route: oral) Med Classific ation: Endocrine metoprolol succinate ER 100 mg tablet,exte nded release 24 hr 03-19 00:00: 00 04-09 23:59 :00 No [id number] 1 tablet DAILY 1 tablet DAILY (route: oral) Med Classific ation: Cardiovas cular Therapy Agents Percocet 5 mg-325 mg tablet 03-19 00:00: 00 04-09 23:59 :00 No [id number] 1 tablet NEEDED 1 tablet NEEDED (route: oral) Med Classific ation: Analgesic , Anti-infl ammatory or Antipyret ic ropinirole 0.25 mg tablet 03-19 00:00: 00 04-09 23:59 :00 No [id number] Per instruc tions DIRECTED Per instructio ns DIRECTED (route: oral) Med Classific ation: Central Nervous System Agents warfarin 2 mg tablet 03-19 00:00: 00 03-22 23:59 :00 No [id number] 4 mg DAILY 4 mg DAILY (route: oral) Med Classific ation: Hematolog ical Agents warfarin 4 mg tablet 03-25 00:00: 00 03-29 23:59 :00 No [id number] Per instruc tions DAILY Per instructio ns DAILY (route: oral) Med Classific ation: Hematolog ical Agents warfarin 4 mg tablet 03-22 00:00: 00 03-25 23:59 :00 No [id number] Per instruc tions DAILY Per instructio ns DAILY (route: oral) Med Classific ation: Hematolog ical Agents warfarin 4 mg tablet 03-29 00:00: 00 04-05 23:59 :00 No [id number] Per instruc tions DAILY Per instructio ns DAILY (route: oral) Med Classific ation: Hematolog ical Agents warfarin 2 mg tablet 04-05 00:00: 00 04-12 23:59 :00 No [id number] Per instruc tions DAILY Per instructio ns DAILY (route: oral) Med Classific ation: Hematolog ical Agents warfarin 4 mg tablet 04-12 00:00: 00 04-19 23:59 :00 No [id number] Per instruc tions DAILY Per instructio ns DAILY (route: oral) Med Classific ation: Hematolog ical Agents warfarin 4 mg tablet 04-19 00:00: 00 05-03 23:59 :00 No [id number] Per instruc tions EVERY PM Per instructio ns EVERY PM (route: oral) Med Classific ation: Hematolog ical Agents warfarin 4 mg tablet 04-26 00:00: 00 05-10 23:59 :00 No [id number] Per instruc tions DAILY Per instructio ns DAILY (route: oral) Med Classific ation: Hematolog ical Agents ferrous sulfate 325 mg (65 mg iron) tablet 2022-09 00:00: 00 04-09 23:59 :00 No [id number] 1 tablet DAILY 1 tablet DAILY (route: oral) Med Classific ation: Electroly te Balance-N utritiona l Products gabapentin 400 mg capsule 2022-09 00:00: 00 04-09 23:59 :00 No [id number] 1 capsule 2 TIMES DAILY 1 capsule 2 TIMES DAILY (route: oral) Med Classific ation: Central Nervous System Agents lidocaine 5 % topical patch 2022-09 00:00: 00 04-09 23:59 :00 No [id number] 1 adhesiv e patch, medicat ed DAILY 1 adhesive patch, medicated DAILY (route: topical) Med Classific ation: Dermatolo gical loperamide 2 mg tablet 2022-09 00:00: 00 04-09 23:59 :00 No [id number] 1 tablet EVERY 6 HOURS 1 tablet EVERY 6 HOURS (route: oral) Med Classific ation: Gastroint estinal Therapy Agents pantoprazol e 40 mg tablet,yang yed release 2022-09 00:00: 00 04-09 23:59 :00 No [id number] 1 tablet DAILY 1 tablet DAILY (route: oral) Med Classific ation: Gastroint estinal Therapy Agents ProAir RespiClick 90 mcg/actuati on breath activated 2022-09 00:00: 00 04-09 23:59 :00 No [id number] 2 puff EVERY 4 HOURS 2 puff EVERY 4 HOURS (route: inhalation ) Med Classific ation: Respirato ry Therapy Agents Trelegy Ellipta 100 mcg-62.5 mcg-25 mcg powder for inhalation 2022-09 00:00: 00 04-09 23:59 :00 No [id number] 1 inhalat ion DAILY 1 inhalation DAILY (route: inhalation ) Med Classific ation: Respirato ry Therapy Agents Vitamin C 500 mg tablet 2022-09 00:00: 00 04-09 23:59 :00 No [id number] 1 tablet DAILY 1 tablet DAILY (route: oral) Med Classific ation: Electroly te Balance-N utritiona l Products warfarin 2 mg tablet 2022-09 00:00: 00 07-15 23:59 :00 No [id number] Per instruc tions EVERY PM Per instructio ns EVERY PM (route: oral) Med Classific ation: Hematolog ical Agents O2 - OXYGEN 2022-09 00:00: 00 04-09 23:59 :00 No [id number] 2 Liter O2 - CONTINUOUS 2 Liter O2 - CONTINUOUS (route: Oxygen) Alternate Route: O2 - NASAL CANNULA. Med Classific ation: Medical Oxygen warfarin 2 mg tablet 2022-09 00:00: 00 07-31 23:59 :00 No [id number] Per instruc tions DAILY Per instructio ns DAILY (route: oral) Med Classific ation: Hematolog ical Agents warfarin 2 mg tablet 2022-09 00:00: 00 08-05 23:59 :00 No [id number] Per instruc tions DIRECTED Per instructio ns DIRECTED (route: oral) Med Classific ation: Hematolog ical Agents warfarin 2 mg tablet 2022-09 00:00: 00 08-08 23:59 :00 No [id number] Per instruc tions EVERY PM Per instructio ns EVERY PM (route: oral) Med Classific ation: Hematolog ical Agents Lasix 20 mg tablet 2022-09 00:00: 00 04-09 23:59 :00 No [id number] 1 tablet DAILY 1 tablet DAILY (route: oral) Med Classific ation: Cardiovas cular Therapy Agents potassium chloride ER 20 mEq tablet,exte nded release 2022-09 00:00: 00 04-09 23:59 :00 No [id number] 1 tablet DAILY 1 tablet DAILY (route: oral) Med Classific ation: Electroly te Balance-N utritiona l Products warfarin 2 mg tablet 2022-09 00:00: 00 08-09 23:59 :00 No [id number] 2 mg EVERY PM 2 mg EVERY PM (route: oral) Med Classific ation: Hematolog ical Agents aspirin 81 mg tablet,yang yed release 2022-09 00:00: 00 04-09 23:59 :00 No [id number] 1 tablet DAILY 1 tablet DAILY (route: oral) Med Classific ation: Hematolog ical Agents clopidogrel 75 mg tablet 2022-09 00:00: 00 12-24 23:59 :00 No [id number] 1 tablet DAILY 1 tablet DAILY (route: oral) Med Classific ation: Hematolog ical Agents famotidine 20 mg tablet 2022-09 00:00: 00 04-09 23:59 :00 No [id number] 1 tablet BEDTIME 1 tablet BEDTIME (route: oral) Med Classific ation: Gastroint estinal Therapy Agents omeprazole 20 mg capsule,del ayed release 2022-09 00:00: 00 08-23 23:59 :00 No [id number] 1 capsule DAILY 1 capsule DAILY (route: oral) Med Classific ation: Gastroint estinal Therapy Agents Lac-Hydrin Five 5 % lotion 12-24 00:00: 00 04-09 23:59 :00 No [id number] Per instruc tions 2 TIMES DAILY Per instructio ns 2 TIMES DAILY (route: topical) Med Classific ation: Dermatolo gical Tiadylt ER 300 mg capsule,ext ended release 01-28 00:00: 00 04-09 23:59 :00 No [id number] 1 capsule DAILY 1 capsule DAILY (route: oral) Med Classific ation: Cardiovas cular Therapy Agents ascorbic acid (vitamin C) 500 mg tablet 2023-09 00:00: 00 Yes [id number] 1 tablet DAILY 1 tablet DAILY (route: oral) Med Classific ation: Electroly te Balance-N utritiona l Products atorvastati n 20 mg tablet 2023-09 00:00: 00 Yes [id number] 1 tablet DAILY 1 tablet DAILY (route: oral) Med Classific ation: Cardiovas cular Therapy Agents digoxin 125 mcg (0.125 mg) tablet 2023-09 00:00: 00 Yes [id number] 1 tablet DAILY 1 tablet DAILY (route: oral) Med Classific ation: Cardiovas cular Therapy Agents diltiazem 120 mg tablet 2023-09 00:00: 00 07-07 23:59 :00 No [id number] 1 tablet DAILY 1 tablet DAILY (route: oral) Med Classific ation: Cardiovas cular Therapy Agents Eliquis 5 mg tablet 2023-09 00:00: 00 Yes [id number] 1 tablet 2 TIMES DAILY 1 tablet 2 TIMES DAILY (route: oral) Med Classific ation: Hematolog ical Agents famotidine 10 mg tablet 2023-09 00:00: 00 Yes [id number] 1 tablet DAILY 1 tablet DAILY (route: oral) Med Classific ation: Gastroint estinal Therapy Agents ferrous sulfate 325 mg (65 mg iron) tablet 2023-09 00:00: 00 Yes [id number] 1 tablet DAILY 1 tablet DAILY (route: oral) Med Classific ation: Electroly te Balance-N utritiona l Products furosemide 20 mg tablet 2023-09 00:00: 00 Yes [id number] 1 tablet DAILY 1 tablet DAILY (route: oral) Med Classific ation: Cardiovas cular Therapy Agents gabapentin 400 mg capsule 2023-09 00:00: 00 Yes [id number] 1 capsule 2 TIMES DAILY 1 capsule 2 TIMES DAILY (route: oral) Med Classific ation: Central Nervous System Agents loperamide 2 mg tablet 2023-09 00:00: 00 Yes [id number] 1 tablet EVERY 4 HOURS 1 tablet EVERY 4 HOURS (route: oral) Med Classific ation: Gastroint estinal Therapy Agents metformin 500 mg tablet 2023-09 00:00: 00 Yes [id number] 1 tablet DAILY 1 tablet DAILY (route: oral) Med Classific ation: Endocrine metoprolol succinate ER 50 mg tablet,exte nded release 24 hr 2023-09 00:00: 00 07-07 23:59 :00 No [id number] 1 tablet DAILY 1 tablet DAILY (route: oral) Med Classific ation: Cardiovas cular Therapy Agents O2 - OXYGEN 2023-09 00:00: 00 Yes [id number] 2 Liter O2 - CONTINUOUS 2 Liter O2 - CONTINUOUS (route: Oxygen) Alternate Route: O2 - NASAL CANNULA. Med Classific ation: Medical Oxygen potassium chloride ER 20 mEq tablet,exte nded release 2023-09 00:00: 00 Yes [id number] 1 tablet DAILY 1 tablet DAILY (route: oral) Med Classific ation: Electroly te Balance-N utritiona l Products Protonix 40 mg tablet,yang yed release 2023-09 00:00: 00 Yes [id number] 1 tablet DAILY 1 tablet DAILY (route: oral) Med Classific ation: Gastroint estinal Therapy Agents ropinirole 2 mg tablet 2023-09 00:00: 00 Yes [id number] 1 tablet BEDTIME 1 tablet BEDTIME (route: oral) Med Classific ation: Central Nervous System Agents Ventolin HFA 90 mcg/actuati on aerosol inhaler 2023-09 00:00: 00 Yes [id number] 2 puff EVERY 6 HOURS 2 puff EVERY 6 HOURS (route: inhalation ) Med Classific ation: Respirato ry Therapy Agents diltiazem ER 300 mg capsule,24 hr,extended release 2023-09 00:00: 00 Yes [id number] 1 capsule DAILY 1 capsule DAILY (route: oral) Med Classific ation: Cardiovas cular Therapy Agents metoprolol succinate ER 50 mg tablet,exte nded release 24 hr 2023-09 00:00: 00 Yes [id number] 100 mg DAILY 100 mg DAILY (route: oral) Med Classific ation: Cardiovas cular Therapy Agents Vancocin 250 mg capsule 2023-09 00:00: 00 08-11 23:59 :00 No [id number] 1 capsule EVERY 6 HOURS 1 capsule [...] CARE WILL BE ESTABLISHED THAT MEETS PATIENT'S [facility] NEEDS AND INCLUDES PATIENT GOAL FOR HOME [...] End Date/Time Encounter Type Admission Type Attending [facility] Care Department Encounter ID Discharge Date Discharge Status Discharge Condition Discharge Reason Percent Goals Met 2024-07-05 00:00:00 2024-08-13 00:00:00 Outpatient MARTHA HERRERA [facility] [id number] 2024-08-13 00:00:00 DISCHARGE TO HOME OR SELF CARE MINIMUM ASSIST WITH TRANSFER/A MBULATION/ ADLS F2F NOT OBTAINED ( ONLY) 77.19
== END 2024-09-18 13:09 | disposition home or self-care (01) ==
LOC: HO.MAMMO 13:08
PROVIDERS: PCP Internal Medicine; Visit Provider Internal Medicine
DX: Z12.31 Encounter for screening mammogram for malignant neoplasm of breast (principal)
CPT/HCPCS: 77063; 77067

== ENCOUNTER → 2024-09-18 13:45 | Outpatient (BNV) | payer MEDICARE, OTHER, SELFPAY | PROVIDERS: PCP Internal Medicine; Visit Provider Internal Medicine | DX: Z12.31 Encounter for screening mammogram for malignant neoplasm of breast (principal) | CPT/HCPCS: 77063; 77067 ==

== ENCOUNTER → 2024-11-05 14:00 | Outpatient (BNV) | payer MEDICARE, OTHER, SELFPAY | PROVIDERS: Visit Provider Internal Medicine Medical Oncology | DX: I26.99 Other pulmonary embolism without acute cor pulmonale (principal) | CPT/HCPCS: 99203 ==

== ENCOUNTER 2024-12-15 13:37 | Outpatient (AMB) | payer MEDICARE, OTHER, SELFPAY ==
--- NOTE | 2024-12-15 13:43 | MHC.PC.OV ---
Vital Signs 12/15/24 13:45 Height 5 ft 3 in Weight 203 lb 7.787 oz BMI 36.0 BP 132/72 Blood Pressure Location Lt brachial Position Sitting Pulse 61 Pulse Source Pulse Oximeter Temp 96.9 F Temp Source Temporal Artery Scan Pulse Oximetry (%) 98 Oxygen Delivery Method Room Air Intake Visit Reasons: 3M Follow Up Intake Note: Patient is here to follow up on DM, COPD, HTN, Hypercholesterolemia. Ham Passer Required: No Leather Carver: Present Accompanied by: Son Allergies aspirin [Aspirin] Allergy (Severe, Verified 12/15/24 13:44) BLEED acetaminophen [From Vicodin] Allergy (Intermediate, Verified 12/15/24 13:44) Agitated hydrocodone [From Vicodin] Allergy (Intermediate, Verified 12/15/24 13:44) Agitated lisinopril [Lisinopril] Allergy (Mild, Verified 12/15/24 13:44) COUGH adhesive [ADHESIVE] Allergy (Unknown, Verified 12/15/24 13:44) RED,ITCHY fluticasone [Advair Diskus] Allergy (Unknown, Verified 12/15/24 13:44) UNKNOWN NSAIDS (Non-Steroidal Anti-Inflamma [NSAIDS (NON-STEROIDAL ANTI-INFLAMMA] Allergy (Unknown, Verified 12/15/24 13:44) HX BLEED , GI salmeterol [Advair Diskus] Allergy (Unknown, Verified 12/15/24 13:44) Unknown diphenhydramine [From Benadryl] Adverse Reaction (Mild, Verified 12/15/24 13:44) AGITATION ibuprofen [From Motrin] Adverse Reaction (Mild, Verified 12/15/24 13:44) RINGINGIN EAR zolpidem [From Ambien] Adverse Reaction (Mild, Verified 12/15/24 13:44) AGITATION Medication List - Last Reconciled 12/15/24 by Param Amaya MD albuterol sulfate 90 mcg/actuation (Ventolin HFA) 2 puffs inhalation Q6H PRN ammonium lactate 5% (Lac-Hydrin Five) 1 appl topical BID apixaban 5 mg PO BID ascorbate calcium (vitamin C) 500 mg PO DAILY atorvastatin 20 mg PO BEDTIME 90 days blood sugar diagnostic (FreeStyle Lite Strips) Check blood sugars once a day daily; 90 days clotrimazole 1% 1 appl topical BID 4 weeks digoxin 125 mcg PO DAILY 90 days diltiazem HCl ER 300 mg PO DAILY famotidine 20 mg PO DAILY ferrous sulfate 325 mg PO DAILY vopjvtadgwo-zwppmgeoc-swvzwttu 100-62.5-25 mcg (Trelegy Ellipta) 1 ea inhalation DAILY furosemide (Lasix) 20 mg PO DAILY gabapentin 400 mg PO BID 90 days lancets As directed lidocaine 5% 1 patch topical DAILY loperamide (Imodium A-D) 2 mg PO Q6H PRN melatonin 10 mg PO BEDTIME PRN metformin 500 mg PO DAILY metoprolol succinate ER 100 mg (2 x 50 mg) PO DAILY 90 days multivitamin 1 tab PO DAILY [orthotics orthotic bilat feet ] oxycodone-acetaminophen 5-325 mg 1 tab PO Q8H PRN oxycodone-acetaminophen 5-325 mg 1 tab PO Q8H PRN pantoprazole 40 mg PO DAILY potassium chloride ER 20 mEq PO DAILY ropinirole 0.25 mg PO BID 90 days ropinirole 2 mg PO BEDTIME 90 days Tobacco use date assessed: 12/15/24 Fall risk assessment: No Falls in past year Last assessed Fall Risk: 12/15/24 Dental Screening Dental Screen Date: 09/16/24 HPI 3M Follow Up HPI Details 84-year-old obese female with multiple medical problems diabetes mellitus atrial fibrillation hypertension hypercholesterolemia COPD congestive heart failure obstructive sleep apnea but can not tolerate CPAP GERD history of ascending aorta dilatation April 2020 osteopenia recurrent major depression patient does have a watchman's device for the atrial fibrillation history of pulmonary embolism. Patient's mammogram is up-to-date September 2024 due for bone density colon test [facility] Medical History (Updated 12/15/24 @ 14:20 by Param Amaya MD) Pulmonary embolism Presence of Watchman left atrial appendage closure device Pacemaker Bilateral carpal tunnel syndrome Osteoarthritis Fracture of lateral epicondyle of left humerus Foramen ovale Tubular adenoma of colon History of breast cancer GERD (gastroesophageal reflux disease) Obstructive sleep apnea Congestive heart failure Obesity (BMI 30-39.9) COPD (chronic obstructive pulmonary disease) Hypercholesterolemia Hypertension Atrial fibrillation Type 2 diabetes mellitus with hyperglycemia Surgical History Status post lumbar spine surgery for decompression of spinal cord S/P repair of paraesophageal hernia History of tonsillectomy History of abdominal hysterectomy History of cardiac cath History of bilateral knee replacement Family History Father CVD (cardiovascular disease) CAD (coronary artery disease) Hypertension Mother CVD (cardiovascular disease) Hypertension CAD (coronary artery disease) Spinal stenosis Sister CAD (coronary artery disease) Afib Social History Household Members: Family Housing: Apartment Are you a primary career placement services counselor to a significant other at home: No Do you presently have visiting nurse or other home services: No Alcohol intake: never Patient Tobacco Use Status: Never used Tobacco Tobacco use type: Cigarette e-Cigarette/Vaping Use: Never Used Second Hand Smoke Exposure: No service: No Current occupational status: retired Current occupation: right handed Cognitive needs: Yes (wheelchair, walker) Hearing needs: No Vision needs: Yes (Glasses) Questionnaire Thrive Questionnaire Date Thrive assessed: 09/16/24 YVON-7 AMB Questionnaire YVON-7 Date YVON - 7 assessed: 09/16/24 Source: Developed by Drs. Jorje Correia, Jeana Gaxiola, Pawel High and colleagues, with an educational katie from [employer]. Physical exam (Primary Care) Vital Signs: Last Vital Signs Temp 96.9 F 12/15/24 13:45 Pulse 61 12/15/24 13:45 BP 132/72 12/15/24 13:45 Pulse Ox 98 12/15/24 13:45 Oxygen Delivery Method Room Air 12/15/24 13:45 BMI result Body Mass Index 36.0 Tobacco/Smoking Status: Tobacco use Status Tobacco use date assessed 12/15/24 12/15/24 13:52 Patient Tobacco Use Status Never used Tobacco 12/15/24 13:52 Tobacco use type Cigarette 12/15/24 13:52 e-Cigarette/Vaping Use Never Used 12/15/24 13:52 Thrive Assessment: Date of Thrive Assessment Date Thrive assessed 09/16/24 12/15/24 13:52 Const General: alert; No acute distress Eyes Conjunctivae: conjunctivae normal Resp Auscultation: clear to auscultation bilaterally Cardio Rate: regular rate Rhythm: regular rhythm GI Inspection: Yes normal to inspection Results AMB Hemoglobin A1c AMB Hemoglobin A1c 6.2 % Last Edit by CORY Kingsley on 12/15/24 14:00 Results Reviewed Results Reviewed: Laboratory Last Values Hgb A1c (Clinic) 6.2 % (4.0-6.0) H 12/15/24 13:43 Coding Level of Care Code Est Pt Level 4 (37905) Complex EM visit Add On G2211 Diagnoses Type 2 diabetes mellitus with hyperglycemia, without long-term current use of insulin E11.65 Diabetes mellitus fci insulin use: without termite exterminator helper use Paroxysmal atrial fibrillation I48.0 Atrial fibrillation type: paroxysmal Essential hypertension I10 Hypertension type: essential hypertension Hypercholesterolemia E78.00 Pulmonary emphysema, unspecified emphysema type J43.9 COPD type: emphysema Emphysema type: unspecified Obesity (BMI 30-39.9) E66.9 Chronic systolic congestive heart failure I50.22 Heart failure chronicity: chronic Heart failure type: systolic Ascending aorta dilatation I77.810 Osteopenia M85.80 Presence of Watchman left atrial appendage closure device Z95.818 Pulmonary embolism I26.99 Insomnia G47.00 Assessment & Plan Assessment & Plan (1) Type 2 diabetes mellitus with hyperglycemia: Comment: Chelle Code(s): E11.65 - Type 2 diabetes mellitus with hyperglycemia Category: Medical Qualifiers: Diabetes mellitus termite exterminator helper insulin use: without termite exterminator helper use Qualified Code(s): E11.65 - Type 2 diabetes mellitus with hyperglycemia Plan: Decrease the amount of carbohydrate intake, pasta, bread, rice and potatoes are all sugar and that is aside from all the sweet stuff, remember that fruits are good but they are Sweet also. (2) Atrial fibrillation: Comment: March 2019 echo normal LV, biatrial enlargement, mild MR severe TR, nuclear stress distal lateral and inferolateral ischemia 74% 04/2018, EF 60-65% dilatation ascending aorta to 4.4 cm with biatrial enlargement, moderate pulmonary hypertension April 2020 Watchmans device 08/2023 Code(s): I48.91 - Unspecified atrial fibrillation Category: Medical Qualifiers: Atrial fibrillation type: paroxysmal Qualified Code(s): I48.0 - Paroxysmal atrial fibrillation Plan: Patient has the watchman's device (3) Hypertension: Code(s): I10 - Essential (primary) hypertension Category: Medical Qualifiers: Hypertension type: essential hypertension Qualified Code(s): I10 - Essential (primary) hypertension Plan: Continue with blood pressure medication. Decrease salt intake and exercise on diltiazem 300 mg once a day metoprolol 100 mg once a day (4) Hypercholesterolemia: Comment: blood work done 10/2019 Code(s): E78.00 - Pure hypercholesterolemia, unspecified Category: Medical Plan: Avoid fried foods, chicken skin, eggs, butter margarine, pastries and meat. Be it pork or beef they have a lot of cholesterol LDL goal of less than 100 and triglyceride of less than 150 (5) COPD (chronic obstructive pulmonary disease): Comment: Dr. Garber [facility] pulmonary [phone] Code(s): J44.9 - Chronic obstructive pulmonary disease, unspecified Category: Medical Qualifiers: COPD type: emphysema Emphysema type: unspecified Qualified Code(s): J43.9 - Emphysema, unspecified Plan: Patient is on Trelegy and albuterol (6) Obesity (BMI 30-39.9): Code(s): E66.9 - Obesity, unspecified Category: Medical Plan: Diet and exercise (7) Congestive heart failure: Code(s): I50.9 - Heart failure, unspecified Category: Medical Qualifiers: Heart failure chronicity: chronic Heart failure type: systolic Qualified Code(s): I50.22 - Chronic systolic (congestive) heart failure Plan: Weigh daily and continue with metoprolol and furosemide (8) Ascending aorta dilatation: Comment: April 2021 4.4 cm Code(s): I77.810 - Thoracic aortic ectasia Category: Medical Plan: Advised to continue monitoring (9) Osteopenia: Code(s): M85.80 - Other specified disorders of bone density and structure, unspecified site Category: Medical (10) Presence of Watchman left atrial appendage closure device: Comment: 08/2023 Code(s): Z95.818 - Presence of other cardiac implants and grafts Category: Medical (11) Pulmonary embolism: Comment: 04/2024 Code(s): I26.99 - Other pulmonary embolism without acute cor pulmonale Category: Medical (12) Insomnia: Code(s): G47.00 - Insomnia, unspecified Category: Medical Plan History of Present Illness The patient is an 84-year-old female presenting for a follow-up of her chronic conditions management. Her medical history includes type 2 diabetes mellitus, atrial fibrillation, essential hypertension, hypercholesterolemia, chronic obstructive pulmonary disease, history of congestive heart failure, obstructive sleep apnea, and a history of pulmonary embolism. She had a Watchman device placed in the left atrial appendage in August 2023. She has been on anticoagulation therapy with Eliquis. Her obstructive sleep apnea has been untreated due to intolerance to CPAP. Recent lab tests in October indicated a hemoglobin A1c of 6.2%. In July 2024, her cholesterol levels revealed an LDL of 85 mg/dL, total cholesterol of 142 mg/dL, triglycerides of 66 mg/dL, and HDL of 44 mg/dL. Issues with sleep, potentially linked to restless leg syndrome, have been affecting her quality of rest, along with insomnia contributing to difficulties with sleep. Additional history includes a thoracic 12 compression fracture and depression, which may contribute to her overall health challenges. Health Maintenance - Monitoring for atrial fibrillation and anticoagulation therapy (Watchman device and Eliquis). - Blood work every three months to monitor kidney function and manage diabetes and cholesterol. - Discussion of melatonin use for sleep disturbance, to be taken at night consistently. - Encouraged physical activity and leg exercises for improved circulation. - Management of conditions to reduce cardiovascular risk, including regular follow-up and monitoring. Social History - Exercise: Patient reports minimal exercise; occasionally kicks legs for activity. - Sleep: Struggles with insomnia and restless leg syndrome, leading to disturbed sleep patterns. - Functional Status: Requires planning for bathroom access when going out due to mobility concerns. - Activity Level: Limited due to age and chronic conditions, advises use of structured exercise. Review of Systems - Neurological: Reports insomnia and restless legs. - Musculoskeletal: Denies active exercises other than occasional kicking of legs. - Cardiac: Reports a history of atrial fibrillation. - Respiratory: Denies using CPAP due to intolerance. - Psychiatric: Reports depression. Physical Exam - Cardiovascular- Ordered echocardiogram for future evaluation. - Musculoskeletal- Encouraged to engage in leg exercises for muscle use. Results - Labs: Hemoglobin A1c - 6.2% (Oct 2024); Cholesterol - LDL 85 mg/dL, Total Cholesterol 142 mg/dL, Triglycerides 66 mg/dL, HDL 44 mg/dL (Jul 2024). - Echocardiogram: Last performed in April 2021. Plan The management plan includes continued monitoring of the patient's chronic conditions. Her diabetes is well-managed with the current treatment. Eliquis will be maintained for atrial fibrillation to reduce embolic events. The patient's cholesterol levels are satisfactory; thus, current therapy will be upheld. An updated echocardiogram is scheduled due to no recent assessment. Considering the intolerant CPAP usage, alternative strategies for sleep apnea need consideration. Melatonin was suggested for her sleep disturbance, with a focus on consistency in intake. Encouraging physical activity is outlined to enhance well-being and cardiovascular function. Regular follow-ups will facilitate optimal care. Patient was informed and verbally consented to the use of an ambient scribe for clinic note documentation during this visit. Discussion Notes I discussed the necessity of continuing Eliquis for atrial fibrillation and preventing further embolic complications. We assessed her diabetes management, which is stable, and cholesterol levels, which are at target values. The importance of an updated echocardiogram was emphasized due to the time elapsed since the last evaluation. Management of sleep disturbances with melatonin was explored. I provided advice on increasing activity levels for leg circulation and overall health. I confirmed the long-term care plan and follow-up schedule related to her chronic conditions and outlined future evaluations to ensure comprehensive care. Patient Instructions - Continue taking Eliquis as prescribed for atrial fibrillation. - Follow a consistent medication regimen as instructed for diabetes and cholesterol management. - Purchase and take melatonin nightly at the same time to help with sleep. - Engage in light physical activity to improve leg circulation. - Schedule and attend follow-up appointments and testing as recommended. - Seek immediate care if experiencing new or worsening symptoms such as unexpected bleeding or chest pain. - Plan outings to ensure accessibility to facilities suiting you, such as toilets with handrails. Orders: Orders Comprehensive Met. Panel 3 Months J43.9 - Emphysema, unspecified AMB Hemoglobin A1c Today E11.65 - Type 2 diabetes mellitus with hyperglycemia CA echo transthoracic complete Today I48.0 - Paroxysmal atrial fibrillation Complete Blood Count Auto Diff 3 Months J43.9 - Emphysema, unspecified B Type Natriuretic Peptide 3 Months J43.9 - Emphysema, unspecified Hemoglobin A1c 3 Months J43.9 - Emphysema, unspecified Medications: New melatonin 10 mg PO BEDTIME PRN 30 caps 3RF sleep G47.00 - Insomnia, unspecified
[2024-12-15 13:45] VITALS: BP 132/72; PULSE 61; TEMP 36.1; O2SAT 98; BMI 36.0
--- OUTSIDE RECORDS SUMMARY | 2024-12-15 16:36 | XMS_ITS ---
Author Organization [facility] Address [address] [place] [address] Care Team Providers Care Ophthalmic Surgeon Name Role Phone Param Amaya Primary Care Provider Aguilar Murphy Unavailable [phone] Herson Appiah [phone] Encounters Encounter Location Date Provider Diagnosis [facility] [address] [place] [address] 05/21/2024 Herson Appiah Plan Of Treatment No Information Progress Notes * Natalie LOW BDOB: [birth year] (84 yo F)Acc No.[id number]:05/21/2024 Progress Notes Patient:?Natalie LOW Provider:?Herson Appiah DPM :1940???Age:83 Y???Sex:Female D ate:05/21/2024 Address:[place] [address], [facility] Pcp:Param Amaya Subjective: * Chief Complaints: * ??? * Medical History:? Objective: * Vitals:? Assessment: Plan: * Treatment: * Images: * The named appointment provid er may or may not be the originator of this progress note, and it is not deemed complete until electronically signed by the appointment provider. Sign off status: Pending * Provider:Tl Appiah DPM Date:? 024 Generated for Mariana holloway/Gm/eTransmitting on:?12/15/2024 04:36 PM EDT
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
--- OUTSIDE RECORDS SUMMARY | 2024-12-15 16:36 | XMS_ITS | Encounter Summary ---
Author Organization [facility] Address [address] [facility] [address] [facility] [address] [place] [address] Phone Care Team Providers Care Roof Plumber Name Role Phone Alfreda Kilpatrick MD Primary Care Provider [phone] Param Amaya MD Primary Care Provider [phone] Encounter Details Date Type Department Care Team (Late st Contact Info) Description 06/19/2024 Procedure Pass [facility], Ct Scan - [facility] [address] [place] [address] Social History Tobacco Use Types Packs/Day Years [...] is your housing situation today? I have jnainegavin bosch 06/20/2024 How many times have you moved [...] on filedocumented in this encounter Care Teams Roof Plumber Relationship Specialty Start Date End Date Alfreda Kilpatrick MD [address] [place] [phone] PCP - General Internal Medicine 06/19/24 06/22/24 Param Amaya MD [address] [place] [phone] PCP - General Internal Medicine 06/23/24 documented as of this encounter Additional Source Comments The information contained in this document represents components of the legal health record. It is not the complete legal health record.[facility]
--- OUTSIDE RECORDS SUMMARY | 2024-12-15 16:36 | XMS_ITS | Encounter Summary ---
Author Organization [facility] Address [address] [place] [address] [place] [address] Phone Care Team Providers Care Design Assembler Name Role Phone Param Amaya MD Primary Care Provider [phone] Alfreda Kilpatrick MD Primary Care Provider [phone] Param Amaya MD Primary Care Provider [phone] Encounter Details Date Type Department Care Team (Late st Contact Info) Description 05/15/2024 Procedure Pass [facility], Ct [facility] - [facility] [address] [place] [address] Social History Tobacco Use Types Packs/Day Years Used Date Smoking Tobacco: Never Smokeless Tobacco: Never Alcohol Use Standard Drinks/Week Comments No 0 (1 standard drink = 0.6 oz pur e alcohol) Education Answer Date Recorded Are you interested in more education? Not on say e 01/04/2023 Are you concerned about learning? Not on file 01/04/2023 No 01/04/2023 No 01/04/2023 Digital Access Answer Date Recorded No 02/02/2023 No 02/02/2023 Reliable internet access at home? Not on file 02/02/2023 Device with a working camera? Not on file Sex and Gender Information Value Date Recorded Sex Assigned at Female 02/17/2018 4:45 AM EDT Gender Identity Female 02/17/2018 4:45 AM EDT Sexual Orientation Choose not to disclose 2017 4:45 AM EDT documented as of this encounter Plan of Treatment Not on file documented as of this encounter Visit Diagnoses Not on filedocumented in this encounter Additional Health Concerns Infection Onset Date Last Indicated Resolved Time COVID-19 05/10/2024 05/10/2024 05/31/2024 1:23 AM EDT CoV-Risk 06/06/2024 06/06/2024 06/17/2024 1:22 AM EDT documented as of this encounter Care Teams Design Assembler Relationship Specialty Start Date End Date Param Amaya MD [address] [place] [phone] PCP - General Internal Medicine 02/17/18 06/18/24 Alfreda Kilpatrick MD [address] [place] [phone] [email or web address] PCP - General Internal Medicine 06/19/24 06/22/24 Param Amaya MD [address] [place] [phone] PCP - General Internal Medicine 06/23/24 documented as of this encounter Additional Source Comments The information contained in this document represents components of the legal health record. It is not the complete legal health record.[facility]
--- OUTSIDE RECORDS SUMMARY | 2024-12-15 16:36 | XMS_ITS | Encounter Summary ---
Author Organization [facility] Address [address] [place] [address] [place] [address] Phone Care Team Providers Care Stock Tracer Name Role Phone Param Amaya MD Primary Care Provider [phone] Alfreda Kilpatrick MD Primary Care Provider [phone] Param Amaya MD Primary Care Provider Encounter Details Date Type Department Care Team (Late st Contact Info) Description 05/10/2024 Procedure Pass [facility] [address] [place] [address] Social History Tobacco Use Types Packs/Day Years [...] Infection Onset Date Last Indicated Resolved Time CoV-Exposed Comment:Positive COVID-19 05/10/2024 05/10/2024 05/10/2024 5:1 7 PM EDT CoV-Risk 05/10/2024 05/10/2024 05/10/2024 5:17 PM EDT COVID-19 05/10/2024 05/10/2024 05/31/2024 1:23 AM EDT CoV-Risk 06/06/2024 06/06/2024 06/17/2024 1:22 AM EDT documented as of this encounter Care Teams Stock Tracer Relationship Specialty Start Date End Date Param Amaya MD [address] [place] [address] PCP - General Internal Medicine 02/17/18 06/18/24 Alfreda Kilpatrick MD [address] [place] [address] [email or web address] PCP - General Internal Medicine 06/19/24 06/22/24 Param Amaya MD [address] [place] [address] PCP - General Internal Medicine 06/23/24 documented as of this encounter Additional Source Comments The information contained in this document represents components of the legal health record. It is not the complete legal health record.[facility]
--- OUTSIDE RECORDS SUMMARY | 2024-12-15 16:36 | XMS_ITS | Encounter Summary ---
Author Organization [facility] Address [address] [facility] [address] [place] [address] Phone Care Team Providers Care Fire Marshal Refinery Name Role Phone Alfreda Kilpatrick MD Primary Care Provider [phone] Param Amaya MD Primary Care Provider Encounter Details Date Type Department Care Team (Late st Contact Info) Description 06/19/2024 Procedure Pass [facility], Ct Scan - [facility] [address] [place] [address] Social History Tobacco Use Types Packs/Day Years [...] is your housing situation today? I have janinegavin bosch 06/20/2024 How many times have you [...] on filedocumented in this encounter Care Teams Fire Marshal Refinery Relationship Specialty Start Date End Date Alfreda Kilpatrick MD [address] [place] [address] PCP - General Internal Medicine 06/19/24 06/22/24 Param Amaya MD [address] [place] [address] PCP - General Internal Medicine 06/23/24 documented as of this encounter Additional Source Comments The information contained in this document represents components of the legal health record. It is not the complete legal health record.[facility]
--- OUTSIDE RECORDS SUMMARY | 2024-12-15 16:36 | XMS_ITS | Patient Health Record ---
Author Organization [facility] Address [address] [place] [address] Care Team Providers Care Meat Cutter Name Role Phone Jose LuisParam Primary Care Provider Aguilar Murphy Unavailable [phone] Herson Appiah Unavailable [phone] Reason For Referral No Information Encounters Encounter Location Date Provider Diagnosis [facility] [address] [place] [address] 05/19/2024 Aguilar Waller Plan Of Treatment No Information Insurance Providers Payer Name Payer Address Payer Phone Subscriber Number Group Number Insured Name Patient Relationship to Insured Coverage Start Date Coverage End Date Medicare National [facility] [address] [place] [address] Natalie Low Self - patient is the insured for Life [address] [place] [phone] Natalie Low Self - patient is the insured
--- OUTSIDE RECORDS SUMMARY | 2024-12-15 16:37 | XMS_ITS | Encounter Summary ---
Author Organization [facility] Address [address] [place] [address] [place] [address] Phone Care Team Providers Care Professional Engineer Name Role Phone Param Amaya MD Primary Care Provider [phone] Alfreda Kilpatrick MD Primary Care Provider [phone] Param Amaya MD Primary Care Provider [phone] Encounter Details Date Type Department Care Team (Late st Contact Info) Description 02/17/2018 Procedure Pass [facility], Ct Scan - [facility] [address] [place] [address] Social History Tobacco Use Types Packs/Day Years Used Date Smoking Tobacco: Never Smokeless Tobacco: Never Alcohol Use Standard Drinks/Week Comments No 0 (1 standard drink = 0.6 oz pur e alcohol) Sex and Gender Information Value Date Recorded [...] documented as of this encounter Care Teams Professional Engineer Relationship Specialty Start Date End Date Param Amaya MD [address] [place] [address] PCP - General Internal Medicine 02/17/18 06/18/24 Alfreda Kilpatrick MD [address] [place] [address] [email or web address] PCP - General Internal Medicine 06/19/24 06/22/24 Param Amaya MD 2 [place] [address] PCP - General Internal Medicine 06/23/24 documented as of this encounter Additional Source Comments The information contained in this document represents components of the legal health record. It is not the complete legal health record.[facility]
--- OUTSIDE RECORDS SUMMARY | 2024-12-15 16:37 | XMS_ITS ---
Author Organization [facility] Address [address] [place] [address] Care Team Providers Care Pattern Storage Clerk Name Role Phone Param Amaya Primary Care Provider Aguilar Murphy Unavailable [phone] REASON FOR VISIT no ppwrk Encounters Encounter Location Date Provider Diagnosis [facility] [address] [place] [address] 05/26/2024 Aguilar Waller Plan Of Treatment No Information Progress Notes * Natalie LOW BDOB: [birth year] (84 yo F)Acc No.[id number]:05/26/2024 Progress Notes Patient:?Natalie LOW Provider:?Aguilar Waller DPM :1940???Age:83 Y???Sex:Female D ate:05/26/2024 Address:[place] [address], [facility] Pcp:Param Amaya Subjective: * Chief Complaints: * ???1. No ppwrk. * Medical History:? Objective: * Vitals:? Assessment: Plan: * Treatment: * Images: * The named appointment provid er may or may not be the originator of this progress note, and it is not deemed complete until electronically signed by the appointment provider. Sign off status: Pending * Provider:?Aguilar Waller DPM Date:?2023 Generated for Mariana holloway/Gm/eTransmitting on:?12/15/2024 04:36 PM EDT
--- OUTSIDE RECORDS SUMMARY | 2024-12-15 16:37 | XMS_ITS ---
Author Organization [facility] Address [address] [place] [address] Care Team Providers Care Manager Retail Sales Name Role Phone Jose LuisParam Primary Care Provider Aguilar Murphy Unavailable [phone] REASON FOR VISIT cx FLOOR SPECIALIST 05/19 Encounters Encounter Location Date Provider Diagnosis [facility] [address] [place] [address] 05/19/2024 Aguilar Waller Plan Of Treatment No Information Progress Notes * MARANDANatalie BDOB: [birth year] (83 yo F)Acc No.[id number]:05/19/2024 Patient:?Natalie Low :1940???Age:83 Y???Sex:Female Address:[facility] [address], [place], [address] * true * Date:? Generated for Simoni jewel/Gm/eTransmitting on:?12/15/2024 04:36 PM EDT
--- OUTSIDE RECORDS SUMMARY | 2024-12-15 16:37 | XMS_ITS | Encounter Summary ---
Author Organization [facility] Address [address] [place] [address] [place] [address] Phone Care Team Providers Care Laboratory Supervisor Name Role Phone Param Amaya MD Primary Care Provider [phone] Alfreda Kilpatrick MD Primary Care Provider [phone] Param Amaya MD Primary Care Provider Encounter Details Date Type Department Care Team (Late st Contact Info) Description 02/17/2018 Procedure Pass [facility], Ct Scan - [facility] 30 [place] [address] Social History Tobacco Use Types Packs/Day Years [...] documented as of this encounter Care Teams Laboratory Supervisor Relationship Specialty Start Date End Date Param Amaya MD [address] [place] [address] PCP - General Internal Medicine 02/17/18 06/18/24 Alfreda Kilpatrick MD [address] [place] [address] [email or web address] PCP - General Internal Medicine 06/19/24 06/22/24 Param Amaya MD 2 [place] [address] PCP - General Internal Medicine 06/23/24 documented as of this encounter Additional Source Comments The information contained in this document represents components of the legal health record. It is not the complete legal health record.[facility]
--- OUTSIDE RECORDS SUMMARY | 2024-12-15 16:37 | XMS_ITS | Clinical Summary ---
Author Organization [facility] Address [address] [place] [address] Phone Care Team Providers Care Die Engraver Name Role Phone Param Amaya MD Primary Care Provider Allergies Active Allergy Reactions Criticality Noted Date Comments Adhesive Rash Low 04/29/2024 Diphenhydramine Hcl Feeling Irritable Low Ibuprofen Tinnitus 12/25/2023 Lisinopril Cough 02/17/2018 Zolpidem Feeling Irritable Low 02/17/2018 Medications Medication Sig Dispensed Refills Start Date End Date Status rOPINIRole (REQUIP) 2 MG tablet Take 2 mg by mouth nightly at bedtime. Active digoxin (LANOXIN) 125 mcg tablet Take 125 mcg by mouth daily. Active furosemide (LASIX) 20 MG tablet Take 20 mg by mouth daily. Active metFORMIN (GLUCOPHAGE) 500 MG tablet Take 500 mg by mouth daily with breakfast. Active gabapentin (NEURONTIN) 400 MG capsule Take 400 mg by mouth 2 (two) times a day. Active albuterol 90 mcg/actuation inhaler Inhale 1 puff into the lungs every 6 (six) hours as needed for wheezing or shortness of breath/dyspnea. Active acetaminophen (TYLENOL) 325 mg tablet Take 650 mg by mouth every 6 (six) hours as needed for fever or pain (specific location in comments). Active bisacodyl (DULCOLAX) [address] 10 mg rectally daily as needed (For constipation if senna ineffective). Active famotidine (PEPCID) 10 MG tablet Take 10 mg by mouth daily. Active ferrous sulfate 325 mg (65 mg [place] iron) tablet Take 325 mg by mouth daily with breakfast. Active monobasic and dibasic sodium phosphates (29182 ENEMA) 19-7 gram/[address] 1 enema rectally daily as needed (for constipation if senna and bisacodyl ineffective). Active guaiFENesin (ROBITUSSIN) 100 mg/5 mL syrup Take 200 mg by mouth every 4 (four) hours as needed for cough or congestion. Active atorvastatin (LIPITOR) 20 MG tablet Take 20 mg by mouth nightly at bedtime. Active loperamide (IMODIUM) 2 mg capsule Take 2 mg by mouth every 4 (four) hours as needed for diarrhea. Active melatonin 3 mg Tab Take 3 mg by mouth nightly at bedtime as needed (insomnia). Active omeprazole (PRILOSEC) 20 MG capsule Take 20 mg by mouth daily. Active ascorbic acid, vitamin C, (VITAMIN C) 500 MG tablet Take 500 mg by mouth daily. Active OXYGEN-AIR DELIVERY SYSTEMS MISC 2 L/min by Nasal route continuous. 08/08/2023 Active multivitamin per tablet Take 1 tablet by mouth daily. Active dilTIAZem (CARDIZEM CD) 120 MG 24 hr capsule Take 1 capsule (120 mg total) by mouth daily. 05/19/2024 Active metoprolol succinate (TOPROL-XL) 50 MG 24 hr tablet Take 1 tablet (50 mg total) by mouth daily. 05/19/2024 Active apixaban (ELIQUIS) 5 mg tablet Take 1 tablet (5 mg total) by mouth 2 (two) times a day. 05/25/2024 Active Active Problems Problem Noted Date Diagnosed Date Seizure 06/20/2024 CHF exacerbation 06/06/2024 Single subsegmental pulmonar y embolism without acute cor pulmonale 05/16/2024 Assessment & Plan (05/16/2024 11:17 AM EDT): Continue anticoagulation with Lovenox 80mg BID. Acute on chronic diastolic heart failure 024 Assessment & Plan (05/18/2024 1:50 PM EDT): Had TTE here 05/11- showing EF of 50% moderate tricuspidregurgitation Initial CXR showed edema. Has been receiving IV Lasix. Follow-up x-ray showed just slight improvement in edema As result increased Lasix , 05/16, to 60 twice daily at that time had also become significantly hypoxic Patient improving back to her baseline oxygen this morning. Acute on chronic respiratory failure with hypoxia and hypercapnia 05/10/2024 Assessment & Plan (05/16/2024 11:25 AM EDT): Recommend increasing pulmonary toilet with addition of mucomyst and CPT. If there is no improvement with these then transfer to ICU for HFNC. Assessment & Plan (05/18/2024 1:54 PM EDT): Chronic CO2 retention on blood gas from [facility] a few weeks ago. Goal sats 88- 92% She normally wears 3 L NC Also has h/o RAFAL but gave up using CPAP several years ago; O2 requirement has escalated during hospitalization. 05/15 had a CTPA showing subsegmental PE and lower bilateral lower lung consolidation with mucous plugging, started on Zosyn, full dose Lovenox.. Seen by speech who did not find dysphagia Oxygen increased to 15 L overnight 05/15-. Machine Try Out Setter consulted-.. increased pulmonary toilet. Patient improving, today weaned to 3 L midmorning If able to maintain oxygen sat 88-92 on 3 L could consider discharging her back to SNF tomorrow off Decadron on oral Augmentin to complete 5 days course and back to oral Lasix. I discussed this with the patient today and case management called daughter Chronic atrial fibrillation 05/10/2024 Overview (05/10/2024): Not on anticoagulation due to history of GI bleed and Watchman device. Assessment & Plan (05/18/2024 4:44 PM EDT): in atrial fibrillation, V paced Continued digoxin, diltiazem and metoprolol doses decreased.as blood pressure running low Has not been on anticoagulation due to history of GI bleed. Has a Watchman device in place. Now needs anticoag due to pe Chronic diastolic heart failure 05/10/2024 Overview (05/10/2024): Mild hypokinesis on TTE 08/2023 without measured EF. DNR (do not resuscitate) 05/10/2024 Overview (05/10/2024): AISHA previously completed Assessment & Plan (05/18/2024 1:51 PM EDT): Due to patient worsening respiratory code status discussed with her on weekend she was quite clear she does not want to be intubated. She would accept CPAP in the ICU if needed GERD (gastroesophageal reflux disease) 4 Hyperlipidemia 05/10/2024 Restless leg syndrome 05/10/2024 Closed fracture of left calcaneus 05/10/2024 Assessment & Plan (05/15/2024 12:28 PM EDT): Fracture occurred 04/23 and she was admitted to [facility]. She is nonweightbearing until seen by ortho in f/u, but typically this can last up to 3 mos per our ortho team. Daughter to reschedule Orthopedics appointment with Dr. Guy, [facility], after discharge COVID-19 05/10/2024 Assessment & Plan (05/17/2024 1:34 PM EDT): Had COVID in March and took Paxlovid and recovered. During her recent admission to [facility] she tested negative on 04/24. Presented with sob , day prior had tested covid positive again at snf . Has received 5 days of remdesivir, also have been providing Decadron (10 days ordered-started 05/12) Still on enhanced precautions as continues testing positive COPD (chronic obstructive pu lmonary disease) with chronic bronchitis 02/17/2018 Assessment & Plan (05/18/2024 1:51 PM EDT): Providing formulary LAMA and as needed albuterol Still on Decadron, started for COVID treatment 05/12. On weekend noted to have some wheezing on exam, Decadron continued. Wheezing resolved now Assessment & Plan (02/17/2018 1:40 PM EDT): Not currently in exacerbation, she will bring in her anoro Type 2 diabetes mellitus wit h diabetic neuropathy, without long-term current use of insulin Assessment & Plan (05/18/2024 1:52 PM EDT): Holding metformin Providing as needed lispro glucose levels okay , occasionally 9 afternoon Assessment & Plan (02/17/2018 1:41 PM EDT): Diet controlled at home, check A1c place on sliding scale she does not check her sugars frequently at home as it's been fairly well controlled, I will hold metformin right now in case of further testing Resolved Problems Problem Noted Date Diagnosed Date Resolved Date Syncope and collapse 02/17/2018 018 Assessment & Plan (02/18/2018 2:17 PM EDT): EEG done but not read. Troponins, carotids, and echo are all noncontributory to her syncope. Most likely vagal, less likely she fell asleep . Plan PT and OT to assure she can walk in the halls. Cast shoe to provide firmer support for the forefoot because of the probable fracture. Immunizations Name Administration Dates Next Due Influenza High-Dose Trivalent Preservative Free IM 06/07/2024 Family History Medical History Relation Comments Heart disease Father Heart disease Mother Relation Status Comments Father Mother Social History Tobacco Use Types Packs/Day Years [...] your housing situation today? I have janine sing 06/20/2024 How many times have you moved [...] not to disclose 2017 4:45 AM EDT Last Filed Vital Signs Vital Sign Reading Time Taken Comments Blood Pressure 119/74 06/22/2024 3:06 PM EDT Pulse 60 06/22/2024 3:06 PM EDT Temperature 36.1 ??C (97 ??F) 06/22/2024 3:06 PM EDT Respiratory Rate 18 06/22/2024 3:06 PM EDT Oxygen Saturation 97% 06/22/2024 3:06 PM EDT Inhaled Oxygen Concentration 30% 06/07/2024 4 :13 AM EDT Weight 82 kg (180 lb 12.4 oz) 06/20/2024 11:14 A M EDT Height 160 cm (5' 2.99 ) 06/20/2024 11:14 AM EDT Body Mass Index 32.03 06/20/2024 11:14 AM EDT Plan of Treatment Health Maintenance Due Date Last Done Comments BLOOD PRESSURE 1940 DEPRESSION SCREENING 1954 ZOSTER VACCINES (1 of 2) 1992 OSTEOPOROSIS SCREENING INITIAL (ONE-TIME) 2007 RSV VACCINE (1 - 1-dose 75+ series) 2017 DIABETIC EYE EXAM 02/17/2018 URINE MICROALBUMIN/CREATININE RATIO 02/17/2018 PNEUMOCOCCAL VACCINES (50+ years) (3 of 3 - PCV20 or PCV21) 08/29/2020 08/29/2015, 07/23/2007 COVID-19 VACCINE ( - season) 2024 09/04/2022, 04/20/2022, 07/27/2021, Additional history exists HEMOGLOBIN A1C 11/08/2024 05/11/2024, 02/18/2018 CREATININE LEVEL 06/22/2025 06/22/2024, , 06/20/2024, Additional history exists POTASSIUM LEVEL 06/22/2025 06/22/2024, 06/09, 06/20/2024, Additional history exists Adult Td,Tdap Booster 12/31/2032 12/31/2022 INFLUENZA VACCINE Completed 06/07/2024, , 07/04/2022, Additional history exists HEPATITIS A VACCINES Aged Out No long er eligible based on patient's age to complete this topic HIB VACCINES Aged Out No longer eligi ble based on patient's age to complete this topic MENINGOCOCCAL VACCINES (ACWY) Aged Out No longer eligible based on patient's age to complete this topic Medical Devices Implanted Type Area Client Reporting Associate Device Identifier Shelf Expiration Date Model / Serial / Lot Watchman Device Implantable Monitor Description:Safe to 3T per m anufacturer Procedures Procedure Name Priority Date/Time Associated Diagnosis Comments BASIC METABOLIC PANEL Routine 06/22/2024 3:50 AM EDT HEMOGLOBIN A1C Routine 05/11/2024 5:48 AM EDT from Last 3 Months or Most Recently Relevant to Health Maintenance Results * (ABNORMAL) Basic metabolic panel (06/22/2024 3:50 AM EDT) SODIUM 141 135 - 145 mmol/L [facility] POTASSIUM 4.3 3.4 - 5.0 mmol/L [facility] CHLORIDE 105 98 - 108 mmol/L [facility] CO2 29 23 - 32 mmol/L [facility] BUN 13 8 - 25 mg/dL [facility] CREATININE 0.54(L) 0.60 - 1.50 mg/dL [facility] GLUCOSE 116(H) 70 - 110 mg/dL [facility] CALCIUM 9.1 8.5 - 10.5 mg/dL [facility] EGFR 92 >59 mL/min/1. 73m2 [facility] Comment:Estimated glomerular filtration rate calculated using the CKD-EPI refit equation. ANION GAP 7 3 - 17 mmol/L [facility] Blood 06/22/2024 3:50 AM EDT 06/22/2024 4:11 AM EDT Konstantin Ignacio MD, PhD LAB BLOOD ORDER RALPH [facility] [address] [place] [address] * (ABNORMAL) Hemoglobin A1c (05/11/2024 5:48 AM EDT) HEMOGLOBIN A1C 6.0(H) 4.3 - 5.8 % [facility] Blood 05/11/2024 5:48 AM EDT 05/11/2024 5:52 AM EDT [place] DO LAB BLOOD ORDERABLES [facility] [address] [place] [address] from Last 3 Months or Most Recently Relevant to Health Maintenance Natalie Low Personal/Family Self 1940 [facility] [address] [place] [address] Natalie Low Personal/Family Self 1940 [facility] [address] [place] [id number] Natalie Low Personal/Family Self [address] [facility] [address] [place] [address] Natalie Low Personal/Family Self 1940 [facility] [address] [place] [address] Natalie Low Personal/Family Self 1940 [facility] [address] [place] [address] Natalie Low Personal/Family Self 1940 [facility] [address] [place] [address] Natalie Low Personal/Family Self 1940 [facility] [address] [place] [address] Natalie Low Personal/Family Self 1940 [facility] [address] [place] [address] Advance Directives For more information, please contact: [phone] (9AM - 5PM [facility], Saturday-Saturday) Documents on File Type Date Recorded Patient Melter Supervisor Expl anation MOLST 06/24/2024 8:27 AM Healthcare Proxy 06/10/2024 4:28 PM POLST 06/09/2024 11:55 AM * DNR OK to Intubate (Latest Code Status on File) Date Activated Date Inactivated Comments 06/20/2024 5:24 AM Question Answer Comments Code Status Confirmed With: Patient * DNR/DNI (No CPR/No Intubation) Date Activated Date Inactivated Comments 06/06/2024 11:53 PM 06/20/2024 5:24 AM Question Answer Comments Code Status Confirmed With: Patient * DNR/DNI (No CPR/No Intubation) Date Activated Date Inactivated Comments 05/17/2024 1:08 PM 06/06/2024 11:53 PM Question Answer Comments Code Status Confirmed With: Patient * DNR OK to Intubate Date Activated Date Inactivated Comments 05/10/2024 10:01 PM 05/17/2024 1:08 PM Question Answer Comments Code Status Confirmed With: Patient Code Discussion Comments: MOLST previously compl eted * Full Code (Presumed) Date Activated Date Inactivated Comments 02/17/2018 1:59 PM 02/19/2018 9:12 PM Care Teams Die Engraver Relationship Specialty Start Date End Date Param Amaya MD [address] [place] [address] PCP - General Internal Medicine 06/23/24 Additional Source Comments The information contained in this document represents components of the legal health record. It is not the complete legal health record.[facility]
--- OUTSIDE RECORDS SUMMARY | 2024-12-15 16:37 | XMS_ITS | Encounter Summary ---
Author Organization [facility] Address [address] [place] [address] [place] [address] Phone Care Team Providers Care Occupational Therapy Aide Name Role Phone Param Amaya MD Primary Care Provider [phone] Alfreda Kilpatrick MD Primary Care Provider [phone] Param Amaya MD Primary Care Provider Encounter Details Date Type Department Care Team (Late st Contact Info) Description 02/17/2018 Procedure Pass [facility], Ct Scan - [facility] [address] [place] [address] Social History Tobacco Use Types Packs/Day Years [...] documented as of this encounter Care Teams Occupational Therapy Aide Relationship Specialty Start Date End Date Param Amaya MD [address] [place] [address] PCP - General Internal Medicine 02/17/18 06/18/24 Alfreda Kilpatrick MD [address] [place] [address] [email or web address] PCP - General Internal Medicine 06/19/24 06/22/24 Param Amaya MD [address] [place] [address] PCP - General Internal Medicine 06/23/24 documented as of this encounter Additional Source Comments The information contained in this document represents components of the legal health record. It is not the complete legal health record.[facility]
--- OUTSIDE RECORDS SUMMARY | 2024-12-15 16:37 | XMS_ITS | Encounter Summary ---
Author Organization Located Within [facility] Address [address] [place] [address] [place] [phone] Phone Care Team Providers Care Die Out Worker Name Role Phone Param Amaya MD Primary Care Provider [phone] Alfreda Kilpatrick MD Primary Care Provider [phone] Param Amaya MD Primary Care Provider [phone] Encounter Details Date Type Department Care Team (Late st Contact Info) Description 06/06/2024 Procedure Pass [facility], Ct Scan - [facility] [address] [place] [address] Social History Tobacco Use Types Packs/Day Years [...] Infection Onset Date Last Indicated Resolved Time CoV-Risk 06/06/2024 06/06/2024 06/17/2024 1:22 AM EDT documented as of this encounter Care Teams Die Out Worker Relationship Specialty Start Date End Date Param Amaya MD [address] [place] [id number] PCP - General Internal Medicine 02/17/18 06/18/24 Alfreda Kilpatrick MD [address] [place] [id number] [email or web address] PCP - General Internal Medicine 06/19/24 06/22/24 Param Amaya MD [address] [place] [id number] PCP - General Internal Medicine 06/23/24 documented as of this encounter Additional Source Comments The information contained in this document represents components of the legal health record. It is not the complete legal health record.Located Within [facility]
== END 2024-12-15 14:38 | disposition home or self-care (01) ==
LOC: HO.HMCH 13:38
PROVIDERS: PCP Internal Medicine; Visit Provider Internal Medicine
DX: E11.65 Type 2 diabetes mellitus with hyperglycemia (principal); I48.0 Paroxysmal atrial fibrillation; J43.9 Emphysema, unspecified; I50.22 Chronic systolic (congestive) heart failure; I26.99 Other pulmonary embolism without acute cor pulmonale; I77.810 Thoracic aortic ectasia; I10 Essential (primary) hypertension; E78.00 Pure hypercholesterolemia, unspecified; E66.9 Obesity, unspecified; M85.80 Other specified disorders of bone density and structure, unspecified site; Z95.818 Presence of other cardiac implants and grafts; G47.00 Insomnia, unspecified

== ENCOUNTER → 2024-12-15 13:37 | Outpatient (BNVA) | payer MEDICARE, OTHER, SELFPAY | PROVIDERS: PCP Internal Medicine; Visit Provider Internal Medicine | DX: E11.65 Type 2 diabetes mellitus with hyperglycemia (principal); I48.0 Paroxysmal atrial fibrillation; E78.00 Pure hypercholesterolemia, unspecified; J43.9 Emphysema, unspecified; E66.9 Obesity, unspecified; I11.0 Hypertensive heart disease with heart failure; I50.22 Chronic systolic (congestive) heart failure; I77.810 Thoracic aortic ectasia; M85.80 Other specified disorders of bone density and structure, unspecified site; I26.99 Other pulmonary embolism without acute cor pulmonale; G47.00 Insomnia, unspecified; Z95.818 Presence of other cardiac implants and grafts | CPT/HCPCS: 83036; 99212 ==

== ENCOUNTER 2025-02-08 11:02 | Outpatient (AMB) | payer MEDICARE, OTHER, SELFPAY ==
--- NOTE | 2025-02-08 11:10 | A.OFFVIS_ITS ---
Vital Signs 02/08/25 11:12 Height 5 ft 3 in Weight 202 lb 13.204 oz BMI 35.9 BP 122/70 Blood Pressure Location Lt brachial Position Sitting Pulse 70 Intake Visit Reasons: 6 mth f/up Intake Note: 6 month follow-up with Appistry check Twisting Frame Fixer Required: No Dairy Products Maker: Dairy Products Maker Present Accompanied by: Son Allergies aspirin [Aspirin] Allergy (Severe, Verified 12/15/24 13:44) BLEED acetaminophen [From Vicodin] Allergy (Intermediate, Verified 12/15/24 13:44) Agitated hydrocodone [From Vicodin] Allergy (Intermediate, Verified 12/15/24 13:44) Agitated lisinopril [Lisinopril] Allergy (Mild, Verified 12/15/24 13:44) COUGH adhesive [ADHESIVE] Allergy (Unknown, Verified 12/15/24 13:44) RED,ITCHY fluticasone [Advair Diskus] Allergy (Unknown, Verified 12/15/24 13:44) UNKNOWN NSAIDS (Non-Steroidal Anti-Inflamma [NSAIDS (NON-STEROIDAL ANTI-INFLAMMA] Allergy (Unknown, Verified 12/15/24 13:44) HX BLEED , GI salmeterol [Advair Diskus] Allergy (Unknown, Verified 12/15/24 13:44) Unknown diphenhydramine [From Benadryl] Adverse Reaction (Mild, Verified 12/15/24 13:44) AGITATION ibuprofen [From Motrin] Adverse Reaction (Mild, Verified 12/15/24 13:44) RINGINGIN EAR zolpidem [From Ambien] Adverse Reaction (Mild, Verified 12/15/24 13:44) AGITATION Medication List - Last Reconciled 02/08/25 by Rajan Gale MD albuterol sulfate 90 mcg/actuation (Ventolin HFA) 2 puffs inhalation Q6H PRN ammonium lactate 5% (Lac-Hydrin Five) 1 appl topical BID apixaban 5 mg PO BID ascorbate calcium (vitamin C) 500 mg PO DAILY atorvastatin 20 mg PO BEDTIME 90 days blood sugar diagnostic (FreeStyle Lite Strips) Check blood sugars once a day daily; 90 days clotrimazole 1% 1 appl topical BID 4 weeks digoxin 125 mcg PO DAILY 90 days diltiazem HCl ER 300 mg PO DAILY famotidine 20 mg PO DAILY ferrous sulfate 325 mg PO DAILY epmcxjhxtja-plxssmzrx-uinjirkf 100-62.5-25 mcg (Trelegy Ellipta) 1 ea inhalation DAILY furosemide (Lasix) 20 mg PO DAILY gabapentin 400 mg PO BID 90 days lancets As directed lidocaine 5% 1 patch topical DAILY loperamide (Imodium A-D) 2 mg PO Q6H PRN melatonin 10 mg PO BEDTIME PRN metformin 500 mg PO DAILY metoprolol succinate ER 100 mg (2 x 50 mg) PO DAILY 90 days multivitamin 1 tab PO DAILY [orthotics orthotic bilat feet ] oxycodone-acetaminophen 5-325 mg 1 tab PO Q8H PRN pantoprazole 40 mg PO DAILY potassium chloride ER 20 mEq PO DAILY ropinirole 0.25 mg PO BID 90 days ropinirole 2 mg PO BEDTIME 90 days HPI Comments Details: Natalie comes for follow-up. She has not had any hospitalization last 6 months related to heart disease. Denies any cardiac symptoms. Has bilateral lower extremity edema but has mostly dependent leg position. Does try to wear compression stockings. No orthopnea, PND, leg edema. Very sleepy and drowsy today, said did not use his CPAP last night. [facility] Medical History Pulmonary embolism Presence of Watchman left atrial appendage closure device Pacemaker Bilateral carpal tunnel syndrome Osteoarthritis Fracture of lateral epicondyle of left humerus Foramen ovale Tubular adenoma of colon History of breast cancer GERD (gastroesophageal reflux disease) Obstructive sleep apnea Congestive heart failure Obesity (BMI 30-39.9) COPD (chronic obstructive pulmonary disease) Hypercholesterolemia Hypertension Atrial fibrillation Type 2 diabetes mellitus with hyperglycemia Surgical History Status post lumbar spine surgery for decompression of spinal cord S/P repair of paraesophageal hernia History of tonsillectomy History of abdominal hysterectomy History of cardiac cath History of bilateral knee replacement Family History Father CVD (cardiovascular disease) CAD (coronary artery disease) Hypertension Mother CVD (cardiovascular disease) Hypertension CAD (coronary artery disease) Spinal stenosis Sister CAD (coronary artery disease) Afib Social History Household Members: Family Housing: Apartment Are you a primary hemodialysis patient care specialist to a significant other at home: No Do you presently have visiting nurse or other home services: No Alcohol intake: never Patient Tobacco Use Status: Never used Tobacco Tobacco use type: Cigarette e-Cigarette/Vaping Use: Never Used Second Hand Smoke Exposure: No service: No Current occupational status: retired Current occupation: right handed Cognitive needs: Yes (wheelchair, walker) Hearing needs: No Vision needs: Yes (Glasses) Review of Systems Const Denies chills, Denies fatigue, Denies fever(s), Denies frequent falls, Denies weakness, Denies weight gain and Denies weight loss ENT Denies dizziness Card Denies chest pain, Denies leg edema, Denies lightheadedness, Denies palpitations, Denies dyspnea, Denies dyspnea on exertion, Denies orthopnea and Denies other (loss of consciousness) Resp Denies cough, Denies dyspnea and Denies dyspnea on exertion GI Denies hematochezia and Denies change in stool character Musc Denies abnormal gait, Denies muscle weakness, Denies numbness, Denies radiating pain into limb and Denies tingling Neuro Denies abnormal gait, Denies dizziness, Denies frequent falls, Denies numbness, Denies tingling and Denies weakness Endo Denies fatigue and Denies palpitations Physical Exam Vital Signs: Last Vital Signs Pulse 70 02/08/25 11:12 BP 122/70 02/08/25 11:12 BMI result Body Mass Index 35.9 Const General: cooperative, comfortable, no acute distress, alert, awake and tired appearing Nutritional Appearance: obese Orientation/consciousness: patient oriented x3 Limitations: ambulation with walker Neck Neck: Yes trachea midline, Yes supple and Yes no JVD Resp Auscultation: crackles (coarse) on the right at the base and diminished lung sounds Cardio Jugular venous distension: no JVD Rhythm: abnormal rhythm irregularly irregular Heart sounds: S1 normal heart sound present, S2 normal heart sound present, no click, no gallops, no murmurs and no rubs GI Auscultation: normal bowel sounds Skin General skin exam: no rashes or lesions noted and ecchymosis Neuro General: patient oriented x3 and no focal motor deficits Extrem General: Yes no clubbing, cyanosis or edema Office Procedures Cardiac Device Check Cardiac Device Check Details: Medtronic leadless pacemaker in place. Excellent ventricular sensing noted. Battery life is greater than 8 years. Pacing thresholds and impedance are within normal limits. 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 Continue current rate control regimen with metoprolol, Cardizem as digoxin. Semi annual digoxin assay should be performed. Status post Watchman device. 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 Medtronic leadless pacemaker placed Code(s): Z95.0 - Presence of cardiac pacemaker Category: Medical Plan: Medtronic leadless pacemaker in place due to significant bradycardia. Pacemaker is working well. Reprogrammed for adequate function. Will follow remotely and follow up in the clinic in 6 months time. (3) Congestive heart failure: Code(s): I50.9 - Heart failure, unspecified Category: Medical Qualifiers: Heart failure type: systolic Heart failure chronicity: chronic Qualified Code(s): I50.22 - Chronic systolic (congestive) heart failure Plan: Prior history of congestive heart failure, clinically euvolemic and well compensated. Continue current diuretic regimen. No need for additional uptitration diuretic regimen. Leg edema. To be related to do peripheral venous hypertension from dependent position. Advise compression venous stocking. Will follow up in the clinic in 6 months time, sooner p.r.n.. Thank you for allowing me to partake in her care Coding Level of Care Code Est Pt Level 4 (43254) Complex EM visit Add On G2211 Diagnoses Paroxysmal atrial fibrillation I48.0 Atrial fibrillation type: paroxysmal Pacemaker Z95.0 Chronic systolic congestive heart failure I50.22 Heart failure type: systolic Heart failure chronicity: chronic CPT Codes Cardiac Device Check - Cardiac Device 1: 66134-FY Cardiac Device Check, leadless/single lead pacemaker ([id number])
[2025-02-08 11:12] VITALS: BP 122/70; PULSE 70; BMI 35.9
--- OUTSIDE RECORDS SUMMARY | 2025-02-08 12:19 | XMS_ITS ---
Author Organization [facility] Address [address] [place] [address] Care Team Providers Care Automotive Mechanic Name Role Phone Param Amaya Primary Care Provider Aguilar Murphy Unavailable [phone] Herson Appiah [phone] Encounters Encounter Location Date Provider Diagnosis [facility] [address] [place] [address] 05/21/2024 Herson Appiah Plan Of Treatment No Information Progress Notes * Natalie LOW BDOB: [birth year] (84 yo F)Acc No.[id number]:05/21/2024 Progress Notes Patient:?Natalie LOW Provider:?Herson Appiah DPM :1940???Age:83 Y???Sex:Female D ate:05/21/2024 Address:[place] [address], [facility] Pcp:Param Amaya Subjective: * Chief Complaints: * [...] DPM Date:? 024 Generated for Mariana holloway/Gm/eTransmitting on:?02/08/2025 12:19 PM EDT
== END 2025-02-08 11:38 | disposition home or self-care (01) ==
LOC: HO.HCS 11:05
PROVIDERS: PCP Internal Medicine; Visit Provider Internal Medicine Cardiovascular Disease
DX: I48.0 Paroxysmal atrial fibrillation (principal); Z95.0 Presence of cardiac pacemaker; I50.22 Chronic systolic (congestive) heart failure
CPT/HCPCS: 93279; 99214; G2211

== ENCOUNTER 2025-02-08 11:02 | Outpatient (REF) | payer MEDICARE, OTHER, SELFPAY ==
[2025-02-08 12:13] LABS: MANUAL DIFF FLAG NO
[2025-02-08 12:14] LABS: Basophils Percent Auto 0.7 % (0-2); Eosinophils Absolute Auto 0.2 X10*3/uL (0.0-0.4); Eosinophils Percent Auto 2.9 % (0-4); Hematocrit 41.2 % (37.0-47.0); Hemoglobin 13.2 g/dl (12.0-16.0); Imm Gran Abs Auto 0.02 X10*3/uL (0.00-0.03); Imm Gran Pct Auto 0.3 % (0.0-0.4); Mean Corpuscular Hemoglobin 29.6 pg (27.0-33.0); Mean Corpuscular Volume 92.4 fL (80.0-98.0); Mean Platelet Volume 9.6 fL (9.4-12.3); Monocytes Absolute Auto 0.6 X10*3/uL (0.1-1.2); Monocytes Percent Auto 10.1 % (2-11); Neutrophils Absolute Auto 4.2 x10*3/uL (2.0-8.3); Platelet Count 169 X10*3/uL (160-400); Red Blood Count 4.46 X10*6/uL (4.20-5.50); Red Cell Distribution Width 15.8 % (11.0-16.0)
[2025-02-08 12:27] LABS: D Dimer High Sensitivity 304 NG/ML
[2025-02-08 12:29] LABS: Alanine Aminotransferase 26 U/L (0-31); Alkaline Phosphatase 89 U/L (39-117); Anion Gap 10 (12-20); Aspartate Amino Transferase 19 U/L (5-31); Bilirubin Total 0.8 mg/dL (0.0-1.0); Blood Urea Nitrogen 23 mg/dL (9-16); Calcium 9.4 mg/dL (8.4-10.2); Carbon Dioxide 34 mmol/L (22-29); Chloride 103 mmol/L (96-108); Estimated Glomerular Filt Rate > 60; Glucose Random 94 mg/dL (60-115); Potassium 4.8 mmol/L (3.3-5.1); Sodium 142 mmol/L (135-145); Total Protein 6.4 g/dL (6.5-8.0)
== END 2025-02-08 11:03 | disposition home or self-care (01) ==
LOC: HO.LAB 11:02
PROVIDERS: Absent Provider Internal Medicine Medical Oncology; PCP Internal Medicine; Visit Provider Internal Medicine Cardiovascular Disease
DX: I26.99 Other pulmonary embolism without acute cor pulmonale (principal); I48.0 Paroxysmal atrial fibrillation; I11.0 Hypertensive heart disease with heart failure; I50.22 Chronic systolic (congestive) heart failure; Z45.010 Encounter for checking and testing of cardiac pacemaker pulse generator [battery]
CPT/HCPCS: 36415; 80053; 85025; 85379; 99212

== ENCOUNTER → 2025-02-11 14:31 | Outpatient (REF) | payer MEDICARE, OTHER, SELFPAY ==
--- NOTE | 2025-02-11 14:36 | CA_ITS ---
Transthoracic Echocardiogram Patient (Last, First, Middle): Natalie Low B Gender: Female Date of : 1940 Age: 84 Procedure Date: 02/11/2025 Procedure Type: Transthoracic Echocardiogram Location: OP Height: 160.02 cm Weight: 92.99 kg BSA: 1.95 m2 Heart Rate: bpm BP: 118 / 62 mmHg Stock Hanger: SB Referring MD: Param Amaya MD Symptoms: I48.0 - Paroxysmal atrial fibrillation Study Quality: Fair/pt term exam due to restlessness ECG Rhythm: Atrial Fibrillation Conclusions: - The left ventricular systolic function is low normal. The visually estimated ejection fraction is between 50-55%. - There is severe septal asymmetric hypertrophy. - Severely increased right ventricular cavity size. There is moderately decreased right ventricular systolic function. - Severe biatrial enlargement. - There is moderate tricuspid valve regurgitation. - Mild pulmonary hypertension is present. - There is moderate dilatation of the ascending aorta measuring 4.50 cm. Findings Procedure Information The quality of the study was technically difficult. Left Ventricle Normal left ventricular cavity size. The left ventricular systolic function is low normal. The visually estimated ejection fraction is between 50-55%. There is no evidence of regional wall motion abnormalities. Diastolic function is indeterminate on the basis of available data. There is severe septal asymmetric hypertrophy. Right Ventricle Severely increased right ventricular cavity size. There is moderately decreased right ventricular systolic function. Atria Severe biatrial enlargement. Aortic Valve There is a normal trileaflet aortic valve. There is mild calcification of the aortic valve. There is no aortic valve stenosis. There is no aortic valve regurgitation. Mitral Valve The mitral valve appears normal. There is trace mitral valve regurgitation. There is no mitral valve stenosis. Pulmonic Valve There is trace pulmonic valve regurgitation. Tricuspid Valve There is moderate tricuspid valve regurgitation. Mild pulmonary hypertension is present. Great Vessels There is moderate dilatation of the ascending aorta measuring 4.50 cm. Small plaque is seen in the sino tubular ridge. Venous The inferior vena cava is dilated. Pericardium/Pleural There is no evidence of pericardial effusion. Prior Study Comparison No significant change compared to prior study dated: 04/18/2020. Measurements 2D Linear Measurements IVSd: 1.63 0.6-0.9/0.6-1.0 cm LVIDd: 5.00 3.9-5.3/4.2-5.9 cm LVIDd Index: 2.56 2.4-3.2/2.2-3.1 cm/m2 LVIDs: 3.25 2.0-3.6 cm LVPWd: 0.73 0.7-1.1 cm LA Diam: 5.30 2.7-3.8/3.0-4.0 cm LAIDs Index: 2.72 1.5-2.3 cm/m2 LV Mass: 284.47 67-162/88-224 g LV Mass Index: 145.88 43-95/49-115 g/m2 LVOT Diam: 2.40 3.0+(-)1.3 cm 2D Systolic Function EF 4C: 53.10 >55% Mitral Valve MV Pk E: 0.87 MV Decel Time: 251.00 E'Lateral: 13.10 E'Medial: 6.78 E/E' Med: 12.80 E/E' Lat: 6.60 Aortic Valve AoV Pk Abebe: 1.26 AoV Pk Grad: 6.00 ELIZABETH: 3.36 LVOT LVOT Pk Abebe: 0.94 LVOT Mn Abebe: 0.71 LVOT VTI: 0.19 LVOT Pk Grad: 4.00 LVOT Mn Grad: 2.00 LVOT Diam: 2.40 LVOT Area: 4.52 Diastolic Function MV Pk E: 0.87 E'Medial: 6.78 E/E' Med: 12.80 E' Laterial: 13.10 E/E' Lat: 6.60 Right Ventricle TAPSE (mm): 12.70 TVS' Abebe: 8.70 Tricuspid Valve TR Pk Abebe: 2.65 TR Pk Grad: 28.00 RA Press: 15.00 RVSP: 43.00 Great Vessels Aorta Sinus of Valsalva: 3.80 2.0-3.5 cm Ao Asc: 4.50 2.1-3.4 cm Pulmonary Valve PV Pk Abebe: 0.96 Peak PV Grad: 4.00 Updated in Other Vendor System with Status of Final Troy Watson MD electronically signed on 02/12/2025 3:31:25 PM with status of Final
--- OUTSIDE RECORDS SUMMARY | 2025-02-11 17:11 | XMS_ITS ---
Author Organization [facility] Address [address] [place] [address] Care Team Providers Care Broadband Installer Name Role Phone Param Amaya Primary Care Provider Aguilar Murphy Unavailable [phone] Herson Appiah [phone] Encounters Encounter Location Date Provider Diagnosis [facility] [address] [place] [address] 05/21/2024 Herson Appiah Plan Of Treatment No Information Progress Notes * Natalie LOW BDOB: [birth year] (84 yo F)Acc No.[id number]:05/21/2024 Progress Notes Patient:?Natalie LOW Provider:?Herson Appiah DPM :1940???Age:83 Y???Sex:Female D ate:05/21/2024 Address:[place] [address], [facility] Pcp:Param Amaya Subjective: * Chief Complaints: * [...] DPM Date:? 024 Generated for Mariana holloway/Gm/eTransmitting on:?02/11/2025 05:10 PM EDT
== END ==
LOC: HO.CARD 14:31
PROVIDERS: PCP Internal Medicine; Visit Provider Internal Medicine
DX: I48.0 Paroxysmal atrial fibrillation (principal)
CPT/HCPCS: 93306

== ENCOUNTER → 2025-02-11 14:36 | Outpatient (BNV) | payer MEDICARE, OTHER, SELFPAY | PROVIDERS: PCP Internal Medicine; Visit Provider Internal Medicine | DX: I51.7 Cardiomegaly (principal); I70.0 Atherosclerosis of aorta | CPT/HCPCS: 93306 ==

== ENCOUNTER 2025-04-06 14:31 | Outpatient (AMB) | payer MEDICARE, OTHER, SELFPAY ==
--- OUTSIDE RECORDS SUMMARY | 2024-05-21 06:30 | XMS_ITS ---
Author Organization [facility] Address [address] [place] [address] Care Team Providers Care Citrix Lead Name Role Phone Param Amaya Primary Care Provider Aguilar Murphy Unavailable [phone] Herson Appiah [phone] Encounters Encounter Location Date Provider Diagnosis [facility] [address] [place] [address] 05/21/2024 Herson Appiah Plan Of Treatment No Information Progress Notes * Natalie LOW BDOB: [birth year] (84 yo F)Acc No.[id number]:05/21/2024 Progress Notes Patient: Natalie MCINTYRE Provider: Lynnette Appiah DPM :1940 A ge:83 Y S ex:Female Date:05/21/2024 Address:[place] [address], [facility] Pcp:Param Amaya Subjective: * Chief Complaints: * * Medical History: Objective: * Vitals: Assessment: Plan: * Treatment: * Images: * The named appointment provid er may or may not be the originator of this progress note, and it is not deemed complete until electronically signed by the appointment provider. Sign off status: Pending * Provider: Lynnette Appiah DPM Date: 05/21/2024 Generated for Mariana holloway/Gm/eTlilyitting on: 04/06/2025 03:12 PM EDT
[2025-04-06 14:33] VITALS: BP 136/78; PULSE 100; RESP 18; TEMP 36.3; O2SAT 94; BMI 34.5
--- NOTE | 2025-04-06 14:33 | MHC.PC.OV ---
Vital Signs 04/06/25 14:33 Height 5 ft 3 in Weight 194 lb 14.218 oz BMI 34.5 BP 136/78 Blood Pressure Location Lt brachial Position Sitting Respiration 18 Pulse 100 Pulse Source Pulse Oximeter Temp 97.3 F Temp Source Temporal Artery Scan Pulse Oximetry (%) 94 Oxygen Delivery Method Nasal Cannula Oxygen Flow Rate 2 Intake Visit Reasons: CHF, A fib, Pulmonary embolism Allergies aspirin (Aspirin) Allergy (Severe, Verified 04/06/25 14:38) BLEED acetaminophen (From Vicodin) Allergy (Intermediate, Verified 04/06/25 14:38) Agitated hydrocodone (From Vicodin) Allergy (Intermediate, Verified 04/06/25 14:38) Agitated lisinopril (Lisinopril) Allergy (Mild, Verified 04/06/25 14:38) COUGH adhesive (ADHESIVE) Allergy (Unknown, Verified 04/06/25 14:38) RED,ITCHY fluticasone (Advair Diskus) Allergy (Unknown, Verified 04/06/25 14:38) UNKNOWN NSAIDS (Non-Steroidal Anti-Inflamma (NSAIDS (NON-STEROIDAL ANTI-INFLAMMA) Allergy (Unknown, Verified 04/06/25 14:38) HX BLEED , GI salmeterol (Advair Diskus) Allergy (Unknown, Verified 04/06/25 14:38) Unknown diphenhydramine (From Benadryl) Adverse Reaction (Mild, Verified 04/06/25 14:38) AGITATION ibuprofen (From Motrin) Adverse Reaction (Mild, Verified 04/06/25 14:38) RINGINGIN EAR zolpidem (From Ambien) Adverse Reaction (Mild, Verified 04/06/25 14:38) AGITATION Medication List - Last Reconciled 04/06/25 by Param Amaya MD albuterol sulfate 90 mcg/actuation (Ventolin HFA) 2 puffs inhalation Q6H PRN ammonium lactate 5% (Lac-Hydrin Five) 1 appl topical BID apixaban 5 mg PO BID ascorbate calcium (vitamin C) 500 mg PO DAILY atorvastatin 20 mg PO BEDTIME 90 days blood sugar diagnostic (FreeStyle Lite Strips) Check blood sugars once a day daily; 90 days clotrimazole 1% 1 appl topical BID 4 weeks digoxin 125 mcg PO DAILY 90 days diltiazem HCl ER 180 mg PO DAILY jaehydfrbaz-vsbaddhrd-cyyxbfxk 100-62.5-25 mcg (Trelegy Ellipta) 1 ea inhalation DAILY furosemide (Lasix) 20 mg PO DAILY gabapentin 400 mg PO BID 90 days lancets As directed lidocaine 5% 1 patch topical DAILY loperamide (Imodium A-D) 2 mg PO Q6H PRN metformin 500 mg PO DAILY metoprolol succinate ER 100 mg (2 x 50 mg) PO DAILY 90 days multivitamin 1 tab PO DAILY omeprazole 20 mg PO DAILY [orthotics orthotic bilat feet ] oxycodone-acetaminophen 5-325 mg 1 tab PO Q8H PRN potassium chloride ER 20 mEq PO DAILY ropinirole 0.25 mg PO BID 90 days ropinirole 2 mg PO BEDTIME 90 days Tobacco use date assessed: 04/06/25 Fall risk assessment: 1 Fall in past year Last assessed Fall Risk: 04/06/25 Dental Screening Dental Screen Date: 04/06/25 Did you have a dental visit in the last 12 months?: No Did you have a dental problem in the last 6 months where you did not have access to dental care?: No Was dental information given to patient?: No COUNT INCLUDES THE [facility] Medical History Pulmonary embolism Presence of Watchman left atrial appendage closure device Pacemaker Bilateral carpal tunnel syndrome Osteoarthritis Fracture of lateral epicondyle of left humerus Foramen ovale Tubular adenoma of colon History of breast cancer GERD (gastroesophageal reflux disease) Obstructive sleep apnea Congestive heart failure Obesity (BMI 30-39.9) COPD (chronic obstructive pulmonary disease) Hypercholesterolemia Hypertension Atrial fibrillation Type 2 diabetes mellitus with hyperglycemia Surgical History Status post lumbar spine surgery for decompression of spinal cord S/P repair of paraesophageal hernia History of tonsillectomy History of abdominal hysterectomy History of cardiac cath History of bilateral knee replacement Family History Father CVD (cardiovascular disease) CAD (coronary artery disease) Hypertension Mother CVD (cardiovascular disease) Hypertension CAD (coronary artery disease) Spinal stenosis Sister CAD (coronary artery disease) Afib Social History Household Members: Family Housing: Apartment Are you a primary landcare officer to a significant other at home: No Do you presently have visiting nurse or other home services: No Alcohol intake: never Patient Tobacco Use Status: Never used Tobacco Tobacco use type: Cigarette e-Cigarette/Vaping Use: Never Used Second Hand Smoke Exposure: No service: No Current occupational status: retired Current occupation: right handed Cognitive needs: Yes (wheelchair, walker) Hearing needs: No Vision needs: Yes (Glasses) Questionnaire PHQ-9 Over the last 2 weeks, how often have you been bothered by any of the following problems? 1. Little interest or pleasure in doing things: more than half the days 2. Feeling down, depressed, or hopeless: more than half the days 3. Trouble falling or staying asleep, or sleeping too much: more than half the days 4. Feeling tired or having little energy: more than half the days 5. Poor appetite or overeating: nearly every day 6. Feeling bad about yourself - or that you are a failure or have let yourself or your family down: not at all 7. Trouble concentrating on things, such as reading the newspaper or watching television: several days 8. Moving or speaking so slowly that other people could have noticed. Or the opposite - being so fidgety or restless that you have been moving around a lot more than usual: several days 9. Thoughts that you would be better off or of hurting yourself in some way: not at all Total score: 13 Depression Screening Interpretation: Positive Depression Screening Done: Yes Source: Developed by Drs. Jorje Correia, Jeana Gaxiola, Pawel High and colleagues, with an educational katie from [employer]. Thrive Questionnaire Date Thrive assessed: 09/16/24 I am a: Patient What is your living situation today?: I have a steady place to live Within the past 12 months, did the food you bought not last and you didn't have the money to get more?: Never true Within the past 12 months, did you worry whether your food would run out before you got money to buy more?: Never true Do you have trouble paying for medicines?: No Do you have trouble getting transportation to medical appointments?: No Do you have trouble paying your heating and electricity bill?: No Do you have trouble taking care of your child, family member or friend?: No Do you have trouble with day-to-day activities such as bathing, preparing meals, shopping, managing finances, etc.?: No Are you currently unemployed and looking for a job?: No Are you interested in more education?: No Currently or been in a relationship where the following occur: No concerns reported THRIVE Score: 0 AUDIT C Alcohol Use Questionnaire (AUDIT-C) 1. How often do you have a drink containing alcohol?: Never 3. How often do you have six or more drinks on one occasion?: Never Total Score: 0 Score Reviewed/Action Taken: No YVON-7 AMB Questionnaire YVON-7 Date YVON - 7 assessed: 09/16/24 Feeling nervous, anxious, or on edge: 0 = Not at all Not being able to stop or control worryin = Not at all Worrying too much about different things: 0 = Not at all Trouble relaxin = Not at all Being so restless that it is hard to sit still: 0 = Not at all Becoming easily annoyed or irritable: 0 = Not at all Feeling afraid as if something awful might happen: 0 = Not at all Total YVON-7 score (0-4 normal; 5-9 mild; 10-14 moderate; 15-21 severe): 0 Source: Developed by Drs. Jorje Correia, Jeana Gaxiola, Pawel High and colleagues, with an educational katie from [employer]. Physical exam (Primary Care) Vital Signs: Last Vital Signs Temp 97.3 F 04/06/25 14:33 Pulse 100 04/06/25 14:33 Resp 18 04/06/25 14:33 BP 136/78 04/06/25 14:33 Pulse Ox 94 04/06/25 14:33 Oxygen Delivery Method Nasal Cannula 04/06/25 14:33 Oxygen Flow Rate 2 04/06/25 14:33 BMI result Body Mass Index 34.5 Tobacco/Smoking Status: Tobacco use Status Tobacco use date assessed 04/06/25 04/06/25 14:47 Patient Tobacco Use Status Never used Tobacco 04/06/25 14:33 Tobacco use type Cigarette 04/06/25 14:33 e-Cigarette/Vaping Use Never Used 04/06/25 14:33 PHQ-9: PHQ-9 Score PHQ-9: Total score 13 04/06/25 14:47 Depression Screening Interpretation: Positive Thrive Assessment: Date of Thrive Assessment Date Thrive assessed 09/16/24 04/06/25 14:33 Currently or been in a relationship where the following occur: No concerns reported Const General: alert; No acute distress Eyes Conjunctivae: conjunctivae normal Resp Auscultation: clear to auscultation bilaterally Cardio Rate: regular rate Rhythm: regular rhythm GI Inspection: Yes normal to inspection Extrem General: Yes normal to inspection and No edema Results AMB Hemoglobin A1c AMB Hemoglobin A1c 6.1 % Last Edit by Shelly Jackson CMA on 04/06/25 14:49 Results Reviewed Results Reviewed: Laboratory Last Values Hgb A1c (Clinic) 6.1 % (4.0-6.0) H 04/06/25 14:48 Coding Level of Care Code Est Pt Level 4 (94035) Complex EM visit Add On G2211 Diagnoses Essential hypertension I10 Hypertension type: essential hypertension Paroxysmal atrial fibrillation I48.0 Atrial fibrillation type: paroxysmal Ascending aorta dilatation I77.810 Peripheral vascular disease I73.9 Presence of Watchman left atrial appendage closure device Z95.818 Hypercholesterolemia E78.00 Pulmonary embolism I26.99 Type 2 diabetes mellitus with hyperglycemia, without long-term current use of insulin E11.65 Diabetes mellitus termination clerk insulin use: without [place] [facility] use Obesity (BMI 30-39.9) E66.9 Gastroesophageal reflux disease without esophagitis K21.9 Esophagitis presence: without esophagitis Pulmonary emphysema, unspecified emphysema type J43.9 COPD type: emphysema Emphysema type: unspecified Right patella fracture S82.001A Assessment & Plan Assessment & Plan (1) Hypertension: Code(s): I10 - Essential (primary) hypertension Category: Medical Qualifiers: Hypertension type: essential hypertension Qualified Code(s): I10 - Essential (primary) hypertension Plan: Continue with blood pressure medication. Decrease salt intake and exercise patient on diltiazem 100 mg 180 mg once a day metoprolol 100 mg once a day (2) Atrial fibrillation: Comment: March 2019 echo normal LV, biatrial enlargement, mild MR severe TR, nuclear stress distal lateral and inferolateral ischemia 74% 04/2018, EF 60-65% dilatation ascending aorta to 4.4 cm with biatrial enlargement, moderate pulmonary hypertension April 2020 Watchmans device 08/2023 Code(s): I48.91 - Unspecified atrial fibrillation Category: Medical Qualifiers: Atrial fibrillation type: paroxysmal Qualified Code(s): I48.0 - Paroxysmal atrial fibrillation Plan: Continue with anticoagulation on digoxin as well as apixaban 5 mg twice a day (3) Ascending aorta dilatation: Comment: 04/2020, April 2021 4.4 cm February 2025 4.5 cm Code(s): I77.810 - Thoracic aortic ectasia Category: Medical Plan: Continue to monitor 4.5 cm (4) Peripheral vascular disease: Code(s): I73.9 - Peripheral vascular disease, unspecified Category: Medical Plan: When sitting down elevate the legs, exercise, and support stockings (5) Presence of Watchman left atrial appendage closure device: Comment: 08/2023 Code(s): Z95.818 - Presence of other cardiac implants and grafts Category: Medical Plan: Continue to follow-up with cardiology (6) Hypercholesterolemia: Comment: blood work done 10/2019 Code(s): E78.00 - Pure hypercholesterolemia, unspecified Category: Medical Plan: Avoid fried foods, chicken skin, eggs, butter margarine, pastries and meat. Be it pork or beef they have a lot of cholesterol on atorvastatin 20 mg once a day (7) Pulmonary embolism: Comment: 04/2024 Code(s): I26.99 - Other pulmonary embolism without acute cor pulmonale Category: Medical Plan: Continue with anticoagulation (8) Type 2 diabetes mellitus with hyperglycemia: Comment: [place] Code(s): E11.65 - Type 2 diabetes mellitus with hyperglycemia Category: Medical Qualifiers: Diabetes mellitus termination clerk insulin use: without [place] [facility] use Qualified Code(s): E11.65 - Type 2 diabetes mellitus with hyperglycemia Plan: Decrease the amount of carbohydrate intake, pasta, bread, rice and potatoes are all sugar and that is aside from all the sweet stuff, remember that fruits are good but they are Sweet also. Hemoglobin A1c goal of less than 7.0 patient is on metformin 500 mg once a day (9) Obesity (BMI 30-39.9): Code(s): E66.9 - Obesity, unspecified Category: Medical Plan: Diet and exercise (10) GERD (gastroesophageal reflux disease): Code(s): K21.9 - Gastro-esophageal reflux disease without esophagitis Category: Medical Qualifiers: Esophagitis presence: without esophagitis Qualified Code(s): K21.9 - Gastro-esophageal reflux disease without esophagitis Plan: Avoid the foods that causes that usually spicy foods, tomato products, juices, coffee, soda and foods that your sensitive to. After eating do not lie down, allow 3-4 hours before in lie down. And keep the head of bed above 30 degrees to avoid the acid from going up. (11) COPD (chronic obstructive pulmonary disease): Comment: Dr. Garber [facility] pulmonary [phone] Code(s): J44.9 - Chronic obstructive pulmonary disease, unspecified Category: Medical Qualifiers: COPD type: emphysema Emphysema type: unspecified Qualified Code(s): J43.9 - Emphysema, unspecified Plan: Continue with inhaler as needed patient on Trelegy also rinse mouth after using (12) Right patella fracture: Comment: fall 10/2024 Code(s): S82.001A - Unspecified fracture of right patella, initial encounter for closed fracture Category: Medical Plan: on physical therapy Plan History of Present Illness The patient is an 84-year-old female presenting for a follow-up visit. She has a history of diabetes mellitus, hypertension, atrial fibrillation, hypercholesterolemia, and Chronic Obstructive Pulmonary Disease (COPD). Her atrial fibrillation is managed with a Watchman device, which was placed in August 2023. She also has a history of congestive heart failure and obstructive sleep apnea, for which she cannot tolerate CPAP therapy. The patient has gastroesophageal reflux disease (GERD) and bilateral carpal tunnel syndrome. She has osteopenia with a D12 compression fracture and a history of pulmonary embolism in April 2024. Her preventative care includes an up-to-date mammogram as of September 2024, and she is due for a bone density test. Health Maintenance - Mammogram up to date as of September 2024 - Due for bone density test Social History - The patient receives physical therapy and nursing care at home. - She has a personal care nurse and a warehouse assembly worker visiting weekly. - Her son, Daniel, lives with her but works outside the home. Review of Systems Physical Exam Results - Labs: Liver function tests with values 73 and 115, electrolytes normal, creatinine normal, blood count normal, platelet count normal, thyroid normal, proBNP 5000/10 - Urine culture: No growth Plan The patient's blood pressure management includes diltiazem 180 mg once daily and metoprolol 100 mg once daily. Anticoagulation therapy is continued with apixaban 5 mg twice daily and digoxin. For hypercholesterolemia, the patient is on atorvastatin 20 mg once daily. Diabetes management aims for a hemoglobin A1c goal of less than 7.0, with current A1c at 6.1, managed with metformin 500 mg once daily, diet, and exercise. The patient is advised to continue using her inhaler as needed and is on Trelegy, with instructions to rinse her mouth after use. She is to continue follow-up with cardiology and monitor her condition closely. Patient was informed and verbally consented to the use of an ambient scribe for clinic note documentation during this visit. Discussion Notes Patient Instructions - Continue taking diltiazem 180 mg and metoprolol 100 mg daily for blood pressure. - Continue apixaban 5 mg twice daily and digoxin for anticoagulation. - Take atorvastatin 20 mg daily for cholesterol management. - Maintain diabetes management with metformin 500 mg daily, diet, and exercise. - Use inhaler as needed and rinse mouth after using Trelegy. - Follow up with cardiology as advised. Orders: Orders AMB Hemoglobin A1c Today Z13.9 - Encounter for screening, unspecified Medications: New omeprazole 20 mg PO DAILY 30 caps 12RF Refilled clotrimazole 1% 1 appl topical BID 45 grams 0RF 4 weeks ropinirole 2 mg PO BEDTIME 90 tabs 2RF 90 days diltiazem HCl ER 180 mg PO DAILY 90 caps 2RF ropinirole administer 1-3 hours before bedtime 0.25 mg PO BID 180 tabs 1RF 90 days
--- OUTSIDE RECORDS SUMMARY | 2025-04-06 15:13 | XMS_ITS | Encounter Summary ---
Author Organization [facility] Address [address] [place] [address] [place] [phone] Phone Care Team Providers Care Industrial Rehabilitation Consultant Name Role Phone Param Amaya MD Primary Care Provider [phone] Alfreda Kilpatrick MD Primary Care Provider Param Amaya MD Primary Care Provider [phone] Encounter Details Date Type Department Care Team (Late st Contact Info) Description 05/15/2024 Procedure [facility], [facility] Scan - [facility] [address] [place] [address] Social History Tobacco Use Types Packs/Day Years [...] with a working camera? Not on file Comments Unknown Sex and Gender Information Value Date Recorded Sex Assigned at Female 02/17/2018 4:45 AM EDT Legal Sex Female 10:11 PM EDT Gender Identity Female 02/17/2018 4:45 AM [...] documented as of this encounter Care Teams Industrial Rehabilitation Consultant Relationship Specialty Start Date End Date Param Amaya MD [address] [place] [phone] PCP - General Internal Medicine 02/17/18 06/18/24 Alfreda Kilpatrick MD [address] [place] [phone] [email or web address] PCP - General Internal Medicine 06/19/24 06/22/24 Param Amaya MD [address] [place] [phone] PCP - General Internal Medicine 06/23/24 documented as of this encounter Additional Source Comments The information contained in this document represents components of the legal health record. It is not the complete legal health record.[facility]
--- OUTSIDE RECORDS SUMMARY | 2025-04-06 15:13 | XMS_ITS | Data Portability ---
Author Organization MARNIE - Christopher Del Castillo [facility] Address [address] [place] [address] Assessment Encounter Date Assessment Date Assessment LastModified by Organization Details LastModified Time 03/23/2025 03/23/2025 Subjective: CHIEF COMPLAINT: Right patella fracture HISTORY OF PRESENT ILLNESS: 84-year-old female presented to the emergency department after a fall from seated or standing position. After evaluation, she was found to have a small horizontal lucent line at the superior patella on X-ray and follow-up CT scan was done showing a non-displaced fracture at the superior patella. She was managed with knee immobilizer and discharged to a rehab facility. She tells me that her right knee is not painful. She had knee replacement surgery by Dr. Urrutia 30 years ago at baseline. She lives in an apartment with family assistance and uses a walker certified surgical tech/first assistant. Objective: EXAMINATION: Examination of the right lower extremity shows knee active extension. No lag, no deformity, palpable over the patella. No point tenderness. IMAGING: X-RAYS ORDERED OBTAINED AND REVIEWED BY ME TODAY AT [facility]: Right knee three views today. These show a primary knee prosthesis, lucencies through the tibial plateau, linear lucency through the very superior patella. OTHER DATA: CT scan and X-rays done on the hospital's record reviewed. Assessment: Possible right superior patella pole fracture versus a chronic finding after a fall about four weeks ago. There's been no subsequent displacement. Examination findings are minimal and I don't think this represents a significant fracture. Plan: 1. Discontinue knee immobilizer 2. Weight bear as tolerated 3. Continue to use a walker as she was doing prior to this 4. Recheck on an as-needed basis [email or web address] Not available 03/23/2025 13:16:18 Plan of Treatment Reminders Order Date Submit Date Provider Last Modified By Organization Details Last Modified Time Details Appointments None recorded. Lab None recorded. Referral None recorded. Procedures None recorded. Surgeries None recorded. Imaging XR, knee, 3 view - 314 rt knee 3v new pt 2024 025 [facility], [address], [address], [place], [address], 5 09:26:55 XR, ankle, 3 or more view - new pt 3 views left ankle stimulated rm 108 2023 024 [facility], [address], [address], [place], [address], 4 15:56:26 Medication Orders None recorded. Patient TargetsNo targets recorded. Patient InstructionsNo instructions recorded. Reason for Referral None Reported. Results Created Date Observation Date Name Description Value Unit Range Abnormal Flag Note LastModifiedBy Organization Detail LastModifiedTime 05/27/20 24 05/27/2024 XR, ankle , 3 or more view [email or web address] ?Encry pted=s hAaTro YD8dLq bEUv6g %2BXZw aYqtaq 0bqfl% 2Fg9IQ a4ajBk vP9nXo QUaueC m3YtLR FvZlgJ JJ8mAn HZtai3 1p7001 AC0Kqa niNUqu hKiQtr MwF INTERFACE [facility] Office [address], [place], [address], 05/27/2024 13:35:59 05/27/20 24 05/27/2024 XR, ankle , 3 or more view [email or web address] ?Encry pted=s hAaTro YD8dLq bEUv6g %2BXZw aYqtaq 0bqfl% 2Fg9IQ a4ajBk vP9nXo QUaueC m3YtLR FvZlgJ JJ8mAn HZtai3 8a7797 AC0Kqa niNUqu hKiQtr MwF INTERFACE [facility] [address], [place], [address], 05/27/2024 13:36:01 03/23/20 25 03/23/2025 XR, knee, 3 view [email or web address] ?Encry pted=s hAaTro YD8dLq bEUv6g %2BXZw aYqtaq 0bqfl% 2Fg9IQ a4ajBk vP9nXo QUaueC m3YtLR FvZlgJ JJ8mAn HZtai3 8c1529 AC0Kla XqHVKC gKiQtr MwF INTERFACE [facility] [address] [facility] [address], [place], [address], 03/23/2025 11:30:05 03/23/20 25 03/23/2025 XR, knee, 3 view [email or web address] ?Encry pted=s hAaTro YD8dLq bEUv6g %2BXZw aYqtaq 0bqfl% 2Fg9IQ a4ajBk vP9nXo QUaueC m3YtLR FvZlg JJ8mAn HZtai3 6l2363 AC0Kla XqHVKC gKiQtr MwF INTERFACE [facility] [address] [facility] [address], [place], [address], 03/23/2025 11:30:06 Result Notes Documentation Provider Name and Address Organization Details Recorded Time Xr, Ankle, 3 Or More View : [email or web address] Encrypted=swDtMzkAQ2gFtiD Uv6g%3ZRSclIqgln8dofj%2Fg 4WRh3qpOheK3zUdPWlqsHl2Tu ZLRzDcoEZG8yOcHQdxr04s823 0UI2FgehsWGdfgUuMofXoA Not Available [facility] 05/27/2024 13:36: 00 Xr, Ankle, 3 Or More View : [email or web address] Encrypted=cjVqRlvTB4rLxsW Uv6g%3TMKcjWymnl2xmjh%2Fg 6GYp4kiTjcJ5sJeSOmvyPs7Ki GTJbJdaGDU5wClOEkfc62p186 9UI1GzkuzWHrrqMzEtnEwU Not Available [facility] 05/27/2024 13:36: 02 Xr, Knee, 3 View : [email or web address] Encrypted=rsYxCxnOD1uVvzD Uv6g%6UJQtnBpddx5uwkc%2Fg 6UBl7swTpzA4fKoLVynhLg2Bd FXDjQetPOE9hRbZAtzg09a698 8OY4EsbSfBHFDjNpXgaYgA Not Available [facility] 03/23/2025 11:30: 05 Xr, Knee, 3 View : [email or web address] Encrypted=neHnPcnXC2tIghL Uv6g%1DJBuuQkswi7oagr%2Fg 4KEm1mnZthH6uSzLTkswWe3La HRCuDgqJIB9lXlDByoj17v491 5BM8EtsLlYSZJfPiLzvXyI Not Available [facility] 03/23/2025 11:30: 07 Medical Equipment None Reported. Allergies Allergen ID Allergen Name Allergen Category Reaction Reaction Severity Criticality Documentation Date Start Date Code Code System Note Provider Name and Address Organization Details Recorded Time 829719 aspirin medicatio n Not available Not available Not available 03/23/2025 1191 RxNorm DAWNA knapp [facility] 11:27:45 234793 lisinopri l medicatio n Not available Not available Not available 03/23/2025 20628 RxNorm DAWNA knapp [facility] 11:27:52 863241 zolpidem medicatio n Not available Not available Not available 03/23/2025 44935 RxNorm DAWNA THIAGO [facility] 11:27:57 757477 Benadryl medicatio n Not available Not available Not available 03/23/202551717 7 RxNorm DAWNA DAS [facility] 11:28:01 752932 Motrin medicatio n Not available Not available Not available 03/23/202580844 8 RxNorm DAWNA DAS [facility] 11:28:06 931290 Non-stero idal anti-infl ammatory agent (substanc e) medicatio n Not available Not available Not available 03/23/2025 99184 5008 SNOMED DAWNA DAS [facility] 11:28:09 365695 adhesive tape environme nt,medica tion Not available Not available Not available 03/23/2025 82719 UNK DAWNA DAS [facility] 11:28:15 Medications Name Sig Start Date Stop Date Status Note LastModified by Organization Details LastModified Time metformin 500 mg tablet TAKE ONE TABLET BY MOUTH EVERY DAY active Not Available Not Available No t Available acetaminoph en 325 mg tablet Take 2 tablets every 6 hours by oral route. active Not Available Not Available No t Available atorvastati n 20 mg tablet TAKE ONE TABLET BY MOUTH DAILY AT BEDTIME active Not Available Not Available No t Available Toprol XL 100 mg tablet,exte nded release Take 1 tablet every day by oral route. active Not Available Not Available No t Available torsemide 20 mg tablet TAKE ONE TABLET BY MOUTH EVERY DAY 03/23 completed Not Available Not Available Not Available loperamide 2 mg capsule TAKE ONE CAPSULE BY MOUTH EVERY 6 HOURS NEEDED FOR DIARRHEA active Not Available Not Available No t Available diltiazem CD 180 mg capsule,ext ended release 24 hr Take 1 capsule every day by oral route. active Not Available Not Available No t Available metoprolol succinate ER 50 mg tablet,exte nded release 24 hr TAKE TWO TABLETS BY MOUTH EVERY DAY 03/23 completed Not Available Not Available Not Available gabapentin 400 mg capsule TAKE ONE CAPSULE BY MOUTH TWICE A DAY active Not Available Not Available No t Available clopidogrel 75 mg tablet TAKE ONE TABLET BY MOUTH EVERY DAY 03/23 completed Not Available Not Available Not Available aspirin 81 mg tablet,yang yed release TAKE 1 TABLET BY MOUTH DAILY 03/23 completed Not Available Not Available Not Available oxycodone-a cetaminophe n 5 mg-325 mg tablet TAKE ONE TABLET BY MOUTH EVERY 8 HOURS NEEDED FOR PAIN 03/23 completed Not Available Not Available Not Available potassium chloride ER 20 mEq tablet,exte nded release(par t/cryst) TAKE 1 TABLET BY MOUTH DAILY active Not Available Not Available No t Available famotidine 20 mg tablet TAKE ONE TABLET BY MOUTH EVERY DAY 03/23 completed Not Available Not Available Not Available ropinirole 0.25 mg tablet TAKE 1 TABLET BY MOUTH TWICE DAILY -ADMINIST ER 1-3 HOURS BEFORE BEDTIME active Not Available Not Available No t Available ropinirole 2 mg tablet TAKE ONE TABLET BY MOUTH DAILY AT BEDTIME active Not Available Not Available No t Available pantoprazol e 40 mg tablet,yang yed release TAKE ONE TABLET BY MOUTH EVERY DAY 03/23 completed Not Available Not Available Not Available ferrous sulfate 325 mg (65 mg iron) tablet TAKE ONE TABLET BY MOUTH EVERY DAY 03/23 completed Not Available Not Available Not Available lidocaine 5 % topical patch APPLY ONE PATCH EXTERNAL EVERY MORNING active Not Available Not Available No t Available vancomycin 250 mg capsule TAKE 1 CAPSULE BY MOUTH EVERY 6 HOURS FOR 11 DAYS 03/20 completed Not Available Not Available Not Available omeprazole 20 mg capsule,del ayed release TAKE ONE CAPSULE BY MOUTH EVERY DAY active Not Available Not Available No t Available digoxin 125 mcg (0.125 mg) tablet TAKE ONE TABLET BY MOUTH EVERY DAY active Not Available Not Available No t Available furosemide 20 mg tablet Take 1 tablet every day by oral route. active Not Available Not Available No t Available albuterol sulfate HFA 90 mcg/actuati on aerosol inhaler INHALE TWO PUFFS BY MOUTH EVERY 4 HOURS NEEDED FOR WHEEZING active Not Available Not Available No t Available ferrous sulfate 325 mg (65 mg iron) tablet,yang yed release TAKE ONE TABLET BY MOUTH EVERY DAY 03/23 completed Not Available Not Available Not Available amoxicillin 875 mg-potassiu m clavulanate 125 mg tablet 03/23 completed Not Available Not Available Not Available Jantoven 2 mg tablet TAKE TWO TABLETS BY MOUTH EVERY DAY 03/23 completed Not Available Not Available Not Available multivitami n active Not Available Not Available Not Available Eliquis 5 mg tablet TAKE ONE TABLET BY MOUTH TWICE A DAY active Not Available Not Available No t Available Allergy Relief (fluticason e) 50 mcg/actuati on nasal spray,suspe nsion [place] 1 spray every day by intranasa l route. active Not Available Not Available No t Available Trelegy Ellipta 100 mcg-62.5 mcg-25 mcg powder for inhalation INHALE ONE PUFF BY MOUTH EVERY DAY 03/23 completed Not Available Not Available Not Available Tiadylt ER 300 mg capsule,ext ended release TAKE ONE CAPSULE BY MOUTH EVERY DAY 03/23 completed Not Available Not Available Not Available Tiadylt ER 240 mg capsule,ext ended release TAKE ONE CAPSULE BY MOUTH EVERY DAY 03/23 completed Not Available Not Available Not Available Paxlovid 150 mg-100 mg tablets in a dose pack (Moderate Renal Dose) TAKE 2 TABLET BY MOUTH TWICE DAILY FOR 5 DAYS 03/23 completed Not Available Not Available Not Available Vitals Date Recorded Body height Body mass index (BMI) Body weight Provider Name and Address Organization Details Last Updated DateTime 03/23/2025 160.02 cm 34.7 kg/m2 49175.1 g DAWNA DAS [facility] 03/23/2025 11:22:30 Date Recorded Body height Body mass index (BMI) Body weight Provider Name and Address Organization Details Last Updated DateTime 05/27/2024 160.02 cm 30.1 kg/m2 73935.7 g Ludy Gamez [facility] 05/27/2024 13:22:25 Social History None recorded. Functional Status None recorded. Mental Status None recorded. Family History Nothing Reported. Medical History No medical history recorded. Gynecological HistoryNo gynecological history recorded. Obstetrics History GPAL:G 0 P 0 0 0 0 Past Encounters Encounter ID Performer Location Encounter Start Date Encounter Closed Date Diagnosis/Indication Diagnosis SNOMED-CT Code Diagnosis ICD10 Code Diagnosis Note [id number] TANIKA Rogers [address] [place] [address] 05/27/2024 12:53:52 06/17/2024 15:56:26 Pain of left ankle joint 2658433373 6363599 M25.572 Acquired b ilateral pes planus 6033640187 7915946 M21.41 M21.42 [id number] MD SHAZIA Wren [address] [place] [address] 03/23/2025 10:52:56 04/05/2025 09:26:55 Closed fracture of patella 81787843 S82.001A Health Concerns Section Related Observation LastModified by Organization Detai ls LastModified Time None Recorded Concern Status LastModified by Organization Details LastModified Time None Recorded Advance Directives Directive None Recorded Payers Insurance Date Sequence Insurance Name Policy Number Policy Figueroa Covered Member ID Figueroa Member ID Guarantor Name 07/09/2024 2 FOR LIFE ( - MEDICARE SUPPLEMENT) Natalie Low [id number] Natalie Low 08/03/2024 [facility] Natalie Low [id number] Natalie Low 03/20/2025 1 [place]IC[place]: [facility] Natalie Low [id number] Natalie Tracygh OBGyn Episode No OBEpisode recorded.
--- OUTSIDE RECORDS SUMMARY | 2025-04-06 15:13 | XMS_ITS | Patient Health Record ---
Author Organization [facility] Address [address] [place] [address] Care Team Providers Care Warp Starter Name Role Phone Po Param PEREZ Primary Care Provider Jorje Griffith Unavailable [phone] Allergies Allergen (clinical drug ingredient) Drug/Non Drug Allergy documented on EMR Reaction Allergy Type Onset Date Status Vicodin Unknown Drug Allergy Active Motrin Unknown Drug Allergy Active lisinopril Lisinopril Unknown Drug Allergy Activ e diphenhydramine Benadryl Unknown Drug Allergy A ctive aspirin Aspirin Unknown Drug Allergy Active zolpidem Ambien Unknown Drug Allergy Active seasonals (uncoded) Unknown Allergy Active tape (uncoded) Unknown Allergy Activ e Reason For Referral No Information Medications Medication SIG (Take, Route, Frequency, Duration) Notes Start Date End Date Status Stool Softener 100 MG 1 capsule as neede d Orally Once a day for 30 day(s) Active Neurontin 100 MG 1 capsule Orally Thr ee times a day Active Omeprazole 20 MG 1 capsule Orally Onc e a day for 30 day(s) Active Percocet 5-325 MG 3 tablet as needed O rally prn Active Furosemide 20 MG 1 tablet Orally Once a day for 30 day(s) Active Simvastatin 20 MG 1 tablet in the even ing Orally Once a day Active Metoprolol Succinate 100 MG 1 capsule Or ally Once a day for 30 day(s) Active Digoxin 125 MCG 1 tablet Orally Once a day Active rOPINIRole HCl 1 MG 1 tablet 1 to 3 hour s before bedtime Orally Once a day Active dilTIAZem HCl ER 240 MG 1 capsule on an empty stomach in the morning Orally Twice a day Active Anoro Ellipta 62.5-25 MCG/INH 1 puff Inhalation Once a day Active ProAir HFA 108 (90 Base) MCG/ACT 2 puffs as needed Inhalation every 6 hrs Active Multi Vitamin/Minerals - as directed Ora lly once a day Active Vitamin C 500 MG 1 tablet Orally Once a day Active Warfarin Sodium 5 MG 1 tablet Orally onc e a day Active Vitamin D3 1000 UNIT 1 tablet Orally Onc e a day Active metFORMIN HCl 500 MG 1 tablet with meals Orally twice a day Active Immunizations Vaccine Route Administration Date Status Comme nts Influenza Unknown 05/21/2018 Administered Problems Problem Type SNOMED Code ICD Code Onset Dates Problem Status W/U Status Risk Notes Problem [id number] Gastroesophageal reflux disease, esophagitis presence not specified (K21.9) Active confirmed Problem 65802021 Hiatal hernia (K44.9) Active confirmed Problem 183280343 Abnormal UGI ser ies (R93.3) Active confirmed Plan Of Treatment Future Test Test Name Order Date COLONOSCOPY 05/20/2014 UPPER GI ENDOSCOPY 01/01/2019 Insurance Providers Payer Name Payer Address Payer Phone Subscriber Number Group Number Insured Name Patient Relationship to Insured Coverage Start Date Coverage End Date MEDICARE OF [place] [address] [place] [address] [id number] CHUCKIE CASTILLO Self - patient is the insured [employer] [address] [place] [address] [id number] CHUCKIE CASTILLO Self - patient is the insured Medical (General) History Medical History History ICD Code Arthritis GERD--large hiatal hernia on 08/2018 UGI with a component of an organoaxial rotation of the stomach above the diapragm. Spinal Stenosis Anemia, requiring transfusio ns in 1997--had an EGD and colonoscopy at [facility] in 1997--reportedly negative except for a hiatal hernia Hypertension Colonoscopy in 02/2008 and 2013--- tubula r adenomas removed, diverticulosis Hyperlipidemia Paroxysmal atrial fibrillation-sees Dr. Shahla [place],CVA,renal disease NIDDM COPD--on oxygen 2L Breast cancer on the right-lumpectomy an d XRT Congestive heart failure Restless leg syndrome Sleep apnea-uses CPAP Surgical History Surgery Date(Month/Year) Hysterectomy R-Knee replacement 1997 L-Knee replacement 2005 Tonsillectomy Back surgery for spinal stenosis-Dr. Brito ay Breast imwmny-sucy-crdmtu Lumpectomy, right breast X2, for cancer as above
== END 2025-04-06 15:11 | disposition home or self-care (01) ==
LOC: HO.HMCH 14:31
PROVIDERS: PCP Internal Medicine; Visit Provider Internal Medicine
DX: I48.0 Paroxysmal atrial fibrillation (principal); E11.65 Type 2 diabetes mellitus with hyperglycemia; I26.99 Other pulmonary embolism without acute cor pulmonale; J43.9 Emphysema, unspecified; E66.9 Obesity, unspecified; Z68.34 Body mass index [BMI] 34.0-34.9, adult; I10 Essential (primary) hypertension; I77.810 Thoracic aortic ectasia; I73.9 Peripheral vascular disease, unspecified; Z95.818 Presence of other cardiac implants and grafts; E78.00 Pure hypercholesterolemia, unspecified; K21.9 Gastro-esophageal reflux disease without esophagitis

== ENCOUNTER → 2025-04-06 14:31 | Outpatient (BNVA) | payer MEDICARE, OTHER, SELFPAY | PROVIDERS: PCP Internal Medicine; Visit Provider Internal Medicine | DX: I10 Essential (primary) hypertension (principal); I48.0 Paroxysmal atrial fibrillation; I77.810 Thoracic aortic ectasia; I73.9 Peripheral vascular disease, unspecified; E78.00 Pure hypercholesterolemia, unspecified; I26.99 Other pulmonary embolism without acute cor pulmonale; E11.65 Type 2 diabetes mellitus with hyperglycemia; E66.9 Obesity, unspecified; K21.9 Gastro-esophageal reflux disease without esophagitis; J43.9 Emphysema, unspecified; S82.001D Unspecified fracture of right patella, subsequent encounter for closed fracture with routine healing; Z95.818 Presence of other cardiac implants and grafts | CPT/HCPCS: 83036; 99212 ==

== ENCOUNTER → 2025-04-21 23:59 | Outpatient (BNV) | payer MEDICARE, OTHER, SELFPAY | PROVIDERS: PCP Internal Medicine; Visit Provider Internal Medicine | DX: S82.091D Other fracture of right patella, subsequent encounter for closed fracture with routine healing (principal); I48.91 Unspecified atrial fibrillation; J44.9 Chronic obstructive pulmonary disease, unspecified | CPT/HCPCS: G0180 ==

== ENCOUNTER 2025-07-08 15:48 | Outpatient (AMB) | payer MEDICARE, OTHER, SELFPAY ==
--- OUTSIDE RECORDS SUMMARY | 2024-05-21 06:30 | XMS_ITS ---
Author Organization [facility] Address [address] [place] [address] Care Team Providers Care Staff Editor Name Role Phone Param Amaya Primary Care Provider Aguilar Murphy Unavailable [phone] Herson Belle [phone] Encounters Encounter Location Date Provider Diagnosis [facility] [address] [place] [address] 05/21/2024 Herson Belle Plan Of Treatment No Information Progress Notes * Natalie LOW BDOB: [birth year] (84 yo F)Acc No.[id number]:05/21/2024 Progress Notes Patient: Natalie MCINTYRE Provider: Lynnette Appiah DPM :1940 A ge:83 Y S ex:Female Date:05/21/2024 Address:[address] Pcp:Param Amaya Subjective: * Chief Complaints: * [...] 0 05/21/2024 Generated for Mariana holloway/Gm/Debbie on: 06:11 PM EDT
--- OUTSIDE RECORDS SUMMARY | 2024-05-26 09:00 | XMS_ITS ---
Author Organization [facility] Address [address] [place] [address] Care Team Providers Care Director Financial Planning Name Role Phone Param Amaya Primary Care Provider Unavailabl Aguilar Subramanian Unavailable [phone] REASON FOR VISIT no ppwrk Encounters Encounter Location Date Provider Diagnosis [facility] [address] [place] [address] 05/26/2024 Aguilar Waller Plan Of Treatment No Information Progress Notes * Natalie LOW BDOB: [birth year] (84 yo F)Acc No.[id number]:05/26/2024 Progress Notes Patient: Natalie MCINTYRE Provider: Memo Waller DPM :1940 A ge:83 Y S ex:Female Date:05/26/2024 Address: [address], [facility] Pcp:Param Amaya Subjective: * Chief Complaints: * [...] DPM Date: 0 05/26/2024 Generated for Mariana holloway/Gm/Yumikosmitting on: 06:11 PM EDT
[2025-07-08 15:54] VITALS: BP 112/78; PULSE 64; TEMP 36.1; O2SAT 90; BMI 36.0
--- NOTE | 2025-07-08 15:54 | A.OFFPC_ITS ---
Vital Signs 07/08/25 15:54 Height 5 ft 3 in Weight 203 lb BMI 36.0 BP 112/78 Blood Pressure Location Rt brachial Position Sitting Pulse 64 Pulse Source Pulse Oximeter Temp 97.0 F Temp Source Temporal Artery Scan Pulse Oximetry (%) 90 L Oxygen Delivery Method Nasal Cannula Oxygen Flow Rate 2 Intake Visit Reasons: follow up Accompanied by: Son Allergies aspirin (Aspirin) Allergy (Severe, Verified 07/08/25 16:00) BLEED acetaminophen (From Vicodin) Allergy (Intermediate, Verified 07/08/25 16:00) Agitated hydrocodone (From Vicodin) Allergy (Intermediate, Verified 07/08/25 16:00) Agitated lisinopril (Lisinopril) Allergy (Mild, Verified 07/08/25 16:00) COUGH adhesive (ADHESIVE) Allergy (Unknown, Verified 07/08/25 16:00) RED,ITCHY fluticasone (Advair Diskus) Allergy (Unknown, Verified 07/08/25 16:00) UNKNOWN NSAIDS (Non-Steroidal Anti-Inflamma (NSAIDS (NON-STEROIDAL ANTI-INFLAMMA) Allergy (Unknown, Verified 07/08/25 16:00) HX BLEED , GI salmeterol (Advair Diskus) Allergy (Unknown, Verified 07/08/25 16:00) Unknown diphenhydramine (From Benadryl) Adverse Reaction (Mild, Verified 07/08/25 16:00) AGITATION ibuprofen (From Motrin) Adverse Reaction (Mild, Verified 07/08/25 16:00) RINGINGIN EAR zolpidem (From Ambien) Adverse Reaction (Mild, Verified 07/08/25 16:00) AGITATION Tobacco use date assessed: 07/08/25 Fall risk assessment: 1 Fall in past year Last assessed Fall Risk: 07/08/25 Dental Screening Dental Screen Date: 07/08/25 Did you have a dental visit in the last 12 months?: No Did you have a dental problem in the last 6 months where you did not have access to dental care?: No Was dental information given to patient?: No [facility] Medical History Pulmonary embolism Presence of Watchman left atrial appendage closure device Pacemaker Bilateral carpal tunnel syndrome Osteoarthritis Fracture of lateral epicondyle of left humerus Foramen ovale Tubular adenoma of colon History of breast cancer GERD (gastroesophageal reflux disease) Obstructive sleep apnea Congestive heart failure Obesity (BMI 30-39.9) COPD (chronic obstructive pulmonary disease) Hypercholesterolemia Hypertension Atrial fibrillation Type 2 diabetes mellitus with hyperglycemia Surgical History Status post lumbar spine surgery for decompression of spinal cord S/P repair of paraesophageal hernia History of tonsillectomy History of abdominal hysterectomy History of cardiac cath History of bilateral knee replacement Family History Father CVD (cardiovascular disease) CAD (coronary artery disease) Hypertension Mother CVD (cardiovascular disease) Hypertension CAD (coronary artery disease) Spinal stenosis Sister CAD (coronary artery disease) Afib Social History Household Members: Family Housing: Apartment Are you a primary customer care manager to a significant other at home: No Do you presently have visiting nurse or other home services: No Alcohol intake: never Patient Tobacco Use Status: Never used Tobacco Tobacco use type: Cigarette e-Cigarette/Vaping Use: Never Used Second Hand Smoke Exposure: No service: No Current occupational status: retired Current occupation: right handed Cognitive needs: Yes (wheelchair, walker) Hearing needs: No Vision needs: Yes (Glasses) Questionnaire PHQ-9 Over the last 2 weeks, how often have you been bothered by any of the following problems? 1. Little interest or pleasure in doing things: more than half the days 2. Feeling down, depressed, or hopeless: more than half the days 3. Trouble falling or staying asleep, or sleeping too much: more than half the days 4. Feeling tired or having little energy: more than half the days 5. Poor appetite or overeating: nearly every day 6. Feeling bad about yourself - or that you are a failure or have let yourself or your family down: not at all 7. Trouble concentrating on things, such as reading the newspaper or watching television: several days 8. Moving or speaking so slowly that other people could have noticed. Or the opposite - being so fidgety or restless that you have been moving around a lot more than usual: several days 9. Thoughts that you would be better off or of hurting yourself in some way: not at all Total score: 13 Depression Screening Interpretation: Positive Depression Screening Done: Yes Source: Developed by Drs. Jorje Correia, Jeana Gaxiola, Pawel High and colleagues, with an educational katie from [employer]. Thrive Questionnaire Date Thrive assessed: 09/16/24 I am a: Patient What is your living situation today?: I have a steady place to live Within the past 12 months, did the food you bought not last and you didn't have the money to get more?: Never true Within the past 12 months, did you worry whether your food would run out before you got money to buy more?: Never true Do you have trouble paying for medicines?: No Do you have trouble getting transportation to medical appointments?: No Do you have trouble paying your heating and electricity bill?: No Do you have trouble taking care of your child, family member or friend?: No Do you have trouble with day-to-day activities such as bathing, preparing meals, shopping, managing finances, etc.?: No Are you currently unemployed and looking for a job?: No Are you interested in more education?: No Currently or been in a relationship where the following occur: No concerns reported THRIVE Score: 0 AUDIT C Alcohol Use Questionnaire (AUDIT-C) 1. How often do you have a drink containing alcohol?: Never 3. How often do you have six or more drinks on one occasion?: Never Total Score: 0 YVON-7 AMB Questionnaire YVON-7 Date YVON - 7 assessed: 09/16/24 Feeling nervous, anxious, or on edge: 0 = Not at all Not being able to stop or control worryin = Not at all Worrying too much about different things: 0 = Not at all Trouble relaxin = Not at all Being so restless that it is hard to sit still: 0 = Not at all Becoming easily annoyed or irritable: 0 = Not at all Feeling afraid as if something awful might happen: 0 = Not at all Total YVON-7 score (0-4 normal; 5-9 mild; 10-14 moderate; 15-21 severe): 0 Source: Developed by Jeana Good Kurt Kroenke and colleagues, with an educational katie from [employer]. Physical exam (Primary Care) Vital Signs: Last Vital Signs Temp 97.0 F 07/08/25 15:54 Pulse 64 07/08/25 15:54 BP 112/78 07/08/25 15:54 Pulse Ox 90 L 07/08/25 15:54 Oxygen Delivery Method Nasal Cannula 07/08/25 15:54 Oxygen Flow Rate 2 07/08/25 15:54 BMI result Body Mass Index 36.0 Tobacco/Smoking Status: Tobacco use Status Tobacco use date assessed 04/06/25 04/06/25 14:47 Patient Tobacco Use Status Never used Tobacco 04/06/25 14:33 Tobacco use type Cigarette 04/06/25 14:33 e-Cigarette/Vaping Use Never Used 04/06/25 14:33 Depression Screening Interpretation: Positive Thrive Assessment: Date of Thrive Assessment Date Thrive assessed 09/16/24 04/06/25 14:33 Currently or been in a relationship where the following occur: No concerns reported Const General: alert; No acute distress Eyes Conjunctivae: conjunctivae normal Resp Auscultation: clear to auscultation bilaterally Cardio Rate: regular rate Rhythm: regular rhythm GI Inspection: Yes normal to inspection Results AMB Hemoglobin A1c AMB Hemoglobin A1c 6.2 % Last Edit by Shelly Jackson CMA on 07/08/25 16:04 Coding Level of Care Code Est Pt Level 4 (41718) Complex EM visit Add On G2211 Diagnoses Type 2 diabetes mellitus with hyperglycemia, without long-term current use of insulin E11.65 Diabetes mellitus longwall foreman insulin use: without skilled nursing use Obesity (BMI 30-39.9) E66.9 Paroxysmal atrial fibrillation I48.0 Atrial fibrillation type: paroxysmal Essential hypertension I10 Hypertension type: essential hypertension Ascending aorta dilatation I77.810 Presence of Watchman left atrial appendage closure device Z95.818 Hypercholesterolemia E78.00 Gastroesophageal reflux disease without esophagitis K21.9 Esophagitis presence: without esophagitis T12 compression fracture S22.080A Pulmonary emphysema, unspecified emphysema type J43.9 COPD type: emphysema Emphysema type: unspecified Assessment & Plan Assessment & Plan (1) Type 2 diabetes mellitus with hyperglycemia: Comment: [place] Code(s): E11.65 - Type 2 diabetes mellitus with hyperglycemia Category: Medical Qualifiers: Diabetes mellitus skilled nursing insulin use: without longwall foreman use Q ualified Code(s): E11.65 - Type 2 diabetes mellitus with hyperglycemia Plan: Decrease the amount of carbohydrate intake, pasta, bread, rice and potatoes are all sugar and that is aside from all the sweet stuff, remember that fruits are good but they are Sweet also. Hemoglobin A1c goal of less than 7.0 patient is on metformin 500 mg once a day (2) Obesity (BMI 30-39.9): Code(s): E66.9 - Obesity, unspecified Category: Medical Plan: Diet and exercise (3) Atrial fibrillation: Comment: March 2019 echo normal LV, biatrial enlargement, mild MR severe TR, nuclear stress distal lateral and inferolateral ischemia 74% 04/2018, EF 60-65% dilatation ascending aorta to 4.4 cm with biatrial enlargement, moderate pulm onary hypertension April 2020 Watchmans device 08/2023 Code(s): I48.91 - Unspecified atrial fibrillation Category: Medical Qualifiers: Atrial fibrillation type: paroxysmal Qualified Code(s): I48.0 - Par oxysmal atrial fibrillation Plan: Continue with anticoagulation with apixaban 5 mg twice a day patient does need blood work and digoxin 125 mcg once a day (4) Hypertension: Code(s): I10 - Essential (primary) hypertension Category: Medical Qualifiers: Hypertension type: essential hypertension Qualified Code(s): I10 - Essential (primary) hypertension Plan: Continue with blood pressure medication. Decrease salt intake and exercise on diltiazem 180 mg once a day metoprolol 100 mg once a day (5) Ascending aorta dilatation: Comment: 04/2020, April 2021 4.4 cm February 2025 4.5 cm Code(s): I77.810 - Thoracic aortic ectasia Category: Medical Plan: February 2025 last echocardiogram and continue to monitor (6) Presence of Watchman left atrial appendage closure device: Comment: 08/2023 Code(s): Z95.818 - Presence of other cardiac implants and grafts Category: Medical Plan: Continue to follow up with Cardiology (7) Hypercholesterolemia: Comment: blood work done 10/2019 Code(s): E78.00 - Pure hypercholesterolemia, unspecified Category: Medical Plan: Avoid fried foods, chicken skin, eggs, butter margarine, pastries and meat. Be it pork or beef they have a lot of cholesterol LDL goal of less than 100 and triglyceride of less than 150 on atorvastatin 20 mg once a day will need blood work (8) GERD (gastroesophageal reflux disease): Code(s): K21.9 - Gastro-esophageal reflux disease without esophagitis Category: Medical Qualifiers: Esophagitis presence: without esophagitis Qualified Code(s): K21.9 - Gastro-esophageal reflux disease without esophagitis Plan: Avoid the foods that causes that usually spicy foods, tomato products, juices, coffee, soda and foods that your sensitive to. After eating do not lie down, allow 3-4 hours before in lie down. And keep the head of bed above 30 degrees to avoid the acid from going up. (9) T12 compression fracture: Comment: April 2021 Code(s): S22.080A - Wedge compression fracture of T11-T12 vertebra, initial encounter for closed fracture Category: Medical Plan: On gabapentin for pain and oxycodone p.r.n. (10) COPD (chronic obstructive pulmonary disease): Comment: Dr. Garber [facility] pulmonary [phone] Code(s): J44.9 - Chronic obstructive pulmonary disease, unspecified Category: Medical Qualifiers: COPD type: emphysema Emphysema type: unspecified Qualified Code(s): J43.9 - Emphysema, unspecified Plan: Continue with albuterol inhaler and Trelegy Plan History of Present Illness The patient is an 84-year-old morbidly obese female presenting for a follow-up visit for management of multiple chronic conditions and a refill of pain medication. Her medical history is significant for atrial fibrillation, diabetes mellitus, hypertension, hypercholesterolemia, COPD, congestive heart failure, and GERD. She a has history of a T12 compression fracture, a calcaneal fracture, peripheral vascular disease, depression, and a pulmonary embolism in April 2024. For her atrial fibrillation, she is status post a Watchman left atrial appendage closure device placement and is on anticoagulation. Her last echocardiogram in February 2025 noted ascending aortic dilatation, and she has regular follow-up with cardiology scheduled for August. Her diabetes is well-controlled, with a last hemoglobin A1c of 6.1% in March. Her last cholesterol check was in July 2024 with an LDL of 85. Blood work from February 2025 showed a normal blood count, electrolytes, renal function, and liver function tests. The patient reports receiving her flu and COVID shots this month and her shingles vaccines in November or December. She experienced significant arm pain radiating to her shoulder and neck after receiving the flu and COVID shots in the same arm. She complains of dizziness upon changing positions, such as when getting out of bed, and also reports excessive sleepiness. Health Maintenance Ordered complete bloodwork with a fasting lipid panel and a urinalysis to be done in 2-3 months. Advised patient to schedule an overdue eye exam. Reinforced the importance of lifestyle modifications, including increasing physical activity, ensuring adequate hydration, and avoiding sugary drinks. Plan to follow up in the office in 3 months. Social History - Functional Status: Patient is morbidly obese and reports a sedentary lifestyle with excessive sleepiness. - Exercise: Activity is limited to some walking within the house and occasionally to the post office. - Nutritional Intake: Patient reports generally eating well but had a recent dietary indulgence. - Substance Use: Drinks one cup of coffee daily and reports not drinking enough water. - Social Support: The patient was accompanied by her caregiver, Daniel. Review of Systems - General: Reports excessive sleepiness and feeling tired. - Neurological: Reports dizziness, especially when changing positions from sitting to standing or lying to sitting. - Musculoskeletal: Reports significant aching in her shoulder. - Unspecified: Reports having restless legs. Physical Exam - General: Morbidly obese female. - Respiratory: Regular breathing observed. Results - Labs: - February 2025: Normal blood count, electrolytes, and renal function. - February 2025: Normal liver function tests. - March 2025: Hemoglobin A1c was 6.1%. - July 2024: LDL was 85 mg/dL. - Imaging: - February 2025: Echocardiogram showed ascending aortic dilatation. Plan Patient was informed and verbally consented to the use of an ambient scribe for clinic note documentation during this visit. 1. Diabetes Mellitus The patient's diabetes is well-controlled with a recent hemoglobin A1c of 6.1%, which is below the goal of less than 7.0%. She will continue taking metformin 500 mg once a day. We discussed diet and exercise, and also new injectable diabetes medications for weight loss, which the patient declined at this time. Plan to recheck labs, including A1c, with ordered blood work. 2. Atrial Fibrillation The patient has chronic atrial fibrillation and is status post a Watchman device. She will continue anticoagulation with apixaban 5 mg twice a day and rate control with digoxin 125 mcg once a day. She will continue to follow up with her wildlife rehabilitator, with the next appointment scheduled for August. 3. Hypertension Continue current regimen of diltiazem 180 mg once a day and metoprolol 100 mg once a day. The patient complains of dizziness on positional changes, which was explained as a possible consequence of her medications and deconditioning, and she was advised to move slowly. 4. Hypercholesterolemia Her LDL goal is less than 100 mg/dL and triglyceride goal is less than 150 mg/d L. She will continue atorvastatin 20 mg once a day. We will recheck a fasting lipid panel in 2-3 months. 5. Chronic Obstructive Pulmonary Disease The patient will continue to use her albuterol inhaler and Trelegy as prescribed. 6. Chronic Pain For chronic shoulder pain, the patient will continue taking gabapentin. A prescription for oxycodone for PRN use was refilled and sent to her pharmacy. Discussion Notes I had a detailed discussion with the patient and her caregiver regarding her multiple chronic conditions. I explained that her dizziness upon standing is likely orthostatic hypotension, related to her medications and a sedentary lifestyle, and that increasing activity should help. We reviewed the purpose of her Watchman device, clarifying that it reduces stroke risk but does not eliminate her chronic atrial fibrillation. I counselled her extensively on the importance of increasing her physical activity, even with small, frequent movements, to improve circulation and overall health. I discussed newer injectable diabetes medications that could aid in weight loss, but she expressed a desire to continue her current regimen without adding new medications, which I respected. I placed an order for fasting blood work to be completed in 2-3 months, refilled her PRN pain medication, and recommended she schedule an overdue eye exam. Patient Instructions - Continue all your current medications as prescribed. - A refill for your pain medication, oxycodone, has been sent to your pharmacy. - Get fasting blood work and provide a urine sample in the next 2-3 months. - Schedule an eye exam, as you are overdue. - Try to increase your daily activity. Even short, frequent walks around the house are beneficial. - Drink plenty of water throughout the day, aiming for 6-8 glasses. - Avoid sugary drinks like soda. - To avoid dizziness, get up slowly when moving from a lying or sitting position. - Keep your cardiology appointment in August. - Follow up in this office in 3 months. Orders: Orders Complete Blood Count Auto Diff 3 Months E11.65 - Type 2 diabetes mellitus with hyperglycemia Comprehensive Met. Panel 3 Months E11.65 - Type 2 diabetes mellitus with hyperglycemia Free T4 (Free Thyroxine) 3 Months E11.65 - Type 2 diabetes mellitus with hyperglycemia Creatinine Urine 3 Months E11.65 - Type 2 diabetes mellitus with hyperglycemia Vitamin B12 and Folate 3 Months E11.65 - Type 2 diabetes mellitus with hyperglycemia Vitamin D 25-OH Total 3 Months E11. - Type 2 diabetes mellitus with hyperglycemia Magnesium 3 Months E11.65 - Type 2 diabetes mellitus with hyperglycemia AMB Hemoglobin A1c Today Z13.9 - Encounter for screening, unspecified Microalbumin, Random (w Creat) 3 Months E11. - Type 2 diabetes mellitus with hyperglycemia Hemoglobin A1c 3 Months E11. - Type 2 diabetes mellitus with hyperglycemia Thyroid Stimulating Hormone 3 Months E11.65 - Type 2 diabetes mellitus with hyperglycemia Lipid Panel 3 Months E11.65 - Type 2 diabetes mellitus with hyperglycemia, E78.00 - Pure hypercholesterolemia, unspecified Medications: Refilled oxycodone-acetaminophen 5-325 mg 1 tab PO Q8H PRN 84 tabs 0RF pain M19.90 - Unspecified osteoarthritis, unspecified site
--- OUTSIDE RECORDS SUMMARY | 2025-07-08 18:11 | XMS_ITS | Encounter Summary ---
Author Organization [facility] Address [address] [place] [address] [place] [id number] Phone Care Team Providers Care Solid Waste Manager Name Role Phone Param Amaya MD Primary Care Provider [phone] Alfreda Kilpatrick MD Primary Care Provider [phone] Param Amaya MD Primary Care Provider Encounter Details Date Type Department Care Team (Late st Contact Info) Description 05/15/2024 Procedure Pass [facility], Ct Scan - [facility] [address] [place] [address] Social History Tobacco Use Types Packs/Day Years [...] documented as of this encounter Care Teams Solid Waste Manager Relationship Specialty Start Date End Date Param Amaya MD [address] [place] [phone] PCP - General Internal Medicine 02/17/18 06/18/24 Alfreda Kilpatrick MD [address] [place] [phone] [email or web address] PCP - General Internal Medicine 06/19/24 06/22/24 Param Amaya MD [address] [place] [phone] PCP - General Internal Medicine 06/23/24 documented as of this encounter Additional Source Comments The information contained in this document represents components of the legal health record. It is not the complete legal health record.[facility]
--- OUTSIDE RECORDS SUMMARY | 2025-07-08 18:11 | XMS_ITS | Patient Health Record ---
Author Organization [facility] Address [address] [place] [address] Care Team Providers Care Iron Worker Foreman Name Role Phone Po Param PEREZ Primary Care Provider Jorje Griffith Unavailable [phone] Allergies Allergen (clinical drug ingredient) Drug/Non Drug Allergy documented on EMR Reaction Allergy Type Onset Date Status aspirin Aspirin Unknown Drug Allergy Active zolpidem Ambien Unknown Drug Allergy Active seasonals (uncoded) Unknown Allergy Active tape (uncoded) Unknown Allergy Activ e Vicodin Unknown Drug Allergy Active Motrin Unknown Drug Allergy Active lisinopril Lisinopril Unknown Drug Allergy Activ e diphenhydramine Benadryl Unknown Drug Allergy A ctive Reason For Referral No Information Medications Medication SIG (Take, Route, Frequency, Duration) Notes Start Date End Date Status Stool Softener 100 MG 1 capsule as neede d Orally Once a day; Duration: 30 day(s) Active Neurontin 100 MG 1 capsule Orally Thr ee times a day Active Omeprazole 20 MG 1 capsule Orally Onc e a day; Duration: 30 day(s) Active Percocet 5-325 MG 3 tablet as needed O rally prn Active Furosemide 20 MG 1 tablet Orally Once a day; Duration: 30 day(s) Active Simvastatin 20 MG 1 tablet in the even ing Orally Once a day Active Metoprolol Succinate 100 MG 1 capsule Or ally Once a day; Duration: 30 day(s) Active Digoxin 125 MCG 1 [...] Problem Status W/U Status Risk Notes Problem Gastroesophageal reflux disease (314546876) Gastroesophageal reflux disease, esophagitis presence not specified (K21.9) Active confirmed Problem Hiatal hernia (81956469) Hiatal hernia (K44.9) Active confirmed Problem Abnormal UGI series (R93.3) Active confirmed Plan Of Treatment Future Test Test Name Order Date COLONOSCOPY 05/20/2014 UPPER GI ENDOSCOPY 01/01/2019 Insurance Providers Payer Name Payer Address Payer Phone Subscriber Number Group Number Insured Name Patient Relationship to Insured Coverage Start Date Coverage End Date MEDICARE OF [place] [address] [place] [address] [id number] CHUCKIE CASTILLO Self - patient is the insured [employer] [address] [place] [address] [id number] CHUCKIE CASTILLO Self - patient is the insured Medical (General) History Medical History History ICD Code Arthritis GERD--large hiatal hernia on 08/2018 UGI with a component of an organoaxial rotation of the stomach above the diapragm. Spinal Stenosis Anemia, requiring transfusio ns in 1997--had an EGD and colonoscopy at [facility] in 1997--reportedly negative except for a hiatal hernia Hypertension Colonoscopy in 02/2008 and 2013--- tubula r adenomas removed, diverticulosis Hyperlipidemia Paroxysmal atrial fibrillation-sees Dr. Shahla Clayton [place],CVA,renal disease NIDDM COPD--on oxygen 2L Breast cancer on the right-lumpectomy an d XRT Congestive heart failure Restless leg syndrome Sleep apnea-uses CPAP Surgical History Surgery Date(Month/Year) Hysterectomy R-Knee replacement 1997 L-Knee replacement 2005 Tonsillectomy Back surgery for spinal stenosis-Dr. Brito ay Breast [id number] Lumpectomy, right breast X2, for cancer as above
--- OUTSIDE RECORDS SUMMARY | 2025-07-08 18:11 | XMS_ITS | Encounter Summary ---
Author Organization [facility] Address [address] [place] [address] [place] [address] Phone Care Team Providers Care Knot Tying Operator Name Role Phone Param Amaya MD Primary Care Provider [phone] Alfreda Kilpatrick MD Primary Care Provider [phone] Param Amaya MD Primary Care Provider [phone] Encounter Details Date Type Department Care Team (Late st Contact Info) Description 05/10/2024 Procedure Pass [facility] [address] [place] [address] Social History Tobacco Use Types Packs/Day Years [...] AM EDT documented as of this encounter Functional Status * Calculated C-SSRS Risk Score (Lifetime/Recent) Answer Date of Assessment Author No Risk Indicated 05/10/2024 3:55 PM EDT Reinier Cutler RN * [place] Suicide Severity Rating Scale (Screener/Recent Self-Report) Question Answer Date of Assessment Author 1. Wish to be (Past 1 Month) No 024 3:55 PM EDT Reinier Morgan, MONIQUE 2. Non-Specific Active Suici amelia Thoughts (Past 1 Month) No 05/10/2024 3:55 PM EDT Jossy Morgan RN 6. Suicidal Behavior (Lifetime) No 3:55 PM EDT Reinier Morgan RN documented as of this encounter Plan of [...] documented as of this encounter Care Teams Knot Tying Operator Relationship Specialty Start Date End Date Param Amaya MD [address] [place] [phone] PCP - General Internal Medicine 02/17/18 06/18/24 Alfreda Kilpatrick MD [address] [place] [address] [email or web address] PCP - General Internal Medicine 06/19/24 06/22/24 Param Amaya MD [address] [place] [phone] PCP - General Internal Medicine 06/23/24 documented as of this encounter Additional Source Comments The information contained in this document represents components of the legal health record. It is not the complete legal health record.[facility]
--- OUTSIDE RECORDS SUMMARY | 2025-07-08 18:11 | XMS_ITS | Data Portability ---
Author Organization [facility] Address [address] [place] [address] Assessment Encounter Date Assessment Date Assessment LastModified [...] with family assistance and uses a walker multimedia authoring specialist. Objective: EXAMINATION: Examination of the right lower extremity shows knee active extension. No lag, no deformity, palpable over the patella. No point tenderness. IMAGING: X-RAYS ORDERED OBTAINED AND REVIEWED BY ME TODAY AT [facility]: Right knee three views today. These [...] this 4. Recheck on an as-needed basis [email or web address] Not available 03/23/2025 13:16:18 Plan of Treatment Reminders Order Date Submit Date Provider Last Modified By Organization Details Last Modified Time Details Appointments None recorded. Lab None recorded. Referral None recorded. Procedures None recorded. Surgeries None recorded. Imaging XR, knee, 3 view - 314 rt knee 3v new pt 2024 025 [facility], [address], [address], [place], [address], 5 09:26:55 XR, ankle, 3 or more view - new pt 3 views left ankle stimulated rm 108 2023 024 [facility], [address], [address], [place], [address], 4 15:56:26 Medication Orders None recorded. Patient [...] a4ajBk vP9nXo QUaueC m3YtLR FvZlgJ JJ8mAn HZtai3 3p2643 AC0Kqa niNUqu hKiQtr MwF INTERFACE [facility] [address], [place], [address], 05/27/2024 13:35:59 05/27/20 24 05/27/2024 XR, ankle , 3 or more view [email or web address]:/ [email or web address] ?Encry pted=s hAaTro YD8dLq bEUv6g %2BXZw aYqtaq 0bqfl% 2Fg9IQ a4ajBk vP9nXo QUaueC m3YtLR FvZlgJ JJ8mAn HZtai3 0l9711 AC0Kqa niNUqu hKiQtr MwF INTERFACE [facility] [address], [place], [address], 05/27/2024 13:36:01 03/23/20 25 03/23/2025 XR, knee, 3 view [email or web address] ?Encry pted=s hAaTro YD8dLq bEUv6g %2BXZw aYqtaq 0bqfl% 2Fg9IQ a4ajBk vP9nXo QUaueC m3YtLR FvZlgJ JJ8mAn HZtai3 0o7895 AC0Kla XqHVKC gKiQtr MwF INTERFACE [facility] [address] [facility], [place], [address], 03/23/2025 11:30:05 03/23/20 25 03/23/2025 XR, knee, 3 view [email or web address] ?Encry pted=s hAaTro YD8dLq bEUv6g %2BXZw aYqtaq 0bqfl% 2Fg9IQ a4ajBk vP9nXo QUaueC m3YtLR FvZlg JJ8mAn HZtai3 7q2906 AC0Kla XqHVKC gKiQtr MwF INTERFACE [facility] [address] [facility] [address], [place], [address], 03/23/2025 11:30:06 Result Notes Documentation Provider Name and Address Organization Details Recorded Time Xr, Ankle, 3 Or More View : [email or web address]? Encrypted=toHnDasVR0cFnkX Uv6g%4ROPukRnmse4wnoy%2Fg 7LDg6lcWqeW6bLnPFagsBj6Jn TNFhVxaYUW5yQzPXurx56x749 6GI5MlibwIGhusDuYzxKxQ Not Available [facility] 05/27/2024 13:36: 00 Xr, Ankle, 3 Or More View : [email or web address] Encrypted=ywLaGspBN5gOmiY Uv6g%8QUPfqDhjjv9jjut%2Fg 2CQo6wtFpfN5yQgFDxbkEg6Ww XFGzDroVJQ4dQuTUdqh22n629 1GR8HzyqyBLsubCeNfzZaD Not Available [facility] 05/27/2024 13:36: 02 Xr, Knee, 3 View : [email or web address] Encrypted=njRbAqtVJ5pFgiE Uv6g%1PESrrFcgqw5yzbr%2Fg 4GEn9gjKmeE6bRyXQdqoTp1Sy PNRmYcfLNU3eHgCXfmq76y294 5WW7RvfBmEQPElIcLguYxJ Not Available [facility] 03/23/2025 11:30: 05 Xr, Knee, 3 View : [email or web address] Encrypted=hxDxHdsGY4qWjnS Uv6g%5XVSdnVwcfb6sdzz%2Fg 5SCp1ooBcwB3pHxJSviwSx2Vy DFTeUcmUMD1tMlYUrsx47w600 6MZ3DruJjCHZGmSjOzpFmP Not Available [facility] 03/23/2025 11:30: 07 Medical Equipment None Reported. Allergies Allergen ID Allergen Name Allergen Category Reaction Reaction Severity Criticality Documentation Date Start Date Code Code System Note Provider Name and Address Organization Details Recorded Time 834325 aspirin medicatio n Not available Not available Not available 03/23/2025 1191 RxNorm DAWNA knapp [facility] 11:27:45 435608 lisinopri l medicatio n Not available Not available Not available 03/23/2025 56516 RxNorm DAWNA knapp [facility] 11:27:52 713599 zolpidem medicatio n Not available Not available Not available 03/23/2025 62642 RxNorm DAWNA THIAGO [facility] 11:27:57 402588 Benadryl medicatio n Not available Not available Not available 03/23/202572530 7 RxNorm DAWNA DAS [facility] 5 11:28:01 075916 Motrin medicatio n Not available Not available Not available 03/23/202506044 8 RxNorm DAWNA DAS [facility] 11:28:06 374845 Non-stero idal anti-infl ammatory agent (substanc e) medicatio n Not available Not available Not available 03/23/2025 88945 5008 SNOMED DAWNA DAS [facility] 11:28:09 975952 adhesive tape environme nt,medica tion Not available Not available Not available 03/23/2025 DAWNA DAS [facility] 11:28:15 Medications Name Sig Start Date Stop [...] e) 50 mcg/actuati on nasal spray,suspe nsion [place] 1 spray every day by intranasa l [...] Updated DateTime 03/23/2025 160.02 cm 34.7 kg/m2 48892.1 g DAWNA DAS [facility] 03/23/2025 11:22:30 Date Recorded Body height Body mass index (BMI) Body weight Provider Name and Address Organization Details Last Updated DateTime 05/27/2024 160.02 cm 30.1 kg/m2 34666.7 g Ludy Mujica [facility] 05/27/2024 13:22:25 Social History None recorded. Functional Status None recorded. Mental Status None recorded. Family History Nothing Reported. Medical History No medical history recorded. Gynecological HistoryNo gynecological history recorded. Obstetrics History GPAL:G 0 P 0 0 0 0 Past Encounters Encounter ID Performer Location Encounter Start Date Encounter Closed Date Diagnosis/Indication Diagnosis SNOMED-CT Code Diagnosis ICD10 Code Diagnosis IMO Codes Diagnosis Note [id number] TANIKA Rogers [address] [place] [address] 05/27/2024 12:53:52 06/17/2024 15:56:26 Pain of left ankle joint 8182222142 4528661 M25.572 Acquired b ilateral pes planus 9459687561 0824361 M21.41 M21.42 [id number] MD SHAZIA Wren [address] [place] [address] 03/23/2025 10:52:56 04/05/2025 09:26:55 Closed fracture of patella 54690795 S82.001A 732092139 Health Concerns Section Related Observation LastModified by Organization Detai ls LastModified Time None Recorded Concern Status LastModified by Organization Details LastModified Time None Recorded Advance Directives Directive None Recorded Payers Insurance Date Sequence Insurance Name Policy Number Policy Figueroa Covered Member ID Figueroa Member ID Guarantor Name 07/09/2024 2 FOR LIFE ( - MEDICARE SUPPLEMENT) Natalie Low [id number] Natalie Tracygh 04/28/2025 2 FOR LIFE ( - MEDICARE SUPPLEMENT) Natalie Low [id number] Natalie Maranda 08/03/2024 [facility] [id number] Natalieactracho Tracygh 03/20/2025 1 MEDICARE B-[place]: [facility] Natalie B Maranda [id number] Natalie [place] Notes Date Note Type Note Provider Name and Address Organization Details Recorded Time 4 text/html I am seeing the patient today under the supervision of Dr. Lara who was available but did not see the patient.attending: Dr. Espino HPI: 83 yof presents to the clinic for evaluation for left ankle injury.Pt is unaccompanied currently and currently residing in a longterm. Patient states that she injured her ankle back on 04/23/2024 while at home. Her son was helping assisting her with getting up when her foot slipped out from underneath her and she got it stuck underneath the euro. She had pain immediately. She is seen to the emergency room with concern for fracture. She has been in a splint ever since. States it only hurts when she tries to use her foot. She denies any previous injuries or surgeries to her foot. Denies any numbness or tingling. Otherwise does have a pretty substantial medical history for some lower extremity weakness however is not on medications for anything at this time.Past family, medical, social history and review of systems has been reviewed, updated and signed by me and is located in the patient's chart.Examination: Patient is unaccompanied in no acute distress. She is alert and oriented x 3. Currently nonambulatory sitting in a wheelchair. Bilateral lower extremity with her seated appears to demonstrate evidence of symmetric pes planovalgus alignment with skin demonstrating a slight dusky red appearance with atrophy bilaterally as well as appreciable varicosities noted that appear to be relatively superficial. Patient is generally nontender to palpation upon the left lower extremity and left ankle at this time. Light digital range of motion is grossly intact. Appears that the deformity to her foot is rigid bilaterally. Digital range of motion is grossly intact. Neurovascular intact distally. Capillary fill is less than 3 seconds. Evidence of d very restricted eversion and inversion however there does appear to be dorsiflexion and plantarflexionX-rays ordered, obtained and reviewed at [facility]: 3 views of the left ankle and CT scan were ordered, obtained, reviewed independently at an outside institution but also by myself today. They were nonweightbearing in nature. They demonstrate evidence of significant pes planovalgus alignment with concern for chronic deformity of the posterior medial calcaneus with no evidence of joint space narrowing could also consider correlation of the subtalar joint.Impression: Exacerbation of chronic deformity of pes planovalgus alignmentBilaterally left worse than right secondary to fall in a 83-year-old femalePlan: I discussed my findings with the patient today. We discussed potential treatment options at this time. We discussed the pathophysiology of her condition. Currently at this time, I believe she has had an acute exacerbation of her underlying deformity. I believe at this time transitioning her into carbon fiber AFOs and ultimately obtaining her custom fiber AFOs due to the substantial deformity of her bilateral lower extremities we will provide her the most relief at this time. Especially with the substantial subluxation noted through her subtalar joint as well as development of callus formation noted through the left worse than right midfoot associated with this pes planovalgus alignment. Should be given prescriptions for this. Her longterm paper was filled out today. I believe if she is not having pain she may slowly start to initiate some weightbearing as tolerated with assistance. If having pain she is to call the office she may follow-up in a month or sooner if needed. Continue with current pain management management regimen. All questions answered.Speech recognition flag signaler software was used to create portions of this document. An attempt at proofreading has been made to minimize errors. Please call for corrections.The patient is ambulatory, but has weakness and/or instability of their extremity which requires stabilization from this semi-rigid/rigid orthosis to improve their function.Verbal and written instructions for the use and application of this item were given. Patient was instructed that should the brace result in increased pain, decreased sensation, increased swelling or an overall worsening of their medical condition, to please contact our office immediately. Yana Hayedn PA-C [address] [place] [address] [address], [place], [address], [facility] 05/28/2024 20:33:46 OBGyn Episode No OBEpisode recorded.
--- OUTSIDE RECORDS SUMMARY | 2025-07-08 18:12 | XMS_ITS | Encounter Summary ---
Author Organization [facility] Address [address] [facility] [address] [place] [address] Phone Care Team Providers Care Field Cashier Name Role Phone Param Amaya MD Primary Care Provider [phone] Alfreda Kilpatrick MD Primary Care Provider [phone] Param Amaya MD Primary Care Provider [phone] Encounter Details Date Type Department Care Team (Late st Contact Info) Description 02/17/2018 Procedure Pass [facility], Ct Scan - [address] [address] Social History Tobacco Use Types Packs/Day Years Used Date Smoking Tobacco: Never Smokeless Tobacco: Never Alcohol Use Standard Drinks/Week Comments No 0 (1 standard drink = 0.6 oz pur e alcohol) Comments Unknown Sex and Gender Information Value [...] documented as of this encounter Care Teams Field Cashier Relationship Specialty Start Date End Date Param Amaya MD [address] [place] [phone] PCP - General Internal Medicine 02/17/18 06/18/24 Alfreda Kilpatrick MD [address] [place] [address] [email or web address] PCP - General Internal Medicine 06/19/24 06/22/24 Param Amaya MD [address] [place] [phone] PCP - General Internal Medicine 06/23/24 documented as of this encounter Additional Source Comments The information contained in this document represents components of the legal health record. It is not the complete legal health record.[facility]
--- OUTSIDE RECORDS SUMMARY | 2025-07-08 18:12 | XMS_ITS | Patient Health Record ---
Author Organization [facility] Royce eli Jeffery Address [address] [place] [address] Care Team Providers Care Hospice Volunteer Name Role Phone Jose LuisParam Primary Care Provider Aguilar Murphy Unavailable [phone] Reason For Referral No Information Plan Of Treatment No Information Insurance Providers Payer Name Payer Address Payer Phone Subscriber Number Group Number Insured Name Patient Relationship to Insured Coverage Start Date Coverage End Date Medicare National [employer] [address] [place] [phone] Natalie Low Self - patient is the insured for Life [address] [place] [address] Natalie Low Self - patient is the insured
--- OUTSIDE RECORDS SUMMARY | 2025-07-08 18:12 | XMS_ITS | Encounter Summary ---
Author Organization [facility] Address [address] [facility] [address] [place] [address] Phone Care Team Providers Care Chemical Packager Name Role Phone Param Amaya MD Primary Care Provider [phone] Alfreda Kilpatrick MD Primary Care Provider [phone] Param Amaya MD Primary Care Provider [phone] Encounter Details Date Type Department Care Team (Late st Contact Info) Description 02/17/2018 Procedure Pass [facility], Ct Scan - [address] [address] Social History Tobacco Use Types Packs/Day Years [...] documented as of this encounter Care Teams Chemical Packager Relationship Specialty Start Date End Date Param Amaya MD [address] [place] [phone] PCP - General Internal Medicine 02/17/18 06/18/24 Alfreda Kilpatrick MD [address] [place] [address] [email or web address] PCP - General Internal Medicine 06/19/24 06/22/24 Param Amaya MD [address] [place] [phone] PCP - General Internal Medicine 06/23/24 documented as of this encounter Additional Source Comments The information contained in this document represents components of the legal health record. It is not the complete legal health record.[facility]
--- OUTSIDE RECORDS SUMMARY | 2025-07-08 18:12 | XMS_ITS | Encounter Summary ---
Author Organization [facility] Address [address] [facility] [address] [place] [address] Phone Care Team Providers Care Mechanical Assembly Technician Name Role Phone Alfreda Kilpatrick MD Primary Care Provider [phone] Param Amaya MD Primary Care Provider [phone] Encounter Details Date Type Department Care Team (Late st Contact Info) Description 06/19/2024 Procedure Pass [facility], Ct Scan - [facility] [address] [place] [address] Social History Tobacco Use Types Packs/Day Years [...] or tries to control you? Yes 06/20/2024 Comments Unknown Sex and Gender Information Value Date Recorded Sex Assigned at Female 02/17/2018 4:45 AM EDT Legal Sex Female 10:11 PM EDT Gender Identity Female 02/17/2018 4:45 AM EDT Sexual Orientation Choose not to disclose 2017 4:45 AM EDT documented as of this encounter Functional Status * Calculated C-SSRS Risk Score (Lifetime/Recent) Answer Date of Assessment Author No Risk Indicated 06/20/2024 11:00 AM EDT Mary Contreras RN * [place] Suicide Severity Rating Scale (Screener/Recent Self-Report) Question Answer Date of Assessment Author 1. Wish to be (Past 1 Month) No 024 11:00 AM EDT Mary Contreras RN 2. Non-Specific Active Suici amelia Thoughts (Past 1 Month) No 06/20/2024 11:00 AM EDT Og Contreras RN 6. Suicidal Behavior (Lifetime) No 11:00 AM EDT Mary Contreras RN documented as of this encounter Plan of Treatment Not on file documented as of this encounter Visit Diagnoses Not on filedocumented in this encounter Care Teams Mechanical Assembly Technician Relationship Specialty Start Date End Date Alfreda Kilpatrick MD [address] [place] [address] PCP - General Internal Medicine 06/19/24 06/22/24 Param Amaya MD [address] [place] [address] [place] [phone] PCP - General Internal Medicine 06/23/24 documented as of this encounter Additional Source Comments The information contained in this document represents components of the legal health record. It is not the complete legal health record.[facility]
--- OUTSIDE RECORDS SUMMARY | 2025-07-08 18:12 | XMS_ITS | Encounter Summary ---
Author Organization [facility] Address [address] [facility] [address] [place] [address] Phone Care Team Providers Care Hvac Lead Name Role Phone Alfreda Kilpatrick MD Primary Care Provider [phone] Param Amaya MD Primary Care Provider [phone] Encounter Details Date Type Department Care Team (Late st Contact Info) Description 06/19/2024 Procedure Pass [facility], Ct Scan - [facility] [address] [place] [address] Social History Tobacco Use Types Packs/Day Years [...] 11:00 AM EDT Mary Contreras RN * [place] Suicide Severity Rating Scale (Screener/Recent Self-Report) Question [...] on filedocumented in this encounter Care Teams Hvac Lead Relationship Specialty Start Date End Date Alfreda Kilpatrick MD [address] [place] [address] PCP - General Internal Medicine 06/19/24 06/22/24 Param Amaya MD [address] [place] [address] [place] [phone] PCP - General Internal Medicine 06/23/24 documented as of this encounter Additional Source Comments The information contained in this document represents components of the legal health record. It is not the complete legal health record.[facility]
--- OUTSIDE RECORDS SUMMARY | 2025-07-08 18:12 | XMS_ITS | Encounter Summary ---
Author Organization [facility] Address [address] [place] [address] [place] [address] Phone Care Team Providers Care Box Blank Machine Operator Helper Name Role Phone Param Amaya MD Primary Care Provider [phone] Alfreda Kilpatrick MD Primary Care Provider [phone] Param Amaya MD Primary Care Provider [phone] Encounter Details Date Type Department Care Team (Late st Contact Info) Description 06/06/2024 Procedure Pass [facility], Ct Scan - [facility] [address] [place] [address] Social History Tobacco Use Types Packs/Day Years [...] Date of Assessment Author No Risk Indicated 06/06/2024 11:36 PM EDT Rick Logan RN * [place] Suicide Severity Rating Scale (Screener/Recent Self-Report) Question Answer Date of Assessment Author 1. Wish to be (Past 1 Month) No 024 11:36 PM EDT Rick Logan RN 2. Non-Specific Active Suici amelia Thoughts (Past 1 Month) No 06/06/2024 11:36 PM EDT Luis Logan RN 6. Suicidal Behavior (Lifetime) No 11:36 PM EDT iRck Logan RN documented as of this encounter Plan of Treatment Not on file documented as of this encounter Visit Diagnoses Not on filedocumented in this encounter Additional Health Concerns Infection Onset Date Last Indicated Resolved Time CoV-Risk 06/06/2024 06/06/2024 06/17/2024 1:22 AM EDT documented as of this encounter Care Teams Box Blank Machine Operator Helper Relationship Specialty Start Date End Date Param Amaya MD [address] [place] [phone] PCP - General Internal Medicine 02/17/18 06/18/24 Alfreda Kilpatrick MD [address] [place] [phone] PCP - General Internal Medicine 06/19/24 06/22/24 Param Amaya MD [address] [place] [phone] PCP - General Internal Medicine 06/23/24 documented as of this encounter Additional Source Comments The information contained in this document represents components of the legal health record. It is not the complete legal health record.[facility]
--- OUTSIDE RECORDS SUMMARY | 2025-07-08 18:12 | XMS_ITS | Encounter Summary ---
Author Organization [facility] Address [address] [facility] [address] [place] [phone] Phone Care Team Providers Care Radioisotope Technologist Name Role Phone Alfreda Kilpatrick MD Primary Care Provider Param Amaya MD Primary Care Provider [phone] Encounter Details Date Type Department Care Team (Late st Contact Info) Description 06/20/2024 Procedure Pass [facility] [employer] [address] [facility], [address]th [place] [address] Social History Tobacco Use Types Packs/Day Years [...] 11:00 AM EDT Mary Contreras RN * [place] Suicide Severity Rating Scale (Screener/Recent Self-Report) Question [...] on filedocumented in this encounter Care Teams Radioisotope Technologist Relationship Specialty Start Date End Date Alfreda Kilpatrick MD [address] [place] [phone] PCP - General Internal Medicine 06/19/24 06/22/24 Param Amaya MD [address] [place] [phone] PCP - General Internal Medicine 06/23/24 documented as of this encounter Additional Source Comments The information contained in this document represents components of the legal health record. It is not the complete legal health record.[facility]
--- OUTSIDE RECORDS SUMMARY | 2025-07-08 18:12 | XMS_ITS | Encounter Summary ---
Author Organization [facility] Address [address] [facility] [address] [place] [address] Phone Care Team Providers Care Dishing Machine Operator Name Role Phone Param Amaya MD Primary Care Provider [phone] Alfreda Kilpatrick MD Primary Care Provider [phone] Param Amaya MD Primary Care Provider [phone] Encounter Details Date Type Department Care Team (Late st Contact Info) Description 02/17/2018 Procedure Pass [facility], Ct Scan - [address] [address] Social History Tobacco Use Types Packs/Day Years [...] documented as of this encounter Care Teams Dishing Machine Operator Relationship Specialty Start Date End Date Param Amaya MD [address] [place] [phone] PCP - General Internal Medicine 02/17/18 06/18/24 Alfreda Kilpatrick MD [address] [place] [phone] [email or web address] PCP - General Internal Medicine 06/19/24 06/22/24 Param Amaya MD [address] [place] [phone] PCP - General Internal Medicine 06/23/24 documented as of this encounter Additional Source Comments The information contained in this document represents components of the legal health record. It is not the complete legal health record.[facility]
--- OUTSIDE RECORDS SUMMARY | 2025-07-08 18:12 | XMS_ITS | Clinical Summary ---
Author Organization [facility] Address [address] [facility] [address] [place] [phone] Phone Care Team Providers Care Registered Nurse Step Down Name Role Phone Param Amaya MD Primary Care Provider [phone] Allergies Active Allergy Reactions Criticality Noted Date Comments Adhesive Rash Low 04/29/2024 Diphenhydramine Hcl Feeling Irritable Low Ibuprofen Tinnitus 12/25/2023 Lisinopril Cough 02/17/2018 Zolpidem Feeling Irritable Low 02/17/2018 Medications rOPINIRole (REQUIP) 2 MG tablet Take 2 [...] needed (For constipation if senna ineffective). Active monobasic and dibasic sodium phosphates (49674 ENEMA) 19-7 gram/[address] 1 enema rectally daily as needed (for constipation if senna and bisacodyl ineffective). Active atorvastatin (LIPITOR) 20 MG tablet Take 20 mg by mouth nightly at bedtime. Active OXYGEN-AIR DELIVERY SYSTEMS MISC 2 L/min by Nasal route continuous. 3 Active multivitamin per tablet Take 1 tablet by mouth daily. Active apixaban (ELIQUIS) 5 mg tablet Take 1 tablet (5 mg total) by mouth 2 (two) times a day. 4 Active docusate sodium (COLACE) 100 MG capsule Take 100 mg by mouth 2 (two) times a day. Active potassium chloride SA (KLOR-CON M20) 20 MEQ ER tablet Take 20 mEq by mouth daily. Active senna (SENOKOT) 8.6 mg tablet Take 1 tablet by mouth daily as needed for constipation. Active omeprazole (PRILOSEC) 20 MG capsule Take 20 mg by mouth daily. Active dilTIAZem (CARDIZEM CD) 180 MG 24 hr capsule Take 1 capsule (180 mg total) by mouth daily. 5 Active metoprolol succinate (TOPROL-XL) 50 MG 24 hr tablet Take 1 tablet (50 mg total) by mouth daily. 5 Active fluticasone propionate (FLONASE) 50 mcg/actuation nasal spray 2 sprays by Nasal route daily. 5 Active cefpodoxime (VANTIN) 200 MG tablet Take 1 tablet (200 mg total) by mouth 2 (two) times a day. 6 tablet 5 Active polyethylene glycol (MIRALAX) 17 gram packet Take 17 g by mouth daily. HOLD for loose stool 5 Active rOPINIRole (REQUIP) 0.25 MG tablet Take 1 tablet (0.25 mg total) by mouth daily. 5 Active Active Problems Problem Noted Date Diagnosed Date Seizure 06/20/2024 CHF exacerbation 06/06/2024 Single subsegmental pulmonar y embolism without acute cor pulmonale 05/16/2024 Assessment & Plan (05/16/2024 11:17 AM EDT): Continue anticoagulation with Lovenox 80mg BID. Acute on chronic diastolic heart failure 09/01/2 024 Assessment & Plan (05/18/2024 1:50 PM EDT): Had TTE here 05/11- showing EF of 50% moderate tricuspidregurgitation Initial CXR showed edema. Has been receiving IV Lasix. Follow-up x-ray showed just slight improvement in edema As result increased Lasix , 05/16, to 60 twice daily at that time had also become significantly hypoxic Patient improving back to her baseline oxygen this morning. Chronic atrial fibrillation 05/10/2024 Overview (05/10/2024): Not [...] ICU if needed GERD (gastroesophageal reflux disease) Hyperlipidemia 05/10/2024 Restless leg syndrome 05/10/2024 Closed fracture of left calcaneus 05/10/2024 Assessment & Plan (05/15/2024 12:28 PM EDT): Fracture occurred 04/23 and she was admitted to [facility]. She is nonweightbearing until seen by ortho in f/u, but typically this can last up to 3 mos per our ortho team. Daughter to reschedule Orthopedics appointment with ROXY Pena, after discharge COVID-19 05/10/2024 Assessment & Plan (05/17/2024 1:34 PM EDT): Had COVID in March and took Paxlovid and recovered. During her recent admission to [facility] she tested negative on 04/24. Presented with [...] Problem Noted Date Diagnosed Date Resolved Date Pneumonia of both lower lobe s due to Streptococcus pneumoniae 03/05/2025 03/06/2025 COPD exacerbation 03/02/2025 03/06/2025 Acute on chronic respiratory failure with hypoxia and hypercapnia 05/10/2024 03/06/2025 Assessment & Plan (05/16/2024 11:25 AM EDT): Recommend increasing pulmonary toilet with addition of mucomyst and CPT. If there is no improvement with these then transfer to ICU for HFNC. Assessment & Plan (05/18/2024 1:54 PM EDT): Chronic CO2 retention on blood gas from [facility] a few weeks ago. Goal sats 88- [...] Oxygen increased to 15 L overnight 05/15-. Manufacturing Controller consulted-.. increased pulmonary toilet. Patient improving, today weaned to 3 L midmorning If able to maintain oxygen sat 88-92 on 3 L could consider discharging her back to SNF tomorrow off Decadron on oral Augmentin to complete 5 days course and back to oral Lasix. I discussed this with the patient today and case management called daughter Syncope and collapse 02/17/2018 018 Assessment & Plan (02/18/2018 2:17 PM EDT): EEG done but not read. Troponins, carotids, and echo are all noncontributory to her syncope. Most likely vagal, less likely she fell asleep . Plan PT and OT to assure she can walk in the halls. Cast shoe to provide firmer support for the forefoot because of the probable fracture. Immunizations Immunization Administration Dates Next Due Influenza High-Dose Trivalent [...] on file 01/04/2023 No 01/04/2023 No 01/04/2023 Food Answer Date Recorded Within the past 6 months we worried whether our food would run out before we got money to buy more. Never True 03/02/2025 Within the past 6 months the food we bought just didn't last and we didn't have enough money to get more. Never True Residential Stability Answer Date Recor ded What is your housing situation today? I have janine sing 03/02/2025 How many times have you move d in the past 12 months? Zero (I did not move) 03/02/2025 Paying for Meds Answer Date Recorded Do you have trouble paying for medicines? No 03/02/2025 Paying Utility Bills Answer Date Record ed Do you have trouble paying your heating or elect ricity bill? No 03/02/2025 Transportation Answer Date Recorded Has the lack of transportati on kept you from medical appointments or from getting medications? No 03/02/2025 Digital Access Answer Date Recorded No 03/02/2025 Yes 03/02/2025 Do you have reliable internet access at home? Ye s 03/02/2025 Do you have a device (e.g., phone, tablet, computer) with a working camera? Yes 03/02/2025 Intimate Partner Violence Answer Date R ecorded Are you denied basic needs s uch as food, clothing, or medical care? No 03/02/2025 In the past 12 months have y ou been in a relationship with a person who hurts, threatens, or tries to control you? No 03/02/2025 Are you denied basic needs s uch as food, clothing, or medical care? No 03/02/2025 In the past 12 months have y ou been in a relationship with a person who hurts, threatens, or tries to control you? No 03/02/2025 Comments Unknown Sex and Gender Information Value Date Recorded Sex Assigned at Female 02/17/2018 4:45 AM EDT Legal Sex Female 10:11 PM EDT Gender Identity Female 02/17/2018 4:45 AM EDT Sexual Orientation Choose not to disclose 2017 4:45 AM EDT Last Filed Vital Signs Vital Sign Reading Time Taken Comments Blood Pressure 120/84 03/06/2025 11:30 AM EDT Pulse 79 03/06/2025 11:22 AM EDT Temperature 36.6 C (97.9 F) 03/06/2025 11:22 AM EDT Respiratory Rate 18 03/06/2025 7:36 AM EDT Oxygen Saturation 92% 03/06/2025 11:22 AM EDT Inhaled Oxygen Concentration 40% 03/04/2025 4 :45 AM EDT Weight 84.5 kg (186 lb 3.2 oz) 03/05/2025 5:27 A M EDT Height 160 cm (5' 2.99 ) 03/03/2025 6:00 AM EDT Body Mass Index 32.99 03/03/2025 6:00 AM EDT Plan of Treatment Health Maintenance Due Date Last Done Comments BLOOD PRESSURE 1942 DEPRESSION SCREENING 1954 ZOSTER VACCINES (1 of 2) 1992 OSTEOPOROSIS SCREENING INITIAL (ONE-TIME) 2007 RSV VACCINE (1 - 1-dose 75+ series) 2017 DIABETIC EYE EXAM 02/17/2018 URINE MICROALBUMIN/CREATININE RATIO 02/17/2018 PNEUMOCOCCAL VACCINES (50+ years) (3 of 3 - PCV20 or PCV21) 08/29/2020 08/29/2015, 07/23/2007 HEMOGLOBIN A1C 11/08/2024 05/11/2024, 02/18/2018 INFLUENZA VACCINE (#1) 2025 , 06/21/2023, 07/04/2022, Additional history exists COVID-19 VACCINE ( season) 2025 09/04/2022, 04/20/2022, 07/27/2021, Additional history exists CREATININE LEVEL 03/22/2026 03/22/2025, 03/2025, 03/08/2025, Additional history exists POTASSIUM LEVEL 03/22/2026 03/22/2025, 07/0 03/2025, 03/08/2025, Additional history exists Adult Td,Tdap Booster 12/31/2032 12/31/2022 HEPATITIS A VACCINES Aged Out No long er eligible based on patient's age to complete this topic HIB VACCINES Aged Out No longer eligi ble based on patient's age to complete this topic MENINGOCOCCAL VACCINES (ACWY) Aged Out No longer eligible based on patient's age to complete this topic MENINGOCOCCAL VACCINES (B) Aged Out N o longer eligible based on patient's age to complete this topic Medical Devices Implanted Type Area Warp Scouring Vat Tender Device Identifier Shelf Expiration Date Model / Serial / Lot Watchman Device Implantable Monitor Description:Safe to 3T per m anufacturer Procedures Procedure Name Priority Date/Time Associated Diagnosis Comments BASIC METABOLIC PANEL Routine 03/22/2025 5:45 AM EDT 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 Atrial fibrillation, unspecified type Vanishing lung HEMOGLOBIN A1C Routine 05/11/2024 5:48 AM EDT from Last 3 Months or Most Recently Relevant to Health Maintenance Results * Basic metabolic panel (03/22/2025 5:45 AM EDT) SODIUM 144 133 - 146 mmol/L [facility] CHLORIDE 103 96 - 108 mmol/L [facility] POTASSIUM 4.5 3.3 - 5.1 mmol/L [facility] CO2 34 21 - 35 mmol/L [facility] BUN 19 6 - 19 mg/dL [facility] CREATININE 0.50 0.5 - 1.5 mg/dL [facility] GLUCOSE 80 70 - 99 mg/dL [facility] CALCIUM 9.2 8.4 - 10.3 mg/dL [facility] EGFR 94 >59 mL/min/1.7 3m2 [facility] Comment:Estimated glomerular filtration rate calculated using the CKD-EPI refit equation. ANION GAP 12 10 - 20 mmol/L [facility] Blood 03/22/2025 5:45 AM EDT 03/22/2025 7:32 AM EDT us Alfreda Kilpatrick MD LAB BLOOD ORDERABLES Final Res ult [facility] [address] [place], [place] [id number] * (ABNORMAL) Hemoglobin A1c (05/11/2024 5:48 AM EDT) HEMOGLOBIN A1C 6.0(H) 4.3 - 5.8 % [facility] Blood 05/11/2024 5:48 AM EDT 05/11/2024 5:52 AM EDT Woody [place] DO LAB BLOOD ORDERABLES Final Re sult [facility] [address] [place] [address] from Last 3 Months or Most Recently Relevant to Health Maintenance Insurance MEDICARE PART A & B [facility] Payoff [facility] MEDICARE SUPPLEMENT [facility] Address: [facility] [address] [place] [address] MEDICARE PART A & B FOR LIFE MEDICARE SUPPLEMENT MEDICARE PART A & B FOR LIFE MEDICARE SUPPLEMENT MEDICARE PART A & B [facility] FOR LIFE MEDICARE SUPPLEMENT [facility] Address: [address] [address] MEDICARE PART A & B [facility] FOR LIFE MEDICARE SUPPLEMENT [facility] Address: [address] [address] MEDICARE PART A & B [employer] MEDICARE SUPPLEMENT [facility] Address: [address] [address] MEDICARE PART A & B [employer] MEDICARE SUPPLEMENT [facility] Address: [address] [address] MEDICARE PART A & B [employer] MEDICARE SUPPLEMENT [facility] Address: [address] [address] MEDICARE PART A & B [employer] MEDICARE SUPPLEMENT Advance Directives For more information, please contact: [phone] (9AM - 5PM [facility], Saturday-Saturday) Documents on File Type Date Recorded Patient Marble Mason Expl anation Healthcare Proxy 03/08/2025 4:28 PM MOLST 06/24/2024 8:27 AM POLST 06/09/2024 11:55 AM * DNR OK to Intubate (Latest Code Status on File) Date Activated Date Inactivated Comments 03/02/2025 2:09 PM Question Answer Comments Code Status Confirmed With: FamilyPatient * DNR OK to Intubate Date Activated Date Inactivated Comments 06/20/2024 5:24 AM 03/02/2025 2:09 PM Question Answer Comments Code Status Confirmed [...] Code Discussion Comments: MOLST previously compl eted Care Teams Registered Nurse Step Down Relationship Specialty Start Date End Date Param Amaya MD [address] [place] [phone] PCP - General Internal Medicine 06/23/24 Additional Source Comments The information contained in this document represents components of the legal health record. It is not the complete legal health record.[facility]
--- OUTSIDE RECORDS SUMMARY | 2025-07-08 18:12 | XMS_ITS | Encounter Summary ---
Author Organization [facility] Address [address] [facility] [address] [place] [phone] Phone Care Team Providers Care Trommel Tender Name Role Phone Param Amaya MD Primary Care Provider [phone] Encounter Details Date Type Department Care Team (Late st Contact Info) Description 03/04/2025 Procedure Pass [facility] [address] [place] [address] Social History Tobacco Use Types Packs/Day Years [...] on filedocumented in this encounter Care Teams Trommel Tender Relationship Specialty Start Date End Date Param Amaya MD [address] [place] [address] [place] [phone] PCP - General Internal Medicine 06/23/24 documented as of this encounter Additional Source Comments The information contained in this document represents components of the legal health record. It is not the complete legal health record.[facility]
== END 2025-07-08 16:38 | disposition home or self-care (01) ==
LOC: HO.HMCH 15:49
PROVIDERS: PCP Internal Medicine; Visit Provider Internal Medicine
DX: E11.65 Type 2 diabetes mellitus with hyperglycemia (principal); I48.0 Paroxysmal atrial fibrillation; S22.080A Wedge compression fracture of T11-T12 vertebra, initial encounter for closed fracture; J43.9 Emphysema, unspecified; E66.9 Obesity, unspecified; I10 Essential (primary) hypertension; I77.810 Thoracic aortic ectasia; Z68.36 Body mass index [BMI] 36.0-36.9, adult; Z95.818 Presence of other cardiac implants and grafts; E78.00 Pure hypercholesterolemia, unspecified; K21.9 Gastro-esophageal reflux disease without esophagitis

== ENCOUNTER → 2025-07-08 15:48 | Outpatient (BNVA) | payer MEDICARE, OTHER, SELFPAY | PROVIDERS: PCP Internal Medicine; Visit Provider Internal Medicine | DX: E11.65 Type 2 diabetes mellitus with hyperglycemia (principal); I48.0 Paroxysmal atrial fibrillation; I10 Essential (primary) hypertension; I77.810 Thoracic aortic ectasia; E78.00 Pure hypercholesterolemia, unspecified; K21.9 Gastro-esophageal reflux disease without esophagitis; J43.9 Emphysema, unspecified; S22.080D Wedge compression fracture of T11-T12 vertebra, subsequent encounter for fracture with routine healing; E66.9 Obesity, unspecified; Z68.36 Body mass index [BMI] 36.0-36.9, adult; Z71.3 Dietary counseling and surveillance | CPT/HCPCS: 83036; 99212 ==

== ENCOUNTER 2025-08-17 12:26 | Outpatient (AMB) | payer MEDICARE, OTHER, SELFPAY ==
--- NOTE | 2025-08-17 12:33 | MHC.OFFVIS ---
Vital Signs 08/17/25 12:34 Height 5 ft 3 in Weight 205 lb 0.478 oz BMI 36.3 BP 124/82 Blood Pressure Location Lt brachial Position Sitting Pulse 67 Intake Visit Reasons: 6 mth w/ medtronic ck Intake Note: 6 month follow-up with ekg and Medtronic check hearts ok very sob (has O2) Engineered Wood Designer Required: No Allergies aspirin (Aspirin) Allergy (Severe, Verified 07/08/25 16:00) BLEED acetaminophen (From Vicodin) Allergy (Intermediate, Verified 07/08/25 16:00) Agitated hydrocodone (From Vicodin) Allergy (Intermediate, Verified 07/08/25 16:00) Agitated lisinopril (Lisinopril) Allergy (Mild, Verified 07/08/25 16:00) COUGH adhesive (ADHESIVE) Allergy (Unknown, Verified 07/08/25 16:00) RED,ITCHY fluticasone (Advair Diskus) Allergy (Unknown, Verified 07/08/25 16:00) UNKNOWN NSAIDS (Non-Steroidal Anti-Inflamma (NSAIDS (NON-STEROIDAL ANTI-INFLAMMA) Allergy (Unknown, Verified 07/08/25 16:00) HX BLEED , GI salmeterol (Advair Diskus) Allergy (Unknown, Verified 07/08/25 16:00) Unknown diphenhydramine (From Benadryl) Adverse Reaction (Mild, Verified 07/08/25 16:00) AGITATION ibuprofen (From Motrin) Adverse Reaction (Mild, Verified 07/08/25 16:00) RINGINGIN EAR zolpidem (From Ambien) Adverse Reaction (Mild, Verified 07/08/25 16:00) AGITATION Medication List - Last Reconciled 08/17/25 by Rajan Gale MD albuterol sulfate 90 mcg/actuation (Ventolin HFA) 2 puffs inhalation Q6H PRN ammonium lactate 5% (Lac-Hydrin Five) 1 appl topical BID apixaban 5 mg PO BID atorvastatin 20 mg PO BEDTIME 90 days blood sugar diagnostic (FreeStyle Lite Strips) Check blood sugars once a day daily; 90 days clotrimazole 1% 1 appl topical BID 4 weeks digoxin 125 mcg PO DAILY 90 days diltiazem HCl ER 180 mg PO DAILY lsilbpdlmvu-yrnzeapzt-tedkpwmw 100-62.5-25 mcg (Trelegy Ellipta) 1 ea inhalation DAILY furosemide (Lasix) 20 mg PO DAILY gabapentin 400 mg PO BID 90 days lancets As directed loperamide (Imodium A-D) 2 mg PO Q6H PRN metformin 500 mg PO DAILY metoprolol succinate ER 100 mg (2 x 50 mg) PO DAILY 90 days multivitamin 1 tab PO DAILY omeprazole 20 mg PO DAILY [orthotics orthotic bilat feet ] oxycodone-acetaminophen 5-325 mg 1 tab PO Q8H PRN potassium chloride ER 20 mEq PO DAILY ropinirole 2 mg PO BEDTIME 90 days ropinirole 0.25 mg PO BID 90 days HPI Comments Details: Natalie comes for follow-up. He has no significant cardiac symptoms at this point time. Denies any orthopnea, PND, worsening leg edema. No worsening exertional shortness of breath. No prolonged palpitation irregular heartbeat. No lightheadedness, syncope. Takes all her medications. No bleeding issues or neurologic events. She does have issue with pains in his joints as well as in the left heel bone. [facility] Medical History Pulmonary embolism Presence of Watchman left atrial appendage closure device Pacemaker Bilateral carpal tunnel syndrome Osteoarthritis Fracture of lateral epicondyle of left humerus Foramen ovale Tubular adenoma of colon History of breast cancer GERD (gastroesophageal reflux disease) Obstructive sleep apnea Congestive heart failure Obesity (BMI 30-39.9) COPD (chronic obstructive pulmonary disease) Hypercholesterolemia Hypertension Atrial fibrillation Type 2 diabetes mellitus with hyperglycemia Surgical History Status post lumbar spine surgery for decompression of spinal cord S/P repair of paraesophageal hernia History of tonsillectomy History of abdominal hysterectomy History of cardiac cath History of bilateral knee replacement Family History Father CVD (cardiovascular disease) CAD (coronary artery disease) Hypertension Mother CVD (cardiovascular disease) Hypertension CAD (coronary artery disease) Spinal stenosis Sister CAD (coronary artery disease) Afib Social History Household Members: Family Housing: Apartment Are you a primary long term care administrator to a significant other at home: No Do you presently have visiting nurse or other home services: No Alcohol intake: never Patient Tobacco Use Status: Never used Tobacco Tobacco use type: Cigarette e-Cigarette/Vaping Use: Never Used Second Hand Smoke Exposure: No service: No Current occupational status: retired Current occupation: right handed Cognitive needs: Yes (wheelchair, walker) Hearing needs: No Vision needs: Yes (Glasses) Review of Systems Const Denies chills, Denies fatigue, Denies fever(s), Denies frequent falls, Denies weakness, Denies weight gain and Denies weight loss ENT Denies dizziness Card Denies chest pain, Denies leg edema, Denies lightheadedness, Denies palpitations, Denies dyspnea, Denies dyspnea on exertion, Denies orthopnea and Denies other (loss of consciousness) Resp Denies cough, Denies dyspnea and Denies dyspnea on exertion GI Denies hematochezia and Denies change in stool character Musc Denies abnormal gait, Denies muscle weakness, Denies numbness, Denies radiating pain into limb and Denies tingling Neuro Denies abnormal gait, Denies dizziness, Denies frequent falls, Denies numbness, Denies tingling and Denies weakness Endo Denies fatigue and Denies palpitations Physical Exam Vital Signs: Last Vital Signs Pulse 67 08/17/25 12:34 BP 124/82 08/17/25 12:34 BMI result Body Mass Index 36.3 Const General: cooperative, comfortable, no acute distress, alert, awake and tired appearing Nutritional Appearance: obese Orientation/consciousness: patient oriented x3 Limitations: ambulation with walker Neck Neck: Yes trachea midline, Yes supple and Yes no JVD Resp Auscultation: crackles (coarse) on the right at the base and diminished lung sounds Cardio Jugular venous distension: no JVD Rhythm: abnormal rhythm irregularly irregular Heart sounds: S1 normal heart sound present, S2 normal heart sound present, no click, no gallops, no murmurs and no rubs GI Auscultation: normal bowel sounds Skin General skin exam: no rashes or lesions noted and ecchymosis Neuro General: patient oriented x3 and no focal motor deficits Extrem General: Yes no clubbing, cyanosis or edema Office Procedures Cardiac Device Check Cardiac Device Check Details: Leadless Medtronic pacemaker in place. Ventricular pacing 57% of the time. Ventricular sensing is excellent. Ventricular pacing thresholds adequate. Battery life is excellent 51606-WT Cardiac Device Check, leadless/single lead pacemaker Procedure code (CPT) selection complete EKG Details: EKG shows atrial fibrillation with intermittent ventricular pacing 48466-Ukfjkqqotmhqsycob, Complete Assessment & Plan Assessment & Plan (1) Atrial fibrillation: Comment: March 2019 echo normal LV, biatrial enlargement, mild MR severe TR, nuclear stress distal lateral and inferolateral ischemia 74% 04/2018, EF 60-65% dilatation ascending aorta to 4.4 cm with biatrial enlargement, moderate pulmonary hypertension April 2020 Watchmans device 08/2023 Code(s): I48.91 - Unspecified atrial fibrillation Category: Medical Qualifiers: Atrial fibrillation type: paroxysmal Qualified Code(s): I48.0 - Paroxysmal atrial fibrillation Plan: Atrial fibrillation, has failed rhythm control approach currently on rate control approach in his rate is adequately controlled. Continue Cardizem and metoprolol therapy. Status post Watchman device. Does not require oral anticoagulation therapy from cardiac perspective. 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 Being followed by you. (2) Congestive heart failure: Code(s): I50.9 - Heart failure, unspecified Category: Medical Qualifiers: Heart failure type: systolic Heart failure chronicity: chronic Qualified Code(s): I50.22 - Chronic systolic (congestive) heart failure Plan: Heart failure preserved ejection fraction secondary to chronic atrial fibrillation. Clinically euvolemic well compensated. Continue current low-dose diuretic therapy. Importance of daily weight monitoring avoidance salt loading was discussed. She understands agrees. Additional diuretics as need be. Leg edema related to venous hypertension. Continue compression venous stocking. 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 Medtronic leadless pacemaker placed Code(s): Z95.0 - Presence of cardiac pacemaker Category: Medical Plan: Cardiac pacemaker in-situ for significant bradycardia. Pacemaker working well. Reprogrammed. Follow remotely and follow up in the clinic in 6 months. (4) Ascending aorta dilatation: Comment: April 2021 4.4 cm February 2025 4.5 cm Code(s): I77.810 - Thoracic aortic ectasia Category: Medical Plan: Ascending aortic aneurysm at 4.5 cm. No interventions required. Continue aggressive blood pressure control. Blood pressure is currently well optimized. Advised to avoid sudden strenuous isometric exercise. Follow-up echocardiogram in 6 months time. Will follow up in the clinic in 6 months time, sooner PRN. Thank you for allowing me to partake in her care Coding Level of Care Code Est Pt Level 4 (03072) Inspire Program cplx 4 or more Diagnoses Paroxysmal atrial fibrillation I48.0 Atrial fibrillation type: paroxysmal Chronic systolic congestive heart failure I50.22 Heart failure type: systolic Heart failure chronicity: chronic Pacemaker Z95.0 Ascending aorta dilatation I77.810 CPT Codes Cardiac Device Check - Cardiac Device 1: [id number]-[place] Cardiac Device Check, leadless/single lead pacemaker ([id number]) EKG - CPT: 26479-Fjprngdkqagfrqolh, Complete ([id number])
[2025-08-17 12:34] VITALS: BP 124/82; PULSE 67; BMI 36.3
== END 2025-08-17 12:58 | disposition home or self-care (01) ==
LOC: HO.HCS 12:27
PROVIDERS: PCP Internal Medicine; Visit Provider Internal Medicine Cardiovascular Disease
DX: I48.0 Paroxysmal atrial fibrillation (principal); I50.22 Chronic systolic (congestive) heart failure; Z95.0 Presence of cardiac pacemaker; I77.810 Thoracic aortic ectasia
CPT/HCPCS: 93010; 93279; 99214; G2211

== ENCOUNTER → 2025-08-17 12:26 | Outpatient (BNVA) | payer MEDICARE, OTHER, SELFPAY | PROVIDERS: PCP Internal Medicine; Visit Provider Internal Medicine Cardiovascular Disease | DX: I48.0 Paroxysmal atrial fibrillation (principal); I50.22 Chronic systolic (congestive) heart failure; I77.810 Thoracic aortic ectasia; Z95.0 Presence of cardiac pacemaker; Z79.01 Long term (current) use of anticoagulants | CPT/HCPCS: 93005; 99212 ==

== ENCOUNTER 2025-08-30 13:55 | Outpatient (REF) | payer MEDICARE, OTHER, SELFPAY ==
--- OUTSIDE RECORDS SUMMARY | 2024-05-21 05:30 | XMS_ITS ---
Author Organization [facility] Address [address] [place] [address] Care Team Providers Care Adolescent Counselor Name Role Phone Param Amaya Primary Care Provider Aguilar Murphy Unavailable [phone] Herson Belle [phone] Encounters Encounter Location Date Provider Diagnosis [facility] [address] [place] [address] 05/21/2024 Herson Belle Plan Of Treatment No Information Progress Notes * Natalie LOW BDOB: [birth year] (84 yo F)Acc No.[id number]:05/21/2024 Progress Notes Patient: Natalie MCINTYRE Provider: Lynnette Appiah DPM :1940 A ge:83 Y S ex:Female Date:05/21/2024 Address:[address] Pcp:Param Amaya Subjective: * Chief Complaints: * * Medical History: Objective: * Vitals: Assessment: Plan: * Treatment: * Images: * The named appointment provid er may or may not be the originator of this progress note, and it is not deemed complete until electronically signed by the appointment provider. Sign off status: Pending * Provider: Lynnette Appiah DPM Date: 0 05/21/2024 Generated for Mariana holloway/Gm/Debbie on: 10/31/2024 05:25 PM EST
--- OUTSIDE RECORDS SUMMARY | 2024-05-26 08:00 | XMS_ITS ---
Author Organization [facility] Address [address] [place] [address] Care Team Providers Care Search Strategist Name Role Phone Param Amaya Primary Care Provider Unavailabl Aguilar Subramanian Unavailable [phone] REASON FOR VISIT no ppwrk Encounters Encounter Location Date Provider Diagnosis [facility] [address] [place] [address] 05/26/2024 Aguilar Waller Plan Of Treatment No Information Progress Notes * Natalie LOW BDOB: [birth year] (84 yo F)Acc No.[id number]:05/26/2024 Progress Notes Patient: Natalie MCINTYRE Provider: Memo Waller DPM :1940 A ge:83 Y S ex:Female Date:05/26/2024 Address: [address], [facility] Pcp:Param Amaya Subjective: * Chief Complaints: * 1 . No ppwrk. * Medical History: Objective: * Vitals: Assessment: Plan: * Treatment: * Images: * The named appointment provid er may or may not be the originator of this progress note, and it is not deemed complete until electronically signed by the appointment provider. Sign off status: Pending * Provider: Memo Waller DPM Date: 0 05/26/2024 Generated for Mariana holloway/Gm/Bryanitting on: 10/31/2024 05:26 PM EST
[2025-08-30 14:18] LABS: MANUAL DIFF FLAG NO
[2025-08-30 17:19] LABS: Hematocrit 45.8 % (37.0-47.0); Hemoglobin 14.2 g/dl (12.0-16.0); Imm Gran Abs Auto 0.02 X10*3/uL (0.00-0.03); Imm Gran Pct Auto 0.3 % (0.0-0.4); Lymphocytes Absolute Auto 1.3 X10*3/uL (1.2-4.9); Mean Corpuscular HGB Conc 31.0 g/dl (31.0-35.0); Mean Corpuscular Hemoglobin 29.3 pg (27.0-33.0); Mean Corpuscular Volume 94.6 fL (80.0-98.0); NRBC Abs Auto 0.000 X10*3/uL (0.0-0.012); NRBC Pct Auto 0.0 /100WBC (0.0-0.2); Platelet Count 205 X10*3/uL (160-400); Red Blood Count 4.84 X10*6/uL (4.20-5.50); White Blood Count 6.9 X10*3/uL (4.8-10.8)
--- OUTSIDE RECORDS SUMMARY | 2025-08-30 17:26 | XMS_ITS | Encounter Summary ---
Author Organization [facility] Address [address] [facility] [facility] [address] [place] [address] Phone Care Team Providers Care Voltage Inspector Name Role Phone Param Amaya MD Primary Care Provider [phone] Alfreda Kilpatrick MD Primary Care Provider [phone] Param Amaya MD Primary Care Provider [phone] Encounter Details Date Type Department Care Team (Late st Contact Info) Description 02/17/2018 Procedure Pass [facility], Ct Scan - [facility] [address] [place] [address] Social History Tobacco Use Types Packs/Day Years [...] documented as of this encounter Care Teams Voltage Inspector Relationship Specialty Start Date End Date Param Amaya MD [address] [place] [phone] PCP - General Internal Medicine 02/17/18 06/18/24 Alfreda Kilpatrick MD [address] [place] [address] [email or web address] PCP - General Internal Medicine 06/19/24 06/22/24 Param Amaya MD [address] [place] [phone] PCP - General Internal Medicine 06/23/24 documented as of this encounter Additional Source Comments The information contained in this document represents components of the legal health record. It is not the complete legal health record.[facility]
--- OUTSIDE RECORDS SUMMARY | 2025-08-30 17:26 | XMS_ITS | Encounter Summary ---
Author Organization [facility] Address [address] [place] [address] [place] [address] Phone Care Team Providers Care Vulcanized Fiber Unit Operator Name Role Phone Param Amaya MD Primary Care Provider [phone] Alfreda Kilpatrick MD Primary Care Provider [phone] Param Amaya MD Primary Care Provider [phone] Encounter Details Date Type Department Care Team (Late st Contact Info) Description 05/10/2024 Procedure Pass [facility] [address] [place] [address] Social History Tobacco Use Types Packs/Day Years [...] documented as of this encounter Care Teams Vulcanized Fiber Unit Operator Relationship Specialty Start Date End Date Param Amaya MD [address] [place] [phone] PCP - General Internal Medicine 02/17/18 06/18/24 Alfreda Kilpatrick MD [address] [place] [phone] [email or web address] PCP - General Internal Medicine 06/19/24 06/22/24 Param Amaya MD [address] [place] [phone] PCP - General Internal Medicine 06/23/24 documented as of this encounter Additional Source Comments The information contained in this document represents components of the legal health record. It is not the complete legal health record.[facility]
--- OUTSIDE RECORDS SUMMARY | 2025-08-30 17:26 | XMS_ITS | Data Portability ---
Author Organization [facility] - [facility] formerly [facility], [facility] Address [address] [place] [address] Assessment Encounter Date Assessment Date Assessment LastModified [...] with family assistance and uses a walker tinsel machine operator. Objective: EXAMINATION: Examination of the right lower extremity shows knee active extension. No lag, no deformity, palpable over the patella. No point tenderness. IMAGING: X-RAYS ORDERED OBTAINED AND REVIEWED BY ME TODAY AT [facility]: Right knee three views today. These show [...] this 4. Recheck on an as-needed basis [email or web address] Not available 03/23/2025 13:16:18 Plan of Treatment Reminders Order Date Submit Date Provider Last Modified By Organization Details Last Modified Time Details Appointments None recorded. Lab None recorded. Referral None recorded. Procedures None recorded. Surgeries None recorded. Imaging XR, knee, 3 view - 314 rt knee 3v new pt 2024 025 [facility], [address], [address], [place], [address], 5 09:26:55 XR, ankle, 3 or more view - new pt 3 views left ankle stimulated rm 108 2023 024 [facility], [address], [address], [place], [address], 4 15:56:26 Medication Orders None recorded. Patient [...] a4ajBk vP9nXo QUaueC m3YtLR FvZlgJ JJ8mAn HZtai3 5h1088 AC0Kqa niNUqu hKiQtr MwF INTERFACE [facility] [address], [place], [address], 05/27/2024 13:35:59 05/27/20 24 05/27/2024 XR, ankle , 3 or more view [email or web address] ?Encry pted=s hAaTro YD8dLq bEUv6g %2BXZw aYqtaq 0bqfl% 2Fg9IQ a4ajBk vP9nXo QUaueC m3YtLR FvZlgJ JJ8mAn HZtai3 2w7586 AC0Kqa niNUqu hKiQtr MwF INTERFACE [facility] [address], [place], [address], 05/27/2024 13:36:01 03/23/20 25 03/23/2025 XR, knee, 3 view [email or web address] ?Encry pted=s hAaTro YD8dLq bEUv6g %2BXZw aYqtaq 0bqfl% 2Fg9IQ a4ajBk vP9nXo QUaueC m3YtLR FvZlgJ JJ8mAn HZtai3 8k5723 AC0Kla XqHVKC gKiQtr MwF INTERFACE [facility] [address] [facility] [facility] [address], [place], [address], 03/23/2025 11:30:05 03/23/20 25 03/23/2025 XR, knee, 3 view [email or web address] ?Encry pted=s hAaTro YD8dLq bEUv6g %2BXZw aYqtaq 0bqfl% 2Fg9IQ a4ajBk vP9nXo QUaueC m3YtLR FvZlg JJ8mAn HZtai3 8s7365 AC0Kla XqHVKC gKiQtr MwF INTERFACE [facility] [address] [facility] [address], [place], [address], 03/23/2025 11:30:06 Result Notes Documentation Provider Name and Address Organization Details Recorded Time Xr, Ankle, 3 Or More View : [email or web address] Encrypted=meLxYiwLK4cFvhY Uv6g%6CKKlkKbvaj2djai%2Fg 1PRm9fcYqrT4nTjVFmtyHa1Uq JSCfYfeMBG3qVrRAleq20d446 8MD7JdfkzHAfovRdYieOnV Not Available [facility] 05/27/2024 13:36: 00 Xr, Ankle, 3 Or More View : [email or web address] Encrypted=fgUgJctZL3mLkkM Uv6g%8HIDctMibss8gvpi%2Fg 9WVn0caDkxJ7pPjZYwqpOt5Se DYEnWioIOI6dFlICxjc51y084 5AB8JjueeHQyscVzXggViU Not Available [facility] 05/27/2024 13:36: 02 Xr, Knee, 3 View : [email or web address] Encrypted=kdDdWuhXP6sEllQ Uv6g%3DSQgnQbwtp0pbxs%2Fg 1TRp6wzJmsX7yGqJTcunSp8Zy JWYyMsnVLF7lFnOTmcf29l535 9YR9KptWePANWnAbPutPeT Not Available [facility] 03/23/2025 11:30: 05 Xr, Knee, 3 View : [email or web address] Encrypted=qlTdXekFI0cCarM Uv6g%9EPLpwZlzhi1agkh%2Fg 8MYj4wgIccC4oMiAFdjnFr3Vz WLAqVmnNBA0aNhFIrns44z594 2HV3KolVkAVTWcOvVswXdI Not Available [facility] 03/23/2025 11:30: 07 Medical Equipment None Reported. Allergies Allergen ID Allergen Name Allergen Category Reaction Reaction Severity Criticality Documentation Date Start Date Code Code System Note Provider Name and Address Organization Details Recorded Time 550082 aspirin medicatio n Not available Not available Not available 03/23/2025 1191 RxNorm DAWNA knapp [facility] 11:27:45 289785 lisinopri l medicatio n Not available Not available Not available 03/23/2025 28865 RxNorm DAWNA knapp [facility] 11:27:52 659732 zolpidem medicatio n Not available Not available Not available 03/23/2025 20810 RxNorm DAWNA THIAGO [facility] 11:27:57 859177 Benadryl medicatio n Not available Not available Not available 03/23/202521179 7 RxNorm DAWNA DAS [facility] 5 11:28:01 304695 Motrin medicatio n Not available Not available Not available 03/23/202537217 8 RxNorm DAWNA DAS [facility] 11:28:06 169958 Non-stero idal anti-infl ammatory agent (substanc e) medicatio n Not available Not available Not available 03/23/2025 33463 5008 SNOMED DAWNA DAS [facility] 11:28:09 240396 adhesive tape environme nt,medica tion Not available Not available Not available 03/23/2025 DAWNA DAS [facility] 11:28:15 Medications Name Sig Start Date [...] e) 50 mcg/actuati on nasal spray,suspe nsion [place] 1 spray every day by intranasa l [...] Updated DateTime 03/23/2025 160.02 cm 34.7 kg/m2 91416.1 g DAWNA DAS [facility] 03/23/2025 11:22:30 Date Recorded Body height Body mass index (BMI) Body weight Provider Name and Address Organization Details Last Updated DateTime 05/27/2024 160.02 cm 30.1 kg/m2 85011.7 g Ludy Mujica [facility] 05/27/2024 13:22:25 Social History None recorded. Functional Status None recorded. Mental Status None recorded. Family History Nothing Reported. Medical History No medical history recorded. Gynecological HistoryNo gynecological history recorded. Obstetrics History GPAL:G 0 P 0 0 0 0 Past Encounters Encounter ID Performer Location Encounter Start Date Encounter Closed Date Diagnosis/Indication Diagnosis SNOMED-CT Code Diagnosis ICD10 Code Diagnosis IMO Codes Diagnosis Note [id number] TANIKA Rogers [address] [place] [address] 05/27/2024 12:53:52 06/17/2024 15:56:26 Pain of left ankle joint 1586588204 5288679 M25.572 Acquired b ilateral pes planus 4477196930 2724315 M21.41 M21.42 [id number] MD SHAZIA Wren [address] [place] [address] 03/23/2025 10:52:56 04/05/2025 09:26:55 Closed fracture of patella 22083865 S82.001A 954718977 Health Concerns Section Related Observation LastModified by Organization Detai ls LastModified Time None Recorded Concern Status LastModified by Organization Details LastModified Time None Recorded Advance Directives Directive None Recorded Payers Insurance Date Sequence Insurance Name Policy Number Policy Figueroa Covered Member ID Figueroa Member ID Guarantor Name 07/09/2024 2 FOR LIFE ( - MEDICARE SUPPLEMENT) Natalie Low [id number] Natalie Tracygh 04/28/2025 2 FOR LIFE ( - MEDICARE SUPPLEMENT) Natalie Low [id number] Natalie Maranda 08/03/2024 [facility] [id number] Nataliecatracho Tracygh 03/20/2025 1 MEDICARE B-[place]: [facility] Natalie B Maranda [id number] Natalie [place] Notes Date Note Type Note Provider Name and Address Organization Details Recorded Time 4 text/html I am seeing the patient today under the supervision of Dr. Lara who was available but did not see the patient.attending: Dr. Espino HPI: 83 yof presents to the clinic for evaluation for left ankle injury.Pt is unaccompanied currently and currently residing in a residential. Patient states that she injured her ankle [...] and plantarflexionX-rays ordered, obtained and reviewed at [facility]: 3 views of the left ankle and [...] Should be given prescriptions for this. Her residential paper was filled out today. I believe if she is not having pain she may slowly start to initiate some weightbearing as tolerated with assistance. If having pain she is to call the office she may follow-up in a month or sooner if needed. Continue with current pain management management regimen. All questions answered.Speech recognition hydraulic press tender software was used to create portions of [...] to please contact our office immediately. Yana Hayden PA-C [address] [place] [address] [address], [place], [address], [facility] 05/28/2024 20:33:46 OBGyn Episode No OBEpisode recorded.
--- OUTSIDE RECORDS SUMMARY | 2025-08-30 17:26 | XMS_ITS | Encounter Summary ---
Author Organization [facility] Address [address] [facility] [address] [place] [address] Phone Care Team Providers Care Mucking Machine Operator Name Role Phone Param Amaya MD Primary Care Provider [phone] Alfreda Kilpatrick MD Primary Care Provider Param Amaya MD Primary Care Provider [phone] Encounter Details Date Type Department Care Team (Late st Contact Info) Description 02/17/2018 Procedure Pass [facility], Ct Scan - [facility] [address] [place] [address] Social History Tobacco Use Types Packs/Day Years [...] documented as of this encounter Care Teams Mucking Machine Operator Relationship Specialty Start Date End Date Param Amaya MD [address] [place] [phone] PCP - General Internal Medicine 02/17/18 06/18/24 Alfreda Kilpatrick MD [address] [place] [address] [email or web address] PCP - General Internal Medicine 06/19/24 06/22/24 Param Amaya MD [address] [place] [phone] PCP - General Internal Medicine 06/23/24 documented as of this encounter Additional Source Comments The information contained in this document represents components of the legal health record. It is not the complete legal health record.[facility]
--- OUTSIDE RECORDS SUMMARY | 2025-08-30 17:26 | XMS_ITS | Encounter Summary ---
Author Organization [facility] Address [address] [place] [address] [place] [address] Phone Care Team Providers Care Case Management Coordinator Name Role Phone Param Amaya MD Primary Care Provider [phone] Alfreda Kilpatrick MD Primary Care Provider [phone] Param Amaya MD Primary Care Provider [phone] Encounter Details Date Type Department Care Team (Late st Contact Info) Description 05/15/2024 Procedure Pass [facility], Ct Scan - [facility] [address] [place] [address] Social History Tobacco Use Types Packs/Day Years [...] documented as of this encounter Care Teams Case Management Coordinator Relationship Specialty Start Date End Date Param Amaya MD [address] [place] [phone] PCP - General Internal Medicine 02/17/18 06/18/24 Alfreda Kilpatrick MD [address] [place] [address] [email or web address] PCP - General Internal Medicine 06/19/24 06/22/24 Param Amaya MD [address] [place] [phone] PCP - General Internal Medicine 06/23/24 documented as of this encounter Additional Source Comments The information contained in this document represents components of the legal health record. It is not the complete legal health record.[facility]
--- OUTSIDE RECORDS SUMMARY | 2025-08-30 17:26 | XMS_ITS | Encounter Summary ---
Author Organization [facility] Address [address] [facility] [address] [place] [address] Phone Care Team Providers Care Rail Gang Supervisor Name Role Phone Alfreda Kilpatrick MD Primary Care Provider [phone] Param Amaya MD Primary Care Provider [phone] Encounter Details Date Type Department Care Team (Late st Contact Info) Description 06/20/2024 Procedure Pass [facility] MRI, Lunder [address] [facility], 6th [place] [address] Social History Tobacco Use Types Packs/Day Years [...] on filedocumented in this encounter Care Teams Rail Gang Supervisor Relationship Specialty Start Date End Date Alfreda Kilpatrick MD [address] [place] [address] PCP - General Internal Medicine 06/19/24 06/22/24 Param Amaya MD [address] [place] [address] [place] [phone] PCP - General Internal Medicine 06/23/24 documented as of this encounter Additional Source Comments The information contained in this document represents components of the legal health record. It is not the complete legal health record.[facility]
--- OUTSIDE RECORDS SUMMARY | 2025-08-30 17:26 | XMS_ITS | Encounter Summary ---
Author Organization [facility] Address [address] [facility] [address] [place] [address] Phone Care Team Providers Care Onion Topper Name Role Phone Alfreda Kilpatrick MD Primary Care Provider [phone] Param Amaya MD Primary Care Provider [phone] Encounter Details Date Type Department Care Team (Late st Contact Info) Description 06/19/2024 Procedure Pass [facility], Ct Scan - [facility] [address] [place] [address] Social History Tobacco Use Types Packs/Day Years [...] on filedocumented in this encounter Care Teams Onion Topper Relationship Specialty Start Date End Date Alfreda Kilpatrick MD [address] [place] [address] PCP - General Internal Medicine 06/19/24 06/22/24 Param Amaya MD [address] [place] [address] [place] [phone] PCP - General Internal Medicine 06/23/24 documented as of this encounter Additional Source Comments The information contained in this document represents components of the legal health record. It is not the complete legal health record.[facility]
--- OUTSIDE RECORDS SUMMARY | 2025-08-30 17:26 | XMS_ITS | Clinical Summary ---
Author Organization [facility] Address [address] [facility] [address] [place] [address] Phone Care Team Providers Care Rap Artist Name Role Phone Param Amaya MD Primary [...] ineffective). Active monobasic and dibasic sodium phosphates (71714 ENEMA) 19-7 gram/[address] [...] occurred 04/23 and she was admitted to [facility]. She is nonweightbearing until seen by ortho in f/u, but typically this can last up to 3 mos per our ortho team. Daughter to reschedule Orthopedics appointment with ROXY Pena, after discharge COVID-19 05/10/2024 Assessment & Plan (05/17/2024 1:34 PM EDT): Had COVID in March and took Paxlovid and recovered. During her recent admission to [facility] she tested negative on 04/24. 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 Goal sats [...] Oxygen increased to 15 L overnight 05/15-. Handle Sewer consulted-.. increased pulmonary toilet. 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 Atrial fibrillation, unspecified type Vanishing lung HEMOGLOBIN A1C Routine 05/11/2024 5:48 AM EDT from Last 3 Months or Most Recently Relevant to Health Maintenance Results * Basic metabolic panel (03/22/2025 5:45 AM EDT) SODIUM 144 133 - 146 mmol/L [facility] CHLORIDE 103 96 - 108 mmol/L [facility] POTASSIUM 4.5 3.3 - 5.1 mmol/L [facility] CO2 34 21 - 35 mmol/L [facility] BUN 19 6 - 19 mg/dL [facility] CREATININE 0.50 0.5 - 1.5 mg/dL [facility] GLUCOSE 80 70 - 99 mg/dL [facility] CALCIUM 9.2 8.4 - 10.3 mg/dL [facility] EGFR 94 >59 mL/min/1.7 3m2 [facility] Comment:Estimated glomerular filtration rate calculated using the CKD-EPI refit equation. ANION GAP 12 10 - 20 mmol/L [facility] Blood 03/22/2025 5:45 AM EDT 03/22/2025 7:32 AM EDT us Alfreda Kilpatrick MD LAB BLOOD BKR ORDERABLES Final Result [address] [address] * (ABNORMAL) Hemoglobin A1c (05/11/2024 5:48 AM EDT) HEMOGLOBIN A1C 6.0(H) 4.3 - 5.8 % [facility] Blood 05/11/2024 5:48 AM EDT 05/11/2024 5:52 AM EDT Woody [place] DO LAB BLOOD BKR ORDERABLES Fanny nickolas Result [facility] [address] [place] [address] from Last 3 Months or Most Recently Relevant to Health Maintenance Insurance CARE [address] [address] MEDICARE PART A & B [facility] MEDICARE SUPPLEMENT [facility] Address: [facility] [address] [place] [address] [address] MEDICARE PART A & B FOR LIFE MEDICARE SUPPLEMENT MEDICARE PART A & B FOR LIFE MEDICARE SUPPLEMENT MEDICARE PART A & B FOR LIFE MEDICARE SUPPLEMENT [facility] Address: [address] [address] MEDICARE PART A & B [facility] FOR LIFE MEDICARE SUPPLEMENT [facility] Address: [address] [address] MEDICARE PART A & B [email or web address] MEDICARE SUPPLEMENT [facility] Address: [id number] [place] [address] MEDICARE PART A & B [email or web address] MEDICARE SUPPLEMENT MEDICARE PART A & B [email or web address] MEDICARE SUPPLEMENT [facility] Address: [address] [address] MEDICARE PART A & B [email or web address] MEDICARE SUPPLEMENT Advance Directives For more information, please contact: [phone] (9AM - 5PM [facility], Saturday-Saturday) Documents on File Type Date Recorded Patient Chemical Research Engineer Expl anation Healthcare Proxy 03/08/2025 4:28 PM [...] Comments: MOLST previously compl eted Care Teams Rap Artist Relationship Specialty Start Date End Date Param Amaya MD [address] [place] [phone] PCP - General Internal Medicine 06/23/24 Additional Source Comments The information contained in this document represents components of the legal health record. It is not the complete legal health record.[facility]
--- OUTSIDE RECORDS SUMMARY | 2025-08-30 17:26 | XMS_ITS | Encounter Summary ---
Author Organization [facility] Address [address] [facility] [address] [place] [address] Phone Care Team Providers Care Tree And Shrub Worker Name Role Phone Alfreda Kilpatrick MD Primary Care Provider [phone] Param Amaya MD Primary Care Provider [phone] Encounter Details Date Type Department Care Team (Late st Contact Info) Description 06/19/2024 Procedure Pass [facility], Ct Scan - [facility] [address] [place] [address] Social History Tobacco Use Types Packs/Day Years [...] on filedocumented in this encounter Care Teams Tree And Shrub Worker Relationship Specialty Start Date End Date Alfreda Kilpatrick MD [address] [place] [address] PCP - General Internal Medicine 06/19/24 06/22/24 Param Amaya MD [address] [place] [address] [place] [phone] PCP - General Internal Medicine 06/23/24 documented as of this encounter Additional Source Comments The information contained in this document represents components of the legal health record. It is not the complete legal health record.[facility]
--- OUTSIDE RECORDS SUMMARY | 2025-08-30 17:26 | XMS_ITS | Encounter Summary ---
Author Organization [facility] Address [address] [facility] [address] [place] [address] Phone Care Team Providers Care Mannequin Coloring Artist Name Role Phone Param Amaya MD Primary Care Provider [phone] Alfreda Kilpatrick MD Primary Care Provider [phone] Param Amaya MD Primary Care Provider [phone] Encounter Details Date Type Department Care Team (Late st Contact Info) Description 02/17/2018 Procedure Pass [facility], Ct Scan - [facility] [address] [place] [address] Social History Tobacco Use Types Packs/Day Years [...] documented as of this encounter Care Teams Mannequin Coloring Artist Relationship Specialty Start Date End Date Param Amaya MD [address] [place] [phone] PCP - General Internal Medicine 02/17/18 06/18/24 Alfreda Kilpatrick MD [address] [place] [address] [email or web address] PCP - General Internal Medicine 06/19/24 06/22/24 Praam Amaya MD [address] [place] [phone] PCP - General Internal Medicine 06/23/24 documented as of this encounter Additional Source Comments The information contained in this document represents components of the legal health record. It is not the complete legal health record.[facility]
--- OUTSIDE RECORDS SUMMARY | 2025-08-30 17:26 | XMS_ITS | Patient Health Record ---
Author Organization [facility] Address [address] [place] [phone] Care Team Providers Care Pan Devulcanizer Name Role Phone Po Param PEREZ Primary Care Provider Jorje Griffith [phone] Allergies Allergen (clinical drug ingredient) Drug/Non Drug Allergy documented on EMR Reaction Allergy Type Onset Date Status seasonals (uncoded) Unknown Allergy Active tape (uncoded) Unknown Allergy Activ e zolpidem Ambien Unknown Drug Allergy Active aspirin Aspirin Unknown Drug Allergy Active diphenhydramine Benadryl Unknown Drug Allergy A ctive lisinopril Lisinopril Unknown Drug Allergy Activ e Motrin Unknown Drug Allergy Active Vicodin Unknown Drug Allergy Active Reason For Referral No Information Medications Medication SIG (Take, Route, Frequency, Duration) Notes Start Date End Date Status Stool Softener 100 MG Capsule 1 capsule as needed Orally Once a day; Duration: 30 day(s) Active Neurontin 100 MG Capsule 1 capsule Orall y Three times a day Active Omeprazole 20 MG Capsule Delayed Release 1 capsule Orally Once a day; Duration: 30 day(s) Active Percocet 5-325 MG Tablet 3 tablet as nee ded Orally prn Active Furosemide 20 MG Tablet 1 tablet Orally Once a day; Duration: 30 day(s) Active Simvastatin 20 MG Tablet 1 tablet in the evening Orally Once a day Active Metoprolol Succinate 100 MG Capsule ER 24 Hour Sprinkle 1 capsule Orally Once a day; Duration: 30 day(s) Active Digoxin 125 MCG Tablet 1 tablet Orally O nce a day Active rOPINIRole HCl 1 MG Tablet 1 tablet 1 to 3 hours before bedtime Orally Once a day Active dilTIAZem HCl ER 240 MG Capsule Extended Release 24 Hour 1 capsule on an empty stomach in the morning Orally Twice a day Active Anoro Ellipta 62.5-25 MCG/INH Aerosol Powder Breath Activated 1 puff Inhalation Once a day Active ProAir HFA 108 (90 Base) MCG/ACT Aerosol Solution 2 puffs as needed Inhalation every 6 hrs Active Multi Vitamin/Minerals - Tablet as directed Orally once a day Active Vitamin C 500 MG Tablet Chewable 1 tablet Orally Once a day Active Warfarin Sodium 5 MG Tablet 1 tablet Ora lly once a day Active Vitamin D3 1000 UNIT Tablet 1 tablet Ora lly Once a day Active metFORMIN HCl 500 MG Tablet 1 tablet wit h meals Orally twice a day Active Immunizations Vaccine Route Administration Date Status Comme nts Influenza Unknown 05/21/2018 Administered Social History Social History Additional Details Category Social Info Options Details Miscellaneous: Marital status: Occupation: retired Section Notes: Nonsmoker; no alcohol Nonsmoker; no alcohol Problems Problem Type SNOMED Code ICD Code Onset Dates Problem Status W/U Status Risk Notes Problem Gastroesophageal reflux disease (910921619) Gastroesophageal reflux disease, esophagitis presence not specified (K21.9) Active confirmed Problem Hiatal hernia (70544456) Hiatal hernia (K44.9) Active confirmed Problem Abnormal UGI series (R93.3) Active confirmed Plan Of Treatment Future Test Test Name Order Date COLONOSCOPY 05/20/2014 UPPER GI ENDOSCOPY 01/01/2019 Insurance Providers Payer Name Payer Address Payer Phone Subscriber Number Group Number Insured Name Patient Relationship to Insured Coverage Start Date Coverage End Date MEDICARE OF [place] [address] [place] [address] [phone] [id number] NELSY CASTILLOE Self - patient is the insured [employer] [address] [place] [address] [id number] JONATHAN CHUCKIE Self - patient is the insured Medical (General) History Medical History History ICD Code Arthritis GERD--large hiatal hernia on 08/2018 UGI with a component of an organoaxial rotation of the stomach above the diapragm. Spinal Stenosis Anemia, requiring transfusio ns in 1997--had an EGD and colonoscopy at [facility] in 1997--reportedly negative except for a hiatal hernia Hypertension Colonoscopy in 02/2008 and 2013--- tubula r adenomas removed, diverticulosis Hyperlipidemia Paroxysmal atrial fibrillation-sees Dr. 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 Brito ay Breast [id number] Lumpectomy, right breast X2, for cancer as above
--- OUTSIDE RECORDS SUMMARY | 2025-08-30 17:27 | XMS_ITS | Encounter Summary ---
Author Organization [facility] Address [address] [place] [address] [place] [address] Phone Care Team Providers Care Horse Wrangler Name Role Phone Param Amaya MD Primary Care Provider [phone] Alfreda Kilpatrick MD Primary Care Provider [phone] Param Amaya MD Primary Care Provider [phone] Encounter Details Date Type Department Care Team (Late st Contact Info) Description 06/06/2024 Procedure Pass [facility], Ct Scan - [facility] [address] [place] [address] Social History Tobacco Use Types Packs/Day Years [...] documented as of this encounter Care Teams Horse Wrangler Relationship Specialty Start Date End Date Param Amaya MD [address] [place] [phone] PCP - General Internal Medicine 02/17/18 06/18/24 Alfreda Kilpatrick MD [address] [place] [address] [email or web address] PCP - General Internal Medicine 06/19/24 06/22/24 Param Amaya MD [address] [place] [phone] PCP - General Internal Medicine 06/23/24 documented as of this encounter Additional Source Comments The information contained in this document represents components of the legal health record. It is not the complete legal health record.[facility]
--- OUTSIDE RECORDS SUMMARY | 2025-08-30 17:27 | XMS_ITS | Patient Health Record ---
Author Organization [facility] Address [address] [place] [address] Care Team Providers Care Granite Polisher Name Role Phone Jose LuisParam Primary Care Provider Aguilar Murphy Unavailable [phone] Reason For Referral No Information Plan Of Treatment No Information Insurance Providers Payer Name Payer Address Payer Phone Subscriber Number Group Number Insured Name Patient Relationship to Insured Coverage Start Date Coverage End Date Medicare National [employer]t [employer] [address] [facility] [place] [id number] Natalie Low Self - patient is the insured for Life [address] [place] [address] Natalie Low Self - patient is the insured
--- OUTSIDE RECORDS SUMMARY | 2025-08-30 17:27 | XMS_ITS | Encounter Summary ---
Author Organization [facility] Address [address] [facility] [address] [place] [address] Phone Care Team Providers Care Auto Leasing Manager Name Role Phone Param Amaya MD Primary Care Provider [phone] Encounter Details Date Type Department Care Team (Late st Contact Info) Description 03/04/2025 Procedure Pass [facility] [address] [place] [address] Social History Tobacco Use Types Packs/Day Years [...] housing situation today? I have janine danitza 03/02/2025 How many times have you move [...] on filedocumented in this encounter Care Teams Auto Leasing Manager Relationship Specialty Start Date End Date Param Amaya MD [address] [place] [address] [place] [phone] PCP - General Internal Medicine 06/23/24 documented as of this encounter Additional Source Comments The information contained in this document represents components of the legal health record. It is not the complete legal health record.[facility]
[2025-08-30 18:02] LABS: Alanine Aminotransferase 26 U/L (0-31); Albumin Level 4.4 g/dL (3.5-5.0); Alkaline Phosphatase 106 U/L (39-117); Anion Gap 16 (12-20); Aspartate Amino Transferase 27 U/L (5-31); Blood Urea Nitrogen 23 mg/dL (9-16); Calcium 10.0 mg/dL (8.4-10.2); Carbon Dioxide 30 mmol/L (22-29); Chloride 102 mmol/L (96-108); Cholesterol 141 mg/dL (<200); Estimated Glomerular Filt Rate > 60; HDL Cholesterol 51 mg/dL (>40); Magnesium 2.2 mg/dL (1.6-2.6); Potassium 4.5 mmol/L (3.3-5.1); Sodium 143 mmol/L (135-145); Total Protein 6.9 g/dL (6.5-8.0); Triglycerides 61 mg/dL (<150)
[2025-08-30 18:09] LABS: Free T4 (Free Thyroxine) 1.02 ng/dL (0.71-1.85); Thyroid Stimulating Hormone 3.57 uIU/mL (0.32-4.0)
[2025-08-30 18:20] LABS: Folate 12.5 ng/mL (> or = 4.0); Vitamin B12 1027 pg/mL (200-900)
[2025-08-30 18:51] LABS: Microalbum/Creatinine Ratio Ur 154.9 ug/mg cr (<30)
== END 2025-08-30 13:56 | disposition home or self-care (01) ==
LOC: HO.LAB 13:55
PROVIDERS: PCP Internal Medicine; Visit Provider Internal Medicine
DX: E11.65 Type 2 diabetes mellitus with hyperglycemia (principal); J43.9 Emphysema, unspecified; E78.00 Pure hypercholesterolemia, unspecified
CPT/HCPCS: 36415; 80053; 80061; 82043; 82306; 82570; 82607; 82746; 83036; 83735; 84439; 84443; 85025